=== PATIENT | male | born 1945 | race Caucasian/White ===

== ENCOUNTER 2019-10-06 11:25 | Emergency (ER) | payer BC, MEDICARE ==
[2019-10-06] MEDS ORDERED: Furosemide 20 MG/2 ML VIAL IVPUSH STA (13:09)
[2019-10-06] MEDS ORDERED: Metolazone 5 MG Tab PO ONE (13:09)
--- NOTE | 2019-10-06 13:11 | EDM.PDOC ---
ED HPI GENERAL MEDICAL PROBLEM - General Chief Complaint: Respiratory Problem Stated Complaint: CHEST PAIN Time Seen by Provider: 10/06/19 11:30 Source of Information: Reports: Patient History Limitations: Reports: No Limitations - History of Present Illness INITIAL COMMENTS - FREE TEXT/NARRATIVE: Patient presented to the ED because of dyspnea for 2 months which is getting worse. Normally he can walk 2 blocks without being short of breath but for the past week it's getting worse. He denies having any chest pain, N/V, diaphoresis. He also mentioned that he gained 25 lbs during the last 2 months and most are in his abdomen. R shoulder Pain Score (Numeric/FACES): 6 - Related Data Allergies Allergy/AdvReac Type Severity Reaction Status Date / Time hydromorphone HCl Allergy Cannot Verified 10/06/19 11:44 [From Dilaudid] Remember Penicillins Allergy Hives Verified 10/06/19 11:44 Home Meds: Home Meds Albuterol [Ventolin HFA] 2 puff INH Q4H PRN 06/06/14 [History] Losartan [Cozaar] 25 mg PO BEDTIME 06/06/14 [History] Metoprolol Succinate [Toprol XL] 50 mg PO BEDTIME 06/06/14 [History] Multivitamin [My Favorite Multiple] 30 ml PO BEDTIME 06/06/14 [History] Ware-3 Fatty Acids [Ware-3] 2 cap PO BEDTIME 06/06/14 [History] Ubiquinol 200 mg PO BEDTIME 06/06/14 [History] atorvaSTATin [Lipitor] 20 mg PO BEDTIME 06/06/14 [History] Apixaban [Eliquis] 5 mg PO BID 10/06/19 [History] Ascorbate Calcium [Vitamin C] 500 mg PO BEDTIME 10/06/19 [History] Aspirin [Adult Low Dose Aspirin EC] 81 mg PO BEDTIME 10/06/19 [History] Budesonide [Pulmicort] 0.5 mg IH BID 10/06/19 [History] Formoterol [Perforomist] 20 mcg INH BID 10/06/19 [History] Furosemide [Lasix] 40 mg PO DAILY #30 tab 10/06/19 [Rx] Magnesium 250 mg PO BEDTIME 10/06/19 [History] Nitroglycerin [Nitrostat] 0.4 mg SL ASDIRECTED PRN 10/06/19 [History] Past Medical History Cardiovascular History: Reports: Afib, SOB on Exertion, Stents Other Cardiovascular History: cardioversion 10/04/19 Respiratory History: Reports: COPD, Sleep Apnea, SOB Genitourinary History: Reports: Renal Calculus, Other (See Below) Musculoskeletal History: Reports: Arthritis Other Musculoskeletal History: R shoulder arthritis Endocrine/Metabolic History: Reports: Obesity/BMI 30+ Hematologic History: Reports: Anticoagulation Therapy - Infectious Disease History Infectious Disease History: Reports: Chicken Pox, Measles - Past Surgical History HEENT Surgical History: Reports: Eye Surgery Other HEENT Surgeries/Procedures: L tear duct surgery Cardiovascular Surgical History: Reports: Carotid Endarterectomy, Coronary Artery Stent Other Cardiovascular Surgeries/Procedures: stents x 2, R carotid endarterectomy Respiratory Surgical History: Reports: Thoracentesis GI Surgical History: Reports: Colonoscopy Male Surgical History: Reports: Lithotripsy (ES[facility]) Musculoskeletal Surgical History: Reports: None Social & Family History - Family History Family Medical History: Noncontributory - Tobacco Use Smoking Status *Q: Former Smoker Years of Tobacco use: 20 Used Tobacco, but Quit: Yes Month/Year Tobacco Last Used: 1984 - Caffeine Use Caffeine Use: Reports: Coffee - Recreational Drug Use Recreational Drug Use: No ED ROS GENERAL - Review of Systems Review Of Systems: See Below Constitutional: Reports: No Symptoms HEENT: Reports: No Symptoms Respiratory: Reports: Shortness of Breath. Denies: Cough Cardiovascular: Reports: No Symptoms Endocrine: Reports: No Symptoms GI/Abdominal: Reports: No Symptoms : Reports: No Symptoms Musculoskeletal: Reports: No Symptoms Skin: Reports: No Symptoms Neurological: Reports: No Symptoms Psychiatric: Reports: No Symptoms Hematologic/Lymphatic: Reports: No Symptoms ED EXAM, GENERAL - Physical Exam Exam: See Below Exam Limited By: No Limitations General Appearance: Alert, No Apparent Distress Eye Exam: Bilateral Eye: PERRL Ears: Normal External Exam, Normal Canal Nose: Normal Inspection, Normal Mucosa Throat/Mouth: Normal Inspection, Normal Lips, Normal Teeth Head: Atraumatic, Normocephalic Neck: Normal Inspection, Supple, Non-Tender, Full Range of Motion Respiratory/Chest: No Respiratory Distress, Chest Non-Tender, Rales Cardiovascular: Normal Peripheral Pulses, Regular Rate, Rhythm, No Edema, No Gallop Extremities: Normal Inspection, Normal Range of Motion Neurological: Alert, Oriented, CN II-XII Intact Psychiatric: Normal Affect Skin Exam: Warm Course - Vital Signs Text/Narrative:: Labs,CXR, WKG was discussed with patient and verbalized full understanding Trop neg Pro BNO-elevated lasix 40 mg IV x1 zaroxolyn 5 mg po x1 Last Recorded V/S: Last Vital Signs Temp 36.6 C 10/06/19 11:25 Pulse 81 10/06/19 14:00 Resp 20 10/06/19 14:00 BP 158/87 H 10/06/19 14:00 Pulse Ox 95 10/06/19 14:00 - Orders/Labs/Meds Orders: Active Orders 24 hr Category Date Time Status EKG Documentation Completion [RC] ASDIRECTED Care 10/06/19 11:46 Active Peripheral IV Insertion Adult [OM.PC] Routine Oth 10/06/19 13:42 Ordered EKG 12 Lead [EK] Routine Ther 10/06/19 11:46 Ordered Labs: Laboratory Tests 10/06/19 10/06/19 10/06/19 Range/Units 11:35 11:35 11:35 WBC 9.8 (4.5-12.0) X10-3/uL RBC 4.73 (4.30-5.75) x10(6)uL Hgb 13.6 (13.5-17.8) g/dL Hct 42.2 (30.0-51.3) % MCV 89.2 (80-96) fL MCH 28.7 (27.7-33.6) pg MCHC 32.2 (32.2-35.4) g/dL RDW 14.8 (11.5-15.5) % Plt Count 254 (125-369) X10(3)uL MPV 7.8 (7.4-10.4) fL Add Manual Diff Yes Neutrophils % (Manual) 83 H (46-82) % Lymphocytes % (Manual) 13 (13-37) % Monocytes % (Manual) 4 (4-12) % D-Dimer, Quantitative (0.0-0.59) mg/LFEU Sodium 142 (135-145) mmol/L Potassium 4.8 (3.5-5.3) mmol/L Chloride 106 (100-110) mmol/L Carbon Dioxide 27 (21-32) mmol/L BUN 20 H (7-18) mg/dL Creatinine 1.3 (0.70-1.30) mg/dL Est Cr Clr Drug Dosing 47.32 mL/min Estimated GFR (MDRD) 54 L (>60) BUN/Creatinine Ratio 15.4 (9-20) Glucose 110 (80-116) mg/dL Calcium 9.1 (8.6-10.2) mg/dL Total Bilirubin 1.5 H (0.1-1.3) mg/dL AST 25 (5-25) IU/L ALT 47 H (12-36) U/L Alkaline Phosphatase 70 (56-112) IU/L Troponin I 12.8 (4.0-60.3) pg/mL NT-Pro-B Natriuret Pep 967 H (<=125) pg/mL Total Protein 7.9 (6.0-8.0) g/dL Albumin 3.8 (3.2-4.6) g/dL Globulin 4.1 g/dL Albumin/Globulin Ratio 0.9 04/29/20 Range/Units 11:35 WBC (4.5-12.0) X10-3/uL RBC (4.30-5.75) x10(6)uL Hgb (13.5-17.8) g/dL Hct (30.0-51.3) % MCV (80-96) fL MCH (27.7-33.6) pg MCHC (32.2-35.4) g/dL RDW (11.5-15.5) % Plt Count (125-369) X10(3)uL MPV (7.4-10.4) fL Add Manual Diff Neutrophils % (Manual) (46-82) % Lymphocytes % (Manual) (13-37) % Monocytes % (Manual) (4-12) % D-Dimer, Quantitative 0.53 (0.0-0.59) mg/LFEU Sodium (135-145) mmol/L Potassium (3.5-5.3) mmol/L Chloride (100-110) mmol/L Carbon Dioxide (21-32) mmol/L BUN (7-18) mg/dL Creatinine (0.70-1.30) mg/dL Est Cr Clr Drug Dosing mL/min Estimated GFR (MDRD) (>60) BUN/Creatinine Ratio (9-20) Glucose (80-116) mg/dL Calcium (8.6-10.2) mg/dL Total Bilirubin (0.1-1.3) mg/dL AST (5-25) IU/L ALT (12-36) U/L Alkaline Phosphatase (56-112) IU/L Troponin I (4.0-60.3) pg/mL NT-Pro-B Natriuret Pep (<=125) pg/mL Total Protein (6.0-8.0) g/dL Albumin (3.2-4.6) g/dL Globulin g/dL Albumin/Globulin Ratio Meds: Medications Discontinued Medications Generic Name Dose Route Start Last Admin Trade Name Freq PRN Reason Stop Dose Admin Furosemide 40 mg 10/06/19 13:09 10/06/19 13:41 Lasix IVPUSH 10/06/19 13:10 40 mg NOW STA Administration Metolazone 5 mg 10/06/19 13:09 10/06/19 13:42 Zaroxolyn PO 10/06/19 13:10 5 mg ONETIME ONE Administration Sodium Chloride 10 ml 10/06/19 13:42 10/06/19 11:38 Saline Flush FLUSH 10 ml ASDIRECTED PRN Administration Keep Vein Open Departure - Departure Time of Disposition: 14:00 Disposition: Home, Self-Care 01 Condition: Good Clinical Impression: New onset of congestive heart failure - Discharge Information Prescriptions: Furosemide [Lasix] 40 mg PO DAILY #30 tab Instructions: Furosemide injection, Heart Failure, Metolazone tablets Referrals: Marco Antonio Flores MD [Primary Care Provider] - Forms: ED Department Discharge Additional Instructions: please read discharge instructions on congestive heart failure take lasix/furosemide 40 mg daily until you see Dr. Flores Follow up with Dr. Flores next week at [facility] [place], call for appt. Sepsis Event Note - Evaluation Sepsis Screening Result: No Definite Risk - Focused Exam Vital Signs: Vital Signs Temp Pulse Resp BP Pulse Ox 10/06/19 14:00 81 20 158/87 H 95 10/06/19 13:30 143 H 23 H 143/80 H 94 L 10/06/19 13:00 77 26 H 138/62 94 L 10/06/19 12:30 80 24 H 137/78 94 L 10/06/19 12:15 78 19 138/83 93 L 10/06/19 12:00 78 23 H 141/87 H 92 L 10/06/19 11:45 78 25 H 143/76 H 93 L 10/06/19 11:25 36.6 C 80 24 H 128/58 L 93 L Date Exam was Performed: 10/06/19 Time Exam was Performed: 18:52 - My Orders Last 24 Hours: My Active Orders 10/06/19 11:46 EKG Documentation Completion [RC] ASDIRECTED EKG 12 Lead [EK] Routine 10/06/19 13:42 Peripheral IV Insertion Adult [OM.PC] Routine - Assessment/Plan Last 24 Hours: My Active Orders 10/06/19 11:46 EKG Documentation Completion [RC] ASDIRECTED EKG 12 Lead [EK] Routine 10/06/19 13:42 Peripheral IV Insertion Adult [OM.PC] Routine
[2019-10-06] MEDS ORDERED: Sodium Chloride 0.9% 10 ML Syringe FLUSH PRN (13:42)
[2019-10-06 14:54] VITALS: BP 158/87; PULSE 81
--- NOTE | 2019-10-06 17:00 | CR ---
INDICATION: Chest pain. CHEST, ONE VIEW: AP upright portable view of the chest 10/06/19 was compared with 04/02/10. The heart appears difficult to evaluate size-hanson but it may be slightly enlarged. Infiltration is centrally present and extending into the lung bases with pleural effusion on the right. Findings may be on the basis of a process such as aspiration pneumonia or pleuritis would also be considerations. CHF is felt to be less likely with lung edema but cannot be entirely excluded. The aorta is tortuous with calcification in the arch. Overlying EKG leads are noted. When clinically possible, full inspiration PA and lateral views of the chest may be helpful for further evaluation. The previous examination was PA and lateral obtained on 04/02/10. IMPRESSION: There appears to be infiltration centrally and extending into the lung bases with pleural effusion on the right. Findings could be on the basis of CHF and lung edema but should be correlated clinically as pneumonia and pleuritis would also be a strong consideration with this appearance. Consolidation appears to be most prominent at the lung bases. MTDD
== END 2019-10-06 14:17 | disposition home or self-care (01) ==
LOC: FB.ED 11:25
DX: I50.9 Heart failure, unspecified (principal); I48.91 Unspecified atrial fibrillation; J44.9 Chronic obstructive pulmonary disease, unspecified; M19.90 Unspecified osteoarthritis, unspecified site; E66.9 Obesity, unspecified; Z79.01 Long term (current) use of anticoagulants; Z79.82 Long term (current) use of aspirin; Z79.899 Other long term (current) drug therapy; Z68.34 Body mass index [BMI] 34.0-34.9, adult; Z87.891 Personal history of nicotine dependence
CPT/HCPCS: 36415; 71045; 80053; 83880; 84484; 85025; 85379; 93005; 96374; 99285-25; A9270-GY; J1940

== ENCOUNTER 2020-07-15 01:23 | Emergency (ER) | payer BC, MEDICARE ==
--- NOTE | 2020-07-15 01:38 | EDM.PDOC ---
ED HPI GENERAL MEDICAL PROBLEM - General Stated Complaint: back pain Time Seen by Provider: 07/15/20 01:30 Source of Information: Reports: Patient History Limitations: Reports: No Limitations - History of Present Illness INITIAL COMMENTS - FREE TEXT/NARRATIVE: 75-year-old male who reports that for the past 2-3 days he has noticed an increase in his cough with decreased production of sputum and when he does it is thick and salazar colored. He feels like there is glue in his lungs. Tonight at approximately 10 to 11 PM he developed a sharp pain all across his entire chest that also had a pressure type component associated with it and it radiated into his upper/mid back. It did seem to be worse with the cough. He did not really feel more short of breath than normal but the did note that his O2 saturations were in the mid 80s on 3 L/m via nasal cannula. He has been on oxygen 30/12 since April when he had COVID 19. He reports that the pain came on when he was sitting in his recliner at rest. He had not had any of this pain before. There was no nausea or vomiting associated with it. He has been eating and drinking normally. He does reports the pain as an 8/10. No weakness or dizziness. No fevers or chills. Upon arrival here in the emergency department, his O2 saturations were 88 to 89% on 3 L/m via nasal cannula and they are up to 94% on 5 L/m via nasal cannula. There are no other associated signs or symptoms. There are no other modifying factors. Onset: Other (2-3 days for the increase in cough and phlegm. 10 to 11 PM for the chest pain and back pain.) Duration: Constant Location: Reports: Chest, Back Quality: Reports: Pressure, Sharp, Stabbing Severity: Moderate (to veer.) Improves with: Reports: Rest Worsens with: Reports: Other (Cough) Context: Reports: Other (As above.) Associated Symptoms: Reports: Chest Pain, Cough Treatments COMMISSIONING AGENT: Reports: Other (see below) (Nothing.) Chest Pain Score (Numeric/FACES): 8 - Related Data Allergies Allergy/AdvReac Type Severity Reaction Status Date / Time Penicillins Allergy Hives Verified 10/06/19 11:44 hydromorphone HCl AdvReac Change Verified 07/15/20 02:41 [From Dilaudid] Mental Status Home Meds: Home Meds Albuterol [Ventolin HFA] 2 puff INH Q4H PRN 06/06/14 [History] Losartan [Cozaar] 25 mg PO BEDTIME 06/06/14 [History] Metoprolol Succinate [Toprol XL] 200 mg PO BEDTIME 06/06/14 [History] Multivitamin [My Favorite Multiple] 30 ml PO BEDTIME 06/06/14 [History] [place]-3 Fatty Acids [[place]-3] 2 cap PO BEDTIME 06/06/14 [History] Ubiquinol 200 mg PO BEDTIME 06/06/14 [History] atorvaSTATin [Lipitor] 20 mg PO BEDTIME 06/06/14 [History] Apixaban [Eliquis] 5 mg PO BID 10/06/19 [History] Ascorbate Calcium [Vitamin C] 500 mg PO BEDTIME 10/06/19 [History] Aspirin [Adult Low Dose Aspirin EC] 81 mg PO BEDTIME 10/06/19 [History] Budesonide [Pulmicort] 0.5 mg IH BID 10/06/19 [History] Formoterol [Perforomist] 20 mcg INH BID 10/06/19 [History] Magnesium 250 mg PO BEDTIME 10/06/19 [History] Nitroglycerin [Nitrostat] 0.4 mg SL ASDIRECTED PRN 10/06/19 [History] Albuterol/Ipratropium [DuoNeb 3.0-0.5 MG/3 ML] 1 dose INH QID 07/15/20 [History] Bumetanide [Bumex] 3 mg PO BID 07/15/20 [History] Digoxin 125 mcg PO DAILY 07/15/20 [History] Esomeprazole [NexIUM] 20 mg PO DAILY 07/15/20 [History] metOLazone [Metolazone] 2.5 mg PO DAILY PRN 07/15/20 [History] Past Medical History Cardiovascular History: Reports: Afib, CAD, Heart Failure, High Cholesterol, Hypertension, PTCA, Stents Respiratory History: Reports: COPD, Sleep Apnea, SOB Genitourinary History: Reports: Renal Calculus Musculoskeletal History: Reports: Arthritis Other Musculoskeletal History: R shoulder arthritis Endocrine/Metabolic History: Reports: Obesity/BMI 30+ Hematologic History: Reports: Anticoagulation Therapy (Chronically anticoagulated on Eliquis.) - Infectious Disease History Infectious Disease History: Reports: Chicken Pox, Measles - Past Surgical History HEENT Surgical History: Reports: Eye Surgery Other HEENT Surgeries/Procedures: L tear duct surgery Cardiovascular Surgical History: Reports: Carotid Endarterectomy, Coronary Artery Stent Other Cardiovascular Surgeries/Procedures: stents x 2, R carotid endarterectomy Respiratory Surgical History: Reports: Thoracentesis, Other (See Below) (Bronchoscopy) GI Surgical History: Reports: Colonoscopy Male Surgical History: Reports: Lithotripsy ([facility]) Social & Family History - Tobacco Use Tobacco Use Status *Q: Former Tobacco User (Quit in 1984.) - Caffeine Use Caffeine Use: Reports: Coffee - Alcohol Use Alcohol Use History: Yes Alcohol Use Frequency: Rarely (Has not really had any alcohol for the past 2 years.) - Living Situation & Occupation Living situation: Reports: Occupation: Retired ED ROS GENERAL - Review of Systems Review Of Systems: See Below Constitutional: Reports: No Symptoms HEENT: Reports: No Symptoms Respiratory: Reports: Cough, Sputum. Denies: Hemoptysis Cardiovascular: Reports: Chest Pain Endocrine: Reports: No Symptoms GI/Abdominal: Reports: No Symptoms : Reports: No Symptoms Musculoskeletal: Reports: Back Pain Skin: Reports: No Symptoms Neurological: Reports: No Symptoms Hematologic/Lymphatic: Reports: Easy Bleeding (Chronically anticoagulated on Eliquis) Immunologic: Reports: No Symptoms ED EXAM, GENERAL - Physical Exam Exam: See Below Exam Limited By: No Limitations General Appearance: Alert, WD/WN, Moderate Distress, Other (He is awake and alert and fluid in his conversation.) Eye Exam: Bilateral Eye: EOMI, Normal Inspection Ears: Normal External Exam, Hearing Grossly Normal Ear Exam: Bilateral Ear: Auricle Normal Nose: Normal Inspection, Normal Mucosa, No Blood Throat/Mouth: Normal Inspection, Normal Oropharynx, Normal Voice, No Airway Compromise Head: Atraumatic, Normocephalic Neck: Normal Inspection, Supple, Non-Tender, Full Range of Motion Respiratory/Chest: No Accessory Muscle Use, Chest Non-Tender, Decreased Breath Sounds (Diffusely.), Crackles (Diffusely, bilaterally), Wheezing (Scattered wheezes.) Cardiovascular: Normal Peripheral Pulses, No Murmur, Irregularly Irregular Peripheral Pulses: 2+: Radial (L), Radial (R), Dorsalis Pedis (L), Dorsalis Pedis (R) GI/Abdominal: Normal Bowel Sounds, Soft, Non-Tender, No Mass Back Exam: Normal Inspection Extremities: Normal Inspection, Normal Range of Motion, Non-Tender, No Pedal Edema, Normal Capillary Refill Neurological: Alert, Oriented, CN II-XII Intact, Normal Cognition, No Motor/Sensory Deficits Psychiatric: Normal Affect Skin Exam: Warm, Dry, Intact, Normal Color, No Rash #1 Interpretation EKG Date: 07/15/20 Time: 01:27 Rhythm: A-Fib Rate (Beats/Min): 90 [place]: Normal P-Wave: Absent QRS: Normal ST-T: Other (Repolarization abnormality) QT: Normal Comparison: No Change (No change from an EKG performed on 06/16/2020.) Course - Vital Signs Last Recorded V/S: Last Vital Signs Temp 36.4 C 07/15/20 01:47 Pulse 57 L 07/15/20 01:47 Resp 24 H 07/15/20 01:47 BP 120/59 L 07/15/20 01:57 Pulse Ox 95 07/15/20 04:42 - Orders/Labs/Meds Orders: Active Orders 24 hr Category Date Time Status Chest 1V Frontal [CR] Stat Exams 07/15/20 01:50 Taken CULTURE BLOOD [BC] Urgent Lab 07/15/20 02:03 Received CULTURE BLOOD [BC] Urgent Lab 07/15/20 02:10 Received Blood Culture x2 Reflex Set [OM.PC] Urgent Oth 07/15/20 01:52 Ordered Peripheral IV Insertion Adult [OM.PC] Routine Oth 07/15/20 01:50 Ordered EKG 12 Lead [EK] Routine Ther 07/15/20 01:50 Ordered Labs: Laboratory Tests 07/15/20 07/15/20 07/15/20 Range/Units 02:03 02:03 02:03 WBC 17.3 H (3.2-10.1) x10-3/uL RBC 4.20 (3.90-5.90) x10(6)uL Hgb 12.6 L (12.9-17.7) g/dL Hct 39.2 (38.3-50.1) % MCV 93.3 (80.8-98.7) fL MCH 30.1 (27.0-33.3) pg MCHC 32.2 (28.7-35.3) g/dL RDW 17.4 H (12.4-15.0) % Plt Count 195 (117-477) x10(3)uL MPV 7.7 (6.7-11.0) fL Add Manual Diff Yes Neutrophils % (Manual) 81 (46-82) % Band Neutrophils % 1 (0-6) % Lymphocytes % (Manual) 10 L (13-37) % Monocytes % (Manual) 8 (4-12) % POC VBG pH (7.32-7.43) pH Units POC VBG pCO2 (41-51) mmHg POC VBG HCO3 (21-29) mmol/L VBG Base Excess (-2-3) mmol/L O2 Delivery Device Sodium 135 (135-145) mmol/L Potassium 2.8 L* D (3.5-5.3) mmol/L Chloride 90 L D (100-110) mmol/L Carbon Dioxide 32 (21-32) mmol/L BUN 73 H D (7-18) mg/dL Creatinine 3.5 H* (0.70-1.30) mg/dL Est Cr Clr Drug Dosing TNP Estimated GFR (MDRD) 17 L (>60) BUN/Creatinine Ratio 20.9 H (9-20) Glucose 147 H (80-116) mg/dL Calcium 9.5 (8.6-10.2) mg/dL Magnesium (1.8-2.5) mg/dL Total Bilirubin 1.1 (0.1-1.3) mg/dL AST 21 D (5-25) IU/L ALT 73 H D (12-36) U/L Alkaline Phosphatase 53 L (56-112) IU/L Troponin I 59.6 (4.0-60.3) pg/mL C-Reactive Protein 0.4 L (0.5-0.9) mg/dL NT-Pro-B Natriuret Pep 1789 H* (<=125) pg/mL Total Protein 7.0 (6.0-8.0) g/dL Albumin 3.7 (3.2-4.6) g/dL Globulin 3.3 g/dL Albumin/Globulin Ratio 1.1 07/15/20 07/15/20 Range/Units 02:03 02:03 WBC (3.2-10.1) x10-3/uL RBC (3.90-5.90) x10(6)uL Hgb (12.9-17.7) g/dL Hct (38.3-50.1) % MCV (80.8-98.7) fL MCH (27.0-33.3) pg MCHC (28.7-35.3) g/dL RDW (12.4-15.0) % Plt Count (117-477) x10(3)uL MPV (6.7-11.0) fL Add Manual Diff Neutrophils % (Manual) (46-82) % Band Neutrophils % (0-6) % Lymphocytes % (Manual) (13-37) % Monocytes % (Manual) (4-12) % POC VBG pH 7.45 H (7.32-7.43) pH Units POC VBG pCO2 40 L (41-51) mmHg POC VBG HCO3 28 (21-29) mmol/L VBG Base Excess 4 H (-2-3) mmol/L O2 Delivery Device Nasal cannula Sodium (135-145) mmol/L Potassium (3.5-5.3) mmol/L Chloride (100-110) mmol/L Carbon Dioxide (21-32) mmol/L BUN (7-18) mg/dL Creatinine (0.70-1.30) mg/dL Est Cr Clr Drug Dosing Estimated GFR (MDRD) (>60) BUN/Creatinine Ratio (9-20) Glucose (80-116) mg/dL Calcium (8.6-10.2) mg/dL Magnesium 2.3 (1.8-2.5) mg/dL Total Bilirubin (0.1-1.3) mg/dL AST (5-25) IU/L ALT (12-36) U/L Alkaline Phosphatase (56-112) IU/L Troponin I (4.0-60.3) pg/mL C-Reactive Protein (0.5-0.9) mg/dL NT-Pro-B Natriuret Pep (<=125) pg/mL Total Protein (6.0-8.0) g/dL Albumin (3.2-4.6) g/dL Globulin g/dL Albumin/Globulin Ratio Meds: Medications Discontinued Medications Generic Name Dose Route Start Last Admin Trade Name Freq PRN Reason Stop Dose Admin Albuterol/Ipratropium 3 ml 07/15/20 01:53 07/15/20 01:57 Duoneb 3.0-0.5 Mg/3 Ml NEB 07/15/20 01:54 3 ml ONETIME ONE Administration Aspirin 324 mg 07/15/20 01:53 07/15/20 01:57 Aspirin PO 07/15/20 01:54 324 mg ONETIME ONE Administration Cefepime HCl 1 gm 07/15/20 03:08 07/15/20 03:47 Maxipime IVPUSH 07/15/20 03:09 1 gm ONETIME ONE Administration Sodium Chloride 1,000 mls @ 100 mls/hr 07/15/20 02:00 07/15/20 01:57 Normal Saline IV 100 mls/hr ASDIRECTED ULICES Administration Sodium Chloride 250 mls @ 999 mls/hr 07/15/20 02:15 07/15/20 02:27 Normal Saline IV 07/15/20 02:30 999 mls/hr .BOLUS ONE Administration Sodium Chloride 250 mls @ 999 mls/hr 07/15/20 02:39 07/15/20 02:48 Normal Saline IV 07/15/20 02:54 999 mls/hr .BOLUS ONE Administration Vancomycin HCl 1 gm/ Sodium 250 mls @ 167 mls/hr 07/15/20 03:08 07/15/20 03:49 Chloride IV 07/15/20 04:37 167 mls/hr ONETIME ONE Administration Methylprednisolone Sodium Succinate 125 mg 07/15/20 03:15 07/15/20 03:41 Solu-Medrol IVPUSH 07/15/20 03:16 125 mg ONETIME ONE Administration Nitroglycerin 0.4 mg 07/15/20 01:53 07/15/20 01:57 Nitrostat SL 0.4 mg Q5M PRN Administration Chest Pain Potassium Chloride 40 meq 07/15/20 02:45 07/15/20 02:45 Klor-Con PO 40 meq ASDIRECTED ULICES Administration Sodium Chloride 10 ml 07/15/20 01:50 07/15/20 02:26 Saline Flush FLUSH 10 ml ASDIRECTED PRN Administration Keep Vein Open - Radiology Interpretation Free Text/Narrative:: Portable chest x-ray shows bilateral infiltrates. - Re-Assessments/Exams Free Text/Narrative Re-Assessment/Exam: 07/15/20 02:10: Patient's blood pressure dipped to the 60-80 systolic range after 1 sublingual nitroglycerin and he felt dizzy. This improved with him lying flat but he will be given normal saline 250 mL IV as bolus. His pain, however, is much improved down to a 2-3/10. 07/15/20 02:45: The patient's blood pressure is improved after 500 mL of normal saline given IV. The blood pressure is 120 systolic. He is chest pain-free at this point. His breathing is much improved with O2 saturations of 98-100% on 3 L/m via nasal cannula at present. His white blood cell count of 17.3. His hemoglobin is normal. His potassium was 2.8. I have given him potassium 40 mEq by mouth. His BUN and creatinine are 73 and 3.5 markedly up from previous of creatinine of 1.54 last week. His initial troponin was normal. His proBNP was slightly up. His chest x-ray shows bilateral pneumonias. The patient does seem to be improved but he still has increased oxygen need evidence of bilateral pneumonias. He also has evidence of acute kidney injury he will need admission with IV fluids and IV antibiotics and serial cardiac enzymes. I have been informed that we do not have the beds/staff to admit the patient to our facility. Therefore I discussed this with the patient and his and they would want me to discuss the patient's case with the doctors at [facility] in [place]. I will order cefepime 1 g IV, vancomycin 1 g IV and Solu-Medrol 125 mg IV. 07/15/20 03:10: Call placed to [facility] and they will have to get the hospitalist and call me back. 07/15/20 03:38: I discussed the patient's case with Dr. Muniz, hospitalist at [facility] in [place], and he has agreed to accept the patient in transfer. The patient will need to be transferred via ALS ambulance for direct admission to [facility] in [place]. We will continue close monitoring of the patient. He remains chest pain-free at this point. His breathing is much improved. He is only getting the medication as ordered above. Departure - Departure Time of Disposition: 04:40 Disposition: DC/Tfer to Acute Hospital 02 Condition: Fair (Guarded.) Clinical Impression: Acute kidney injury Bilateral pneumonia Qualifiers: Pneumonia type: due to unspecified organism Lung location: unspecified part of lung Qualified Code(s): J18.9 - Pneumonia, unspecified organism Chest pain Qualifiers: Chest pain type: unspecified Qualified Code(s): R07.9 - Chest pain, unspecified Acute and chronic respiratory failure Qualifiers: Respiratory failure complication: hypoxia Qualified Code(s): J96.21 - Acute and chronic respiratory failure with hypoxia - Discharge Information Referrals: PCP,None [Primary Care Provider] - Forms: ED Department Discharge Sepsis Event Note (ED) - Focused Exam Vital Signs: Vital Signs Temp Pulse Resp BP BP Pulse Ox Pulse Ox 07/15/20 04:42 95 07/15/20 02:34 94 L 07/15/20 01:57 120/59 L 07/15/20 01:50 96 07/15/20 01:47 36.4 C 57 L 24 H 140/80 94 L - My Orders Last 24 Hours: My Active Orders 07/15/20 01:50 Chest 1V Frontal [CR] Stat Peripheral IV Insertion Adult [OM.PC] Routine EKG 12 Lead [EK] Routine 07/15/20 01:52 Blood Culture x2 Reflex Set [OM.PC] Urgent 07/15/20 02:03 CULTURE BLOOD [BC] Urgent 07/15/20 02:10 CULTURE BLOOD [BC] Urgent - Assessment/Plan Last 24 Hours: My Active Orders 07/15/20 01:50 Chest 1V Frontal [CR] Stat Peripheral IV Insertion Adult [OM.PC] Routine EKG 12 Lead [EK] Routine 07/15/20 01:52 Blood Culture x2 Reflex Set [OM.PC] Urgent 07/15/20 02:03 CULTURE BLOOD [BC] Urgent 07/15/20 02:10 CULTURE BLOOD [BC] Urgent
[2020-07-15 01:48] VITALS: PULSE 57
[2020-07-15] MEDS ORDERED: Sodium Chloride 0.9% 10 ML Syringe FLUSH PRN (01:50)
[2020-07-15] MEDS ORDERED: Albuterol/Ipratropium 3.0-0.5 MG/3 ML Neb Soln NEB ONE (01:53)
[2020-07-15] MEDS ORDERED: Aspirin 81 MG Tab.Chew PO ONE (01:53)
[2020-07-15] MEDS ORDERED: Nitroglycerin 0.4 MG Tab.SL SL PRN (01:53)
[2020-07-15] MEDS ORDERED: Sodium Chloride 0.9% 1,000 ML IV SCH (02:00)
[2020-07-15] MEDS ORDERED: Sodium Chloride 0.9% 250 ML IV ONE ×2 (02:15→02:39)
[2020-07-15 02:25] LABS: BASE EXCESS VENOUS,POC 4 mmol/L (-2-3); PCO2 VENOUS,POC 40 mmHg (41-51); PH VENOUS,POC 7.45 pH Units (7.32-7.43)
[2020-07-15] MEDS ORDERED: Potassium Chloride 20 MEQ Packet PO SCH (02:45)
[2020-07-15] MEDS ORDERED: Cefepime 1 GM Vial IVPUSH ONE (03:08)
[2020-07-15] MEDS ORDERED: methylPREDNISolone Sodium Succinate 125 MG/2 ML SDV IVPUSH ONE (03:15)
[2020-07-15 05:22] VITALS: BP 120/59
--- NOTE | 2020-07-17 12:40 | CR ---
CHEST ONE VIEW INDICATION: Chest pain. Positive Covid-19 test 04/2020. AP portable upright view of the chest 07/15/2020 was compared with 10/06/2019 and 04/02/2010 revealing infiltration in the right mid lung field and left mid to lower lung field and also minimally at the right lower lung field. The appearance could be on the basis of unusual pulmonary edema in a patient with CHF, although pneumonia would also be a consideration. Some of this appearance was present on the previous study of 10/06/2019 raising question of additional fibrosis in some of these areas. Overlying EKG leads are noted. The heart size was not well evaluated due to poor inspiration and portable AP positioning. IMPRESSION: Difficult to exclude CHF with acute pulmonary edema; although, areas of pneumonia may be present. MTDD
--- OUTSIDE RECORDS SUMMARY | 2020-07-21 08:08 | XMSREPORT ---
:1945 Author Organization [facility] s Address [address] [place] [address] [address] [place] [address] Care Team Providers Name Role Phone Ivanna Flores MD Primary Care Provider Ivanna Flores MD Attributed Provider Edinson Green RN Nurse Navigator Reason for Visit Reason Comments Auth/Cert Status Reason Specialty Diagnoses / Procedures Referred By Shantelle bowser Referred To Contact Encounter Details Date Type Department Care Team Description 07/15/2020 - Hospital Encounter [facility] Provider, Gen [facility] Procedure Chest pain 07/19/2020 CENTER 6CD Melinda Mathews MD [address] [place], [place] [id number] Shameka Urias MD [address] [place], [place] [id number] [place] [address] Meryl Hawkins MD [address] [place] [address] [id number] [phone] Allergies Active Allergy Reactions Severity Noted Date Comments Hydromorphone Hcl Dizziness, Unknown/Not Verified High 01/08 Hydromorphone Hcl Other (Specify in Comments) 11/10/19 Penicillin Hives (High) High 01/31/2012 documented as of this encounter (statuses as of 07/19/2020) Medications Medication Sig Dispensed Refills Start Date End Date Status Multiple Take 1 oz by mouth 0 A ctive Vitamins-Minerals 1 time per day. (MULTIVITAMIN & MINERAL) LIQD Magnesium Hydroxide Take 250 mg by 0 Active (MAGNESIA PO) mouth 1 time per day ubiquinone-10 (CO Take 200 mg by 0 Active Q-10) 200 mg capsule mouth 1 time per day. nitroglycerin PLACE 1 TAB UNDER 25 tablet 3 08/20/2018 Active (NITROSTAT) 0.4 mg TONGUE NEEDED sublingual REPEAT IN 5 MIN X 3 tabletIndications: DOSES CALL 911NO Coronary artery RELIEF disease involving [place] coronary artery of [place] heart without angina pectoris formoterol Inhale 1 nebule (20 60 nebule 11 06/28/2019 Active (PERFOROMIST) 20 mcg) by MCG/2ML inhalation nebulization 2 solutionIndications: times a day Reactive airway disease without complication, unspecified asthma severity, unspecified whether persistent apixaban (ELIQUIS) 5 Take 1 tablet (5 60 tablet 11 09/02/2019 Active MG tabletIndications: mg) by mouth 2 Atrial Fibrillation times a day Indications: Atrial Fibrillation acyclovir (ZOVIRAX) 5 APPLY TO AFFECTED 15 g 3 10/22/2019 Active % AREA TOPICALLY ointmentIndications: THREE TIMES DAILY Herpes simplex NEEDED FOR [place] aspirin 81 mg enteric Take 1 tablet (81 30 tablet 0 11/03/2019 Active coated mg) by mouth Every tabletIndications: other day Coronary artery disease involving [place] coronary artery of [place] heart without angina pectoris esomeprazole (NEXIUM) Take 1 capsule by 0 03/29/2020 Active 20 mg capsule mouth 1 time per day glucosamine-chondroit Take 2 capsules by 0 Active in (JOINT FLEX) mouth 1 time per 500-400 mg capsule day vitamin C (ASCORBIC Take 500 mg by 0 Active ACID) 500 mg chewable mouth 1 time per tablet day omega-3 fatty acids Take 2,000 mg by 0 Active (FISH OIL) 1000 mg mouth 1 time per capsule day vitamin D3, Take 1 tablet (25 90 tablet 0 05/09/2020 Active cholecalciferol, 25 mcg) by mouth 1 mcg (1000 unit) time per day tabletIndications: Pneumonia due to COVID-19 virus senna-docusate sodium Take 1 tablet by 60 tablet 0 06/26/2020 Active (SENOKOT-S;PERICOLACE mouth 2 times a day ) 8.6-50 MG tabletIndications: Constipation, unspecified constipation type Additional Information Patient taking differently: 1 tablet Oral One time a day prn, constipation, Informant: Spouse, Reported on 07/15/2020 9:23 AM albuterol-ipratropium Inhale 1 1080 mL 4 06/26/2020 022 Active (DUO-NEB) 2.5-0.5 mg/3 unit-dose (3 mL inhalation mL) by solutionIndications: nebulization 4 Hypoxia times a day and every 4 hours as needed potassium chloride Take 1 tablet 20 tablet 3 06/27/2020 Active (KLOR-CON M20) 20 MEQ by mouth on CR tabletIndications: 06/27 ..Further Acute respiratory workup and failure, unspecified treatment whether with hypoxia or could be done hypercapnia (HCC) if symptoms persist, worsen or new related symptoms occur. The patient will call in that eventuality. Dose from 06/28 based on k level atorvaSTATin (LIPITOR) TAKE 1 TABLET 90 tablet 3 07/03/2020 Active 20 mg BY MOUTH ONCE tabletIndications: DAILY Hypercholesterinemic xanthomatosis, Coronary artery disease involving [place] heart, angina presence unspecified, unspecified vessel or lesion type losartan 50 mg TAKE 06/10 45 tablet 3 07/03/2020 Acti ve tabletIndications: TABLET BY Coronary artery disease MOUTH ONCE involving [place] heart, DAILY angina presence unspecified, unspecified vessel or lesion type budesonide (PULMICORT) Inhale 1 360 mL 4 07/04/20202021 Active 0.5 mg/2 mL inhalation nebule (0.5 solutionIndications: mg) by Reactive airway disease nebulization 2 without complication, times a day unspecified asthma severity, unspecified whether persistent metoprolol succinate Take 1 tablet 30 tablet 3 07/14/2020 03/0 12/2020 Active (TOPROL XL) 200 mg SR (200 mg) by tablet (24 mouth 1 time hr)Indications: Atrial per day fibrillation with rapid ventricular response (HCC) CALCIUM PO Take 1 tablet 0 Activ e by mouth 1 time per day guaiFENesin (MUCINEX) Take 600 mg by 0 Active 600 MG SR (12 hr) mouth 2 times tablet a day as needed for cough polyvinyl 1 drop 1 time 0 Active alcohol-povidone a day as (REFRESH) 1.4-0.6 % needed for dry preservative free eyes ophthalmic solution bumetanide (BUMEX) 1 mg Take 1 tablet 90 tablet 4 07/19/2020 0 07/24/2021 Active tabletIndications: (1 mg) by Acute on chronic mouth 1 time congestive heart per day failure with left ventricular diastolic dysfunction (HCC) predniSONE 10 mg Take 4 tablets 70 tablet 0 07/19/2020 021 Active tabletIndications: (40 mg) by Chronic obstructive mouth 1 time pulmonary disease, per day for 7 unspecified COPD type days, THEN 3 (HCC) tablets (30 mg) 1 time per day for 14 days. predniSONE 10 mg Take 2 tablets 73 tablet 0 08/09/2020 021 Active tabletIndications: (20 mg) by Chronic obstructive mouth 1 time pulmonary disease, per day for 14 unspecified COPD type days, THEN 1.5 (HCC) tablets (15 mg) 1 time per day. 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 nystatin (NILSTAT) Place 5 mL 70 mL 0 07/19/2020 Active 100,000 units/mL oral into mouth 2 suspensionIndications: times a day Chronic obstructive pulmonary disease, unspecified COPD type (HCC), TIERRA (obstructive sleep apnea) Calcium Take 1 tablet 0 03/31/2020 07/15/2020 Disc ontinued Carb-Cholecalciferol by mouth 1 (clerk entry level 600-800 MG-UNIT CHEW time per day error) benzocaine-menthol Place 1 30 1 05/10/2020 07/19/2020 Discontinued (CEPACOL W/ BENZOCAINE) lozenge into lozenge (Stop Taking 6-10 MG mouth Every 4 at Dis charge) LOZGIndications: hours as Aphthous ulcer needed (mouth sores) benzocaine 20 % Place 1 7 g 0 05/10/2020 07/19/2020 Di scontinued gelIndications: Mouth application (Stop Taking sore into mouth 3 at Disc harge) times a day as needed for moderate pain or severe pain arformoterol (BROVANA) Inhale 1 120 mL 11 05/30/20202020 Discontinued 15 MCG/2ML inhalation nebule (15 (Stop Taking solutionIndications: mcg) by at Discharge) Bronchiectasis without nebulization 2 complication (HCC) times a day sulfamethoxazole-trimet Take 1 tablet 30 tablet 0 06/26/2020 0 07/19/2020 Discontinued hoprim (BACTRIM, by mouth 1 (R eorder) SEPTRA) 400-80 mg time per day tabletIndications: custodial (current) use of systemic steroids predniSONE 20 mg Take 40 mg 60 tablet 1 06/26/2020 07/19/2020 Discontinued tabletIndications: daily till (Stop Taking Acute respiratory seen by at Discharge) failure with hypoxia Pulmonary (HCC) --they will taper based on clinical status . bumetanide (BUMEX) 1 mg Take 3 tablets 540 3 07/11/2020 07/19/2020 Discontinued tabletIndications: (3 mg) by tablet ( Stop Taking Acute respiratory mouth two at Discharge) failure with hypoxia times a day (HCC) (in the morning and mid-afternoon) . metOLazone (ZAROXOLYN) Take 1 tablet 30 tablet 1 07/11/2020 Discontinued 2.5 mg (2.5 mg) by (Stop Ta kasia tabletIndications: mouth 1 time a at Discharge) Essential hypertension, day as needed Longstanding persistent for other atrial fibrillation (Specify) (as (HCC), Coronary artery directed by HF disease involving program) [place] coronary artery of [place] heart without angina pectoris, Non-ST elevation [place] (NSTEMI) (HCC) digoxin (LANOXIN) 0.125 Take 1 tablet 90 tablet 3 07/14/2020 0 07/19/2020 Discontinued mg tabletIndications: (0.125 mg) by (Stop Taking Atrial fibrillation mouth 1 time at Discharge) with rapid ventricular per day response (HCC) documented as of this encounter (statuses as of 07/19/2020) Active Problems Problem Noted Date Chest pain 07/15/2020 MARIIA (acute kidney injury) 07/15/2020 Hypoxia 06/19/2020 Congestive heart failure with left ventricular diastol ic dysfunction 11/04/2019 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 Also found to have diffuse 99% stenosis in the 2nd obtuse marginal and 60% stenosis in the ostial right coronary artery. -02/2011 cardiolite revealed reversible i schemia of the mid inferolateral wall and of the proximal inferior, inferolateral hudson and a small portion of the inferoseptal region. -03/06/2011 Cardiac cath for angina revea led a small to medium caliber, nondominant right coronary artery, which was completely occluded. Stent in the circumflex system was patent. LAD showed a mild degr ee of irregularity. LVEF 50% to 55% with some degree of inferior wall hypokinesia. Hyperlipidemia 03/18/2012 Carotid artery stenosis 03/18/2012 Overview: -09/2011 left carotid endarterectomy documented as of this encounter (statuses as of 07/19/2020) Resolved Problems Problem Noted Date Resolved Date Acute respiratory failure 04/26/2020 07/16/2020 Atrial fibrillation with rapid ventricular response 04/26/20 20 07/16/2020 Pneumonia due to COVID-19 virus 04/26/2020 07/16/19 21 On apixaban therapy 09/02/2019 09/02/2019 On apixaban therapy 09/02/2019 09/03/2019 documented as of this encounter (statuses as of 07/19/2020) Immunizations Name Administration Dates Next Due FLU VACCINE HIGH DOSE 65YR+(Fluzone) 03/20/2020, 05/05/2018, 07/01/2017, 03/11/2016, 03/11/2016, 04/10/2015, 04/10/2015, 04/26/2013, 04/26/2013, 03/18/2012, 03/18/2012 Influenza Vaccine,unspecified 03/16/2019 Pneumococcal Conj PCV13 01/21/2018 Pneumococcal Polysaccharide PPSV23 03/20/2020 TDAP 01/21/2018 Zoster Live(Zostavax) 11/07/2014 Zoster Recombinant (Shingrix) 04/03/2020, 12/02/2019 documented as of this encounter Social History Tobacco Use Types Packs/Day Years Used Date Former Smoker Cigarettes 4 15 Quit: 06/09/18 85 Smokeless Tobacco: Former User Chew Q uit: 01/23/1970 Alcohol Use Drinks/Week oz/Week Comments Yes 0.0 rare Alcohol Habits Answer Date Recorded How often do you have a drink containing alcohol? Monthly or less 06/17/2020 How many drinks containing alcohol do you have on a Not aske d typical day when you are drinking? How often do you have six or more drinks on one Not asked occasion? Physical Activity Answer Date Recorded On average, how many days per week do you engage in moderate to 0 days 05/13/2019 strenuous exercise (like walking fast, running, jogging, dancing, swimming, biking, or other activities that cause a light or heavy sweat)? On average, how many minutes do you engage in exercise at th is 0 min 05/13/2019 level? 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 Pulse 130 07/19/2020 9:50 AM SECOND SHIFT SUPERVISOR Temperature 36.4 C (97.6 F) 07/19/2020 8:00 AM SECOND SHIFT SUPERVISOR Respiratory Rate 20 07/19/2020 9:34 AM SECOND SHIFT SUPERVISOR Oxygen Saturation 96% 07/19/2020 9:34 AM SECOND SHIFT SUPERVISOR Inhaled Oxygen Concentration - - Weight 100.4 kg (221 lb 6.4 oz) 07/19/2020 5:00 AM SECOND SHIFT SUPERVISOR Height 170.2 cm (5' 7") 07/15/2020 5:50 AM SECOND SHIFT SUPERVISOR Body Mass Index 34.68 07/15/2020 5:50 AM SECOND SHIFT 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 Is this person blind or does he/she have difficulty No 01/19/2020 seeing even when wearing glasses? Do you have difficulty with walking, balance, climbing Yes 07/11/2020 stairs, or had a fall in the last 3 months? documented as of this encounter Discharge Summaries Not on filedocumented in this encounter Discharge Instructions Pooja Sarah RN - 07/19/2020ischarge on Bumex 1 mg daily - Add 1 mg bumex afternoon if needed, if he gained more than 2 Ib over night or 5 Ib over 1 wk - Follow up with nephrology in 2-4 wks after discharge Heart Failure Discharge Instructions Activity: ? Be as active as possible ? Break down tasks to small activities to avoid becoming overly tired ? Talk to your doctor before lifting more than 10 pounds ? Begin to exercise slowly and increase only as tolerated; refer to your education book ? Balance activity and rest periods Nutrition: ? Follow a low sodium (salt) diet ? Choose no added salt or low sodium foods; choose fresh foods as much as possible ? Avoid adding salt to food when cooking or at the table ? Read the nutrition facts labels and avoid foods with more than 300 mg of sodium per serving Medication: ? Make a list and schedule of the medications you take ? Keep a current list of your medications with you ? Take your medications as prescribed ? Avoid NSAIDs or Non-Steroidal Anti-Inflammatory Drugs (i.e. Advil, Ibuprofen, Motrin, etc.) Self-Care: ? Weigh yourself and write it down first thing in the morning after you empty your bladder and before you eat or drink ? Check for swelling of your feet, ankles, legs, and stomach ? Do your daily exercise ? If you smoke, stop ? Keep all follow-up appointments and bring your medications and weight log with you Review the Living Well with Heart Failure booklet for more information on caring for yourself or your loved one at home. Call Your Doctor or Health Truck Sales Representative If You Have: ? Weight gain of more than 2 pounds overnight or 5 pounds in one week (or whatever weight gain you were told to report by your doctor) ? New or increased swelling of your legs or ankles, swelling or pain in your stomach ? Decrease in amount you urinate ? Increased shortness of breath ? Increased cough with yellow or green sputum (mucus) ? Increased breathing trouble at night (waking up short of breath, needing more pillows to breathe) ? Feeling much more tired than usual ? Racing or pounding heart beat ? Dizziness Go To The Nearest Emergency Room or Call 911 If You Have: ? Shortness of breath so severe that you cannot catch your breath even while resting ? [place], foamy sputum (mucus) ? New problem sleeping; you need to sit straight up to sleep or are not able to sleep due to shortness of breath ? Severe chest pain that does not resolve with rest or Nitroglycerin ? New or increased confusion or cannot think clearly ? A continuous rapid or irregular heart beat ? Fainting or feeling to dizzy to stand up documented in this encounter Medications at Time of Discharge Medication Sig Dispensed Refills Start Date End Date bumetanide (BUMEX) 1 mg Take 1 tablet (1 90 tablet 4 202007/24/2021 tabletIndications: Acute on mg) by mouth 1 time chronic congestive heart per day failure with left ventricular diastolic dysfunction (HCC) sulfamethoxazole-trimethopr Take 1 tablet by 30 tablet 0 08/18/2020 im (BACTRIM, SEPTRA) 400-80 mouth 1 time per mg tabletIndications: Long day term (current) use of systemic steroids CALCIUM PO Take 1 tablet by 0 mouth 1 time per day guaiFENesin (MUCINEX) 600 Take 600 mg by 0 MG SR (12 hr) tablet mouth 2 times a day as needed for cough polyvinyl alcohol-povidone 1 drop 1 time a day 0 (REFRESH) 1.4-0.6 % as needed for dry preservative free eyes ophthalmic solution metoprolol succinate Take 1 tablet (200 30 tablet 3 021 08/13/2020 (TOPROL XL) 200 mg SR mg) by mouth 1 time tablet (24 hr)Indications: per day Atrial fibrillation with rapid ventricular response (HCC) budesonide (PULMICORT) 0.5 Inhale 1 nebule 360 mL 4 06/1007/09/2021 mg/2 mL inhalation (0.5 mg) by solutionIndications: nebulization 2 Reactive airway disease times a day without complication, unspecified asthma severity, unspecified whether persistent atorvaSTATin (LIPITOR) 20 TAKE 1 TABLET BY 90 tablet 3 06/10 mg tabletIndications: MOUTH ONCE DAILY Hypercholesterinemic xanthomatosis, Coronary artery disease involving [place] heart, angina presence unspecified, unspecified vessel or lesion type losartan 50 mg TAKE 1/2 TABLET BY 45 tablet 3 07/03/2020 tabletIndications: Coronary MOUTH ONCE DAILY artery disease involving [place] heart, angina presence unspecified, unspecified vessel or lesion type senna-docusate sodium Take 1 tablet by 60 tablet 0 06/26/19 21 (SENOKOT-S;PERICOLACE) mouth 2 times a day 8.6-50 MG tabletIndications: Constipation, unspecified constipation type albuterol-ipratropium Inhale 1 unit-dose 1080 mL 4 202007/01/2021 (DUO-NEB) 2.5-0.5 mg/3 mL (3 mL) by inhalation nebulization 4 solutionIndications: times a day and Hypoxia every 4 hours as needed vitamin D3, Take 1 tablet (25 90 tablet 0 05/09/2020 cholecalciferol, 25 mcg mcg) by mouth 1 (1000 unit) time per day tabletIndications: Pneumonia due to COVID-19 virus esomeprazole (NEXIUM) 20 mg Take 1 capsule by 0 1 capsule mouth 1 time per day glucosamine-chondroitin Take 2 capsules by 0 (JOINT FLEX) 500-400 mg mouth 1 time per capsule day vitamin C (ASCORBIC ACID) Take 500 mg by 0 500 mg chewable tablet mouth 1 time per day omega-3 fatty acids (FISH Take 2,000 mg by 0 OIL) 1000 mg capsule mouth 1 time per day acyclovir (ZOVIRAX) 5 % APPLY TO AFFECTED 15 g 3 10/21 ointmentIndications: Herpes AREA TOPICALLY simplex THREE TIMES DAILY NEEDED FOR [place] apixaban (ELIQUIS) 5 MG Take 1 tablet (5 60 tablet 11 2019 tabletIndications: Atrial mg) by mouth 2 Fibrillation times a day Indications: Atrial Fibrillation formoterol (PERFOROMIST) 20 Inhale 1 nebule (20 60 nebule 11 06/28/2019 MCG/2ML inhalation mcg) by solutionIndications: nebulization 2 Reactive airway disease times a day without complication, unspecified asthma severity, unspecified whether persistent nitroglycerin (NITROSTAT) PLACE 1 TAB UNDER 25 tablet 3 0.4 mg sublingual TONGUE NEEDED tabletIndications: Coronary REPEAT IN 5 MIN X 3 artery disease involving DOSES CALL 911NO [place] coronary artery of RELIEF [place] heart without angina pectoris Magnesium Hydroxide Take 250 mg by 0 (MAGNESIA PO) mouth 1 time per day ubiquinone-10 (CO Q-10) 200 Take 200 mg by 0 mg capsule mouth 1 time per day. Multiple Vitamins-Minerals Take 1 oz by mouth 0 (MULTIVITAMIN & MINERAL) 1 time per day. LIQD predniSONE 10 mg Take 4 tablets (40 70 tablet 0 07/19/2020 08/09/2020 tabletIndications: Chronic mg) by mouth 1 time obstructive pulmonary per day for 7 days, disease, unspecified COPD THEN 3 tablets (30 type (HCC) mg) 1 time per day for 14 days. predniSONE 10 mg Take 2 tablets (20 73 tablet 0 08/09/2020 09/22/2020 tabletIndications: Chronic mg) by mouth 1 time obstructive pulmonary per day for 14 disease, unspecified COPD days, THEN 1.5 type (HCC) tablets (15 mg) 1 time per day. nystatin (NILSTAT) 100,000 Place 5 mL into 70 mL 0 07/10 units/mL oral mouth 2 times a day suspensionIndications: Chronic obstructive pulmonary disease, unspecified COPD type (HCC), TIERRA (obstructive sleep apnea) potassium chloride Take 1 tablet by 20 tablet 3 06/27/2020 (KLOR-CON M20) 20 MEQ CR mouth on 06/27 tabletIndications: Acute ..Further workup respiratory failure, and treatment could unspecified whether with be done if symptoms hypoxia or hypercapnia persist, worsen or (HCC) new related symptoms occur. The patient will call in that eventuality. Dose from 06/28 based on k level aspirin 81 mg enteric Take 1 tablet (81 30 tablet 0 020 coated tabletIndications: mg) by mouth Every Coronary artery disease other day involving [place] coronary artery of [place] heart without angina pectoris documented as of this encounter Progress Notes Ladi Bledsoe MD - 07/18/2020 2:09 PM [facility] Impression Acute kidney injury nonoliguric Hyperkalemia Hyponatremia Acute on chronic congestive heart failure Fluid overload Chronic A. fib rate controlled History of CAD stent was placed 2010 Plan Acute kidney injury in setting of overdiuresis and contrast exposure. Creatinine improved to his baseline 1.4 mg/dL after holding diuretics and gentle hydration. I agree with discontinuing IV fluid hydration as diuretics regularly. I recommend to discharge on Bumex 1 mg daily , educated the patient to add 1 mg bumex afternoon if needed, if he gained more than 2 Ib over night or 5 Ib over 1 wk. Follow up with nephrology in 2-4 wksafter discharge. Avoid aggressive diuresis. Avoid further IV contrast exposure. Hypokalemia replet. Mauricio Bashir is a 75yr old male admitted on 07/15/2020. Nephrology service will sign off, please call if you have any questions. Thanks for giving us the chance to participate in patient care I spent a total of 30 minutes in this patient's care with more than 50% time spent in discussion andco-ordination of care. Subjective Patient was seen and examined today. Feels much better. Still has shortness of breath. Good urine output. No acute event overnight. Physical Exam General Appearance: well developed, well nourished. No distress. Neck: supple, no significant adenopathy. No JVD. Chest: basal crackles. no wheezes, rales or rhonchi. Heart: S1, S2 present. No murmurs. Abdomen: soft, nontender, nondistended, no masses or organomegaly. Extremities: no peripheral edema. Symmetric pedal pulses. Current Vital Signs Temp: 96.1 F (35.6 C) BP: 120/60 Pulse: 87 O2 Device: NC - no humidity O2 Flow Rate (L/min): 2 l/min Resp: 16 Pain Ratin (out of 10) Weight: 100.3 kg (221 lb 1.6 oz) SpO2: 97 % Intake and Output Intake/Output Summary (Last 24 hours) at 07/17/2020 1350 Last data filed at 07/17/2020 0300 Gross per 24 hour Intake 500 ml Output 1500 ml Net -1000 ml Allergies Allergies have been reviewed. Mauricio is allergic to penicillin; dilaudid [hydromorphone hcl]; and hydromorphone hcl. Recent labs Lab Results Component Value Date WBC 12.5 (H) 07/18/2020 NUCRBC 0 07/18/2020 RBC 3.48 (L) 07/18/2020 HEMOGLOBIN 10.6 (L) 07/18/2020 HEMATOCRIT 32.7 (L) 07/18/2020 MCV 94.0 07/18/2020 MCH 30.5 07/18/2020 MCHC 32.4 07/18/2020 PLTCOUNT 136 (L) 07/18/2020 NEUTROPCT 80.7 07/18/2020 LYMPHSPCT 9.6 07/18/2020 MONOSPCT 7.7 07/18/2020 EOSPCT 0.1 07/18/2020 BASOPHILPCT 0.2 07/18/2020 Lab Results Component Value Date GLUCOSE 118 (H) 07/18/2020 BUN 37 (H) 07/18/2020 CREATSERUM 1.46 (H) 07/18/2020 BCRATIO 25.3 (H) 07/18/2020 NA 140 07/18/2020 POTASSIUM 3.4 (L) 07/18/2020 CL 101 07/18/2020 CO2 29 07/18/2020 CA 8.7 07/18/2020 EGFR 47 (L) 07/18/2020 EGFRAF 57 (L) 07/18/2020 Medications in the hospital: Current Facility-Administered Medications Medication Dose Route Frequency Provider Last Rate Last Admin bumetanide (BUMEX) tablet 1 mg 1 mg Oral Daily Woo Rodriguez MD 1 mg at 07/18/20 0805 sodium chloride 0.9% flush (adult) 10 mL 10 mL IV 2 times a day and prn Melinda Gustafson MD 10 mLat 07/18/20 0910 acetaminophen (TYLENOL) tablet 650 mg 650 mg Oral Every 4 hours prn Melinda Gustafson MD sodium chloride 0.9% flush (adult) 10 mL 10 mL IV 2 times a day and prn Morgan Riacrdo MD 10 mL at 07/18/20 0954 senna-docusate sodium (SENOKOT-S;PERICOLACE) tablet 2 tablet 2 tablet Oral 2 times a day prn Morgan Ricardo MD 2 tablet at 07/18/20 1305 And bisacodyl (DULCOLAX) suppository 10 mg 10 mg Rectal 1 time a day prn Morgan Ricardo MD And docusate sodium (THEREVAC-SB MINI;ENEMEEZ MINI) 283 MG enema 1 enema 1 enema Rectal 1 time a day prn Morgan Ricardo MD melatonin tablet 3 mg 3 mg Oral Bedtime prn Morgan Ricardo MD ondansetron (ZOFRAN ODT) dispersible tablet 4 mg 4 mg Oral 4 times a day prn Morgan Ricardo MD And ondansetron (ZOFRAN) injection solution 4 mg 4 mg IV 4 times a day prn Morgan Ricardo MD albuterol-ipratropium (DUO-NEB) 2.5-0.5 mg/3 mL inhalation solution 3 mL 3 mL Nebulization 4 times a day and every 4 hours prn Morgan Ricardo MD 3 mL at 07/18/20 1233 apixaban (ELIQUIS) tablet 5 mg 5 mg Oral 2 times a day Morgan Ricardo MD 5 mg at 07/18/20 0805 aspirin enteric coated tablet 81 mg 81 mg Oral Every other day Morgan Ricardo MD 81 mg at 07/17/20 1041 atorvaSTATin (LIPITOR) tablet 20 mg 20 mg Oral daily Morgan Ricardo MD 20 mg at 07/18/20 0804 budesonide (PULMICORT) 0.5 mg/2 mL inhalation soln 0.5 mg 0.5 mg Nebulization 2 times a day Morgan Ricardo MD 0.5 mg at 07/18/20 0951 formoterol (PERFOROMIST) 20 MCG/2ML inhalation solution 20 mcg 20 mcg Nebulization 2 times a day Morgan Ricardo MD 20 mcg at 07/18/20 0951 metoprolol succinate (TOPROL XL) SR tablet (24 hr) 200 mg 200 mg Oral daily Morgan Ricardo MD 200 mg at 07/18/20 0805 predniSONE tablet 40 mg 40 mg Oral Daily Morgan Ricardo MD 40 mg at 07/18/20 08 senna-docusate sodium (SENOKOT-S;PERICOLACE) tablet 1 tablet 1 tablet Oral 2 times a day Morgan Ricardo MD 1 tablet at 07/17/20 211 sulfamethoxazole-trimethoprim (BACTRIM, SEPTRA) 400-80 mg tablet 1 tablet 1 tablet Oral daily Morgan Ricardo MD 1 tablet at 07/18/20 08 omeprazole (priLOSEC) capsule 20 mg 20 mg Oral daily Morgan Ricardo MD 20 mg at 07/18/20 0605 aminophylline IV solution 125 mg 125 mg IV PRN per parameter Pete Todd MD Shima Mccartney MD - 07/18/2020 7:05 AM CST DAILY PROGRESS NOTE Mauricio Bashir is a 75yr old male admitted on 07/15/2020 5:39 AM. Impression / Plan #Acute on chronic hypoxic respiratory failure 07/11 below #Acute on chronic HFpEF #Chronic A fib, rate controlled #Hx of CAD with stent in 2009 Echo Jun 2020: EF 60% with Grade II diastolic dys; mildly dilated LA, mild AR, mild MR, PA pressure of 69, mod to severe pulm HTN Troponin: 0.059 -> 0.059 -> 0.058 BNP 151 D dimer negative PET Stress (07/15): Abnormal Rosalinda PET myocardial perfusion images. Moderate area of ischemia in the inferior wall extending both to the inferoseptal and inferolateral region. No significant ischemia inthe anterior wall. Normal left ventricular ejection fraction. Plan: -Cardiology consult; appreciate their rec's. Signed off. -Continue ASA, Eliquis, Lipitor 20, Toprol XL 200mg daily. -Continue Bumex 1mg daily -Discuss Afib medication management with EP at appointment 08/10/2020. -Telemetry #Chronic hypoxia with 2L at home #Intersitital Lung Disease #COPD likely without exacerbation #Recent COVID infection April 2020 #Leukocytosis, improved CT Chest w/o (07/16): Pneumonitis s/p COVID-19, moderate honeycombing WBC 15.9 -> 21.2 -> 13.5 -> 12.5 Plan: -Pulmonology consult: appreciate the reccs. -Plan for medical management of pulmonary HTN -Continue Oxygen supplementation, titrate as tolerated -Bactrim PPx daily -Continue Budesonide, Duo-Neb, Formoterol, Prednisone #MARIIA; baseline around 1.3-1.5; Cr 1.46 Patient does not appear to be fluid overloaded Bilateral Renal Ultrasound (07/15): No evidence of obstruction. Plan: -Nephrology consult; appreciate the reccs #Hypokalemia, 2.9 #Hypophosphatemia 2.2 -Replaced -F/U BMP w Mag at 1800 #Hyponatremia, resolved #Chest Pain, resolved Chronic conditions: HLD - stable Carotid artery stenosis - stable TIERRA - stable Normocytic anemia - stable CODE: FULL Diet: Heart healthy DVT PPx: Therapeutic anticoagulation Interval History Patient did well overnight, no acute events. Patient remains on 2-3L NC with oxygenation in the mid 90's. He denies any chest pain, worsening SOB, dizziness, or light headedness, reports he is still feeling SOB with activity even on the NC. Discussed plan for pulmonary consult, patient amenable. All questions addressed at this time. Background: Was seen in heart failure clinic beginning of month and bumex was increased from 1mg to 6mg and he underwent a CT with contrast, likely causing worsening of his renal function. Nephrology and Cardiology consulted. Patient recovered with holding diuretics and gentle hydration. Patient underwent PET Stress test showing known coronary disease. Was monitored on telemetry. Cardiology recommended follow upoutpatient for medical management of A.Fib and pulmonary HTN as he was not a candidate for cardiac catheterization due to MARIIA. Would like a weight management referral outpatient. Review of Systems Review of Systems Constitutional: Positive for fatigue. Negative for appetite change and fever (improved). Respiratory: Positive for wheezing. Negative for chest tightness and shortness of breath. Cardiovascular: Negative for chest pain, palpitations and leg swelling. Gastrointestinal: Negative for abdominal pain and nausea. Genitourinary: Negative for frequency. Musculoskeletal: Negative for back pain. Neurological: Positive for weakness. Negative for dizziness and light-headedness. Psychiatric/Behavioral: Negative for decreased concentration. The patient is not nervous/anxious. Physical Exam Vital Signs: Temp: 96.6 F (35.9 C) | BP: 135/78 | Pulse: 98 | Resp: 22 | Pain Ratin (out of 10) | Weight: 100.3 kg (221 lb 1.6 oz) | O2 Device: NC - no humidity O2 Flow Rate (L/min): 2 l/min | SpO2: 98 % Maximum Temperatures (last 24 hours) Temperature Maximum Max Temp 97.2 F (36.2 C) Intake and Output: 07/17 0700 - 07/18 0659 In: - Out: 1550 [Urine:1550] Physical Exam Constitutional: Appearance: Normal appearance. HENT: Head: Normocephalic and atraumatic. Nose: Nose normal. Mouth/Throat: Mouth: Mucous membranes are moist. Pharynx: No oropharyngeal exudate. Eyes: Extraocular Movements: Extraocular movements intact. Conjunctiva/sclera: Conjunctivae normal. Cardiovascular: Rate and Rhythm: Normal rate. Rhythm irregularly irregular. Heart sounds: No murmur. Pulmonary: Effort: Pulmonary effort is normal. Breath sounds: Wheezing present. Abdominal: General: Abdomen is flat. Palpations: Abdomen is soft. Musculoskeletal: General: No swelling. Right lower leg: No edema. Left lower leg: No edema. Skin: Capillary Refill: Capillary refill takes less than 2 seconds. Coloration: Skin is not pale. Neurological: General: No focal deficit present. Mental Status: He is alert and oriented to person, place, and time. Psychiatric: Mood and Affect: Mood normal. Labs Labs (Last day) 07/18/20522 - 07/18/20522 CBC 07/18/20522 CBC WBC 4.0-11.0 (K/uL) 12.5 RBC 4.40-5.80 (M/uL) 3.48 Hemoglobin 13.5-17.5 (g/dL) 10.6 Hematocrit 40.0-50.0 (%) 32.7 MCV 80.0-98.0 (fL) 94.0 MCH 25.5-34.0 (pg) 30.5 MCHC 31.5-36.5 (g/dL) 32.4 RDW-CV 11.5-15.5 (%) 15.9 RDW-SD 35.5-50.0 (fl) 54.4 Platelet Count 140-400 (K/uL) 136 MPV 8.5-12.0 (fL) 9.6 07/18/20522 - 07/17/201800 CHEMISTRY 07/18/2052207/18/20 0507/17/20 18007/17/20 180 CHEMISTRY Glucose 70-100 (mg/dL) 118 191 Sodium 135-145 (meq/L) 140 138 Potassium 3.5-5.3 (meq/L) 3.4 4.1 Chloride 99-110 (meq/L) 101 98 CO2 20-29 (meq/L) 29 27 Anion Gap with K 6-20 (meq/L) 13 17 BUN 6-22 (mg/dL) 37 42 Creatinine 0.80-1.30 (mg/dL) 1.46 1.68 BUN/Creatinine Ratio 10.0-25.0 25.3 25.0 Calcium 8.5-10.5 (mg/dL) 8.7 8.9 Corrected Calcium 8.5-10.5 (mg/dL) 9.0 Phosphorus 2.5-4.5 (mg/dL) 2.2 Magnesium 1.8-2.4 (mg/dL) 2.0 2.0 Albumin 3.5-5.0 (g/dL) 3.6 eGFR >=60 (mL/min/1.73m2) 57 49 eGFR Non- >=60 (mL/min/1.73m2) 47 40 07/18/20 0523 - 07/18/20 0523 DIFFERENTIAL 07/18/20 0523 DIFFERENTIAL Seg Neut Absolute 1.8-8.0 (K/uL) 10.1 Lymphocytes Absolute 0.8-4.1 (K/uL) 1.2 Monocytes Absolute 0.0-1.0 (K/uL) 1.0 Eosinophils Absolute 0.0-0.7 (K/uL) 0.0 Basophil Absolute 0.0-0.2 (K/uL) 0.0 Immature Granulocyte Absolute 0.00-0.06 (K/uL) 0.21 Neutrophils Percent (%) 80.7 Neutrophils Abs. (Segs and Bands) (/uL) 10,100 Lymphocytes Percent (%) 9.6 Monocytes Percent (%) 7.7 Immature Granulocyte Percent (%) 1.7 Eosinophils Percent (%) 0.1 Basophil Percent (%) 0.2 Nucleated RBC (/100 WBC's) 0 07/18/20 0523 - 07/17/20 1801 OTHER 07/18/20 0523 07/17/20 1801 OTHER [age]Years) [age] Shima Bolden MD PGY-1 [employer] Shift Lead [place] SHIFT SUPERVISOR Associated attestation - Meryl Hawkins MD - 07/18/2020 11:56 AM SECOND SHIFT SUPERVISOR I discussed the patient with the resident and personally interviewed and examined the patient. I verified in the medical record all resident documentation/findings, including history, physical exam, and medical decision making, and I agree with the resident's documentation. Note the following additions/corrections: continues to have BORJA. Unclear of baseline. Continue to diurese with bumex. Await pulm recommendations Ladi Bledsoe MD - 07/17/2020 1:50 PM CST NEPHROLOGY HOSPITAL FOLLOW UP Impression Acute kidney injury nonoliguric Hyperkalemia Hyponatremia Acute on chronic congestive heart failure Fluid overload Chronic A. fib rate controlled History of CAD stent was placed 2010 Plan Acute kidney injury in setting of overdiuresis and contrast exposure. Creatinine improved to his baseline 1.5 mg/dL after holding diuretics and gentle hydration. I agree with discontinuing IV fluid hydration as diuretics regularly. Bumex 1 mg daily and assess urine output response. Avoid aggressive diuresis. Avoid further IV contrast exposure. Hypokalemia replet. Mauricio Bashir is a 75yr old male admitted on 07/15/2020. I spent a total of 30 minutes in this patient's care with more than 50% time spent in discussion andco-ordination of care. Subjective Patient was seen and examined today. Feels much better. Still has shortness of breath. Good urine output. No acute event overnight. Physical Exam General Appearance: well developed, well nourished. No distress. Neck: supple, no significant adenopathy. No JVD. Chest: basal crackles. no wheezes, rales or rhonchi. Heart: S1, S2 present. No murmurs. Abdomen: soft, nontender, nondistended, no masses or organomegaly. Extremities: no peripheral edema. Symmetric pedal pulses. Current Vital Signs Temp: 98.2 F (36.8 C) BP: 116/60 Pulse: 90 O2 Device: NC - no humidity O2 Flow Rate (L/min): 3 l/min Resp: 18 Pain Ratin (out of 10) Weight: 100.1 kg (220 lb 11.2 oz) SpO2: 93 % Intake and Output Intake/Output Summary (Last 24 hours) at 07/17/2020 1350 Last data filed at 07/17/2020 0300 Gross per 24 hour Intake 500 ml Output 1500 ml Net -1000 ml Allergies Allergies have been reviewed. Mauricio is allergic to penicillin; dilaudid [hydromorphone hcl]; and hydromorphone hcl. Recent labs Lab Results Component Value Date WBC 13.5 (H) 07/17/2020 NUCRBC 0 07/17/2020 RBC 3.52 (L) 07/17/2020 HEMOGLOBIN 10.9 (L) 07/17/2020 HEMATOCRIT 33.1 (L) 07/17/2020 MCV 94.0 07/17/2020 MCH 31.0 07/17/2020 MCHC 32.9 07/17/2020 PLTCOUNT 151 07/17/2020 NEUTROPCT 84.6 07/17/2020 LYMPHSPCT 5.6 07/17/2020 MONOSPCT 8.1 07/17/2020 EOSPCT 0.0 07/17/2020 BASOPHILPCT 0.1 07/17/2020 Lab Results Component Value Date GLUCOSE 113 (H) 07/17/2020 BUN 39 (H) 07/17/2020 CREATSERUM 1.53 (H) 07/17/2020 BCRATIO 25.5 (H) 07/17/2020 NA 139 07/17/2020 POTASSIUM 2.9 (L) 07/17/2020 CL 100 07/17/2020 CO2 28 07/17/2020 CA 8.8 07/17/2020 EGFR 45 (L) 07/17/2020 EGFRAF 54 (L) 07/17/2020 Medications in the hospital: Current Facility-Administered Medications Medication Dose Route Frequency Provider Last Rate Last Admin potassium chloride (KLOR-CON M20) CR tablet 40 mEq 40 mEq Oral Every 4 hours Shima Bolden MD Stopped at 07/17/20 1048 bumetanide (BUMEX) tablet 1 mg 1 mg Oral Daily Woo Rodriguez MD 1 mg at 07/17/20 1051 sodium chloride 0.9% flush (adult) 10 mL 10 mL IV 2 times a day and prn Melinda Gustafson MD 10 mLat 07/17/20 1046 acetaminophen (TYLENOL) tablet 650 mg 650 mg Oral Every 4 hours prn Melinda Gustafson MD sodium chloride 0.9% flush (adult) 10 mL 10 mL IV 2 times a day and prn Morgan Ricardo MD 10 mL at 07/17/20 1046 senna-docusate sodium (SENOKOT-S;PERICOLACE) tablet 2 tablet 2 tablet Oral 2 times a day prn Morgan Ricardo MD And bisacodyl (DULCOLAX) suppository 10 mg 10 mg Rectal 1 time a day prn Morgan Ricardo MD And docusate sodium (THEREVAC-SB MINI;ENEMEEZ MINI) 283 MG enema 1 enema 1 enema Rectal 1 time a day prn Morgan Ricardo MD melatonin tablet 3 mg 3 mg Oral Bedtime prn Morgan Ricardo MD ondansetron (ZOFRAN ODT) dispersible tablet 4 mg 4 mg Oral 4 times a day prn Morgan Ricardo MD And ondansetron (ZOFRAN) injection solution 4 mg 4 mg IV 4 times a day prn Morgan Ricardo MD albuterol-ipratropium (DUO-NEB) 2.5-0.5 mg/3 mL inhalation solution 3 mL 3 mL Nebulization 4 times a day and every 4 hours prn Morgan Ricardo MD 3 mL at 07/17/20 1251 apixaban (ELIQUIS) tablet 5 mg 5 mg Oral 2 times a day Morgan Ricardo MD 5 mg at 07/17/20 1040 aspirin enteric coated tablet 81 mg 81 mg Oral Every other day Morgan Ricarod MD 81 mg at 07/17/20 1041 atorvaSTATin (LIPITOR) tablet 20 mg 20 mg Oral daily Morgan Ricardo MD 20 mg at 07/17/20 1040 budesonide (PULMICORT) 0.5 mg/2 mL inhalation soln 0.5 mg 0.5 mg Nebulization 2 times a day Morgan Ricardo MD 0.5 mg at 07/17/20 0835 formoterol (PERFOROMIST) 20 MCG/2ML inhalation solution 20 mcg 20 mcg Nebulization 2 times a day Morgan Ricardo MD 20 mcg at 07/17/20 0835 metoprolol succinate (TOPROL XL) SR tablet (24 hr) 200 mg 200 mg Oral daily Morgan Ricardo MD 200 mg at 07/17/20 1040 predniSONE tablet 40 mg 40 mg Oral Daily Morgan Ricardo MD 40 mg at 07/17/20 1041 senna-docusate sodium (SENOKOT-S;PERICOLACE) tablet 1 tablet 1 tablet Oral 2 times a day Morgan Ricardo MD 1 tablet at 07/17/20 1041 sulfamethoxazole-trimethoprim (BACTRIM, SEPTRA) 400-80 mg tablet 1 tablet 1 tablet Oral daily Morgan Ricardo MD 1 tablet at 07/17/20 1040 omeprazole (priLOSEC) capsule 20 mg 20 mg Oral daily Morgan Ricardo MD 20 mg at 07/17/20 0623 aminophylline IV solution 125 mg 125 mg IV PRN per parameter Pete Todd MD need, Carola Huang MD - 07/17/2020 10:09 AM CST Cardiology Progress Note Mauricio Bashir is a 75yr old male admitted on 07/15/2020. Assessment / Plan 1. Chest pain 2. Hx CAD s/p PCI 2011 3. MARIIA, likely contrast induced 4. Hypokalemia, improved 5. Acute on chronic diastolic heart failure, clinically improved 6. Chronic atrial fibrillation on anticoagulation 75 year old male with known combined heart failure, pulm HTN and atrial fibrillation. Creatinine hasimproved again, however patient reports ongoing dyspnea. Crackles on pulmonary exam. No LE swelling.PET stress is consistent with known chronic occlusion. - Continue ASA, Eliquis,Lipitor 20, Toprol XL 200mg daily - given crackles bilateral bases and ongoing shortness of breath with improvement in renal function,would recommend primary team to resume diuretics. - In the outpatient setting can consider additional medical management of atrial fibrillation. No further workup needed inpatient at this time. - Continuous telemetry, rate 80-90s atrial fib. Consider amiodarone if in need of rate control. Patient has appointment with EP outpatient 08/10/20 which he should keep. Patient was seen and discussed with Dr. Grove. Please place cardiology follow- up on discharge for 2 weeks. Cardiology will sign off at this time. HPI / History / ROS HPI No acute events overnight. Patient reports he continues to be short of breath. Has not been able to ambulate much. Dry cough persists, this has been ongoing for years. No LE swelling. No chest pain or palpitations. Review of Systems Constitutional: Positive for fatigue. Negative for chills, diaphoresis and fever. HENT: Negative for trouble swallowing. Respiratory: Positive for cough and shortness of breath. Cardiovascular: Positive for leg swelling. Negative for chest pain and palpitations. Significantly improved since admission Gastrointestinal: Negative for abdominal pain. Genitourinary: Negative for difficulty urinating. Musculoskeletal: Negative for back pain. Skin: Negative for rash. Neurological: Negative for headaches. Psychiatric/Behavioral: Negative for confusion. Physical / Results Current Vital Signs Temp: 97.3 F (36.3 C) BP: 129/77 Weight: 100.1 kg (220 lb 11.2 oz) SpO2: 96 % Resp: 20 Pulse: 95 Current BMI (>50 = increased risk): (!) 34.45 O2 Device: NC - no humidity O2 Flow Rate (L/min): 3 l/min Pain Ratin Physical Exam Constitutional: Appearance: Normal appearance. He is obese. He is not ill-appearing or toxic-appearing. HENT: Head: Normocephalic and atraumatic. Eyes: Extraocular Movements: Extraocular movements intact. Pupils: Pupils are equal, round, and reactive to light. Cardiovascular: Pulses: Normal pulses. Heart sounds: Normal heart sounds. No murmur. Comments: Irregularly irregular Pulmonary: Effort: Pulmonary effort is normal. Breath sounds: Rales present. Comments: Significant crackles bases bilaterally Abdominal: General: Abdomen is flat. Bowel sounds are normal. There is no distension. Palpations: Abdomen is soft. Musculoskeletal: Normal range of motion. General: No swelling. Right lower leg: No edema. Left lower leg: No edema. Skin: General: Skin is warm and dry. Capillary Refill: Capillary refill takes less than 2 seconds. Coloration: Skin is pale. Neurological: Mental Status: He is alert and oriented to person, place, and time. Psychiatric: Mood and Affect: Mood normal. Nupur Betancourt MD PGY-3 Internal Medicine [facility] [employer] Pager: [phone] [place] SHIFT SUPERVISOR Associated attestation - Tricia Grove MD - 07/17/2020 12:11 PM SECOND SHIFT SUPERVISOR I discussed the patient with the resident and personally interviewed and examined the patient. I verified in the medical record all resident documentation/findings, including history, physical exam, and medical decision making, and I agree with the resident's documentation.Shima Bolden MD - 07/17/2020 6:41 AM CST DAILY PROGRESS NOTE Mauricio Bashir is a 75yr old male admitted on 07/15/2020 5:39 AM. Impression / Plan #Acute on chronic hypoxic respiratory failure 07/11 below #Acute on chronic HFpEF #Chronic A fib, rate controlled #Hx of CAD with stent in 2009 Echo Jun 2020: EF 60% with Grade II diastolic dys; mildly dilated LA, mild AR, mild MR, PA pressure of 69, mod to severe pulm HTN Troponin: 0.059 -> 0.059 -> 0.058 BNP 151 D dimer negative PET Stress (07/15): Abnormal Rosalinda PET myocardial perfusion images. Moderate area of ischemia in the inferior wall extending both to the inferoseptal and inferolateral region. No significant ischemia inthe anterior wall. Normal left ventricular ejection fraction. Plan: -Cardiology consult; appreciate their rec's. Signed off. -Continue ASA, Eliquis, Lipitor 20, Toprol XL 200mg daily. -Resume Bumex 1mg daily and recheck electrolytes -Discuss Afib medication management with EP at appointment 08/10/2020. -Telemetry #Chronic hypoxia with 2L at home #Intersitital Lung Disease #COPD likely without exacerbation #Recent COVID infection April 2020 #Leukocytosis, improved CT Chest w/o (07/16): Pneumonitis s/p COVID-19, moderate honeycombing WBC 15.9 -> 21.2 -> 13.5 Plan: -Pulmonology consult: appreciate the reccs. -Plan for medical management of pulmonary HTN -Continue Oxygen supplementation -Bactrim PPx daily -Continue Budesonide, Duo-Neb, Formoterol, Prednisone #MARIIA; baseline around 1.3-1.5; Cr 1.53 Patient does not appear to be fluid overloaded Bilateral Renal Ultrasound (07/15): No evidence of obstruction. Plan: -Nephrology consult; appreciate the [facility] -Discontinue NS at 60mL/hr -Follow-up renal panel #Hypokalemia, 2.9 -Replaced -F/U BMP w Mag at 1800 #Hyponatremia, resolved #Chest Pain, resolved Chronic conditions: HLD - stable Carotid artery stenosis - stable TIERRA - stable Normocytic anemia - stable CODE: FULL Diet: Heart healthy DVT PPx: Therapeutic anticoagulation Interval History Patient did well overnight, no acute events. Patient currently on 3L NC with oxygenation in the mid 90's. He denies any chest pain, worsening SOB, dizziness, or light headedness, reports he is still feeling SOB with activity even on the NC. He does note worsening SOB with activity however, reports feeling well overall. Discussed current medical status and plan for today with patient and at bedside. Patient amenable. All questions addressed at this time. Background: Was seen in heart failure clinic beginning of month and bumex was increased from 1mg to 6mg and he underwent a CT with contrast, likely causing worsening of his renal function. Nephrology and Cardiology consulted. Patient recovered with holding diuretics and gentle hydration. Patient underwent PET Stress test showing known coronary disease. Was monitored on telemetry. Cardiology recommended follow upoutpatient for medical management of A.Fib and pulmonary HTN as he was not a candidate for cardiac catheterization due to AMRIIA. Review of Systems Review of Systems Constitutional: Positive for fatigue. Negative for appetite change and fever (improved). Respiratory: Positive for wheezing. Negative for chest tightness and shortness of breath. Cardiovascular: Negative for chest pain, palpitations and leg swelling. Gastrointestinal: Negative for abdominal pain and nausea. Genitourinary: Negative for frequency. Musculoskeletal: Negative for back pain. Neurological: Positive for weakness. Negative for dizziness and light-headedness. Psychiatric/Behavioral: Negative for decreased concentration. The patient is not nervous/anxious. Physical Exam Vital Signs: Temp: 97.3 F (36.3 C) | BP: 129/77 | Pulse: 88 | Resp: 20 | Pain Ratin (out of 10) | Weight: 100.1 kg (220 lb 11.2 oz) | O2 Device: NC - no humidity O2 Flow Rate (L/min): 3 l/min | SpO2: 96 % Maximum Temperatures (last 24 hours) Temperature Maximum Max Temp 98.2 F (36.8 C) Intake and Output: 07/16 0700 - 07/17 0659 In: 500 [Oral:500] Out: 1500 [Urine:1500] Physical Exam Constitutional: Appearance: Normal appearance. HENT: Head: Normocephalic and atraumatic. Nose: Nose normal. Mouth/Throat: Mouth: Mucous membranes are moist. Pharynx: No oropharyngeal exudate. Eyes: Extraocular Movements: Extraocular movements intact. Conjunctiva/sclera: Conjunctivae normal. Cardiovascular: Rate and Rhythm: Normal rate. Rhythm irregularly irregular. Heart sounds: No murmur. Pulmonary: Effort: Pulmonary effort is normal. Breath sounds: Wheezing present. Abdominal: General: Abdomen is flat. Palpations: Abdomen is soft. Musculoskeletal: General: No swelling. Right lower leg: No edema. Left lower leg: No edema. Skin: Capillary Refill: Capillary refill takes less than 2 seconds. Coloration: Skin is not pale. Neurological: General: No focal deficit present. Mental Status: He is alert and oriented to person, place, and time. Psychiatric: Mood and Affect: Mood normal. Labs Labs (Last day) 07/16/20 0842 - 07/16/20 0842 CBC 07/16/20 0842 CBC WBC 4.0-11.0 (K/uL) 21.1 RBC 4.40-5.80 (M/uL) 4.01 Hemoglobin 13.5-17.5 (g/dL) 12.4 Hematocrit 40.0-50.0 (%) 37.3 MCV 80.0-98.0 (fL) 93.0 MCH 25.5-34.0 (pg) 30.9 MCHC 31.5-36.5 (g/dL) 33.2 RDW-CV 11.5-15.5 (%) 15.8 RDW-SD 35.5-50.0 (fl) 54.3 Platelet Count 140-400 (K/uL) 186 MPV 8.5-12.0 (fL) 9.8 07/16/20 0842 - 07/16/20 0842 CHEMISTRY 07/16/20 0842 07/16/20 0842 CHEMISTRY Glucose 70-100 (mg/dL) 174 Sodium 135-145 (meq/L) 137 Potassium 3.5-5.3 (meq/L) 3.5 Chloride 99-110 (meq/L) 97 CO2 20-29 (meq/L) 26 Anion Gap with K 6-20 (meq/L) 18 BUN 6-22 (mg/dL) 57 Creatinine 0.80-1.30 (mg/dL) 2.10 BUN/Creatinine Ratio 10.0-25.0 27.1 Calcium 8.5-10.5 (mg/dL) 9.4 Phosphorus 2.5-4.5 (mg/dL) 3.7 Magnesium 1.8-2.4 (mg/dL) 2.5 Albumin 3.5-5.0 (g/dL) 4.2 eGFR >=60 (mL/min/1.73m2) 38 eGFR Non- >=60 (mL/min/1.73m2) 31 07/16/20 0842 - 07/16/20 0842 DIFFERENTIAL 07/16/20 08 DIFFERENTIAL Seg Neut Absolute 1.8-8.0 (K/uL) 18.9 Lymphocytes Absolute 0.8-4.1 (K/uL) 0.9 Monocytes Absolute 0.0-1.0 (K/uL) 1.1 Eosinophils Absolute 0.0-0.7 (K/uL) 0.0 Basophil Absolute 0.0-0.2 (K/uL) 0.0 Immature Granulocyte Absolute 0.00-0.06 (K/uL) 0.25 Neutrophils Percent (%) 89.2 Neutrophils Abs. (Segs and Bands) (/uL) 18,900 Lymphocytes Percent (%) 4.1 Monocytes Percent (%) 5.3 Immature Granulocyte Percent (%) 1.2 Eosinophils Percent (%) 0.0 Basophil Percent (%) 0.2 Nucleated RBC (/100 WBC's) 0 07/16/20 0842 - 07/16/20 08 OTHER 07/16/20 08 OTHER Age (Years) 75 Shima Bolden MD PGY-1 [employer] Shift Lead ND SHIFT SUPERVISOR Associated attestation - Meryl Hawkins MD - 07/17/2020 2:11 PM SECOND SHIFT SUPERVISOR I discussed the patient with the resident and personally interviewed and examined the patient. I verified in the medical record all resident documentation/findings, including history, physical exam, and medical decision making, and I agree with the resident's documentation. Carola Betancourt MD - 07/16/2020 8:47 AM CST Cardiology Progress Note Mauricio Bashir is a 75yr old male admitted on 07/15/2020. Assessment / Plan 1. Chest pain 2. Hx CAD s/p PCI 2011 3. MARIIA, likely contrast induced 4. Hypokalemia, improved 5. Acute on chronic diastolic heart failure, clinically improved 6. Chronic atrial fibrillation on anticoagulation - Continue ASA, Eliquis,Lipitor 20, Toprol XL 200mg daily - Discontinued digoxin in setting of renal disease. Recommend amiodarone if in need of rate control - After discussion with patient today will plan to manage pulmonary hypertension medically and not proceed with RHC at this time. He is clinically feeling much improved. - Will plan to discus Afib medication management with EP 07/17 as previously planned - Continuous telemetry Patient was seen and discussed with Dr. Todd. Cardiology will continue to follow. HPI / History / ROS HPI No acute events overnight. Patient reports overall he feels well. Denies recurrence of chest pain. No shortness of breath or palpitations. Discussed plans above including additional testing that could be done, patient wishes to manage medically at this point. Review of Systems Constitutional: Negative for chills, diaphoresis and fever. HENT: Negative for trouble swallowing. Respiratory: Negative for shortness of breath. Cardiovascular: Negative for chest pain, palpitations and leg swelling. Gastrointestinal: Negative for abdominal pain. Genitourinary: Negative for difficulty urinating. Musculoskeletal: Negative for back pain. Skin: Negative for rash. Neurological: Negative for headaches. Psychiatric/Behavioral: Negative for confusion. Physical / Results Current Vital Signs Temp: 97.4 F (36.3 C) BP: 127/50 Weight: 100.2 kg (220 lb 12.8 oz) SpO2: 93 % Resp: 20 Pulse: 88 Current BMI (>50 = increased risk): (!) 34.45 O2 Device: NC - no humidity O2 Flow Rate (L/min): 3 l/min Pain Ratin Physical Exam Constitutional: General: He is not in acute distress. Appearance: Normal appearance. He is obese. He is not ill-appearing or diaphoretic. HENT: Head: Normocephalic and atraumatic. Eyes: Extraocular Movements: Extraocular movements intact. Pupils: Pupils are equal, round, and reactive to light. Cardiovascular: Rate and Rhythm: Rhythm irregular. Pulses: Normal pulses. Heart sounds: Normal heart sounds. No murmur. Comments: Irregularly irregular Pulmonary: Effort: Pulmonary effort is normal. No respiratory distress. Breath sounds: Normal breath sounds. No wheezing. Abdominal: General: Abdomen is flat. Palpations: Abdomen is soft. Musculoskeletal: Normal range of motion. General: No swelling. Skin: General: Skin is warm and dry. Coloration: Skin is not jaundiced. Neurological: General: No focal deficit present. Mental Status: He is alert and oriented to person, place, and time. Nupur Betancourt MD PGY-3 Internal Medicine [facility] [employer] Pager: [phone] ND SHIFT SUPERVISOR Associated attestation - Pete Todd MD - 07/16/2020 12:28 PM SECOND SHIFT SUPERVISOR I discussed the patient with the resident and personally interviewed and examined the patient. I verified in the medical record all resident documentation/findings, including history, physical exam, and medical decision making, and I agree with the resident's documentation. Shima Bolden MD - 07/16/2020 6:51 AM CST DAILY PROGRESS NOTE Mauricio Bashir is a 75yr old male admitted on 07/15/2020 5:39 AM. Impression / Plan #Acute on chronic hypoxic respiratory failure 2/2 below #Acute on chronic HFpEF #Chronic A fib, rate controlled #Hx of CAD with stent in 2009 Echo Jun 2020: EF 60% with Grade II diastolic dys; mildly dilated LA, mild AR, mild MR, PA pressure of 69, mod to severe pulm HTN Troponin: 0.059 -> 0.059 -> 0.058 BNP 151 D dimer negative PET Stress (07/15): Abnormal Rosalinda PET myocardial perfusion images. Moderate area of ischemia in the inferior wall extending both to the inferoseptal and inferolateral region. No significant ischemia inthe anterior wall. Normal left ventricular ejection fraction. Plan: -Cardiology consult; appreciate their rec's. -Continue ASA, Eliquis, Lipitor 20, Toprol XL 200mg daily. -Discontinue digoxin, recommend amiodarone if in need of rate control. -Plan for medical management of pulmonary HTN, will not proceed with RHC. -Plan to discus Afib medication management with EP 07/17 -Hold diuretics -Telemetry #Leukocytosis WBC 15.9 -> 21.2 Plan: -CT Chest without contrast #Chronic hypoxia with 2L at home #ILD #COPD likely without exacerbation #Recent COVID infection April 2020 #Leukocytosis CXR shows bilateral infiltrates however not acute; either fibrosis or atelectasis Plan: -Continue Oxygen supplementation -Bactrim PPx daily -Continue Budesonide, Duo-Neb, Formoterol, Prednisone #MARIIA; baseline around 1.3-1.5; Cr 2.10 Patient does not appear to be fluid overloaded Bilateral Renal Ultrasound (07/15): Small simple cyst anterior mid right kidney benign finding. No evidence of renal collecting system obstruction. Plan: -Nephrology consult; appreciate the reccs -Continue NS at 60mL/hr -Follow-up renal panel #Hypokalemia, resolved #Hyponatremia, resolved #Chest Pain, resolved Chronic conditions: #HLD - stable #Carotid artery stenosis - stable #TIERRA - stabel #Normocytic anemia - stable CODE: FULL Diet: Heart healthy DVT PPx: Therapeutic anticoagulation Interval History Patient did well overnight, no acute events. Patient currently on 3L NC with oxygenation in the mid 90's. He denies any chest pain, worsening SOB, dizziness, or light headedness. He does note worseningSOB with activity however, reports feeling well overall. Discussed current medical status and plan for today. Patient amenable. All questions addressed at this time. Background: Was seen in heart failure clinic beginning of month and were planning on PET stress test. Review of Systems Review of Systems Constitutional: Positive for fatigue. Negative for appetite change and fever (improved). Respiratory: Positive for wheezing. Negative for chest tightness and shortness of breath. Cardiovascular: Negative for chest pain, palpitations and leg swelling. Gastrointestinal: Negative for abdominal pain and nausea. Genitourinary: Negative for frequency. Musculoskeletal: Negative for back pain. Neurological: Positive for weakness. Negative for dizziness and light-headedness. Psychiatric/Behavioral: Negative for decreased concentration. The patient is not nervous/anxious. Physical Exam Vital Signs: Temp: 97.4 F (36.3 C) | BP: 127/50 | Pulse: 88 | Resp: 20 | Pain Ratin (out of 10) | Weight: 100.2 kg (220 lb 12.8 oz) | O2 Device: NC - no humidity O2 Flow Rate (L/min): 3 l/min | SpO2: 93 % Maximum Temperatures (last 24 hours) Temperature Maximum Max Temp 97.8 F (36.6 C) Intake and Output: 07/15 0700 - 07/16 0659 In: 950 [Oral:950] Out: 1750 [Urine:1750] Physical Exam Constitutional: Appearance: Normal appearance. HENT: Head: Normocephalic and atraumatic. Nose: Nose normal. Mouth/Throat: Mouth: Mucous membranes are moist. Pharynx: No oropharyngeal exudate. Eyes: Extraocular Movements: Extraocular movements intact. Conjunctiva/sclera: Conjunctivae normal. Cardiovascular: Rate and Rhythm: Normal rate. Rhythm irregularly irregular. Heart sounds: No murmur. Pulmonary: Effort: Pulmonary effort is normal. Breath sounds: Wheezing present. Abdominal: General: Abdomen is flat. Palpations: Abdomen is soft. Musculoskeletal: General: No swelling. Right lower leg: No edema. Left lower leg: No edema. Skin: Capillary Refill: Capillary refill takes less than 2 seconds. Coloration: Skin is not pale. Neurological: General: No focal deficit present. Mental Status: He is alert and oriented to person, place, and time. Psychiatric: Mood and Affect: Mood normal. Labs Labs (Last day) 07/15/20 1413 - 07/15/20 0926 CARDIAC MARKERS 07/15/20 1413 07/15/20 0926 CARDIAC MARKERS Troponin I 0.000-0.028 (ng/mL) 0.058 0.059 07/15/20 1413 - 07/15/20 1413 CHEMISTRY 07/15/20 1413 CHEMISTRY Potassium 3.5-5.3 (meq/L) 3.9 07/15/20 0832 - 07/15/20 0832 ECG/EKG 07/15/20 0832 ECG/EKG EKG WAVEFORM Atrial fibrillation Posterior infarct (cited on or before 28-JUN-2020) ST & T wave abnormality, consider lateral ischemia Abnormal ECG When compared with ECG of 11-JUL-2020 14:59, T wave inversion less evident in Lateral leads Ventricular Rate: 95 BPM Atrial Rate: 122 BPM QRS Duration: 100 ms Q-T Interval: 374 ms QTc Calculation(Bazett): 469 ms Calculated R Mouthcard: 14 degrees Calculated T Mouthcard: 169 degrees 07/15/20 1632 - 07/15/20 1632 URINALYSIS 07/15/20 1632 URINALYSIS Color Urine Kely, Dark Yellow, Straw, Yellow, Colorless Straw Clarity Urine Clear Clear Specific [place] 1.002-1.030 1.014 Glucose Urine Negative Negative Bilirubin Urine Negative Negative Ketones Urine Negative, 5 mg/dL, 10 mg/dL Negative Blood Urine Negative Negative PH Urine 5.0, 5.5, 6.0, 6.5, 7.0, 7.5, 8.0 5.5 Protein Urine Negative Negative Nitrite Negative Negative Leukocyte Esterase Urine Negative Negative Urobilinogen < 2 mg/dL < 2 mg/dL Shima Bolden MD PGY-1 [employer] Shift Lead ND SHIFT SUPERVISOR Associated attestation - Shameka Goins MD - 07/16/2020 1:58 PM SECOND SHIFT SUPERVISOR I discussed the patient with the resident and personally interviewed and examined the patient. I verified in the medical record all resident documentation/findings, including history, physical exam, and medical decision making, and I agree with the resident's documentation. Note the following additions/corrections: Patient continues to have productive cough with very tenacious mucus which he notes has been presentfor almost a year. CT chest without contrast done for leukocytosis and persistent hypoxia shows improvement from prior CT in June to my reading. Official reading is pending. Patient reports some type of previous study done at [facility] with a "scope down the throat" that showed was occasionally having acid reflux aspiration. Would have a low threshold to start antibiotic therapy for aspiration pneumonia. Shameka Goins MD [facility], PHARM SENIOR OCCUPATIONAL THERAPIST - 07/15/2020 9:23 AM CST 07/15/2020 9:24 AM SECOND SHIFT SUPERVISOR - Patient was seen by pharmacy. HOME MEDICATIONS have been reconciled and updated to match the patient's home usage. Spouse says that patient still has some perforomist left so is using that until that runs out and then switching to the new script of arformoterol. Spouse says patient was at [facility] ED this morning. Says he took the albuterol-ipratropium inhalation solution there at about 0430. Says he also took 4 of the aspirin 81 mg chew tablets there at about 0300. Spouse says he took a tablet of nitroglycerin there which resulted in a "very low blood pressure". Medications added: Calcium tablets -Taking once tablet once daily. Mucinex 600 mg tablets 12 hour -Taking one tablet twice daily as needed for chronic cough. -Started yesterday had a morning and evening dose. Refresh eye drops -one drop in both eyes once daily as needed for dry eyes. Medications removed: Calcium carbonate-cholecalciferol Medications changed: Magnesium hydroxide -Added strength of medication which they say is 250 mg tablets. Senna-docusate -Spouse says they take 1 tablet once daily as needed for constipation and not 1 tablet twice daily. Prior to Admission Medications Prescriptions Last Dose Informant Patient Reported? Taking? CALCIUM PO 07/14/2020 at 1900 Spouse Yes Yes Sig: Take 1 tablet by mouth 1 time per day Magnesium Hydroxide (MAGNESIA PO) 07/14/2020 at 1900 Spouse Yes Yes Sig: Take 250 mg by mouth 1 time per day Multiple Vitamins-Minerals (MULTIVITAMIN & MINERAL) LIQD 07/14/2020 at 1900 Spouse Yes Yes Sig: Take 1 oz by mouth 1 time per day. acyclovir (ZOVIRAX) 5 % ointment Past Month at Unknown time Spouse No Yes Sig: APPLY TO AFFECTED AREA TOPICALLY THREE TIMES DAILY NEEDED FOR [place] albuterol-ipratropium (DUO-NEB) 2.5-0.5 mg/3 mL inhalation solution 07/14/2020 at 1900 Spouse No Yes Sig: Inhale 1 unit-dose (3 mL) by nebulization 4 times a day and every 4 hours as needed apixaban (ELIQUIS) 5 MG tablet 07/14/2020 at 1900 Spouse No Yes Sig: Take 1 tablet (5 mg) by mouth 2 times a day Indications: Atrial Fibrillation arformoterol (BROVANA) 15 MCG/2ML inhalation solution Not Taking at Unknown time Spouse No No Sig: Inhale 1 nebule (15 mcg) by nebulization 2 times a day Patient not taking: Reported on 07/15/2020 aspirin 81 mg enteric coated tablet 07/13/2020 at 0700 Spouse No No Sig: Take 1 tablet (81 mg) by mouth Every other day atorvaSTATin (LIPITOR) 20 mg tablet 07/14/2020 at 0700 Spouse No Yes Sig: TAKE 1 TABLET BY MOUTH ONCE DAILY benzocaine 20 % gel Not Taking at Unknown time Spouse No No Sig: Place 1 application into mouth 3 times a day as needed for moderate pain or severe pain Patient not taking: Reported on 07/15/2020 benzocaine-menthol (CEPACOL W/ BENZOCAINE) 6-10 MG LOZG Not Taking at Unknown time Spouse No No Sig: Place 1 lozenge into mouth Every 4 hours as needed (mouth sores) Patient not taking: Reported on 07/15/2020 budesonide (PULMICORT) 0.5 mg/2 mL inhalation solution 07/14/2020 at 1900 Spouse No Yes Sig: Inhale 1 nebule (0.5 mg) by nebulization 2 times a day bumetanide (BUMEX) 1 mg tablet 07/14/2020 at 1300 Spouse No Yes Sig: Take 3 tablets (3 mg) by mouth two times a day (in the morning and mid-afternoon). digoxin (LANOXIN) 0.125 mg tablet 07/14/2020 at 0700 Spouse No Yes Sig: Take 1 tablet (0.125 mg) by mouth 1 time per day esomeprazole (NEXIUM) 20 mg capsule 07/14/2020 at 0600 Spouse Yes Yes Sig: Take 1 capsule by mouth 1 time per day formoterol (PERFOROMIST) 20 MCG/2ML inhalation solution 07/14/2020 at 1830 Spouse No Yes Sig: Inhale 1 nebule (20 mcg) by nebulization 2 times a day glucosamine-chondroitin (JOINT FLEX) 500-400 mg capsule 07/14/2020 at 0700 Spouse Yes Yes Sig: Take 2 capsules by mouth 1 time per day guaiFENesin (MUCINEX) 600 MG SR (12 hr) tablet 07/14/2020 at 1830 Spouse Yes Yes Sig: Take 600 mg by mouth 2 times a day as needed for cough losartan 50 mg tablet 07/14/2020 at 0700 Spouse No Yes Sig: TAKE 1/2 TABLET BY MOUTH ONCE DAILY metOLazone (ZAROXOLYN) 2.5 mg tablet 07/12/2020 at 0600 Spouse No No Sig: Take 1 tablet (2.5 mg) by mouth 1 time a day as needed for other (Specify) (as directed by HF program) metoprolol succinate (TOPROL XL) 200 mg SR tablet (24 hr) 07/14/2020 at 0700 Spouse No Yes Sig: Take 1 tablet (200 mg) by mouth 1 time per day nitroglycerin (NITROSTAT) 0.4 mg sublingual tablet Greater than 1 Month at Unknown time Spouse No Yes Sig: PLACE 1 TAB UNDER TONGUE NEEDED REPEAT IN 5 MIN X 3 DOSES CALL 911NO RELIEF omega-3 fatty acids (FISH OIL) 1000 mg capsule 07/14/2020 at 1900 Spouse Yes Yes Sig: Take 2,000 mg by mouth 1 time per day polyvinyl alcohol-povidone (REFRESH) 1.4-0.6 % preservative free ophthalmic solution Greater than 1 Month at Unknown time Spouse Yes Yes Si drop 1 time a day as needed for dry eyes potassium chloride (KLOR-CON M20) 20 MEQ CR tablet 06/27/2020 at AM Spouse No No Sig: Take 1 tablet by mouth on 06/27 ..Further workup and treatment could be done if symptoms persist, worsen or new related symptoms occur. The patient will call in that eventuality. Dose from 06/28 based on k level predniSONE 20 mg tablet 07/14/2020 at 0700 Spouse No Yes Sig: Take 40 mg daily till seen by Pulmonary --they will taper based on clinical status . senna-docusate sodium (SENOKOT-S;PERICOLACE) 8.6-50 MG tablet 07/14/2020 at 1900 Spouse No Yes Sig: Take 1 tablet by mouth 2 times a day Patient taking differently: Take 1 tablet by mouth 1 time a day as needed for constipation sulfamethoxazole-trimethoprim (BACTRIM, SEPTRA) 400-80 mg tablet 07/14/2020 at 0700 Spouse No Yes Sig: Take 1 tablet by mouth 1 time per day ubiquinone-10 (CO Q-10) 200 mg capsule 07/14/2020 at 1900 Spouse Yes Yes Sig: Take 200 mg by mouth 1 time per day. vitamin C (ASCORBIC ACID) 500 mg chewable tablet 07/14/2020 at 1900 Spouse Yes Yes Sig: Take 500 mg by mouth 1 time per day vitamin D3, cholecalciferol, 25 mcg (1000 unit) tablet 07/14/2020 at 0700 Spouse No Yes Sig: Take 1 tablet (25 mcg) by mouth 1 time per day Facility-Administered Medications: None Jesse Boudreaux, PHARM SENIOR OCCUPATIONAL THERAPIST ND SHIFT SUPERVISOR Woo Rodriguez MD - 07/15/2020 8:04 AM CST DAILY PROGRESS NOTE Mauricio Bashir is a 75yr old male admitted on 07/15/2020 5:39 AM. Impression / Plan Active Problems: Chest pain MARIIA (acute kidney injury) (HCC) Resolved Problems: * No resolved hospital problems. * #Acute on chronic hypoxic respiratory failure 2/2 below #Acute on chronic HFpEF #Chest pain r/o #Hypokalemia #Chronic A fib #Hx of CAD with stent in 2009 Echo Jun 2020: EF 60% with Grade II diastolic dys; mildly dilated LA, mild AR, mild MR, PA pressure of 69, mod to severe pulm HTN Troponin trended up D dimer negative Was seen in heart failure clinic beginning of month and were planning on PET stress test Plan -Cardiology consult; appreciate their rec's; planning on PET stress -Trend trops -Tele -Follow-up potassium level -Cont Digoxin, Eliquis, and ASA #Chronic hypoxia with 2L at home #ILD #COPD likely without exacerbation #Recent COVID infection April 2020 #Leukocytosis CXR shows bilateral infiltrates however not acute; either fibrosis or atelectasis Plan: -Continue Oxygen supplementation -Bactrim PPx daily -Continue Budesonide, Duo-Neb, Formoterol, Prednisone #MARIIA; baseline around 1.3-1.5; Cr 2.95 #Hyponatremia; Na of 133 Patient does not appear to be fluid overloaded Plan: -Nephrology consult; appreciate their rec's; U/S renal bilateral -Will continue NS at 60mL/hr -Follow-up renal panel Chronic conditions: #HLD - stable #Carotid artery stenosis - stable #TIERRA - stabel #Normocytic anemia - stable CODE: FULL Diet: Heart healthy DVT PPx: Therapeutic anticoagulation Interval History Since admission, patient continues to be on 4L/NC with oxygenation in the mid 90's. He denies any chest pain, worsening SOB, dizziness, light headedness, or weakness with sitting. However, with minimaleffort, he does not worsening SOB, dizziness, and LH. Review of Systems Review of Systems Constitutional: Positive for fatigue. Negative for appetite change and fever. Respiratory: Positive for shortness of breath and wheezing. Negative for chest tightness. Cardiovascular: Negative for chest pain, palpitations and leg swelling. Gastrointestinal: Negative for abdominal pain and nausea. Genitourinary: Negative for frequency. Musculoskeletal: Negative for back pain. Neurological: Positive for dizziness, weakness and light-headedness. Psychiatric/Behavioral: Negative for decreased concentration. The patient is not nervous/anxious. Physical Exam Vital Signs: Temp: 97.2 F (36.2 C) | BP: 120/59 | Pulse: 73 | Resp: 18 | Pain Ratin (out of 10) | Weight: 99.8 kg (220 lb) | O2 Device: NC - no humidity O2 Flow Rate (L/min): 3 l/min | SpO2: 92 % Maximum Temperatures (last 24 hours) Temperature Maximum Max Temp 97.2 F (36.2 C) Intake and Output: No intake/output data recorded. Physical Exam Constitutional: Appearance: Normal appearance. HENT: Head: Normocephalic and atraumatic. Nose: Nose normal. Mouth/Throat: Mouth: Mucous membranes are moist. Pharynx: No oropharyngeal exudate. Eyes: Extraocular Movements: Extraocular movements intact. Conjunctiva/sclera: Conjunctivae normal. Cardiovascular: Rate and Rhythm: Normal rate. Rhythm irregular. Heart sounds: No murmur. Pulmonary: Effort: Pulmonary effort is normal. Breath sounds: Wheezing present. Abdominal: General: Abdomen is flat. Palpations: Abdomen is soft. Musculoskeletal: General: No swelling. Right lower leg: No edema. Left lower leg: No edema. Skin: Capillary Refill: Capillary refill takes less than 2 seconds. Coloration: Skin is not pale. Neurological: General: No focal deficit present. Mental Status: He is alert and oriented to person, place, and time. Psychiatric: Mood and Affect: Mood normal. Labs Labs (Last day) 07/15/20636 - 07/15/20636 CARDIAC MARKERS 07/15/2063607/15/20636 CARDIAC MARKERS Troponin I 0.000-0.028 (ng/mL) 0.059 BNP 0-100 (pg/mL) 151 07/15/20636 - 07/15/20636 CBC 07/15/20636 CBC WBC 4.0-11.0 (K/uL) 15.9 RBC 4.40-5.80 (M/uL) 4.00 Hemoglobin 13.5-17.5 (g/dL) 12.3 Hematocrit 40.0-50.0 (%) 36.7 MCV 80.0-98.0 (fL) 91.8 MCH 25.5-34.0 (pg) 30.8 MCHC 31.5-36.5 (g/dL) 33.5 RDW-CV 11.5-15.5 (%) 15.9 RDW-SD 35.5-50.0 (fl) 53.2 Platelet Count 140-400 (K/uL) 157 MPV 8.5-12.0 (fL) 9.3 07/15/20636 - 07/15/20636 CHEMISTRY 07/15/2063607/15/2063607/15/2037 07/15/2063607/15/20636 CHEMISTRY Glucose 70-100 (mg/dL) 156 Sodium 135-145 (meq/L) 133 Potassium 3.5-5.3 (meq/L) 3.1 Chloride 99-110 (meq/L) 91 CO2 20-29 (meq/L) 26 Anion Gap with K 6-20 (meq/L) 19 BUN 6-22 (mg/dL) 69 Creatinine 0.80-1.30 (mg/dL) 2.95 BUN/Creatinine Ratio 10.0-25.0 23.4 Calcium 8.5-10.5 (mg/dL) 8.9 Corrected Calcium 8.5-10.5 (mg/dL) 9.1 Phosphorus 2.5-4.5 (mg/dL) 4.3 Magnesium 1.8-2.4 (mg/dL) 2.2 Bilirubin Total 0.2-1.2 (mg/dL) 1.0 Alkaline Phosphatase 30-150 (U/L) 45 ALT - SGPT 0-55 (U/L) 56 AST - SGOT 0-35 (U/L) 23 Protein Total 6.0-8.2 (g/dL) 6.2 Albumin 3.5-5.0 (g/dL) 3.8 CRP 0.0-8.0 (mg/L) 3.4 Lactic Acid 0.5-2.2 (mmol/L) 1.9 eGFR >=60 (mL/min/1.73m2) 25 eGFR Non- >=60 (mL/min/1.73m2) 21 07/15/20 0637 - 07/15/20 0637 CHEMISTRY 07/15/20 06 CHEMISTRY Procalcitonin <0.07 (ng/mL) 0.08 07/15/20 0637 - 07/15/20 0637 DIFFERENTIAL 07/15/20 0637 DIFFERENTIAL Seg Neut Absolute 1.8-8.0 (K/uL) 14.2 Lymphocytes Absolute 0.8-4.1 (K/uL) 0.8 Monocytes Absolute 0.0-1.0 (K/uL) 0.7 Eosinophils Absolute 0.0-0.7 (K/uL) 0.0 Basophil Absolute 0.0-0.2 (K/uL) 0.0 Immature Granulocyte Absolute 0.00-0.06 (K/uL) 0.21 Neutrophils Percent (%) 89.6 Neutrophils Abs. (Segs and Bands) (/uL) 14,200 Lymphocytes Percent (%) 4.7 Monocytes Percent (%) 4.2 Immature Granulocyte Percent (%) 1.3 Eosinophils Percent (%) 0.0 Basophil Percent (%) 0.2 Nucleated RBC (/100 WBC's) 0 07/15/2037 - 07/15/20636 GENERAL COAGULATION 07/15/20636 GENERAL COAGULATION D-Dimer <=0.49 (ug/mL FEU) <=0.27 07/15/20 0637 - 07/15/20 0637 OTHER 07/15/20636 OTHER Age (Years) 75 Medical Decision making Medical Decision Making ND SHIFT SUPERVISOR Associated attestation - Shameka Goins MD - 07/15/2020 1:54 PM SECOND SHIFT SUPERVISOR I discussed the patient with the resident and personally interviewed and examined the patient. I verified in the medical record all resident documentation/findings, including history, physical exam, and medical decision making, and I agree with the resident's documentation. Note the following additions/corrections: Spoke with patient's daughter Roslyn at length re: dx and plan of care. She has two concerns: - patient has been doing poorly with reduced function at home since April and wondering if he would benefit from SNF/Rehab. Made PT/OT referral and will see if patient qualifies; if not he would mulu good candidate for home health to do further management/teaching for underlying lung disease, CHF management. Will assess closer to discharge once we have a better idea of plan. - patient would benefit from education re: home oxygen use and how his lung disease affects his oxygen level. Will ask RT to do this teaching prior to discharge. Shameka Goins MD documented in this encounter H&P Notes Morgan Ricardo MD - 07/15/2020 5:55 AM CST Internal Medicine Admission History and Physical Name: Mauricio Bashir ROOM/BED: [facility] PCP: Marco Antonio Flroes MD Admission date: 07/15/2020 LOS: 0 Impression / Plan #Chest Pain #Hx of CAD with stenting in 2011 #MARIIA #Hypokalemia- 2.8 at outside facility- received 40 meq at OSH #Chronic Diastolic Heart Failure #Chronic Atrial Fibrillation Assessment: 75-year-old male medical history of chronic diastolic heart failure, chronic atrial fibrillation, interstitial lung disease, COPD teen infection, hypoxic respiratory failure who presented with chest pain. Patient had acute onset chest pain that he described as severe that radiated to his back. Patient's initial troponin was negative at outside ER. He did have improvement in his chest pain after nitroglycerin. Troponins will also be trended to evaluate for BRITTANY. Aortic dissection is also on the differential but is less likely based on other components of patient's presentation. Work-up at outside ER was also significant for an MARIIA. Patient recently was started on 3 mg twice a day of Bumex and has been having significant diuresis. I suspect that the patient's MARIIA is likely from overdiuresis.Will monitor renal function and will be cautious with fluid replacement due to patient's diastolic heart failure. Plan: - Cardiology Consulted. Appreciate Recommendations. 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 No fever. He does have a leukocytosis that is chronic. I do not think that he has a pneumonia at this time. - Procalcitonin - CRP - Lactic Acid - Restart home budesonide - Restart home Duo-Neb - Restart home formoterol - Restart home Prednisone - Patient will need to continue to follow up with outpatient Pulmonology Chronic Medical Conditions: - TIERRA - Carotid Artery Stenosis s/p Right endarterectomy - Essential HTN- Hold losartan - Normocytic Anemia DVT Prophylaxis:Therapeutically Anticoagulated and SCD's Diet: NPO Disposition: Admit to Hospital Code Status:Full Code Morgan Ricardo MD Transitional Year Resident-PGY1 Pager Number: [phone] 07/15/2020 History Chief Complaint/Presenting Problem: Chest Pain History of Present Illness: Mauricio Gomez is a 75-year-old male with past medical history of chronic diastolic heart failure, chronic atrial fibrillation, interstitial lung disease secondary to hypersensitivity pneumonitis tinnitus, COPD, recent COVID-19 infection leading to chronic hypoxic respiratory failure who presents as a tr ansfer from an outside ER for chest pain. At 9 PM on 07/14 patient began having chest pain while sitting in his chair at home. Chest pain came on relatively suddenly and radiated to his back. Patient described the feeling as being stabbed in the back. It was sharp and he rated it as a 7 out of 10. Patient chest pain was also associated with chest pressure across his chest. He denied diaphoresis but did endorse having nausea. He also endorsed having some shortness of breath. Of note patient was recently admitted from 06/19-06/26 with acute on chronic hypoxic respiratory failure acute on chronic heart failure exacerbation. Patient followed up with cardiology outpatient on 07/11 and had Bumex increased to 3 mg twice daily and as needed metolazone. Cardiology was planning on co mpleting an outpatient PET stress test. Work-up at the outside ER was significant for a potassium of 2.8. Creatinine was elevated to 3.5 with BUN of 73. WBC was 17.3 and hemoglobin 12.6. Pro BNP was 1789. Troponin was within normal limits. CRP was normal. Chest x-ray at outside facility did show bilateral infiltrates that appear stable or improved compared to previous chest x-ray. While in ER patient did receive sublingual nitroglycerin and then became hypotensive with systolic pressures in the 60s to 80s. Patient received 500 mL fluid bolus and had improvement in his pressures. Patient received 40 mEq of potassium, 125 mg Solu-Medrol, 1 g vancomycin and 1 g cefepime. Patient transferred to [facility] for further work-up and management. Medical / Surgical Past Medical History: Diagnosis Date MARIIA (acute kidney injury) ([facility]) 07/15/2020 Asthma Carotid artery stenosis 03/18/2012 -09/2011 right carotid endarterectomy CHF (congestive heart failure) ([facility]) COPD (chronic obstructive pulmonary disease) ([facility]) 04/26/2013 Coronary artery disease DDD (degenerative disc disease), lumbar Encounter for long-term (current) use of other medications HTN (hypertension) 10/07/2012 Hyperlipidemia 03/18/2012 custodial (current) use of anticoagulants TIERRA (obstructive sleep apnea) 04/26/2013 Spinal stenosis of lumbar region Unspecified atrial fibrillation (HCC) Past Surgical History: Procedure Laterality Date BRONCHOSCOPY N/A 01/19/2020 Procedure: BRONCHOSCOPY ADULT/ General Anesthesia, no tb precautions;; Surgeon: Carmen Barnhart MD CARDIAC CATHETERIZATION 05/28/2010 Received 2 Xience drug-eluting stents to the mid circumflex and was noted to have a 99% stenosis inthe second abtuse marginal and 60%stenosis i the ostial RCA CARDIAC CATHETERIZATION 02/2011 revealed a small to medium caliber nondominant RCA which was completely occuded. Patent stent to the circumflex with EF of 0-55%. CAROTID ENDARTERECTOMY 09/2011 right COLONOSCOPY Medications Current Facility-Administered Medications Medication sodium chloride 0.9% flush (adult) 10 mL acetaminophen (TYLENOL) tablet 650 mg sodium chloride 0.9% flush (adult) 10 mL senna-docusate sodium (SENOKOT-S;PERICOLACE) tablet 2 tablet And bisacodyl (DULCOLAX) suppository 10 mg And docusate sodium (THEREVAC-SB MINI;ENEMEEZ MINI) 283 MG enema 1 enema melatonin tablet 3 mg ondansetron (ZOFRAN ODT) dispersible tablet 4 mg And ondansetron (ZOFRAN) injection solution 4 mg albuterol-ipratropium (DUO-NEB) 2.5-0.5 mg/3 mL inhalation solution 3 mL apixaban (ELIQUIS) tablet 5 mg aspirin enteric coated tablet 81 mg atorvaSTATin (LIPITOR) tablet 20 mg budesonide (PULMICORT) 0.5 mg/2 mL inhalation soln 0.5 mg digoxin (LANOXIN) tablet 0.125 mg formoterol (PERFOROMIST) 20 MCG/2ML inhalation solution 20 mcg metoprolol succinate (TOPROL XL) SR tablet (24 hr) 200 mg predniSONE tablet 40 mg senna-docusate sodium (SENOKOT-S;PERICOLACE) tablet 1 tablet sulfamethoxazole-trimethoprim (BACTRIM, SEPTRA) 400-80 mg tablet 1 tablet omeprazole (priLOSEC) capsule 20 mg Allergies Allergies Allergen Reactions Penicillin Hives (High) Dilaudid [Hydromorphone Hcl] Dizziness and Unknown/Not Verified Hydromorphone Hcl Other (Specify in Comments) Family History Family History Problem Relation Age of Onset No Known Problems Mother No Known Problems Father Parkinsonism Other Other Other no history of lung disease or rheumatologic disease Chronic Obstructive Pulmonary Disease Daughter breathing problems; unsure what it is exactly Social History Social History Socioeconomic History Marital status: Spouse name: Not on file Number of children: 1 Years of education: Not on file Highest education level: Not on file Occupational History 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 Social Needs Financial resource strain: Not on file Food insecurity Worry: Not on file Inability: Not on file Transportation needs Medical: Not on file Non-medical: Not on file Tobacco Use Smoking status: Former Smoker Packs/day: 4.00 Years: 15.00 Pack years: 60.00 Types: Cigarettes Quit date: 06/09/1984 Years since quittin.1 Smokeless tobacco: Former User Types: Chew Quit date: 01/23/1970 Substance and Sexual Activity Alcohol use: Yes Alcohol/week: 0.0 standard drinks Frequency: Monthly or less Comment: rare Drug use: No Sexual activity: Not on file Lifestyle Physical activity Days per week: 0 days Minutes per session: 0 min Stress: Not on file Relationships Social connections Talks on phone: Not on file Gets together: Not on file Attends anabaptist service: Not on file Active member of club or organization: Not on file Attends meetings of clubs or organizations: Not on file Relationship status: Not on file Intimate partner violence Fear of current or ex partner: Not on file Emotionally abused: Not on file Physically abused: Not on file Forced sexual activity: Not on file Other Topics Concern Transportation Not Asked Stress in your marriage Not Asked Stress with your relationship Not Asked Stress with your family Not Asked Parenting/Being a parent Not Asked Daycare concerns Not Asked Not enough social support Not Asked Housing problems Not Asked Financial stress Not Asked Safety/danger Not Asked Work/job stress Not Asked Legal stress Not Asked Time conflicts (feeling too busy) Not Asked Academic/school stress Not Asked Language difficulties Not Asked Spiritual concerns Not Asked Insurance problems Not Asked The cost of having to take medication Not Asked The costs of buying food/groceries Not Asked Illness of family member/friend/relative Not Asked of a family member/friend/relative Not Asked Violence in your relationship Not Asked Abuse/neglect Not Asked Community stress Not Asked Cultural barriers Not Asked Ability to do self cares Not Asked Social History Narrative ( is Anisa), Worked in [employer] for many years, 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 Lives in [place]. Review of Systems Complete 12 point review of systems performed and negative except as listed in the HPI Physical Exam Vital signs: Blood pressure 120/59, pulse 73, temperature 97.2 F (36.2 C), resp. rate 18, quopkd612.2 cm (67"), weight 99.8 kg (220 lb), SpO2 92 %. Physical Exam Constitutional: He is oriented to person, place, and time. No distress. HENT: Head: Normocephalic and atraumatic. Eyes: Pupils are equal, round, and reactive to light. EOM are normal. Neck: Normal range of motion. No JVD present. Cardiovascular: Normal rate, regular rhythm and normal heart sounds. Pulmonary/Chest: Effort normal. Crackles over lung bases bilaterally. Decreased air movement Abdominal: Soft. He exhibits distension. There is no abdominal tenderness. Musculoskeletal: Normal range of motion. General: No tenderness. Comments: Mild peripheral edema in lower extremities. Neurological: He is alert and oriented to person, place, and time. Peripheral strength and sensation intact in upper and lower extremities bilaterally. Skin: Skin is warm and dry. He is not diaphoretic. No erythema. Patient Lines/Drains/Airways Status Active Lines None Labs/Imaging All labs and imaging were reviewed and pertinent labs are discussed in assessment. ND SHIFT SUPERVISOR Associated attestation - Melinda Gustafson MD - 07/15/2020 8:17 AM CSTI discussed the patient with the resident and personally interviewed and examined the patient. I agree with the patient's diagnosis and management. documented in this encounter Consult Notes Clint Mast MD - 07/18/2020 5:18 PM CSTAssociated Order(s): CONSULT PULMONARY MEDICINE PULMONARY CONSULT Patient name:Mauricio Bashir CSN: [id number] Today's Date:07/18/2020 Time: 5:19 PM SECOND SHIFT SUPERVISOR ASSESSMENT/PLAN: 1. Acute on chronic hypoxic respiratory failure in this patient is likely multifactorial include: Chronic hypersensitivity pneumonitis prior to his COVID-19 infection patient has been diagnosed with chronic hypersensitive pneumonitis was placed on tapering course of steroids and was improving until patient had a Covid infection in April 2020. 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 But fortunately the repeat CT scan that was done on 07/16/2020 during this admission shows significant improvement compared to the previous consolidation infiltrates but the patient still has some reticulation and traction bronchiectasis suggesting possible fibrotic phase of the post COVID-19 pneumonia related inflammation but definitely improved compared tothe last CT scan. He is also developed significant pulmonary arterial hypertension with right ventricular systolic pressure of 69 mmHg with grade 2 diastolic dysfunction and the repeat echo that was done on 06/20/2020. This is new compared to the previous echoes. This is likely due to intense vasoconstriction from the underlying hypoxia interstitial lung disease with a recent new onset grade 2 diastolic dysfunction. 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 But giventhe significantly improved lung parenchymal changes compared to the last CT scan that was done in April 2020 I suspect the heart is playing much bigger role in his ongoing symptoms compared to the underlying lung disease at this point. Looks like patient also has an abnormal cardiac stress test. This may also be playing a role. 2. Moderate to severe pulmonary hypertension on the echocardiogram of the heart is likely secondary to: Group 2 from diastolic heart failure Group 3 from the underlying lung disease As the patient is on chronic anticoagulation unlikely that this is from chronic PE. He also had negative CT angio. 3. Grade 2 diastolic heart failure 4. Chronic hypoxic respiratory failure 5. Chronic prednisone use 6. Need for PJP ppx Diagnostic: 1. No new testing from pulmonary standpoint. 2. I would have him follow-up with pulmonary rehab after discharge. This will tremendously benefit the patient. 3. Should have a follow-up with pulmonary clinic in next 2 to [address] Loredo. 4. Home oxygen evaluation prior to discharge 5. He will need sleep evaluation given the significant pulmonary hypertension to rule out underlyingobstructive sleep apnea. 6. He should have outpatient follow-up with heart failure clinic and also pulmonary hypertension clinic for further evaluation of the pulmonary hypertension. Therapeutic: 1. Given the significantly improved lung parenchymal changes I am okay with continuing the 40 mg of prednisone for next 1 week. This should be followed by 30 mg for 2 weeks followed by 20 mg for 2 weeks followed by 15 mg for 4 weeks. 2. Continue the Bactrim for pneumocystis prophylaxis as long as he is on 15 mg and above. 3. I would also send the patient on oral nystatin 5 mils twice daily as a prophylaxis against thrush. 4. Vitamin D calcium supplements for osteopenia osteoporosis prophylaxis. 5. We may consider outpatient processing for antifibrotic medication OFEV Oldest CT Latest HPI: This is a 75-year-old pleasant male with history of interstitial lung disease due to hypersensitive pneumonitis on tapering dose of steroids, cardiovascular disease, A. fib, congestive heart failure with preserved ejection fraction, peripheral arterial disease, GERD with previous smoking history who is followed by Dr. Loredo in the clinic. He was also seen by [facility] and they also felt that he likely had hypersensitive pneumonitis. Also found to have GERD with esophageal dysmotility this was in March 2020 when he was seen at the [facility]. Unfortunately patient ended up having COVID-19 pneumonia in April 2020. Patient tested positive on 2020 was hospitalized on the has been coughing more than usual he was found to be in A. fib in the ER during her admission. He was also hypoxic. Patient was placed on Cardizem drip he was treated with Decadron remdesivir and convalescent plasma. He was continued on the CPAP. He was placed on prednisone 40 mg daily until he is seen in the clinic. With these measures patient's hemoptysis improved. His oxygen requirements also improved.He was qualified for 3 L on home oxygen evaluation was also discharged on pneumocystis prophylaxis.Unfortunately patient was hospitalized again on 06/19/2020 increasing oxygen requirement and hypoxia. He was discharged on 06/26/2019. He had a CT chest that did not show PE but did show bilateral findings suggestive of ongoing post Covid pneumonia related inflammation and fibrosis. Patient was also found to be in acute on chronic heart failure exacerbation. He was given IV Lasix he was discharged on Bumex. His echo showed grade 2 diastolic dysfunction moderate to severe pulmonary hypertension. Patient was discharged on 40 mg daily with 5 mg taper every 7 days. The patient now is hospitalized again on 07/15/2020 with chest pain. Initial troponins were negative but also had acute kidney injury. Patient was seen by cardiology. He had a cardiac stress test that showed moderate APC area of ischemia in the inferior wall extending to both seen by cardiology. Medically managed. Seen by nephrology for renal failure was thought to be due to aggressive diuresis. Echo still showed moderate to severe pulmonary hypertension. The repeat echo showed pulmonary hypertension was only at 41 mmHg compared to 69 previous echocardiogram. PMHx: Past Medical History: Diagnosis Date MARIIA (acute kidney injury) ([facility]) 07/15/2020 Asthma Carotid artery stenosis 03/18/2012 -09/2011 right carotid endarterectomy CHF (congestive heart failure) ([facility]) COPD (chronic obstructive pulmonary disease) ([facility]) 04/26/2013 Coronary artery disease DDD (degenerative disc disease), lumbar Encounter for long-term (current) use of other medications HTN (hypertension) 10/07/2012 Hyperlipidemia 03/18/2012 custodial (current) use of anticoagulants TIERRA (obstructive sleep apnea) 04/26/2013 Pneumonia due to COVID-19 virus 04/26/2020 Spinal stenosis of lumbar region Unspecified atrial fibrillation ([facility]) PSHx: Past Surgical History: Procedure Laterality Date BRONCHOSCOPY N/A 01/19/2020 Procedure: BRONCHOSCOPY ADULT/ General Anesthesia, no tb precautions;; Surgeon: Carmen Barnhart MD CARDIAC CATHETERIZATION 05/28/2010 Received 2 Xience drug-eluting stents to the mid circumflex and was noted to have a 99% stenosis inthe second abtuse marginal and 60%stenosis i the ostial RCA CARDIAC CATHETERIZATION 02/2011 revealed a small to medium caliber nondominant RCA which was completely occuded. Patent stent to the circumflex with EF of 0-55%. CAROTID ENDARTERECTOMY 09/2011 right COLONOSCOPY ALLERGIES: Allergies Allergen Reactions Penicillin Hives (High) Dilaudid [Hydromorphone Hcl] Dizziness and Unknown/Not Verified Hydromorphone Hcl Other (Specify in Comments) MEDICATIONS: Medications Prior to Admission Medication Sig Dispense Refill Last Dose CALCIUM PO Take 1 tablet by mouth 1 time per day 07/14/2020 at 1900 guaiFENesin (MUCINEX) 600 MG SR (12 hr) tablet Take 600 mg by mouth 2 times a day as needed for cough 07/14/2020 at 1830 polyvinyl alcohol-povidone (REFRESH) 1.4-0.6 % preservative free ophthalmic solution 1 drop 1 time a day as needed for dry eyes Greater than 1 Month at Unknown time digoxin (LANOXIN) 0.125 mg tablet Take 1 tablet (0.125 mg) by mouth 1 time per day 90 tablet 3 07/14/2020 at 0700 metoprolol succinate (TOPROL XL) 200 mg SR tablet (24 hr) Take 1 tablet (200 mg) by mouth 1 timeper day 30 tablet 3 07/14/2020 at 0700 bumetanide (BUMEX) 1 mg tablet Take 3 tablets (3 mg) by mouth two times a day (in the morning and mid-afternoon). 540 tablet 3 07/14/2020 at 1300 budesonide (PULMICORT) 0.5 mg/2 mL inhalation solution Inhale 1 nebule (0.5 mg) by nebulization 2 times a day 360 mL 4 07/14/2020 at 1900 atorvaSTATin (LIPITOR) 20 mg tablet TAKE 1 TABLET BY MOUTH ONCE DAILY 90 tablet 3 07/14/2020 at 0700 losartan 50 mg tablet TAKE 1/2 TABLET BY MOUTH ONCE DAILY 45 tablet 3 07/14/2020 at 0700 senna-docusate sodium (SENOKOT-S;PERICOLACE) 8.6-50 MG tablet Take 1 tablet by mouth 2 times a day (Patient taking differently: Take 1 tablet by mouth 1 time a day as needed for constipation ) 60 tablet 0 07/14/2020 at 1900 albuterol-ipratropium (DUO-NEB) 2.5-0.5 mg/3 mL inhalation solution Inhale 1 unit-dose (3 mL) bynebulization 4 times a day and every 4 hours as needed 1080 mL 4 07/14/2020 at 1900 predniSONE 20 mg tablet Take 40 mg daily till seen by Pulmonary --they will taper based on clinical status . 60 tablet 1 07/14/2020 at 0700 sulfamethoxazole-trimethoprim (BACTRIM, SEPTRA) 400-80 mg tablet Take 1 tablet by mouth 1 time per day 30 tablet 0 07/14/2020 at 0700 vitamin D3, cholecalciferol, 25 mcg (1000 unit) tablet Take 1 tablet (25 mcg) by mouth 1 time per day 90 tablet 0 07/14/2020 at 0700 esomeprazole (NEXIUM) 20 mg capsule Take 1 capsule by mouth 1 time per day 07/14/2020 at 0600 glucosamine-chondroitin (JOINT FLEX) 500-400 mg capsule Take 2 capsules by mouth 1 time per day 07/14/2020 at 0700 vitamin C (ASCORBIC ACID) 500 mg chewable tablet Take 500 mg by mouth 1 time per day 07/14/2020 at 1900 omega-3 fatty acids (FISH OIL) 1000 mg capsule Take 2,000 mg by mouth 1 time per day 07/14/2020 at 1900 acyclovir (ZOVIRAX) 5 % ointment APPLY TO AFFECTED AREA TOPICALLY THREE TIMES DAILY NEEDED FOR [place]DS[place] 15 g 3 Past Month at Unknown time apixaban (ELIQUIS) 5 MG tablet Take 1 tablet (5 mg) by mouth 2 times a day Indications: Atrial Fibrillation 60 tablet 11 07/14/2020 at 1900 formoterol (PERFOROMIST) 20 MCG/2ML inhalation solution Inhale 1 nebule (20 mcg) by nebulization2 times a day 60 nebule 11 07/14/2020 at 1830 nitroglycerin (NITROSTAT) 0.[address] 1 TAB UNDER TONGUE NEEDED REPEAT IN 5 MIN X 3 DOSES CALL 911NO RELIEF 25 tablet 3 Greater than 1 Month at Unknown time Magnesium Hydroxide (MAGNESIA PO) Take 250 mg by mouth 1 time per day 07/14/2020 at 1900 ubiquinone-10 (CO Q-10) 200 mg capsule Take 200 mg by mouth 1 time per day. 07/14/2020 at 1900 Multiple Vitamins-Minerals (MULTIVITAMIN & MINERAL) LIQD Take 1 oz by mouth 1 time per day. 07/14/2020 at 1900 metOLazone (ZAROXOLYN) 2.5 mg tablet Take 1 tablet (2.5 mg) by mouth 1 time a day as needed for other (Specify) (as directed by HF program) 30 tablet 1 07/12/2020 at 0600 potassium chloride (KLOR-CON M20) 20 MEQ CR tablet Take 1 tablet by mouth on 06/27 ..Further workup and treatment could be done if symptoms persist, worsen or new related symptoms occur. The patientwill call in that eventuality. Dose from 06/28 based on k level 20 tablet 3 06/27/2020 at AM arformoterol (BROVANA) 15 MCG/2ML inhalation solution Inhale 1 nebule (15 mcg) by nebulization 2times a day (Patient not taking: Reported on 07/15/2020) 120 mL 11 Not Taking at Unknown time benzocaine-menthol (CEPACOL W/ BENZOCAINE) 6-[address] 1 lozenge into mouth Every 4 hoursas needed (mouth sores) (Patient not taking: Reported on 07/15/2020) 30 lozenge 1 Not Taking at Unknown time benzocaine 20 % gel Place 1 application into mouth 3 times a day as needed for moderate pain or severe pain (Patient not taking: Reported on 07/15/2020) 7 g 0 Not Taking at Unknown time aspirin 81 mg enteric coated tablet Take 1 tablet (81 mg) by mouth Every other day 30 tablet 0 07/13/2020 at 0700 SOCIAL Hx: Social History Socioeconomic History Marital status: Spouse name: Not on file Number of children: 1 Years of education: Not on file Highest education level: Not on file Occupational History 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 Social Needs Financial resource strain: Not on file Food insecurity Worry: Not on file Inability: Not on file Transportation needs Medical: Not on file Non-medical: Not on file Tobacco Use Smoking status: Former Smoker Packs/day: 4.00 Years: 15.00 Pack years: 60.00 Types: Cigarettes Quit date: 06/09/1984 Years since quittin.1 Smokeless tobacco: Former User Types: Chew Quit date: 01/23/1970 Substance and Sexual Activity Alcohol use: Yes Alcohol/week: 0.0 standard drinks Frequency: Monthly or less Comment: rare Drug use: No Sexual activity: Not on file Lifestyle Physical activity Days per week: 0 days Minutes per session: 0 min Stress: Not on file Relationships Social connections Talks on phone: Not on file Gets together: Not on file Attends anabaptist service: Not on file Active member of club or organization: Not on file Attends meetings of clubs or organizations: Not on file Relationship status: Not on file Intimate partner violence Fear of current or ex partner: Not on file Emotionally abused: Not on file Physically abused: Not on file Forced sexual activity: Not on file Other Topics Concern Transportation Not Asked Stress in your marriage Not Asked Stress with your relationship Not Asked Stress with your family Not Asked Parenting/Being a parent Not Asked Daycare concerns Not Asked Not enough social support Not Asked Housing problems Not Asked Financial stress Not Asked Safety/danger Not Asked Work/job stress Not Asked Legal stress Not Asked Time conflicts (feeling too busy) Not Asked Academic/school stress Not Asked Language difficulties Not Asked Spiritual concerns Not Asked Insurance problems Not Asked The cost of having to take medication Not Asked The costs of buying food/groceries Not Asked Illness of family member/friend/relative Not Asked of a family member/friend/relative Not Asked Violence in your relationship Not Asked Abuse/neglect Not Asked Community stress Not Asked Cultural barriers Not Asked Ability to do self cares Not Asked Social History Narrative ( is Anisa), Worked in [employer] for many years, 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 Lives in [place]. FAMILY Hx: Family History Problem Relation Age of Onset No Known Problems Mother No Known Problems Father Parkinsonism Other Other Other no history of lung disease or rheumatologic disease Chronic Obstructive Pulmonary Disease Daughter breathing problems; unsure what it is exactly ROS: Review of Systems: Constitutional: No unexpected change in weight, fatigue, unexplained fevers, sweats or chills. Eye: No recent significant change in vision, eye pain, redness, or discharge Ear: No ear pain, tinnitus, vertigo, or recent change in hearing Mouth/Throat: No sore throat, recent change in voice or hoarseness Neck: No lumps or masses, swollen glands, recent swelling in thyroid area, or significant pain in neck Pulmonary: No chronic cough, sputum, hemoptysis, dyspnea on exertion, wheezing, or shortness of breath Cardiovascular: No exercise intolerance, chest pain, diaphoresis, edema, or palpitations Gastrointestinal: No abdominal pain, change in bowel habits, significant change in appetite, nausea,vomiting, diarrhea, or constipation Musculoskeletal/Extremities: No pain, redness or swelling of the joints Heme/Allergy/Immune: No abnormal bleeding, bruising, or night sweats Skin: No abnormal skin lesions or rash VITALS: Vitals: 07/18/20 1000 07/18/20 1150 07/18/20 1236 07/18/20 1543 BP: 120/60 127/68 Pulse: 98 87 65 Resp: 16 17 Temp: 96.1 F (35.6 C) 97.9 F (36.6 C) SpO2: 94% 97% 97% Weight: Height: Date 07/18/20 0700 - 07/19/20 0659 Shift 3999-1835 8230-7165 0382-2846 24 Hour Total INTAKE Oral 300 300 Shift Total 300 300 OUTPUT Shift Total Weight (kg) 100.3 100.3 100.3 100.3 PHYSICAL EXAM: Physical Examination: GENERAL ASSESSMENT: active, alert, no acute distress, well hydrated, well nourished SKIN: no lesions, jaundice, petechiae, pallor, cyanosis, ecchymosis HEAD: Atraumatic, normocephalic NOSE: nasal mucosa, septum, turbinates normal bilaterally MOUTH: mucous membranes moist and normal tonsils LUNGS: Respiratory effort normal, clear to auscultation, normal breath sounds bilaterally HEART: Regular rate and rhythm, normal S1/S2, no murmurs, normal pulses and capillary refill ABDOMEN: Normal bowel sounds, soft, nondistended, no mass, no organomegaly. NEURO: gross motor exam normal by observation CURRENT INHOSPITAL MEDICATIONS: Current Facility-Administered Medications Medication Dose Route Frequency Provider Last Rate Last Admin bumetanide (BUMEX) tablet 1 mg 1 mg Oral Daily Woo Rodriguez MD 1 mg at 07/18/20 0805 sodium chloride 0.9% flush (adult) 10 mL 10 mL IV 2 times a day and prn Melinda Gustafson MD 10 mLat 07/18/20 0910 acetaminophen (TYLENOL) tablet 650 mg 650 mg Oral Every 4 hours prn Melinda Gustafson MD sodium chloride 0.9% flush (adult) 10 mL 10 mL IV 2 times a day and prn Morgan Ricardo MD 10 mL at 07/18/20 0954 senna-docusate sodium (SENOKOT-S;PERICOLACE) tablet 2 tablet 2 tablet Oral 2 times a day prn Morgan Ricardo MD 2 tablet at 07/18/20 1305 And bisacodyl (DULCOLAX) suppository 10 mg 10 mg Rectal 1 time a day prn Morgan Ricardo MD And docusate sodium (THEREVAC-SB MINI;ENEMEEZ MINI) 283 MG enema 1 enema 1 enema Rectal 1 time a day prn Morgan Ricardo MD melatonin tablet 3 mg 3 mg Oral Bedtime prn Morgan Ricardo MD ondansetron (ZOFRAN ODT) dispersible tablet 4 mg 4 mg Oral 4 times a day prn Morgan Ricardo MD And ondansetron (ZOFRAN) injection solution 4 mg 4 mg IV 4 times a day prn Morgan Ricardo MD albuterol-ipratropium (DUO-NEB) 2.5-0.5 mg/3 mL inhalation solution 3 mL 3 mL Nebulization 4 times a day and every 4 hours prn Morgan Ricardo MD 3 mL at 07/18/20 1233 apixaban (ELIQUIS) tablet 5 mg 5 mg Oral 2 times a day Morgan Ricardo MD 5 mg at 07/18/20 0805 aspirin enteric coated tablet 81 mg 81 mg Oral Every other day Morgan Ricardo MD 81 mg at 07/17/20 1041 atorvaSTATin (LIPITOR) tablet 20 mg 20 mg Oral daily Morgan Ricardo MD 20 mg at 07/18/20 0804 budesonide (PULMICORT) 0.5 mg/2 mL inhalation soln 0.5 mg 0.5 mg Nebulization 2 times a day Morgan Ricardo MD 0.5 mg at 07/18/20 0951 formoterol (PERFOROMIST) 20 MCG/2ML inhalation solution 20 mcg 20 mcg Nebulization 2 times a day Morgan Ricardo MD 20 mcg at 07/18/20 0951 metoprolol succinate (TOPROL XL) SR tablet (24 hr) 200 mg 200 mg Oral daily Morgan Ricardo MD 200 mg at 07/18/20 0805 predniSONE tablet 40 mg 40 mg Oral Daily Morgan Ricardo MD 40 mg at 07/18/20 0805 senna-docusate sodium (SENOKOT-S;PERICOLACE) tablet 1 tablet 1 tablet Oral 2 times a day Morgan Ricardo MD 1 tablet at 07/17/20 2112 sulfamethoxazole-trimethoprim (BACTRIM, SEPTRA) 400-80 mg tablet 1 tablet 1 tablet Oral daily Morgan Ricardo MD 1 tablet at 07/18/20 0805 omeprazole (priLOSEC) capsule 20 mg 20 mg Oral daily Morgan Ricardo MD 20 mg at 07/18/20 0605 aminophylline IV solution 125 mg 125 mg IV PRN per parameter Pete Todd MD LABS: Labs (Last day) 07/18/20 05 - 07/18/20522 CBC 07/18/20522 CBC WBC 4.0-11.0 (K/uL) 12.5 RBC 4.40-5.80 (M/uL) 3.48 Hemoglobin 13.5-17.5 (g/dL) 10.6 Hematocrit 40.0-50.0 (%) 32.7 MCV 80.0-98.0 (fL) 94.0 MCH 25.5-34.0 (pg) 30.5 MCHC 31.5-36.5 (g/dL) 32.4 RDW-CV 11.5-15.5 (%) 15.9 RDW-SD 35.5-50.0 (fl) 54.4 Platelet Count 140-400 (K/uL) 136 MPV 8.5-12.0 (fL) 9.6 07/18/20 05 - 07/17/20 180 CHEMISTRY 07/18/20 0507/18/20 0507/17/20 18007/17/20 180 CHEMISTRY Glucose 70-100 (mg/dL) 118 191 Sodium 135-145 (meq/L) 140 138 Potassium 3.5-5.3 (meq/L) 3.4 4.1 Chloride 99-110 (meq/L) 101 98 CO2 20-29 (meq/L) 29 27 Anion Gap with K 6-20 (meq/L) 13 17 BUN 6-22 (mg/dL) 37 42 Creatinine 0.80-1.30 (mg/dL) 1.46 1.68 BUN/Creatinine Ratio 10.0-25.0 25.3 25.0 Calcium 8.5-10.5 (mg/dL) 8.7 8.9 Corrected Calcium 8.5-10.5 (mg/dL) 9.0 Phosphorus 2.5-4.5 (mg/dL) 2.2 Magnesium 1.8-2.4 (mg/dL) 2.0 2.0 Albumin 3.5-5.0 (g/dL) 3.6 eGFR >=60 (mL/min/1.73m2) 57 49 eGFR Non- >=60 (mL/min/1.73m2) 47 40 07/18/20 0523 - 07/18/20 0523 DIFFERENTIAL 07/18/20 0523 DIFFERENTIAL Seg Neut Absolute 1.8-8.0 (K/uL) 10.1 Lymphocytes Absolute 0.8-4.1 (K/uL) 1.2 Monocytes Absolute 0.0-1.0 (K/uL) 1.0 Eosinophils Absolute 0.0-0.7 (K/uL) 0.0 Basophil Absolute 0.0-0.2 (K/uL) 0.0 Immature Granulocyte Absolute 0.00-0.06 (K/uL) 0.21 Neutrophils Percent (%) 80.7 Neutrophils Abs. (Segs and Bands) (/uL) 10,100 Lymphocytes Percent (%) 9.6 Monocytes Percent (%) 7.7 Immature Granulocyte Percent (%) 1.7 Eosinophils Percent (%) 0.1 Basophil Percent (%) 0.2 Nucleated RBC (/100 WBC's) 0 07/18/20 0523 - 07/17/20 1801 OTHER 07/18/20 0523 07/17/20 1801 OTHER [age]Years) [age] DIAGNOSTIC IMAGING: Reviewed No images are attached to the encounter. Dr.Venkatkiran Kezia MD Pulmonary and Critical Care Medicine [facility] Juan F Lindsay MD - 07/15/2020 12:34 PM CST Nephrology Initial Hospital Consult Reason for Consult: MARIIA, suspicion of CAD, Needs left and right heart catheterization. Requesting Provider: Dr. Goins Impression Acute kidney injury secondary to IV contrast exposure for CAT scan earlier this week along with increased need for diuretics. Diastolic congestive heart failure acute on chronic. Chronic respiratory issues including interstitial fibrosis with recent worsening secondary to Covid 90 infection. Fluid overload secondary to above, improved with 7 pound weight loss over 2 days. Hypokalemia, replaced. Hyponatremia, volume status currently euvolemic. Suspicion of coronary artery disease, need for left heart and right heart catheterization. Plan I will decrease his IV fluids to 60 cc/h. This is to decrease the chance of involvement of fluid overload considering his respiratory issues and the recent need for diuretics. Continue to hold diuretics for few more days. From a renal standpoint, the patient is not ready to have further contrast exposure such as for cardiac aspiration. I see a plan for stress testing. I would recommend postponing cardiac catheterization for at least a few days, preferably doing that as an outpatient. I will obtain urinalysis and renal ultrasound. He has some symptoms of urinary hesitancy. We will need to rule out raquel obstruction. Mauricio Bashir is a 75yr old male admitted on 07/15/2020. PCP: Marco Antonio Flores MD Admission Problem List Active Problems: Chest pain MARIIA (acute kidney injury) (HCC) HPI / Chief Complaint Mauricio is being in consultation. He is a patient who is admitted after being noticed to have worsening renal function. He has a history of interstitial fibrosis and lung issues. He had Covid infection in April afterwhich his respiratory issues reportedly worsen. He is now on oxygen. He has a history of diastolic congestive heart failure. He was recently seen in the congestive heart failure clinic. He and his report that his diuretics were increased from around 1 mg of Bumexonce a day to about 3 mg twice a day. He was also given 1 dose of metolazone. This was done just afew days ago. He diuresed about 7 pounds since then. He also had a CT scan of the neck with and without contrast for a fatty tumor in [facility] on Friday of this week. He went to the hospital in [place] because of chest pain. At the time of the presentation, he was noted to have a serum creatinine of more than 3. Because of concern for acute kidney injury, he has been transferred here. Since his transfer here, he has been getting IV hydration. He is currently on normal saline at 100 cc/h. His urine output was about 700 yesterday. He denies any recent antibiotics. Denies any decreased appetite. He denies any frothing of the urine urination or any hematuria but does report slow urinary stream. He has been seen by cardiology here. There is a need to do left heart and right heart catheterization. Renal consultation has also been asked to facilitate this. 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 He also has no past medical history of Clotting disorder ([facility]), Heart murmur, Myocardial infarction ([facility]), Seizures ([facility]), orStroke ([facility]). Past Surgical History Mauricio has a past surgical history that includes carotid endarterectomy (09/2011); cardiac catheterization (05/28/2010); cardiac catheterization (02/2011); colonoscopy; and bronchoscopy (N/A, 01/19/2020). Prior to Admission Medications Medications Prior to Admission Medication Sig Dispense Refill Last Dose CALCIUM PO Take 1 tablet by mouth 1 time per day 07/14/2020 at 1900 guaiFENesin (MUCINEX) 600 MG SR (12 hr) tablet Take 600 mg by mouth 2 times a day as needed for cough 07/14/2020 at 1830 polyvinyl alcohol-povidone (REFRESH) 1.4-0.6 % preservative free ophthalmic solution 1 drop 1 time a day as needed for dry eyes Greater than 1 Month at Unknown time digoxin (LANOXIN) 0.125 mg tablet Take 1 tablet (0.125 mg) by mouth 1 time per day 90 tablet 3 07/14/2020 at 0700 metoprolol succinate (TOPROL XL) 200 mg SR tablet (24 hr) Take 1 tablet (200 mg) by mouth 1 timeper day 30 tablet 3 07/14/2020 at 0700 bumetanide (BUMEX) 1 mg tablet Take 3 tablets (3 mg) by mouth two times a day (in the morning and mid-afternoon). 540 tablet 3 07/14/2020 at 1300 budesonide (PULMICORT) 0.5 mg/2 mL inhalation solution Inhale 1 nebule (0.5 mg) by nebulization 2 times a day 360 mL 4 07/14/2020 at 1900 atorvaSTATin (LIPITOR) 20 mg tablet TAKE 1 TABLET BY MOUTH ONCE DAILY 90 tablet 3 07/14/2020 at 0700 losartan 50 mg tablet TAKE 1/2 TABLET BY MOUTH ONCE DAILY 45 tablet 3 07/14/2020 at 0700 senna-docusate sodium (SENOKOT-S;PERICOLACE) 8.6-50 MG tablet Take 1 tablet by mouth 2 times a day (Patient taking differently: Take 1 tablet by mouth 1 time a day as needed for constipation ) 60 tablet 0 07/14/2020 at 1900 albuterol-ipratropium (DUO-NEB) 2.5-0.5 mg/3 mL inhalation solution Inhale 1 unit-dose (3 mL) bynebulization 4 times a day and every 4 hours as needed 1080 mL 4 07/14/2020 at 1900 predniSONE 20 mg tablet Take 40 mg daily till seen by Pulmonary --they will taper based on clinical status . 60 tablet 1 07/14/2020 at 0700 sulfamethoxazole-trimethoprim (BACTRIM, SEPTRA) 400-80 mg tablet Take 1 tablet by mouth 1 time per day 30 tablet 0 07/14/2020 at 0700 vitamin D3, cholecalciferol, 25 mcg (1000 unit) tablet Take 1 tablet (25 mcg) by mouth 1 time per day 90 tablet 0 07/14/2020 at 0700 esomeprazole (NEXIUM) 20 mg capsule Take 1 capsule by mouth 1 time per day 07/14/2020 at 0600 glucosamine-chondroitin (JOINT FLEX) 500-400 mg capsule Take 2 capsules by mouth 1 time per day 07/14/2020 at 0700 vitamin C (ASCORBIC ACID) 500 mg chewable tablet Take 500 mg by mouth 1 time per day 07/14/2020 at 1900 omega-3 fatty acids (FISH OIL) 1000 mg capsule Take 2,000 mg by mouth 1 time per day 07/14/2020 at 1900 acyclovir (ZOVIRAX) 5 % ointment APPLY TO AFFECTED AREA TOPICALLY THREE TIMES DAILY NEEDED FOR [place] 15 g 3 Past Month at Unknown time apixaban (ELIQUIS) 5 MG tablet Take 1 tablet (5 mg) by mouth 2 times a day Indications: Atrial Fibrillation 60 tablet 11 07/14/2020 at 1900 formoterol (PERFOROMIST) 20 MCG/2ML inhalation solution Inhale 1 nebule (20 mcg) by nebulization2 times a day 60 nebule 11 07/14/2020 at 1830 nitroglycerin (NITROSTAT) 0.[address] 1 TAB UNDER TONGUE NEEDED REPEAT IN 5 MIN X 3 DOSES CALL 911NO RELIEF 25 tablet 3 Greater than 1 Month at Unknown time Magnesium Hydroxide (MAGNESIA PO) Take 250 mg by mouth 1 time per day 07/14/2020 at 1900 ubiquinone-10 (CO Q-10) 200 mg capsule Take 200 mg by mouth 1 time per day. 07/14/2020 at 1900 Multiple Vitamins-Minerals (MULTIVITAMIN & MINERAL) LIQD Take 1 oz by mouth 1 time per day. 07/14/2020 at 1900 metOLazone (ZAROXOLYN) 2.5 mg tablet Take 1 tablet (2.5 mg) by mouth 1 time a day as needed for other (Specify) (as directed by HF program) 30 tablet 1 07/12/2020 at 0600 potassium chloride (KLOR-CON M20) 20 MEQ CR tablet Take 1 tablet by mouth on 06/27 ..Further workup and treatment could be done if symptoms persist, worsen or new related symptoms occur. The teresawivinod call in that eventuality. Dose from 06/28 based on k level 20 tablet 3 06/27/2020 at AM arformoterol (BROVANA) 15 MCG/2ML inhalation solution Inhale 1 nebule (15 mcg) by nebulization 2times a day (Patient not taking: Reported on 07/15/2020) 120 mL 11 Not Taking at Unknown time benzocaine-menthol (CEPACOL W/ BENZOCAINE) 6-[address] 1 lozenge into mouth Every 4 hoursas needed (mouth sores) (Patient not taking: Reported on 07/15/2020) 30 lozenge 1 Not Taking at Unknown time benzocaine 20 % gel Place 1 application into mouth 3 times a day as needed for moderate pain or severe pain (Patient not taking: Reported on 07/15/2020) 7 g 0 Not Taking at Unknown time aspirin 81 mg enteric coated tablet Take 1 tablet (81 mg) by mouth Every other day 30 tablet 0 07/13/2020 at 0700 Medications in the hospital: Current Facility-Administered Medications Medication Dose Route Frequency Provider Last Rate Last Admin sodium chloride 0.9% flush (adult) 10 mL 10 mL IV 2 times a day and prn Melinda Gustafson MD 10 mLat 07/15/20 1013 acetaminophen (TYLENOL) tablet 650 mg 650 mg Oral Every 4 hours prn Melinda Gustafson MD sodium chloride 0.9% flush (adult) 10 mL 10 mL IV 2 times a day and prn Morgan Ricardo MD 10 mL at 07/15/20 1003 senna-docusate sodium (SENOKOT-S;PERICOLACE) tablet 2 tablet 2 tablet Oral 2 times a day prn Morgan Ricardo MD And bisacodyl (DULCOLAX) suppository 10 mg 10 mg Rectal 1 time a day prn Morgan Ricardo MD And docusate sodium (THEREVAC-SB MINI;ENEMEEZ MINI) 283 MG enema 1 enema 1 enema Rectal 1 time a day prn Morgan Ricardo MD melatonin tablet 3 mg 3 mg Oral Bedtime prn Morgan Ricardo MD ondansetron (ZOFRAN ODT) dispersible tablet 4 mg 4 mg Oral 4 times a day prn Morgan Ricardo MD And ondansetron (ZOFRAN) injection solution 4 mg 4 mg IV 4 times a day prn Morgan Ricardo MD albuterol-ipratropium (DUO-NEB) 2.5-0.5 mg/3 mL inhalation solution 3 mL 3 mL Nebulization 4 times a day and every 4 hours prn Morgan Ricardo MD 3 mL at 07/15/20 0924 apixaban (ELIQUIS) tablet 5 mg 5 mg Oral 2 times a day Morgan Ricardo MD 5 mg at 07/15/20 1000 aspirin enteric coated tablet 81 mg 81 mg Oral Every other day Morgan Ricardo MD 81 mg at 07/15/20 1011 atorvaSTATin (LIPITOR) tablet 20 mg 20 mg Oral daily Morgan Ricardo MD 20 mg at 07/15/20 1000 budesonide (PULMICORT) 0.5 mg/2 mL inhalation soln 0.5 mg 0.5 mg Nebulization 2 times a day Morgan Ricardo MD 0.5 mg at 07/15/20 0924 formoterol (PERFOROMIST) 20 MCG/2ML inhalation solution 20 mcg 20 mcg Nebulization 2 times a day Morgan Ricardo MD 20 mcg at 07/15/20 0924 metoprolol succinate (TOPROL XL) SR tablet (24 hr) 200 mg 200 mg Oral daily Morgan Ricardo MD 200 mg at 07/15/20 1001 predniSONE tablet 40 mg 40 mg Oral Daily Morgan Ricardo MD 40 mg at 07/15/20 1000 senna-docusate sodium (SENOKOT-S;PERICOLACE) tablet 1 tablet 1 tablet Oral 2 times a day Morgan Ricardo MD 1 tablet at 07/15/20 1001 sulfamethoxazole-trimethoprim (BACTRIM, SEPTRA) 400-80 mg tablet 1 tablet 1 tablet Oral daily Morgan Ricardo MD 1 tablet at 07/15/20 1000 omeprazole (priLOSEC) capsule 20 mg 20 mg Oral daily Morgan Ricardo MD 20 mg at 07/15/20 0700 sodium chloride 0.9% IV solution IV Continuous Regulagadda VJuan F MD 100 mL/hr at 942 New Bag at 07/15/20 0942 digoxin (LANOXIN) tablet 0.0625 mg 0.0625 mg Oral daily Morgan Ricardo MD 0.0625 mg at 07/15/20 1002 regadenoson (LEXISCAN) syringe 0.4 mg 0.4 mg IV 1 time Pete Todd MD aminophylline IV solution 125 mg 125 mg IV PRN per parameter Pete Todd MD Allergies Allergies have been reviewed. Mauricio is allergic to penicillin; dilaudid [hydromorphone hcl]; and hydromorphone hcl. Social History Mauricio reports that he quit smoking about 36 years ago. His smoking use included cigarettes. He hasa 60.00 pack-year smoking history. He quit smokeless tobacco use about 50 years ago. His smokeless tobacco use included chew. He reports current alcohol use. He reports that he does not use drugs. Family History Mauricio's family history includes Chronic Obstructive Pulmonary Disease in his daughter; No Known Problems in his father and mother; Other in an other family member; Parkinsonism in an other family member. Review of Systems History obtained from the patient. General ROS: negative Constitutional ROS: 7 lbs weight loss. Psychological ROS: negative. Ophthalmic ROS: negative. ENT ROS: negative. Allergy and Immunology ROS: negative. Hematological and Lymphatic ROS: negative. Endocrine ROS: negative. Respiratory ROS: chronic cough, shortness of breath. Cardiovascular ROS: no chest pain or palpitations. Gastrointestinal ROS: abdominal distension. Genito-Urinary ROS: slow urinary stream. Musculoskeletal ROS: negative. Neurological ROS: negative. Dermatological ROS: negative. Admission Vital Signs Temp: 97.2 F (36.2 C) BP: 120/59 Pulse: 73 Resp: 18 Pain Ratin (out of 10) Weight: 99.8 kg (220 lb) O2 Device: NC - no humidity O2 Flow Rate (L/min): 3 l/min SpO2: 92 % Height: 170.2 cm (5' 7") Date 07/15/20 07 - 07/16/20 0659 Shift 5090-3229 5388-3912 4026-5338 24 Hour Total INTAKE Shift Total OUTPUT Urine 700 700 Shift Total 700 700 Weight (kg) 99.8 99.8 99.8 99.8 Physical Exam General Appearance: well developed, moderately obese man. No distress. Head: Atrumatic. Normocephalic. Eyes: pupils equal and reactive, no pallor of conjunctiva. ENT: mucous membranes moist, nose and external ears grossly normal. Neck: supple, no significant adenopathy. No JVD. Lymphatics: no lymphadenopathy. Chest: slight bilateral crackles. Heart: S1, S2 present. No murmurs. Abdomen: soft, nontender, obesity, distended, no masses or organomegaly. Neurological: alert, oriented, grossly intact. Extremities: no peripheral edema. Skin: normal coloration and turgor, no rashes, no suspicious skin lesions noted Diagnostics and Labs Relevant diagnostic, laboratory and radiological studies have been reviewed in the Electronic Medical Record. Labs (Last day) 07/15/20925 - 07/15/20636 CARDIAC MARKERS 07/15/2092507/15/2063607/15/20636 CARDIAC MARKERS Troponin I 0.000-0.028 (ng/mL) 0.059 0.059 BNP 0-100 (pg/mL) 151 07/15/2037 - 07/15/20636 CBC 07/15/20636 CBC WBC 4.0-11.0 (K/uL) 15.9 RBC 4.40-5.80 (M/uL) 4.00 Hemoglobin 13.5-17.5 (g/dL) 12.3 Hematocrit 40.0-50.0 (%) 36.7 MCV 80.0-98.0 (fL) 91.8 MCH 25.5-34.0 (pg) 30.8 MCHC 31.5-36.5 (g/dL) 33.5 RDW-CV 11.5-15.5 (%) 15.9 RDW-SD 35.5-50.0 (fl) 53.2 Platelet Count 140-400 (K/uL) 157 MPV 8.5-12.0 (fL) 9.3 07/15/20636 - 07/15/20636 CHEMISTRY 07/15/2063607/15/2063607/15/2037 07/15/2063607/15/20636 CHEMISTRY Glucose 70-100 (mg/dL) 156 Sodium 135-145 (meq/L) 133 Potassium 3.5-5.3 (meq/L) 3.1 Chloride 99-110 (meq/L) 91 CO2 20-29 (meq/L) 26 Anion Gap with K 6-20 (meq/L) 19 BUN 6-22 (mg/dL) 69 Creatinine 0.80-1.30 (mg/dL) 2.95 BUN/Creatinine Ratio 10.0-25.0 23.4 Calcium 8.5-10.5 (mg/dL) 8.9 Corrected Calcium 8.5-10.5 (mg/dL) 9.1 Phosphorus 2.5-4.5 (mg/dL) 4.3 Magnesium 1.8-2.4 (mg/dL) 2.2 Bilirubin Total 0.2-1.2 (mg/dL) 1.0 Alkaline Phosphatase 30-150 (U/L) 45 ALT - SGPT 0-55 (U/L) 56 AST - SGOT 0-35 (U/L) 23 Protein Total 6.0-8.2 (g/dL) 6.2 Albumin 3.5-5.0 (g/dL) 3.8 CRP 0.0-8.0 (mg/L) 3.4 Lactic Acid 0.5-2.2 (mmol/L) 1.9 eGFR >=60 (mL/min/1.73m2) 25 eGFR Non- >=60 (mL/min/1.73m2) 21 07/15/20636 - 07/15/20636 CHEMISTRY 07/15/20636 CHEMISTRY Procalcitonin <0.07 (ng/mL) 0.08 07/15/20636 - 07/15/20636 DIFFERENTIAL 07/15/20636 DIFFERENTIAL Seg Neut Absolute 1.8-8.0 (K/uL) 14.2 Lymphocytes Absolute 0.8-4.1 (K/uL) 0.8 Monocytes Absolute 0.0-1.0 (K/uL) 0.7 Eosinophils Absolute 0.0-0.7 (K/uL) 0.0 Basophil Absolute 0.0-0.2 (K/uL) 0.0 Immature Granulocyte Absolute 0.00-0.06 (K/uL) 0.21 Neutrophils Percent (%) 89.6 Neutrophils Abs. (Segs and Bands) (/uL) 14,200 Lymphocytes Percent (%) 4.7 Monocytes Percent (%) 4.2 Immature Granulocyte Percent (%) 1.3 Eosinophils Percent (%) 0.0 Basophil Percent (%) 0.2 Nucleated RBC (/100 WBC's) 0 07/15/2032 - 07/15/20 0832 ECG/EKG 07/15/20831 ECG/EKG EKG WAVEFORM Atrial fibrillation Posterior infarct (cited on or before 28-JUN-2020) ST & T wave abnormality, consider lateral ischemia Abnormal ECG When compared with ECG of 11-JUL-2020 14:59, T wave inversion less evident in Lateral leads Ventricular Rate: 95 BPM Atrial Rate: 122 BPM QRS Duration: 100 ms Q-T Interval: 374 ms QTc Calculation(Bazett): 469 ms Calculated R Mouthcard: 14 degrees Calculated T Mouthcard: 169 degrees 07/15/20636 - 07/15/20636 GENERAL COAGULATION 07/15/20636 GENERAL COAGULATION D-Dimer <=0.49 (ug/mL FEU) <=0.27 07/15/20636 - 07/15/20636 OTHER 07/15/20636 OTHER 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 Charts reviewed. I have discussed with family medicine team. I have reviewed the recent input of the heart failure team. No presenting with chest pain, heart failure symptomatology and acute renal failure.Recent echo shows significant pulmonary hypertension. Ideally would I would like to proceed with a right and left heart catheterization. However has acute on chronic renal failure. I discussed with patient and family present. The thought processes may be L get the PET stress scan done today. Evaluate for any significant ischemia. If no significant ischemia then will proceed with right heart catheterization. If significant ischemia then will review the timing of both right and left heart catheterization. I have asked the primary team to get a nephrology consultation. Details to follow. 1400 hrs-The patient is seen and examined, charts reviewed. Reviewed all the previous cardiac history in detail. Discussed with the family medicine team. Reviewed licensing specialist, Dr. De La Rosa's notes. Summarizing, Mr. Bashir is a 75-year-old gentleman. He has known coronary artery disease. He has hadprevious angiograms done. On the system, the last time he has had an angiogram was in 2010. He hada small to medium caliber, nondominant right coronary system, which was completely occluded. He also had stent placement in the circumflex system, which is patent. Left anterior descending artery hadshown at that time mild irregularities. His last echocardiogram on our system was on 06/20/2020. At that time, his left ventricular ejectionfraction was normal at 60%, suggestion of increased filling pressure although the left atrium was only mildly dilated. Mild aortic insufficiency. Right ventricular function could truly not be assessed, although the PA systolic pressure of 70 mmHg indicated severe pulmonary hypertension. No significant pericardial effusion. The patient was in the process of further evaluation for his heart failure status. He last saw Angeli Jefferson, MEG, heart failure NENO and coordinator, just a few days back. In her assessment, there was worsening atrial fibrillation, rapid ventricular rate, and exacerbation of diastolic heart failure. A PET stress test was ordered. Patient was admitted earlier today via direct admission. I reviewed the workup of family practice team. The history obtained is well reflected in the family practice transitional year resident's noteand I have pasted it below for convenience. He had acute onset of chest pain this morning. At the time when I saw him, he was chest pain free. He admits of increasing shortness of breath, but deniedany PND or orthopnea. No major dizziness, lightheadedness or syncope. Clinically, at the time when I saw him, he was quite comfortable with no cardiorespiratory distress. Chronic atrial fibrillation, heart rate in 70s and this morning too and blood pressure was good. No florid heart failure signs. Reviewing the laboratory tests done today, troponin was mildly elevated at 0.059 but appears to be aflat trend. BNP was also mildly elevated at 151. White cell count was elevated at 15.9 and hemoglobin was 12.3. Chemistry showed a sodium of 133, potassium of 3.1, BUN was 69, creatinine was 2.95, abig jump from 1.54 done on 07/07/2020 with an EGFR of only 21. Liver function test revealed an ALT of 56, AST of 23, total protein of 6.2 and albumin of 3.8. He did have a CTA chest on 06/19/2020 with dye, and that was for increasing shortness of breath. It was noted there was no CT evidence of pulmonary thromboembolic disease. No right heart strain. Small bilateral effusion. Coronary artery calcification was noted. Reviewing Dr. De La Rosa's notes, he attributes the acute worsening of kidney function secondary tothe IV contrast exposure for the CT scan, which was done earlier this week. He also notes all the electrolyte abnormalities and has started the process of replacing. Gentle IV hydration recommended. A Rosalinda PET myocardial perfusion imaging study was performed and I reviewed the images immediately. Patient had a moderate area of inferior, inferolateral ischemia. No anterior ischemia. No anterolateral ischemia. No anteroseptal ischemia. Normal left ventricular ejection fraction. In my opinion in view of Acute renal failure I will hold off on any cardiac catheterization for time being, especially him being so sensitive to dye. We will manage symptomatically his heart failure status. Possibly at some point during the current admission could obtain a right heart catheterization to get a true idea of his pulmonary hypertension status and left-sided filling pressure. This will help us in management strategy. However, he does need aggressive coronary artery disease risk factor management. He has atrial fibrillation with periodic rapid ventricular rate. For now, we will adopt rate control measures, but I feel it will be worthwhile getting an electrophysiology assessment to review the atrial fibrillation syndrome in full details. In case they recommend FIDE cardioversion, we could proceed with that. In case they recommend continuation of rate control option, that could be followed. In case they suggest any ablative procedure, they will review with the patient. Electrophysiology consultation can be obtained on Friday. I will place it. However, in view of the renal dysfunction, I will go ahead and stop the digoxin, he will be prone for digoxin toxicity, especially with low potassi um and significant renal dysfunction. We will review the management strategy including possibility of adding amiodarone. Receipt: [id number] Trans ID: [id number] SECOND SHIFT SUPERVISOR SECOND SHIFT SUPERVISOR Reason for Consult CHF HPI / History / ROS HPI CARDIAC HISTORY Longstanding persistent atrial fibrillation (HCC) on AC rate control measures. 06/20/20-ECHO- EF 60%, grade II diastolic dysfunction, mildly dilated LA, mild AR, mild MR, PA systolic pressure was 69mmHg, moderate to severe pulmonary HTN, LV SAMANTHA 47mm. 03/06/11-[facility]- He had a small to medium caliber, nondominant right coronary artery, which was completely occluded. His previously placed stent in the circumflex system was patent. Left anterior descending artery showed a mild degree of irregularity. Left ventricular ejection fraction was normal, around 5 0% to 55% with some degree of inferior wall hypokinesia. His left ventricular end-diastolic pressurewas mildly elevated at 20 to 25 mmHg. 05/25/10-[facility]-left main and left anterior descending artery had minor luminal irregularities. Proximal circumflex showed minor luminal irregularity. The mid circumflex showed 95% lesion at the origin ofan obtuse marginal branch 2. The obtuse marginal branch 2 was diffusely diseased throughout the course with the maximum of 99% obstructive lesion. There was a 60% ostial right coronary artery lesion, which is nondominant. Left ventricular ejection fraction was 50%. There was hypokinesia of the mid inferior wall. Based on the review of the angiogram as well as the stress test, it was felt that the stenting procedure of the 95% mid circumflex lesion would be appropriate. stenting procedure of the 95% mid circumflex lesion would be appropriate. This was carried out with a Xience 2.5 mm x 18 mm drug-eluting stent. 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 At 9PM on 07/14 patient began having chest pain while sitting in his chair at home. Chest pain came on relatively suddenly and radiated to his back. Patient described the feeling as being stabbed in the selena k. It was sharp and he rated it as a 7 out of 10. Patient chest pain was also associated with chest pressure across his chest. He denied diaphoresis but did endorse having nausea. He also endorsed having some shortness of breath. Patient Active Problem List Diagnosis Encounter for long-term (current) use of other medications CAD (coronary artery disease) Hyperlipidemia Carotid artery stenosis HTN (hypertension) COPD (chronic obstructive pulmonary disease) (HCC) TIERRA (obstructive sleep apnea) Spinal stenosis of lumbar region DDD (degenerative disc disease), lumbar custodial current use of anticoagulant Unspecified atrial fibrillation (HCC) Congestive heart failure with left ventricular diastolic dysfunction (HCC) Acute respiratory failure (HCC) Atrial fibrillation with rapid ventricular response (HCC) Pneumonia due to COVID-19 virus Hypoxia Chest pain MARIIA (acute kidney injury) ([facility]) Current Facility-Administered Medications Medication Dose Route Frequency sodium chloride 0.9% flush (adult) 10 mL 10 mL IV 2 times a day and prn acetaminophen (TYLENOL) tablet 650 mg 650 mg Oral Every 4 hours prn sodium chloride 0.9% flush (adult) 10 mL 10 mL IV 2 times a day and prn senna-docusate sodium (SENOKOT-S;PERICOLACE) tablet 2 tablet 2 tablet Oral 2 times a day prn And bisacodyl (DULCOLAX) suppository 10 mg 10 mg Rectal 1 time a day prn And docusate sodium (THEREVAC-SB MINI;ENEMEEZ MINI) 283 MG enema 1 enema 1 enema Rectal 1 time a day prn melatonin tablet 3 mg 3 mg Oral Bedtime prn ondansetron (ZOFRAN ODT) dispersible tablet 4 mg 4 mg Oral 4 times a day prn And ondansetron (ZOFRAN) injection solution 4 mg 4 mg IV 4 times a day prn albuterol-ipratropium (DUO-NEB) 2.5-0.5 mg/3 mL inhalation solution 3 mL 3 mL Nebulization 4 times a day and every 4 hours prn apixaban (ELIQUIS) tablet 5 mg 5 mg Oral 2 times a day aspirin enteric coated tablet 81 mg 81 mg Oral Every other day atorvaSTATin (LIPITOR) tablet 20 mg 20 mg Oral daily budesonide (PULMICORT) 0.5 mg/2 mL inhalation soln 0.5 mg 0.5 mg Nebulization 2 times a day formoterol (PERFOROMIST) 20 MCG/2ML inhalation solution 20 mcg 20 mcg Nebulization 2 times a day metoprolol succinate (TOPROL XL) SR tablet (24 hr) 200 mg 200 mg Oral daily predniSONE tablet 40 mg 40 mg Oral Daily senna-docusate sodium (SENOKOT-S;PERICOLACE) tablet 1 tablet 1 tablet Oral 2 times a day sulfamethoxazole-trimethoprim (BACTRIM, SEPTRA) 400-80 mg tablet 1 tablet 1 tablet Oral daily omeprazole (priLOSEC) capsule 20 mg 20 mg Oral daily potassium chloride (KLOR-CON M10) TBCR 40 mEq 40 mEq Oral 1 time Allergies Allergen Reactions Penicillin Hives (High) Dilaudid [Hydromorphone Hcl] Dizziness and Unknown/Not Verified Hydromorphone Hcl Other (Specify in Comments) Past Medical History: Diagnosis Date MARIIA (acute kidney injury) ([facility]) 07/15/2020 Asthma Carotid artery stenosis 03/18/2012 -09/2011 right carotid endarterectomy CHF (congestive heart failure) ([facility]) COPD (chronic obstructive pulmonary disease) ([facility]) 04/26/2013 Coronary artery disease DDD (degenerative disc disease), lumbar Encounter for long-term (current) use of other medications HTN (hypertension) 10/07/2012 Hyperlipidemia 03/18/2012 custodial (current) use of anticoagulants TIERRA (obstructive sleep apnea) 04/26/2013 Spinal stenosis of lumbar region Unspecified atrial fibrillation ([facility]) Past Surgical History: Procedure Laterality Date BRONCHOSCOPY N/A 01/19/2020 Procedure: BRONCHOSCOPY ADULT/ General Anesthesia, no tb precautions;; Surgeon: Carmen Barnhart MD CARDIAC CATHETERIZATION 05/28/2010 Received 2 Xience drug-eluting stents to the mid circumflex and was noted to have a 99% stenosis inthe second abtuse marginal and 60%stenosis i the ostial RCA CARDIAC CATHETERIZATION 02/2011 revealed a small to medium caliber nondominant RCA which was completely occuded. Patent stent to the circumflex with EF of 0-55%. 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 Lives in [place]. Review of Systems Review of Systems Constitutional: Positive for fatigue. Negative for fever and unexpected weight change. HENT: Negative for congestion. Eyes: Negative for visual disturbance. Respiratory: Positive for shortness of breath. Cardiovascular: Positive for chest pain and leg swelling. Negative for palpitations. Gastrointestinal: Positive for abdominal distention. Negative for abdominal pain. Endocrine: Negative for polyuria. Genitourinary: Negative for difficulty urinating. Musculoskeletal: Positive for arthralgias. Skin: Negative for color change. Allergic/Immunologic: Positive for immunocompromised state. Neurological: Negative for dizziness, syncope and light-headedness. Hematological: Does not bruise/bleed easily. Psychiatric/Behavioral: Negative for agitation. Physical / Results Current Vital Signs Temp: 97.2 F (36.2 C) BP: 120/59 Weight: 99.8 kg (220 lb) SpO2: 92 % Resp: 18 Pulse: 73 Current BMI (>50 = increased risk): (!) 34.45 O2 Device: NC - no humidity O2 Flow Rate (L/min): 3 l/min Pain Ratin Physical Exam Constitutional: He appears chronically ill. HENT: Nose: Nose normal. Eyes: Conjunctivae are normal. Neck: No JVD present. No neck adenopathy. No thyromegaly present. Cardiovascular: Normal rate, regular rhythm, S1 normal and S2 normal. Exam reveals distant heart sounds. Pulmonary/Chest: Effort normal. He has scattered wheezes. Abdominal: He exhibits distension. Musculoskeletal: General: Edema present. Neurological: He is alert and oriented to person, place, and time. Skin: Skin is warm and dry. No pallor. Lab Results Component Value Date GLUCOSE 156 (H) 07/15/2020 BUN 69 (H) 07/15/2020 CREATSERUM 2.95 (H) 07/15/2020 BCRATIO 23.4 07/15/2020 NA 133 (L) 07/15/2020 POTASSIUM 3.1 (L) 07/15/2020 CL 91 (L) 07/15/2020 CO2 26 07/15/2020 CA 8.9 07/15/2020 PROTEINTOTAL 6.2 07/15/2020 ALBUMIN 3.8 07/15/2020 ALKPHOS 45 07/15/2020 AST 23 07/15/2020 ALT 56 (H) 07/15/2020 BILITOTAL 1.0 07/15/2020 EGFR 21 (L) 07/15/2020 Lab Results Component Value Date WBC 15.9 (H) 07/15/2020 NUCRBC 0 07/15/2020 RBC 4.00 (L) 07/15/2020 HEMOGLOBIN 12.3 (L) 07/15/2020 HEMATOCRIT 36.7 (L) 07/15/2020 MCV 91.8 07/15/2020 MCH 30.8 07/15/2020 MCHC 33.5 07/15/2020 PLTCOUNT 157 07/15/2020 NEUTROPCT 89.6 07/15/2020 LYMPHSPCT 4.7 07/15/2020 MONOSPCT 4.2 07/15/2020 EOSPCT 0.0 07/15/2020 BASOPHILPCT 0.2 07/15/2020 Lab Results Component Value Date TROPONINI 0.059 (H) 07/15/2020 Lab Results Component Value Date TSH 1.54 06/28/2020 Medical Decision Making I have: Ordered laboratory, radiology or other diagnostic tests. Independently visualized and interpreted an image, tracing or specimen previously or subsequently interpreted by another provider. Discussed results of laboratory, radiology or other diagnostic tests with the physician who performed or interpreted the study. Obtained/reviewed old records from [facility] or elsewhere (details outlined elsewhere in note). Obtained history from a person other than the patient (details outlined elsewhere in note). Discussed case with another provider (details outlined elsewhere in note). documented in this encounter Miscellaneous Notes Clinical Team - Sadie Corley RN - 07/19/2020 12:35 PM CSTAnswered patient's call light and wanted clarification on home digoxin dose and if patient is actually supposed to stop taking this medication as it printed out on the d/c AVS. states "I've talked to some doctor a couple times yesterday and I was told he was going to stay on the digoxin and now I am told today he is supposed to stop it". Message sent to Dr. Rodriguez to clarify and confirm; d igoxin is to be stopped per cardiology. Updated patient's and they both have verbal understanding. linical Team - Lisa Worley RN - 07/19/2020 11:40 AM CSTA&Ox4, patient voiced some complaints of SOB w/ exertion, especially to restroom, SpO2>90% throughout day. VS are WNL, except noted tachycardic w/ exertion 110-150's, provider made aware, BP remains stable, patient states he does not feel the palpitations when HR is elevated, just SOB. No overt distress noted at rest, resp are easy and regular at rest on 2-3L NC. Steady gait, UpALib in room/SBA in halls. Afib per tele 90's at rest. Discharge today to home via private car, will be wheelchair to d/c doors. Discharge instructions/packet provided to patient/spouse. Question and concerns answered, provider made aware of medication concerns spouse had, adjustments made IV cath and tele box removed. [facility] - Jinny Mclaughlin EP - 07/19/2020 10:10 AM CSTCardiac Rehab Phase 1 Inpatient Note: Diagnosis: CHF Patient seen sitting up in the chair with family in room. Declines activity with cardiac rehab this date due to preparing for discharge. Has been ambulating with cardiac rehab throughout his stay and has tolerated fairly well. Referred to outpatient cardiac rehab program in [place]. Assessment/Plan: Tolerates activity well. Encouraged patient to ambulate in hallway 3-4 times daily as tolerated with gradual progression. -Progress as tolerated -Patient referred to outpatient Cardiac Rehab program -Continue to follow until until Discharge -Home activity and exercise teaching completed Recommendation: "Outpatient Cardiac Rehab Continue Inpatient Cardiac Rehab Plan of Care daily until discharge. Cardiac Rehab Alpha Pager: [phone] ase Mgmt - Mary Marie RN - 07/19/2020 9:47 AM CSTCASE MANAGEMENT / SOCIAL SERVICE FINAL TRANSITION PLAN TRANSITION DATE: 07/19 TRANSITION TIME: PER FLOOR INTENDED PAYER SOURCE FOR AGENCY: Private Insurance TRANSITION DESTINATION: Home Bedside nurse to complete routine discharge along with discharge paperwork and education. Family to provide transport to home. DOES ACCEPTING FACILITY REQUIRE COVID TESTING BEFORE DISCHARGE: N/A TRANSITION TRANSPORTATION: Family Car TRANSPORTATION PAYMENT: Not applicable TRANSITION CHOICES OFFERED: Home: Family/Friend Support DOES THE PATIENT HAVE A PRIMARY CARE PHYSICIAN? Yes Marco Antonio Flores MD PATIENT / SUBSTITUTE DECISION MAKER GOAL UPON TRANSITION: First Choice: Home: Family/Friend Support PATIENT CHOICE EDUCATION: Not applicable MEDICARE 3 IP MIDNIGHT CRITERIA MET: N/A RESOURCE(S) PROVIDED: nothing needed at this time DOES PATIENT HAVE CLOTHING TO WEAR AT DISCHARGE? Yes ANTICIPATED MODE OF TRANSPORT TO AND FROM FOLLOW UP APPOINTMENTS: Drive self Family Car VERIFIED CORRECT PHARMACY IS ENTERED FOR DISCHARGE: Yes - Pharmacy: . [facility] [place] [address] [facility] [id number] [place] [address] [facility] METHOD OF PRESCRIBING MEDICATIONS: Medications to be E-prescribed to above pharmacy TRANSITION ROUNDING COMPLETED WITH THE FOLLOWING: Patient / family Consumer Credit Counselor COMMENTS / PATIENT AND FAMILY RESPONSE TO PLAN: Chart reviewed. Pt stable for d/c today. Family present at bedside. No CM needs identified. Cardiac referral placed. CURRENT READMISSION RISK SCORE / HANDOFF: Predictive Risk Score Risk of Unplanned Readmission: 33.4 Handoff given: N/A SIGNED: Mary Marie RN BSN Case Management - 6CD Rt: [id number] are Planning - Lisa Worley RN - 07/19/2020 9:13 AM SECOND SHIFT SUPERVISOR Problem: RISK FOR DECREASED CARDIAC TISSUE PERFUSION Goal: ACTIVITY TOLERANCE Description: DESCRIPTION: Physiologic response to energy-consuming movements with daily activities. 1=Severly compromised, 2=Substantially compromised, 3=Moderately compromised, 4=Mildly compromised, 5=Not compromised. Outcome: NOC Rating 5 Flowsheets (Taken 07/19/2020 0911) Initial Score: 4 Target Score: 5 Plan of care reviewed with: Patient Patient specific goal for the day: Perform ADLs free of SOB during exertion Patient specific goal for the stay: Return to baseline Achieve goal for stay: By discharge Patient Progress: Minimal SOB w/ exertion. VS are WNL on 2L NC. SBA/independent in room, Steady gait. Call light within reach Note: No overt distress noted upon exiting room are Planning - Lisbet Soto RN - 07/19/2020 5:55 AM SECOND SHIFT SUPERVISOR Problem: RISK FOR DECREASED CARDIAC TISSUE PERFUSION Goal: ACTIVITY TOLERANCE Description: DESCRIPTION: Physiologic response to energy-consuming movements with daily activities. 1=Severly compromised, 2=Substantially compromised, 3=Moderately compromised, 4=Mildly compromised, 5=Not compromised. Outcome: NOC Rating 4 Flowsheets (Taken 07/19/2020 0554) Plan of care reviewed with: Patient Patient specific goal for the day: Perform ADLs free of SOB during exertion Patient specific goal for the stay: Return to baseline Achieve goal for stay: By discharge Patient Progress: Pt states continued SOB with exertion. VSS on 2L NC, A/O x4 ambulating with minimal assistance. ND SHIFT SUPERVISOR Clinical Team - Ninfa Duncan RN - 07/18/2020 10:24 PM CSTVSS, afebrile, denies pain. Pleasant with cares, ambulated with FWW, SBA around 6C. Tolerated well. ND SHIFT SUPERVISOR Physical Therapy - Morgan Sanabria PT - 07/18/2020 3:23 PM CSTPhysical Therapy Acute Inpatient Treatment Note Assessment/Recommendation: Patient is generally deconditioned and can only tolerate ~ 130 feet of ambulation before needing a rest break. Mauricio would benefit from a four-wheeled walker and outpatient cardiac rehab when medically stable. Will continue to follow. Patient is progressing towards goals. Daily activity recommendations: ambulate 3x/day in morales (CGA and four-wheeled walker) Subjective: No complaints of pain. Agreeable to PT. Objective: Bed Mobility: Not assessed. Transfers: Sit to/from stand without assistance. Gait: Ambulates ~ 130 feet x 2 with four-wheeled walker. Fairly steady but is limited by SOB. No dizziness or LOB. Moderate SOB on 3 liters (O2 saturation is 96 and HR is 110). Stairs: Not assessed. Balance Training: Good sitting balance. Good ambulation balance with four- wheeled walker. Other: In restroom upon conclusion of PT. Call button within reach. Education: Discussed the importance of continued ambulation during acute stay. Plan: Continue plan of care. Today's Treatment: Gait Trainin minutes Therapeutic Exercise: 0 minutes Therapeutic Activity: 12 minutes TOTAL TIMED CODES: 12 minutes TREATMENT TOTAL TIME: 12 minutes Morgan Sanabria PT, DPT Board-Certified Clinical Specialist in Geriatric Physical Therapy Certified Exercise Expert for Aging Adults Pager: [phone] ND SHIFT SUPERVISOR Occupational Therapy - Mary Luo Estes, OTR/L - 07/18/2020 1:13 PM CST Occupational Therapy Acute Care Progress Note Impression/Recommendations Recommend return home with spouse's support upon medical stability and may benefit from OP Cardiac Rehab. Pt presents with general weakness and decreased activity tolerance. Pt fatigues easily. Pt on2L O2 and he reports he has needed supplemental O2 since having COVID-27 April 2020. Education completed on recommended AE/DME, Ue HEP, and energy conservation techniques with handouts provided. Pt declined further activity with OT as he was toileting upon OT arrival to his room and desired to assist him off toilet as pt was wanting to sit for increased amount of time to attempt to void (RNwas aware). Pt currently functioning below baseline. OT will continue to follow acutely. Objective Cognition: A&Ox4 U/E: Issued Ue HEP and verbally reviewed, declined to complete at this time. Oxygen Level: Rest >90% Activity >90% on 2L O2 while in restroom ADLs: Toileting: Pt had just ambulated into bathroom with 's assistance and was sitting on toilet upon OT arrival (RN was aware as RN was exiting room upon OT arrival). Pt desires to attempt to void for increased amount of time and desires assists him. Transfers: Toilet: reports pt has difficulty with toilet transfer at home stating they have lower toiletwith vanity R. Education on styles of toilet risers along with toilet safety frame. indicatesunderstanding and plans to obtain items independently. Pain: No reports of pain while OT present Transfer belt and nonslip footwear on with all out of bed activities. Pt sitting safely and comfortably in chair with call light and all needed items within reach. Educated on safety and use of call light, waiting for assistance, and not attempting self transfers/standing. Pt indicates understanding. Education Education/Training provided: Role of OT, plan of care, energy conservation techniques, ADLs, transfers, safety, recommendations, AE/DME Learners: Patient and Readiness: Acceptance Method of Training: Verbal education, demonstration Response: Verbalized/demonstrated understanding, will benefit from continued reinfocement Adaptive Equipment Recommendations Adaptive Equipment Recommended: tub GB, shower chair, long-handled shoehorn, sock aid, toilet riser, toilet safety frame Adaptive Equipment Available: hand held shower, pillbox, and long-handled sponge; received postdoctoral scholar through [facility] on 07/17/2020 Plan to obtain adaptive equipment: Plan to obtain independently; handouts provided/reviewed. Stated equipment recommended to pt. Pt chose to obtain postdoctoral scholar from [facility]. Explained to pt equipment may not be covered by insurance and if not covered, they would be billed for that equipment. Pt acknowledged and signed [facility] sheet Goals Patient/Family Stated Goal for Session: wants to remain on toilet; agreeable to OT Goals by Discharge: -Patient will be able to complete grooming tasks with modified independence while standing at sink with AE prn. -Patient will be able to complete LE dressing with modified independence and AE prn. -Patient will be able to complete chair, toilet, and bed transfers with modified independence and AEprn. -Patient will be able to complete tub shower transfer with SBA and AE prn. -Patient will be able to tolerate UE strengthening for 15-30 minutes to improve strength and performance in ADL/IADLs. -Patient will be alert, oriented and demonstrate appropriate safety awareness for safe discharge home. (ongoing) -Patient will have all necessary adaptive equipment in place for safe discharge home.(ongoing) -Patient will independently incorporate energy conservation techniques to maintain O2 >/=90% during ADLs. Patient continues to progress towards goals. Charges Treatment/Minutes: Today's Evaluation/Treatment Self care/home management: 13 minutes Total Treatment Time: 13 minutes Treatment Session 07/14 Weekly Assessment/Plan (Day ): Cont OT per POC Therapist Alpha Pager Number [phone] ase Mgmt - Mary Marie RN - 07/18/2020 11:10 AM CSTCASE MANAGEMENT / SOCIAL SERVICE TRANSITION PLAN - PROGRESS NOTE PLAN: Awaiting Medical Doctor Recommendations for Transition Will Continue to Follow for Support and Progression Towards Final Transition Plan BARRIERS TO TRANSITION: Medical barriers:. Cont. Tele Monitor labs - replace electrolytes as needed Med adjustments - monitor DOES ACCEPTING FACILITY REQUIRE COVID TESTING BEFORE DISCHARGE: N/A COMMENTS / PATIENT AND FAMILY RESPONSE TO PLAN: Chart reviewed. No acute CM needs identified. Cont. Tele. Monitor labs. Med adjustments - monitoring. Cardiology signed off. Patient is from home with . Goal is to return home pending medical stability. We discussed HH but he does not feel that he is home bound. CM will reassess. CM to follow. IS PATIENT'S ADMISSION ASSOCIATED WITH TIA, ISCHEMIC, OR HEMORRHAGIC STROKE?: No PATIENT / SUBSTITUTE DECISION MAKER GOAL UPON TRANSITION: First Choice: Home: Family/Friend Support ANTICIPATED NEEDS UPON TRANSITION: Home: Family/Friend Support RESOURCE(S) PROVIDED: nothing needed at this time ANTICIPATED MODE OF TRANSPORT UPON TRANSITION: Family Car ANTICIPATED MODE OF TRANSPORT TO AND FROM FOLLOW UP APPOINTMENTS: Drive self Family Car VERIFIED CORRECT PHARMACY IS ENTERED FOR DISCHARGE: Yes - Pharmacy: . [facility] [place] [address] [facility] [address] [place] [id number] [place], [place] [id number] [facility] TRANSITION ROUNDING COMPLETED WITH THE FOLLOWING: Patient / family Consumer Credit Counselor SIGNED: Mary Marie RN BSN Case Management - 6CD Rt: [phone] [place] SHIFT SUPERVISOR Respiratory Therapy - Tona Swartz RRT - 07/18/2020 9:55 AM CSTPt seen for scheduled DuoNeb QID, Perforomist BID and Pulmicort BID per home routine. Pt was seen on3L NC, SpO2 98%, RR 22, BS coarse crackles. RT to follow. ardiac Rehab - Meryl Thomson EP - 07/18/2020 9:55 AM CSTCardiac Rehab Phase 1 Inpatient Note: Diagnosis: CHF Physical Activity Completed: Ambulate in morales Distance Ambulated: 180 feet Ambulation Assistance: Contact guard assist Patient response to Exercise: fair due to SOB Exercise Comments: Steady gait with using hand rails as needed. Pt did stop and rest x2 due to SOB, 02 levels within range. He noted burning sensation in his neck 01/16, feels like acid reflex. Gaitbelt used with activity Vitals Resting Heart Rate - 100 bpm Exercise Heart Rate - 116 bpm O2 Device - NC O2 Flow Rate - 3L Resting SpO2 - 93% Exercise SpO2 - 90% Assessment/Plan: Tolerates activity well. Encouraged patient to ambulate in hallway 3-4 times daily as tolerated with gradual progression. -Progress as tolerated -Continue to follow until until Discharge Recommendation: "Outpatient Cardiac Rehab- [place]vert Continue Inpatient Cardiac Rehab Plan of Care daily until discharge. Cardiac Rehab Alpha Pager: [phone] linical Team - Damián Aragon RN - 07/18/2020 3:55 AM CSTPatient A&Ox4 with no c/o pain. VSS. Continues c/o SOB with exertion. Patient on 3L oxygen via nasal canula. On telemetry; irregular HR. Ambulates well with SBA, but does not always utilize call light. Education given regarding need to call for assistance and risk of falling. Patient able to make needs known and call light within reach. Will continue to monitor. are Planning - Damián Aragon RN - 07/18/2020 1:11 AM SECOND SHIFT SUPERVISOR Problem: RISK FOR DECREASED CARDIAC TISSUE PERFUSION Goal: ACTIVITY TOLERANCE Description: DESCRIPTION: Physiologic response to energy-consuming movements with daily activities. 1=Severly compromised, 2=Substantially compromised, 3=Moderately compromised, 4=Mildly compromised, 5=Not compromised. Outcome: NOC Rating 3 Flowsheets (Taken 07/18/2020 0105) Plan of care reviewed with: Patient Patient specific goal for the day: Maintain ability to tolerate excertion with ADLs without SOB Patient specific goal for the stay: Return to baseline Achieve goal for stay: By discharge Patient Progress: Patient complains of continued SOB with exertion, but oxygen saturation remains stable on 3L. Alert and oriented x4. No c/o pain. [place] SHIFT SUPERVISOR Clinical Team - Lisbet Saeed RN - 07/17/2020 6:00 PM CSTVSS, see graphics. C/o of sob with exertion, unchanged from earlier today. Continues on 3L oxygen.Good diuresis with addition of po bumex, see I/O. Offers no other complaints. Will monitor. linical Team - Yunier Crum RN - 07/17/2020 4:17 PM CSTVSS on 3L NC, A/O x4. Denies pain, nausea, dizziness. SOB w/ activity. Tele showing Afib in 90s. are Planning - Yunier Crum RN - 07/17/2020 4:17 PM SECOND SHIFT SUPERVISOR Problem: RISK FOR DECREASED CARDIAC TISSUE PERFUSION Goal: ACTIVITY TOLERANCE Description: DESCRIPTION: Physiologic response to energy-consuming movements with daily activities. 1=Severly compromised, 2=Substantially compromised, 3=Moderately compromised, 4=Mildly compromised, 5=Not compromised. Outcome: NOC Rating 4 Flowsheets (Taken 07/17/2020 1616) Plan of care reviewed with: Patient Patient specific goal for the day: Remain hemodynamically stable while performing ADLs Patient specific goal for the stay: Sustain adequate cardic perfusion Achieve goal for stay: By discharge Patient Progress: VSS with 3L of oxygen, SOB with exertion, denies pain hysical Therapy - Anna Marie Castañeda PT - 07/17/2020 4:01 PM CSTPhysical Therapy Acute Inpatient Treatment Note Assessment/Recommendation: Mauricio is ambulating ~ 180' With a seated rest half way this afternoon,on 3 liters. He plans home with when medically ready. PT will follow 3x/wk. Patient is progressing towards goals. Daily activity recommendations: up with Contact guard assist Subjective: present and encouraged him to walk. He had been "too tired" on previous attempt today. Objective: On 3 liters oxygen, his baseline. Bed Mobility: Not obwerved Transfers: Sit to/from stand with no assist Gait: Ambulated ~ 180' with standby supervision, seated rest half way. No LOB, but fatigued after that distance. Stairs: Pt declined to try stairs. Has 2-3 at home entry. Plan: Continue plan of care. Today's Treatment: Gait Trainin minutes Therapeutic Exercise: 0 minutes Therapeutic Activity: 0 minutes TOTAL TIMED CODES: 10 minutes TREATMENT TOTAL TIME: 10 minutes Cristela Castañeda PT Alpha pager [phone] [place] SHIFT SUPERVISOR Respiratory Therapy - Guillermo Amin RRT - 07/17/2020 11:26 AM CSTPt seen for scheduled performist BID, pulmicort BID, and duoneb QID per home routine. Took treatments well. Breath sounds clear diminished, SpO2 94% while on 3 L NC. No cough was noted while in the room. RT to follow. ase Mgmt - Mary Marie RN - 07/17/2020 10:54 AM CSTCASE MANAGEMENT / SOCIAL SERVICE TRANSITION PLAN - INITIAL ASSESSMENT TRANSITION PLAN: Awaiting Medical Doctor Recommendations for Transition Will Continue to Follow for Support and Progression Towards Final Transition Plan BARRIERS TO TRANSITION: Medical barriers:. Cont. Tele Cardiology following IVF: NS at 60mL/hr PT/OT following COMMENTS / PATIENT AND FAMILY RESPONSE TO PLAN: Chart reviewed. Met with patient and at bedside. CM role explained and discharge planning discussed. Pt lives at home with his spouse. Pt is independent with ADLs. Denies any use of services/assistance or DME. Pt drives, has a PCP, and manages own medications/finances. No discharge needs identified at this time. CM will continue to follow for transition planning. ADMISSION DX: MARIIA; Pneumonia PATIENT STATUS: Inpatient RELEASE OF INFORMATION: Yes -- verbal for: / discharge planning SOURCES OF INFORMATION (See demographics for contact information): Medical Doctor Medical Record Patient CURRENT LIVING SITUATION / LEVEL OF ASSISTANCE: Lives with spouse Independent COMMUNITY SERVICES: None HEALTHCARE DIRECTIVE: Declined No POWER OF BUSINESS SUPPORT ASSISTANT: None FINANCIAL CONCERNS: No Concerns PRIMARY CARE PHYSICIAN: Yes Marco Antonio Flores MD : No IS PATIENT'S ADMISSION ASSOCIATED WITH TIA, ISCHEMIC, OR HEMORRHAGIC STROKE?: No LANGUAGE / COMMUNICATION BARRIERS: No PATIENT / SUBSTITUTE DECISION MAKER GOAL UPON TRANSITION: First Choice: Home: Family/Friend Support ANTICIPATED NEEDS, TRANSITION CHOICES OFFERED: Home: Family/Friend Support RESOURCE(S) PROVIDED: nothing needed at this time DOES PATIENT HAVE CLOTHING TO WEAR AT DISCHARGE? Yes ANTICIPATED MODE OF TRANSPORT UPON DISCHARGE: Family Car VERIFIED CORRECT PHARMACY IS ENTERED FOR DISCHARGE: Yes - Pharmacy: . [facility] [place] [address]- [address] [place] [address] [facility] CURRENT READMISSION RISK SCORE Predictive Risk Score Risk of Unplanned Readmission: 32.3 Please refer to readmission risk assessment flowsheet for further details. SIGNED: Mary Marie RN BSN Case Management - 6CD Rt: [phone] [place] SHIFT SUPERVISOR Occupational Therapy - Mary Lou Estes OTR/[place] - 07/17/2020 10:27 AM CST Occupational Therapy Acute Care Evaluation Impression/Recommendations Recommend return home with spouse's support upon medical stability and may benefit from OP Cardiac Rehab. Pt presents with SOB and decreased activity tolerance. Pt fatigues easily. Pt on 3L O2 and hereports he has needed since having COVID-27 April 2020. Pt completes observed transfers/mobilitySBA without AD. Pt reports assisted with LB dressing and bathing prior (but was completely independent prior to April 2020). Education completed on recommended AE/DME and energy conservation techniques with handout provided. Currently, pt desires to obtain postdoctoral scholar through [facility] which will be provided and he reports may obtain other equipment independently. Pt currently functioning below baseline. OT will continue to follow acutely. Admitting Diagnosis: No diagnosis found. 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 anticoagulants TIERRA (obstructive sleep apnea) 04/26/2013 Pneumonia due to COVID-19 virus 04/26/2020 Spinal stenosis of lumbar region Unspecified atrial fibrillation ([facility]) Activity Level: Progressive mobility bundle Precautions: O2, 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 Pt and spouse share yardwork responsibility. Comments: Pt had COVID-19 back in April 2020 and has since been needing increased assist from along with needing supplemental O2. Pt has been sleeping in a recliner. 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 Adaptive Equipment Available: hand held shower, pillbox, and long-handled sponge Present for Eval: Pt Objective Activities of Daily Living: Feeding: Independent Grooming: Declined, reports increased SOB this morning when standing at sink for oral cares Upper Extremity Dressing: Ue WFL which endorses independence, reports no concerns, declines to demo Lower Extremity Dressing: Reports has been needing assist from spouse to derek/doff items over feet otherwise independent clothing management. Education on AE for LB dressing with pt verbalizing understanding but declines formal trial. Declines to [facility] clothing management and reports no concerns. Bathing: Recommended completing showering tasks in sitting and use of shower chair, grab bar, longhandled sponge, hand held shower head, and have assistance/supervision with initial showering tasks and shower transfers to ensure safety and maximize independence. Pt verbalized understanding however reports he continues to desire to complete tub bath. present and reports she has been considering getting a shower chair. Toileting: Declines to [facility], reports no concerns and states he has been completing on his own. Homemaking: NA - does Comments: Education on energy conservation techniques and AE/DME recommendations with handouts provided. Transfers: Bed: Declines - states he has been sleeping in recliner since having COVID-19 Chair: SBA Toilet: Declines to [facility], reports no concerns Tub/Shower: Education on technique for tub transfer and recommend shower chair and GB. Pt reportsunderstanding but declines to trial. reports has been considering getting a shower chair. Pt reports desire to continue with tub bath and assist from spouse though has been educated on benefits of seated bathing. Car: Education on technique for car transfer. Pt indicates understanding and reports no concerns,declines to trial. Comments: SBA ambulate<->bathroom without AD. Pain: Pain at rest: 0/10 Pain during activity: 0/10 Aaron pain at this time though acknowledges having chest pain this morning with standing at sink during oral cares. States nursing was aware. Upper Extremity Function: Range of Motion: Right:within functional limits Left: within functional limits Strength: Right: within functional limits Left: within functional limits Endurance: limited Oxygen Level: Rest >90% Activity 80%'s on 3L O2 - education on energy conservation techniques, O2 increased to >90% with seated rest/PLB after approximately 2 minutes. Pt fatigues very easily (O2 dropped after standing approximately 1 minute) Coordination: intact Sensation: impaired in fingers Edema: no Dominant Hand: right Orientation: Cognition: A&O to self, , place, month, year Attention: intact Following Directions: intact Safety Awareness: intact Visual/Perception: WFL Pt refused transfer belt despite education on benefits of use and risks of not using. Nonslip footwear on with all out of bed activities. Pt sitting safely and comfortably reclined in chair with calllight and all needed items within reach. Educated on safety and use of call light, waiting for assistance, and not attempting self transfers/standing. Pt indicates understanding. and RN in room when OT left. Education Education/Training provided: Role of OT, plan of care, AE/DME, ADLs, transfers, recommendations, energy conservation techniques Learners: Patient and Readiness: Acceptance Method of Training: Verbal education, demonstration Response: Verbalized/demonstrated understanding, will benefit from continued reinforcement Adaptive Equipment Recommendations Adaptive Equipment Recommended: postdoctoral scholar, tub GB, shower chair, long-handled shoehorn, sock aid Plan to obtain adaptive equipment: Patient and/or family elected to use [facility] Accessories and the following equipment was provided: postdoctoral scholar. Aware of how to obtain other equipment as he desires. Stated equipment recommended to pt. Pt chose to obtain said equipment from [facility]. Explained to pt equipment may not be covered by insurance and if not covered, they would be billed for that equipment. Pt acknowledged and signed [facility] sheet Assessment/Plan Assessment: Patient demonstrates decreased physical conditioning, decreased independence with ADL/IADL tasks and decreased independence with functional mobility Patient showing a decrease in ADL/transfer performance and will benefit from continued OT. Plan: Patient to be seen 3-5 times a week to work toward above goals Treatment plan will consist of Friday thru Friday sessions Goals Patient/Family Stated Goal for Session: none stated; agreeable to OT Goals by Discharge: -Patient will be able to complete grooming tasks with modified independence while standing at sink with AE prn. -Patient will be able to complete LE dressing with modified independence and AE prn. -Patient will be able to complete chair, toilet, and bed transfers with modified independence and AEprn. -Patient will be able to complete tub shower transfer with SBA and AE prn. -Patient will be able to tolerate UE strengthening for 15-30 minutes to improve strength and performance in ADL/IADLs. -Patient will be alert, oriented and demonstrate appropriate safety awareness for safe discharge home. -Patient will have all necessary adaptive equipment in place for safe discharge home. -Patient will independently incorporate energy conservation techniques to maintain O2 >/=90% during ADLs. Treatment Provided See above note Charges Treatment/Minutes: Today's Evaluation/Treatment Evaluation Self care/home management: 14 minutes Total for time-based codes: 14 minutes Total treatment time: 24 minutes Evaluation Complexity PMH/Comorbidities that affect Occupational Performance: See PMH Occupational Profile/Medical and Therapy History: LOW - Brief history relating to presenting problem Patient Assessment: LOW - 1-3 performance deficits relating to physical, cognitive, psychosocial limitations/restrictions Clinical Decision Making: LOW - Low complexity, limited amount of treatment options, no assessment modification, no comorbidities Evaluation Complexity: Low Therapist Alpha Pager Number: [phone] ardiac Rehab - Jinny Mclaughlin EP - 07/17/2020 9:30 AM CSTCardiac Rehab Phase 1 Inpatient Note: Diagnosis: CHF EF 60% Physical Activity Completed: Ambulate in morales Distance Ambulated: 125 feet Ambulation Assistance: Contact guard assist Patient response to Exercise: good Exercise Comments: O2 dropped with activity, slightly SOB. Did stop to sit and rest x1. Gaitbelt used with activity. Up to chair afterwards. Vitals O2 Device - NC O2 Flow Rate - 3-4L Resting SpO2 - 95% Exercise SpO2 - 85% Assessment/Plan: Tolerates activity well. Encouraged patient to ambulate in hallway 3-4 times daily as tolerated with gradual progression. -Progress as tolerated -Patient referred to outpatient Cardiac Rehab program -Continue to follow until until Discharge -Home activity and exercise teaching completed Recommendation: "Outpatient Cardiac Rehab Continue Inpatient Cardiac Rehab Plan of Care daily until discharge. Cardiac Rehab Alpha Pager: [phone] linical Team - Dequan Huang RN - 07/17/2020 4:05 AM CSTVSS on oxygen 3L/NC A/Ox4, calm and cooperative. Observed to have exertional dyspnea Denies any chest pain/diziness/nausea Voiding , no BM over the shift. are Planning - Dequan Huang RN - 07/17/2020 2:22 AM SECOND SHIFT SUPERVISOR Problem: RISK FOR DECREASED CARDIAC TISSUE PERFUSION Goal: ACTIVITY TOLERANCE Description: DESCRIPTION: Physiologic response to energy-consuming movements with daily activities. 1=Severly compromised, 2=Substantially compromised, 3=Moderately compromised, 4=Mildly compromised, 5=Not compromised. Flowsheets (Taken 07/17/2020 0222) Initial Score: 3 Target Score: 5 Plan of care reviewed with: Patient Patient specific goal for the day: Remain hemodynamically stable Patient specific goal for the stay: Sustain adequate cardic perfusion Achieve goal for stay: By discharge Patient Progress: VSS with 3L of oxygen, SOB with exertion, denies pain. Will continue to monitor linical Team - Meg Donato RN - 07/16/2020 6:18 PM CSTVSS on 3L NC, A&0 X4. Pt denies pain , SOB exertion. Tele running a-fib in the 90s Pt been resting for most of this shift. No acute events this shift . ccupational Therapy - Abigail English OTR/L - 07/16/2020 3:34 PM CSTOT orders received and acknowledged. Attempted to see pt this date, pt however refuses and requests OT return following day. OT will follow-up on 07/17 as able/appropriate. Abigail English OTR/L Pager: [phone] are Planning - Meg Donato RN - 07/16/2020 1:35 PM SECOND SHIFT SUPERVISOR Problem: RISK FOR DECREASED CARDIAC TISSUE PERFUSION Goal: ACTIVITY TOLERANCE Description: DESCRIPTION: Physiologic response to energy-consuming movements with daily activities. 1=Severly compromised, 2=Substantially compromised, 3=Moderately compromised, 4=Mildly compromised, 5=Not compromised. Outcome: NOC Rating 4 Flowsheets (Taken 07/16/2020 3703) Plan of care reviewed with: Patient Patient specific goal for the day: Remain hemodynamically stable Patient specific goal for the stay: Sustain adequate cardic perfusion Achieve goal for stay: By discharge Patient Progress: VSS with 3L of oxygen, SOB with exertion, denies pain. Will continue to monitor [place] SHIFT SUPERVISOR Physical Therapy - Morgan Sanabria PT - 07/16/2020 9:01 AM CSTPhysical Therapy Acute Inpatient Initial Evaluation Assessment/Recommendations: Patient is generally deconditioned but mobilizing fairly well. May benefit from outpatient cardiac rehab when medically stable. Will continue to follow during acute stay. Daily activity prescription: Ambulate 3x/day with gradual progression (CGA). Diagnosis: No diagnosis found. Prescription: Eval and Treat Admit Date: 07/15/2020 Pertinent Medical / Surgical History: Patient has a past medical history of MARIIA (acute kidney injury) ([facility]) (07/15/2020), Asthma, Carotid artery stenosis (03/18/2012), CHF (congestive heart failure) ([facility]), COPD (chronic obstructive pulmonary disease) ([facility]) (04/26/2013), Coronary artery disease, DDD (degenerative disc disease), lumbar, Encounter for long-term (current) use of other medications, HTN (hypertension) (10/07/2012), Hyperlipidemia(03/18/2012), custodial (current) use of anticoagulants, TIERRA (obstructive sleep apnea) (04/26/2013),Spinal stenosis of lumbar region, and Unspecified atrial fibrillation ([facility]). He also has no past medical history of Clotting disorder ([facility]), Heart murmur, Myocardial infarction ([facility]), Seizures ([facility]), or Stroke ([facility]). Patient has a past surgical history that includes carotid endarterectomy (09/2011); cardiac catheterization (05/28/2010); cardiac catheterization (02/2011); colonoscopy; and bronchoscopy (N/A, 01/19/2020). Current medical status: Per chart, patient present due to SOB and chest pain. Precautions: Activity as tolerated. Subjective: Social History: Patient lives: With . Home environment: House. Steps: None. Prior Level of Function: Activities of Daily Living: assists with dressing and bathing. Mobility: Ambulation without AD. History of falls: No Home O2: 3 liters at all times. Adaptive equipment available: None. Patient Concerns: None. Patient/Family Goals: Return home. Objective: Patient seen at bedside. Patient presents with IV and telemetry. Cognition: Alert and oriented x 4. Pain: None. Posture: Unremarkable. Observation: Resting in bed upon PT arrival, no acute distress. Agreeable to PT. Range of Motion: Bilateral lower extremities WFL. Refer to Occupational Therapy report for upper extremity range of motion. Strength: Bilateral lower extremities WFL. Refer to Occupational Therapy report for upper extremity strength testing. Sensation: Grossly intact bilaterally. Tone: Normal. Coordination: WNL bilaterally. Bed Mobility: Supine to Sit: Independent. Sit to Supine: Not assessed. Transfers: Sit to/from Stand: Independent. Balance: Static Sitting Balance: Good. Dynamic Sitting Balance: Good. Gait: Ambulates ~ 120 feet without AD. Needs 2 standing rest breaks due to SOB. O2 saturation is 93% on 3 liters and HR is in the 80s. No dizziness or LOB. Stairs: Not assessed. Education: Patient was educated on physical therapy role, plan of care and goals today through explanation. They accepted teaching and verbalized understanding. Today's Treatment Evaluation: Completed Gait trainin minutes Therapeutic exercise: 0 minutes Therapeutic activity: 0 minutes TOTAL TIME-CODED MINUTES: 0 minutes TOTAL TREATMENT TIME: 25 minutes Treatment provided: Physical therapy evaluation. Goals to be achieved by discharge. Patient will be aware of equipment recommendations as indicated in note to allow for safe mobility. Patient will be able to ambulate 200 feet using four-wheeled walker with stand- by assistance to progress to safe functional mobility in the home. Patient will demonstrate adequate awareness of fall prevention tactics to reduce risk of falling. Plan: Will continue 3 times per week. Physical Therapy Services: balance training education equipment gait training therapeutic activity therapeutic exercise Morgan Sanabria, PT, DPT Board-Certified Clinical Specialist in Geriatric Physical Therapy Certified Exercise Expert for Aging Adults Pager: [phone] are Planning - Dequan Huang RN - 07/16/2020 5:37 AM SECOND SHIFT SUPERVISOR Problem: RISK FOR DECREASED CARDIAC TISSUE PERFUSION Goal: ACTIVITY TOLERANCE Description: DESCRIPTION: Physiologic response to energy-consuming movements with daily activities. 1=Severly compromised, 2=Substantially compromised, 3=Moderately compromised, 4=Mildly compromised, 5=Not compromised. Flowsheets (Taken 07/16/2020 5553) Initial Score: 3 Target Score: 5 Plan of care reviewed with: Patient Patient specific goal for the day: Remain hemodynamically stable Patient specific goal for the stay: Sustain adequate cardic perfusion Achieve goal for stay: By discharge Patient Progress: VSS with 3L of oxygen, denies diziness/light headedness, chest pain. Will continueto monitor linical Team - Dequan Huang RN - 07/16/2020 5:08 AM CSTVSS on oxygen 3L/NC A/Ox4, calm and cooperative. Reported some upper right back pain, denied pain medication. Denies any chest pain/diziness/worsening SOB Voiding , no BM over the shift. linical Team - Meg Donato RN - 07/15/2020 6:33 PM CSTVSS on 3L NC,A&0 X4. Pt denies pain , SOB exertion. Pet stress test done. Call light within reach . [place] SHIFT SUPERVISOR Care Planning - Meg Donato RN - 07/15/2020 3:57 PM SECOND SHIFT SUPERVISOR Problem: RISK FOR DECREASED CARDIAC TISSUE PERFUSION Goal: ACTIVITY TOLERANCE Description: DESCRIPTION: Physiologic response to energy-consuming movements with daily activities. 1=Severly compromised, 2=Substantially compromised, 3=Moderately compromised, 4=Mildly compromised, 5=Not compromised. Outcome: NOC Rating 4 Flowsheets (Taken 07/15/2020 2390) Plan of care reviewed with: Patient Patient specific goal for the day: get stress test done Patient specific goal for the stay: return to baseline Achieve goal for stay: By discharge Patient Progress: VSS on 3L of o2 NC.Pet stress test done today. SOB with exertion. denies pain. Will continue to montior. [place] SHIFT SUPERVISOR Respiratory Therapy - Guillermo Amin RRT - 07/15/2020 11:39 AM CSTPt seen for scheduled Pulmicort BID, Performist BID and DuoNeb QID. Took treatments well. Breath sounds diminished. RR 18, SpO2 95% while on3 L via NC. Dry cough was noted. RT to follow. are Planning - Rohit Browne, RN - 07/15/2020 6:37 AM SECOND SHIFT SUPERVISOR Problem: RISK FOR DECREASED CARDIAC TISSUE PERFUSION Goal: ACTIVITY TOLERANCE Description: DESCRIPTION: Physiologic response to energy-consuming movements with daily activities. 1=Severly compromised, 2=Substantially compromised, 3=Moderately compromised, 4=Mildly compromised, 5=Not compromised. Outcome: NOC Rating 3 Flowsheets (Taken 07/15/2020 0637) Plan of care reviewed with: Patient linical Team - Rohit Browne, RN - 07/15/2020 6:00 AM CSTPt direct admit to 658. Oriented to room. AOx4 S VSS on 3L NC. Denies pain. SOB on exertion. Four eyes on skin complete w/ Snehal A. RN. Call light within reach. documented in this encounter Plan of Treatment Date Type Specialty Care Team Description 07/26/2020 Office Visit Family Practice Marco Antonio Flores MD [address] [place], [place] [address] [phone] 08/10/2020 [facility] Cardiovascular Services Encounter 08/10/2020 Office Visit CARDIOLOGY Gabe Lopez MD [address] [place] [address] [phone] 08/23/2020 Office Visit Nephrology Ladi Bledsoe MD [address] [place] [address] [phone] 11/16/2020 Office Visit Neurology Kely Díaz MD [address] [place] [address] [phone] Name Type Priority Associated Diagnoses Order S chedule COMPLETE BLOOD COUNT WITH Lab Routine Ea rly AM draw for labs DIFFERENTIAL until discontin ued starting 2020, 4 completed RENAL FUNCTION PANEL Lab Routine Early A M draw for labs until discontin ued starting 2020, 4 completed documented as of this encounter Procedures Procedure Name Priority Date/Time Associated Comments Diagnosis LAB ONLY-COMPLETE Routine 07/19/2020 5:52 Result s for this BLOOD COUNT WITH AM SECOND SHIFT SUPERVISOR procedure a re in DIFFERENTIAL the results section. MAGNESIUM Routine 07/19/2020 5:52 Results for this AM SECOND SHIFT SUPERVISOR procedure are i n the results section. RENAL FUNCTION PANEL Routine 07/19/2020 5:52 Res ults for this AM SECOND SHIFT SUPERVISOR procedure are i n the results section. LAB ONLY-COMPLETE Routine 07/19/2020 5:52 Result s for this BLOOD COUNT WITH AM SECOND SHIFT SUPERVISOR procedure a re in DIFFERENTIAL the results section. LAB ONLY-COMPLETE Routine 07/18/2020 5:23 Result s for this BLOOD COUNT WITH AM SECOND SHIFT SUPERVISOR procedure a re in DIFFERENTIAL the results section. MAGNESIUM Routine 07/18/2020 5:23 Results for this AM SECOND SHIFT SUPERVISOR procedure are i n the results section. RENAL FUNCTION PANEL Routine 07/18/2020 5:23 Res ults for this AM SECOND SHIFT SUPERVISOR procedure are i n the results section. LAB ONLY-COMPLETE Routine 07/18/2020 5:23 Result s for this BLOOD COUNT WITH AM SECOND SHIFT SUPERVISOR procedure a re in DIFFERENTIAL the results section. MAGNESIUM Routine 07/17/2020 6:01 Results for this PM SECOND SHIFT SUPERVISOR procedure are i n the results section. BASIC METABOLIC PANEL Routine 07/17/2020 6:01 Re sults for this PM SECOND SHIFT SUPERVISOR procedure are i n the results section. LAB ONLY-COMPLETE Routine 07/17/2020 6:08 Result s for this BLOOD COUNT WITH AM SECOND SHIFT SUPERVISOR procedure a re in DIFFERENTIAL the results section. RENAL FUNCTION PANEL Routine 07/17/2020 6:08 Res ults for this AM SECOND SHIFT SUPERVISOR procedure are i n the results section. LAB ONLY-COMPLETE Routine 07/17/2020 6:08 Result s for this BLOOD COUNT WITH AM SECOND SHIFT SUPERVISOR procedure a re in DIFFERENTIAL the results section. CT CHEST WITHOUT Routine 07/16/2020 11:50 Results for this CONTRAST AM SECOND SHIFT SUPERVISOR procedure are i n the results section. LAB ONLY-COMPLETE Routine 07/16/2020 8:42 Result s for this BLOOD COUNT WITH AM SECOND SHIFT SUPERVISOR procedure a re in DIFFERENTIAL the results section. MAGNESIUM Routine 07/16/2020 8:42 Results for this AM SECOND SHIFT SUPERVISOR procedure are i n the results section. RENAL FUNCTION PANEL Routine 07/16/2020 8:42 Res ults for this AM SECOND SHIFT SUPERVISOR procedure are i n the results section. LAB ONLY-COMPLETE Routine 07/16/2020 8:42 Result s for this BLOOD COUNT WITH AM SECOND SHIFT SUPERVISOR procedure a re in DIFFERENTIAL the results section. URINE DIP, REFLEX TO Routine 07/15/2020 4:32 Res ults for this MICROSCOPIC, REFLEX PM SECOND SHIFT SUPERVISOR procedur e are in TO CULTURE the results section. US RENAL LISA Routine 07/15/2020 4:22 Results for this PM SECOND SHIFT SUPERVISOR procedure are i n the results section. ECHO ADULT LIMITED Routine 07/15/2020 2:42 Resul ts for this PM SECOND SHIFT SUPERVISOR procedure are i n the results section. TROPONIN I Timed Routine 07/15/2020 2:13 Results fo r this PM SECOND SHIFT SUPERVISOR procedure are i n the results section. POTASSIUM Routine 07/15/2020 2:13 Results for this PM SECOND SHIFT SUPERVISOR procedure are i n the results section. PETCT NUCLEAR STRESS Routine 07/15/2020 1:07 Res ults for this TEST RB-82 PM SECOND SHIFT SUPERVISOR procedure are i n the results section. PERSANTINE/LEXISCAN Routine 07/15/2020 12:20 Resu lts for this PET STRESS PM SECOND SHIFT SUPERVISOR procedure are i n the results section. TROPONIN I Timed Routine 07/15/2020 9:26 Results fo r this AM SECOND SHIFT SUPERVISOR procedure are i n the results section. EKG Routine 07/15/2020 8:32 Results for this AM SECOND SHIFT SUPERVISOR procedure are i n the results section. LACTIC ACID REFLEX TO Routine 07/15/2020 6:37 Re sults for this REPEAT AM SECOND SHIFT SUPERVISOR procedure are i n the results section. LAB ONLY-COMPLETE Routine 07/15/2020 6:37 Result s for this BLOOD COUNT WITH AM SECOND SHIFT SUPERVISOR procedure a re in DIFFERENTIAL the results section. PROCALCITONIN ANAYELI 07/15/2020 6:37 Results fo r this AM SECOND SHIFT SUPERVISOR procedure are i n the results section. D-DIMER QUANTITATIVE ANAYELI 07/15/2020 6:37 Res ults for this AM SECOND SHIFT SUPERVISOR procedure are i n the results section. C-REACTIVE PROTEIN Routine 07/15/2020 6:37 Resul ts for this (INFLAMMATION) AM SECOND SHIFT SUPERVISOR procedure are in the results section. TROPONIN I Timed Routine 07/15/2020 6:37 Results fo r this AM SECOND SHIFT SUPERVISOR procedure are i n the results section. PHOSPHORUS Routine 07/15/2020 6:37 Results for this AM SECOND SHIFT SUPERVISOR procedure are i n the results section. MAGNESIUM Routine 07/15/2020 6:37 Results for this AM SECOND SHIFT SUPERVISOR procedure are i n the results section. COMPREHENSIVE ANAYELI 07/15/2020 6:37 Results fo r this METABOLIC PANEL AM SECOND SHIFT SUPERVISOR procedure ar e in the results section. LAB ONLY-COMPLETE Routine 07/15/2020 6:37 Result s for this BLOOD COUNT WITH AM SECOND SHIFT SUPERVISOR procedure a re in DIFFERENTIAL the results section. BRAIN NATRIURETIC Routine 07/15/2020 6:37 Result s for this PEPTIDE AM SECOND SHIFT SUPERVISOR procedure are i n the results section. documented in this encounter Results MAGNESIUM (07/19/2020 5:52 AM SECOND SHIFT SUPERVISOR) Pathologist [facility] Magnesium 2.0 1.8 - 2.4 mg/dL [address] Specimen Blood - Blood specimen (specimen) Performing Organization Address City/State/Zipcode Phone Number [address] [place] [address] LAB ONLY-COMPLETE BLOOD COUNT WITH DIFFERENTIAL (07/19/2020 5:52 AM SECOND SHIFT SUPERVISOR) Pathologist [facility] WBC 12.9 (H) 4.0 - 11.0 K/uL [address] RBC 3.62 (L) 4.40 - 5.[address] M/uL Hemoglobin 11.1 (L) 13.5 - 17.[address] g/dL Hematocrit 34.8 (L) 40.0 - 50.0 % [address] MCV 96.1 80.0 - 98.[address] MCH 30.7 25.5 - 34.[address] MCHC 31.9 31.5 - 36.[address] g/dL RDW-CV 15.8 (H) 11.5 - 15.5 % [address] RDW-SD 55.6 (H) 35.5 - 50.[address] Platelet Count 149 140 - 400 K/uL [address] MPV 9.7 8.5 - 12.[address] Seg Neut Absolute 10.1 (H) 1.8 - 8.0 K/uL [address] Lymphocytes Absolute 1.5 0.8 - 4.1 K/uL [facility] [place] [id number] [facility] Monocytes Absolute 1.0 0.0 - 1.0 K/uL [place] [address] [facility] Eosinophils Absolute 0.0 0.0 - 0.7 K/uL [place] [address] [facility] Basophil Absolute 0.0 0.0 - 0.2 K/uL [address] Immature Granulocyte 0.26 (H) 0.00 - 0.06 [place] [address] [facility] Absolute K/uL Neutrophils Abs. 10,100 /uL [address] (Segs and Bands) Neutrophils Percent 78.2 % [address] Lymphocytes Percent 11.6 % [address] Monocytes Percent 7.8 % [address] Immature Granulocyte 2.0 % [address] Percent Eosinophils Percent 0.2 % [address] Basophil Percent 0.2 % [address] Nucleated RBC 0 /[address] Specimen Blood - Blood specimen (specimen) Performing Organization Address City/State/Zipcode Phone Number [address] [place] [address] RENAL FUNCTION PANEL (07/19/2020 5:52 AM SECOND SHIFT SUPERVISOR) Pathologist [facility] Glucose 118 (H) 70 - 100 mg/dL [address] BUN 39 (H) 6 - 22 mg/dL [address] Creatinine 1.43 (H) 0.80 - 1.[address] mg/dL BUN/Creatinine Ratio 27.3 (H) 10.0 - 25.[address] Sodium 142 135 - 145 meq/L [address] Potassium 3.3 (L) 3.5 - 5.3 meq/L [address] Chloride 102 99 - 110 meq/L [address] CO2 28 20 - 29 meq/L [address] Anion Gap with K 15 6 - 20 meq/L [address] Calcium 9.1 8.5 - 10.[address] mg/dL Phosphorus 2.7 2.5 - 4.5 mg/dL [address] Albumin 3.9 3.5 - 5.0 g/dL [address] Corrected Calcium 9.2 8.5 - 10.[address] mg/dL Age [address] eGFR Non- 48 (L) >=[address] [place] mL/min/1.73m2 eGFR 59 (L) >=[address] mL/min/1.73m2 Specimen Blood - Blood specimen (specimen) Performing Organization Address [facility] Phone Number [address] [place] [address], [place] [address] MAGNESIUM (07/18/2020 5:23 AM SECOND SHIFT SUPERVISOR) Pathologist [facility] Magnesium 2.0 1.8 - 2.4 mg/dL [address] Specimen Blood - Blood specimen (specimen) Performing Organization Address [facility] Phone Number [address] [place] [address], [place] [address] LAB ONLY-COMPLETE BLOOD COUNT WITH DIFFERENTIAL (07/18/2020 5:23 AM SECOND SHIFT SUPERVISOR) Pathologist [facility] WBC 12.5 (H) 4.0 - 11.0 K/uL [address] RBC 3.48 (L) 4.40 - 5.[address] M/uL Hemoglobin 10.6 (L) 13.5 - 17.[address] g/dL Hematocrit 32.7 (L) 40.0 - 50.0 % [address] MCV 94.0 80.0 - 98.[address] MCH 30.5 25.5 - 34.[address] MCHC 32.4 31.5 - 36.[address] g/dL RDW-CV 15.9 (H) 11.5 - 15.5 % [address] RDW-SD 54.4 (H) 35.5 - 50.[address] Platelet Count 136 (L) 140 - 400 K/uL [address] MPV 9.6 8.5 - 12.[address] Seg Neut Absolute 10.1 (H) 1.8 - 8.0 K/uL [address] Lymphocytes Absolute 1.2 0.8 - 4.1 K/uL [place] [address] [facility] Monocytes Absolute 1.0 0.0 - 1.0 K/uL [address] Eosinophils Absolute 0.0 0.0 - 0.7 K/uL [place] [address] [facility] Basophil Absolute 0.0 0.0 - 0.2 K/uL [address] Immature Granulocyte 0.21 (H) 0.00 - 0.06 [facility] [address] [facility] Absolute K/uL Neutrophils Abs. 10,100 /uL [address] (Segs and Bands) Neutrophils Percent 80.7 % [address] Lymphocytes Percent 9.6 % [address] Monocytes Percent 7.7 % [address] Immature Granulocyte 1.7 % [address] Percent Eosinophils Percent 0.1 % [address] Basophil Percent 0.2 % [address] Nucleated RBC 0 /[address] Specimen Blood - Blood specimen (specimen) Performing Organization Address City/State/Zipcode Phone Number [address], [place] [address] RENAL FUNCTION PANEL (07/18/2020 5:23 AM SECOND SHIFT SUPERVISOR) Pathologist [facility] Glucose 118 (H) 70 - 100 mg/dL [address] BUN 37 (H) 6 - 22 mg/dL [address] Creatinine 1.46 (H) 0.80 - 1.[address] mg/dL BUN/Creatinine Ratio 25.3 (H) 10.0 - 25.[address] Sodium 140 135 - 145 meq/L [address] Potassium 3.4 (L) 3.5 - 5.3 meq/L [address] Chloride 101 99 - 110 meq/L [facility] [address] [facility] CO2 29 20 - 29 meq/L [address] Anion Gap with K 13 6 - 20 meq/L [address] Calcium 8.7 8.5 - 10.[address] mg/dL Phosphorus 2.2 (L) 2.5 - 4.5 mg/dL [address] Albumin 3.6 3.5 - 5.0 g/dL [address] Corrected Calcium 9.0 8.5 - 10.[address] mg/dL Age [address] eGFR Non- 47 (L) >=[address] [place] mL/min/1.73m2 eGFR 57 (L) >=[address] mL/min/1.73m2 Specimen Blood - Blood specimen (specimen) Performing Organization Address [facility] Phone Number [address] [place] [address], [place] [address] MAGNESIUM (07/17/2020 6:01 PM SECOND SHIFT SUPERVISOR) Pathologist Sig [facility] Magnesium 2.0 1.8 - 2.4 mg/dL [address] Specimen Blood - Blood specimen (specimen) Performing Organization Address [facility] Phone Number [address] [place] [address] BASIC METABOLIC PANEL (07/17/2020 6:01 PM SECOND SHIFT SUPERVISOR) Pathologist Sig [facility] Glucose 191 (H) 70 - 100 mg/dL [address] BUN 42 (H) 6 - 22 mg/dL [address] Creatinine 1.68 (H) 0.80 - 1.[address] mg/dL BUN/Creatinine Ratio 25.0 10.0 - 25.[address] Sodium 138 135 - 145 meq/L [address] Potassium 4.1 3.5 - 5.3 meq/L [address] Chloride 98 (L) 99 - 110 meq/L [address] CO2 27 20 - 29 meq/L [address] Anion Gap with K 17 6 - 20 meq/L [address] Calcium 8.9 8.5 - 10.[address] mg/dL Age [address] eGFR Non- 40 (L) >=[address] [place] mL/min/1.73m2 eGFR 49 (L) >=[address] mL/min/1.73m2 Specimen Blood - Blood specimen (specimen) Performing Organization Address [facility] Phone Number [address] [place] [address] LAB ONLY-COMPLETE BLOOD COUNT WITH DIFFERENTIAL (07/17/2020 6:08 AM SECOND SHIFT SUPERVISOR) [facility] WBC 13.5 (H) 4.0 - 11.0 K/uL [address] RBC 3.52 (L) 4.40 - 5.[address] M/uL Hemoglobin 10.9 (L) 13.5 - 17.[address] g/dL Hematocrit 33.1 (L) 40.0 - 50.0 % [address] MCV 94.0 80.0 - 98.[address] MCH 31.0 25.5 - 34.[address] MCHC 32.9 31.5 - 36.[address] g/dL RDW-CV 15.8 (H) 11.5 - 15.5 % [address] RDW-SD 54.4 (H) 35.5 - 50.[address] Platelet Count 151 140 - 400 K/uL [address] MPV 9.6 8.5 - 12.[address] Seg Neut Absolute 11.4 (H) 1.8 - 8.0 K/uL [address] Lymphocytes Absolute 0.8 0.8 - 4.1 K/uL [place] [address] [facility] Monocytes Absolute 1.1 (H) 0.0 - 1.0 K/uL [address] Eosinophils Absolute 0.0 0.0 - 0.7 K/uL [place] [address] [facility] Basophil Absolute 0.0 0.0 - 0.2 K/uL [address] Immature Granulocyte 0.21 (H) 0.00 - 0.06 [facility] [address] [facility] Absolute K/uL Neutrophils Abs. 11,400 /uL [address] (Segs and Bands) Neutrophils Percent 84.6 % [address] Lymphocytes Percent 5.6 % [address] Monocytes Percent 8.1 % [address] Immature Granulocyte 1.6 % [address] Percent Eosinophils Percent 0.0 % [address] Basophil Percent 0.1 % [address] Nucleated RBC 0 /[address] Specimen Blood - Blood specimen (specimen) Performing Organization Address [facility] Phone Number [address] [place] [address] RENAL FUNCTION PANEL (07/17/2020 6:08 AM SECOND SHIFT SUPERVISOR) Pathologist [facility] Glucose 113 (H) 70 - 100 mg/dL [address] BUN 39 (H) 6 - 22 mg/dL [address] Creatinine 1.53 (H) 0.80 - 1.[address] mg/dL BUN/Creatinine Ratio 25.5 (H) 10.0 - 25.[address] Sodium 139 135 - 145 meq/L [address] Potassium 2.9 (L) 3.5 - 5.3 meq/L [address] Chloride 100 99 - 110 meq/L [address] CO2 28 20 - 29 meq/L [address] Anion Gap with K 14 6 - 20 meq/L [address] Calcium 8.8 8.5 - 10.[address] mg/dL Phosphorus 2.8 2.5 - 4.5 mg/dL [address] Albumin 3.7 3.5 - 5.0 g/dL [address] Corrected Calcium 9.0 8.5 - 10.[address] mg/dL Age [address] eGFR Non- 45 (L) >=[address] [place] mL/min/1.73m2 eGFR 54 (L) >=[address] mL/min/1.73m2 Specimen Blood - Blood specimen (specimen) Performing Organization Address [facility] Phone Number [address] [place] [address], [place] [address] CT CHEST WITHOUT CONTRAST (07/16/2020 11:50 AM SECOND SHIFT SUPERVISOR) Specimen Narrative Performed At [facility] Patient Name: MAURICIO BASHIR Date of : 1945 Procedure: CT CHEST WITHOUT CONTRAST Date of Service: 07/16/2020 EXAM: CT CHEST WITHOUT CONTRAST INDICATION:Cough, persistent, Dyspnea, chronic, unclea r etiology, COPD exacerbation COMPARISON(S): 06/19/2020, 01/15/2013 TECHNIQUE: Axial imaging was performed through the kindra st following no IV contrast. Sagittal and coronal refo rmats were performed. FINDINGS: No lymphadenopathy, pleural effusion, pl eural mass. No aneurysmal dilatation great vessels, mediastinal hematoma. Marked left main, marked LAD, marked left circumflex, moderate right coronary artery ASVD change associated with increased risk for acute coronary syndrome no significant interva l change. No tracheobronchial airway mass or mass effect. Modera te bilateral upper lobe, mild right middle lobe, moderate lingula, and pr edominantly marked bilateral lower lobe patchy round glass opacities, thi ckening of interlobular septa with multifocal distribution bilate rally and also at peripheral regions. Also superimposed moderate honeycombing fibrosis, trac tion bronchiectasis change in this location stable. Finding s in general moderate decrease especially ground glas s airspace components. No other noncalcified pulmonary nodules, pulmonic mass. No acute fracture, destructive change. IMPRESSION: Moderate to marked bilateral pulmonic predominantly lo wer lobe interstitial, airspace consolidation more consistent w ith pneumonitis change such as viral infection (Covid 19 infection) or other viral infection versus atypical bacterial infectious process and if patient is immunocompromised other fungal infectious etiologies s uch as aspergillus infection versus atypical MAC mycobacterial infectious , more acute process still possible versus aspiration pneumonitis. While other etiologies such as acute component of usual interstiti al pneumonitis (Martha-Rich syndrome) can account for findings this w ould be much less likely though, mildly decrease in genera l. At least moderate honeycombing fibrosis, chronic inter stitial pneumonitis bilaterally more likely representing idiop athic pulmonary fibrosis secondary to usual interstitial pneumonitis a nd other collagen vascular disease etiologies such as scleroderma or pne umoconiosis less likely stable. Finalized by: Rafael Spencer MD on 07/16 3:18 PM SECOND SHIFT SUPERVISOR Patient/Procedure Information: [facility] MRN/DESI: [id number] Order Number: [id number] Accession Number: [id number] Ordering Provider: WOO RODRIGUEZ Authorizing Provider: SHAMEKA GOINS Procedure Note Interface, Radiantres - 07/16/2020 3:20 PM SECOND SHIFT SUPERVISOR Patient Name: MAURICIO BASHIR Date of : 1945 Procedure: CT CHEST WITHOUT CONTRAST Date of Service: 07/16/2020 EXAM: CT CHEST WITHOUT CONTRAST INDICATION:Cough, persistent, Dyspnea, c hronic, unclear etiology, COPD exacerbation COMPARISON(S): 06/19/2020, 01/15/2013 TECHNIQUE: Axial imaging was performed t hrough the chest following no IV contrast. Sagittal and coronal reformats were performed. FINDINGS: No lymphadenopathy, pleural effusion, pl eural mass. No aneurysmal dilatation great vessels, mediastinal hematoma. Marked left main, marked LAD, marked lef t circumflex, moderate right coronary artery ASVD change associated with increased risk for acute coronary syndrome no significant interval change. No tracheobronchial airway mass or mass effect. Moderate bilateral upper lobe, mild right middle lobe, moderate lingula, and predominantly marked bilateral lower lobe patchy round glass opacities, thickening of interlobular septa with multifocal distr ibution bilaterally and also at peripheral regions. Also superimposed moderate honeycombing fibrosis, traction bronchiectasis change in this location stable. Findings in general moderate decrease especially ground glass airspace components. No other noncalcified pulmonary nodules, pulmonic mass. No acute fracture, destructive change. IMPRESSION: Moderate to marked bilateral pulmonic pr edominantly lower lobe interstitial, airspace consolidation more consistent with pneumonitis change such as viral infection (Covid 19 infection) or other viral infection versus atypical bacterial infe ctious process and if patient is immunocompromised other fungal infectious etiologies such as aspergillus infection versus atypical MAC mycobacterial infectious , more acute process still possible versus aspiration pneumonitis. While other etiologies such as acute component of usual interstitial pneumonitis (Martha-Rich syndrome) can account for findings this would be much less likely though, mildly decrease in general. At least moderate honeycombing fibrosis, chronic interstitial pneumonitis bilaterally more likely representing idiopathic pulmonary fibrosis secondary to usual interstitial pneumonitis and other collagen vascular disease etiologies such as scleroderma o r pneumoconiosis less likely stable. Finalized by: Rafael Spencer MD on 07/16 3:18 PM SECOND SHIFT SUPERVISOR Patient/Procedure Information: [facility] MRN/DESI: [id number] Order Number: [id number] Accession Number: [id number] Ordering Provider: WOO RODRIGUEZ Authorizing Provider: SHAMEKA QURESHI Performing Organization Address City/State/Zipcode Phone Number [id number] LAB ONLY-COMPLETE BLOOD COUNT WITH DIFFERENTIAL (07/16/2020 8:42 AM SECOND SHIFT SUPERVISOR) [facility] nature WBC 21.1 (H) 4.0 - 11.0 K/uL [address] RBC 4.01 (L) 4.40 - 5.80 [place] [address] [facility] M/uL Hemoglobin 12.4 (L) 13.5 - 17.[address] g/dL Hematocrit 37.3 (L) 40.0 - 50.0 % [address] MCV 93.0 80.0 - 98.[address] MCH 30.9 25.5 - 34.[address] MCHC 33.2 31.5 - 36.[address] g/dL RDW-CV 15.8 (H) 11.5 - 15.5 % [address] RDW-SD 54.3 (H) 35.5 - 50.[address] Platelet Count 186 140 - 400 K/uL [address] MPV 9.8 8.5 - 12.[address] Seg Neut Absolute 18.9 (H) 1.8 - 8.0 K/uL [address] Lymphocytes Absolute 0.9 0.8 - 4.1 K/uL [place] [address] [facility] C Monocytes Absolute 1.1 (H) 0.0 - 1.0 K/uL [place] [address] [facility] Eosinophils Absolute 0.0 0.0 - 0.7 K/uL [place] [address] [facility] Basophil Absolute 0.0 0.0 - 0.2 K/uL [address] Immature Granulocyte 0.25 (H) 0.00 - 0.06 [place] [address] [facility] Absolute K/uL Neutrophils Abs. 18,900 /uL [address] (Segs and Bands) Neutrophils Percent 89.2 % [address] Lymphocytes Percent 4.1 % [address] Monocytes Percent 5.3 % [address] Immature Granulocyte 1.2 % [facility] Percent Eosinophils Percent 0.0 % [place] [address] [facility] Basophil Percent 0.2 % [place] [address] [facility] Nucleated RBC 0 /[address] Specimen Blood - Blood specimen (specimen) Performing Organization Address [facility] Phone Number [place] [address] [facility] [address] [place] [address] RENAL FUNCTION PANEL (07/16/2020 8:42 AM SECOND SHIFT SUPERVISOR) Pathologist Sig nature Glucose 174 (H) 70 - 100 mg/dL [place] [address] [facility] BUN 57 (H) 6 - 22 mg/dL [address] Creatinine 2.10 (H) 0.80 - 1.[address] mg/dL BUN/Creatinine Ratio 27.1 (H) 10.0 - 25.[address] Sodium 137 135 - 145 meq/L [address] Potassium 3.5 3.5 - 5.3 meq/L [address] Chloride 97 (L) 99 - 110 meq/L [address] CO2 26 20 - 29 meq/L [address] Anion Gap with K 18 6 - 20 meq/L [address] Calcium 9.4 8.5 - 10.[address] mg/dL Phosphorus 3.7 2.5 - 4.5 mg/dL [address] Albumin 4.2 3.5 - 5.0 g/dL [address] Age [address] eGFR Non- 31 (L) >=[address] [place] mL/min/1.73m2 eGFR 38 (L) >=[address] mL/min/1.73m2 Specimen Blood - Blood specimen (specimen) Performing Organization Address [facility] Phone Number [place] [address] [facility] [address] [place] [address] MAGNESIUM (07/16/2020 8:42 AM SECOND SHIFT SUPERVISOR) Pathologist Sig nature Magnesium 2.5 (H) 1.8 - 2.4 mg/dL [address] Specimen Blood - Blood specimen (specimen) Performing Organization Address [facility] Phone Number [place] [address] [facility] [address] [place] [address] URINE DIP, REFLEX TO MICROSCOPIC, REFLEX TO CULTURE (07/15/2020 4:32 PM SECOND SHIFT SUPERVISOR) Color Urine Straw [place], Dark [place] [address] Yellow, Straw, CLINIC Yellow, Colorless Clarity Urine Clear Clear [address] Glucose Urine Negative Negative [address] Bilirubin Urine Negative Negative [address] Ketones Urine Negative Negative, 5 mg/dL, [place] [address] 10 mg/dL [facility] Specific [place] 1.014 1.002 - 1.[address] Blood Urine Negative Negative [address] PH Urine 5.5 5.0, 5.5, 6.0, [place] [address] 6.5, 7.0, 7.5, 8.0 [facility] Protein Urine Negative Negative [address] Urobilinogen < 2 mg/dL < 2 mg/dL [address] Nitrite Negative Negative [address] Leukocyte Esterase Negative Negative [place] [address] Urine CLINIC Specimen Urine - Urine specimen obtained by clean catch procedure (specimen) Narrative Performed At Microscopic exam not indicated [address] Culture not performed - reflex criteria not met. Culture is only performed when the urine macroscopic c olor is reported as Bright [place], or whentwoor more of th e following criteria are met: Positive Nitrite, Positive Leukocyte Esterase, WBC's > 5 cells/hpf. Performing Organization Address City/State/Zipcode Phone Number [address] [place] [address] US RENAL LISA (07/15/2020 4:22 PM SECOND SHIFT SUPERVISOR) Specimen Narrative Performed At [facility] Patient Name: MAURICIO BASHIR Date of : 1945 Procedure: US RENAL LISA Date of Service: 07/15/2020 EXAM: US RENAL LISA INDICATION:MARIIA, slow urinary stream COMPARISON(S): None Available FINDINGS: Right kidney 9.6 x 4.6 x 5.7 cm, left ki dney 10.7 x 4.8 x 6 cm. Normal cortical medullary differentiation bilaterally. Mild suboptimal visualization of the kidneys bilaterally due to patien t body habitus, bowel gas artifact attenuation artifact mildly preclud e optimal evaluation. Cortical thickness anterior lower pole right, 7 mm, an d anterior lower pole left 8 mm. No solid mass, hydronephrosis, nephrolit hiasis. Markedly hypoechoic cyst with thin peripheral wall mil d increased posterior through transmission anterior mid right, 1.4 x 2.2 x 1.4 cm. No color Doppler flow. Bladder unremarkable. IMPRESSION: Small simple cyst anterior mid right kid jose benign finding. No evidence of renal collecting system o bstruction. Mild cortical atrophy bilaterally, more likely represe nting nonspecific medical renal disease etiologies. Other renal vascular ischemic etiology such as renal artery stenosis can accoun t for etiology, less likely. Finalized by: Rafael Spencer MD on 07/15 5:10 PM SECOND SHIFT SUPERVISOR Patient/Procedure Information: [facility] MRN/DESI: [id number] Order Number: [id number] Accession Number: [id number] Ordering Provider: JUAN F DE LA ROSA Authorizing Provider: JUAN F DE LA ROSA Procedure Note Interface, Radiantres - 07/15/2020 5:12 PM SECOND SHIFT SUPERVISOR Patient Name: MAURICIO BASHIR Date of : 1945 Procedure: US RENAL LISA Date of Service: 07/15/2020 EXAM: US RENAL LISA INDICATION:MARIIA, slow urinary stream COMPARISON(S): None Available FINDINGS: Right kidney 9.6 x 4.6 x 5.7 cm, left ki dney 10.7 x 4.8 x 6 cm. Normal cortical medullary differentiatio n bilaterally. Mild suboptimal visualization of the kidneys bilaterally due to patient body habitus, bowel gas artifact attenuation artifact mildly preclude optimal evaluation. Cortical thickness anterior lower pole r ight, 7 mm, and anterior lower pole left 8 mm. No solid mass, hydronephrosis, nephrolit hiasis. Markedly hypoechoic cyst with thin perip heral wall mild increased posterior through transmission anterior mid right, 1.4 x 2.2 x 1.4 cm. No color Doppler flow. Bladder unremarkable. IMPRESSION: Small simple cyst anterior mid right kid jose benign finding. No evidence of renal collecting system o bstruction. Mild cortical atrophy bilaterally, more likely representing nonspecific medical renal disease etiologies. Other renal vascular ischemic etiology such as renal artery stenosis can account for etiology, less likely. Finalized by: Rafael Spencer MD on 07/15 5:10 PM SECOND SHIFT SUPERVISOR Patient/Procedure Information: [facility] MRN/DESI: [id number] Order Number: [id number] Accession Number: [id number] Ordering Provider: JUAN F DE LA ROSA Authorizing Provider: JUAN F Reis Performing Organization Address City/State/Zipcode Phone Number [id number] ECHO ADULT LIMITED (07/15/2020 2:42 PM SECOND SHIFT SUPERVISOR) Specimen Narrative Performed At This result has an attachment that is no t available. [facility] Patient: MAURICIO BASHIR MR#: [id number] Exam Date: 07/15/2020 Transthoracic Echocardiogram [facility] [address] [place] [address] BP: HR: : 1945 Exam Location: Height: 67.00 "(170.2 cm) Age: 75 year(s) Patient Room: [facility] Weight: 220 lbs.(99.79 kg) Gender: Male Patient Status: Inpatient BSA: 2.11 m2 Vacuum Extractor Operator: THELMA BALDWIN RDCS Reading Physician: PETE TODD MD Ordering Physician: PETE JEREZ MD Procedure Indication(s): Look for brennan wall motion abnormalities and PA systolic Pressure.Acute chest pain Examination: TTE Limited 2D, Limited Spectral Doppler, Color Doppler, with Contrast,Definity Conclusions Left Ventricle: Normal left ventricular systolic functio n. The ejection fraction is visually estimated to be 60 %. There are no left ventricular regional wall motion abnormalities. Aortic Valve: Mild aortic regurgitation. Right Ventricle: Reduced right ventricular systolic funct ion. Pulmonary artery systolic pressure is measured at 41 mmHg. Pulmonary Artery: Degree of pulmonary hypertension likely underestimated due to reduced right ventricular function. Tricuspid Valve: Mild tricuspid regurgitation. Pericardium: No significant pericardial effusion. Comparison Study Comparison Date: 06/20/2020 Comparison Study: Transthoracic Echocardiogram Pulmonary artery pressure has decreased Findings Left Ventricle: Normal left ventricular size. Upper norm al left ventricular wall thickness. Normal left ventricular systolic function. The ejection fraction is visually estimated to be 60 %. There are no left ventricular regional wall motion abnormalities. Aortic Valve: The aortic valve is probably tricuspid. Mild aortic re gurgitation. Mitral Valve: Normal mitral valve structure. Trivial mitral regurgit ation. Right Ventricle: Dilated right ventricle. Reduced right v entricular systolic function. Pulmonary artery systolic pressure is measured at 41 mmHg. Pulmonary Artery: Degree of pulmonary hypertension likely underestimated due to reduced right ventricular function. Tricuspid Valve: Normal tricuspid valve structure. Mild tricuspid regur gitation. Pulmonic Valve: No significant pulmonary regurgitation. Pericardium: No significant pericardial effusion. Measurements Left Ventricle Tricuspid Valve Label Value Normal Value Label Value Normal Value LVDd, 2D 52.5 mm TR Vmax 291 cm/s LVDs, 2D 37.4 mm TR Pmax 34 mmHg IVSd, 2D 11.4 mm RA Pressure 7 mmHg LVPWd, 2D 9.4 mm RVSP 41 mmHg FS, 2D 28.76 % LVEF, 2D 55 % LVEDV, 2D 132 ml LVESV, 2D 60 ml Contrast Details Contrast: 2.0 ml Definity is requested. The patient denies contraindications and gives verbal consent. Definity contrast (1.3 ml of activated D efinity diluted with 8.7 ml of saline) was used to evaluate left ventricular function to enhance endocard ial border delineation Lot #: [id number] Procedure Note Interface, Inc Results No Pull Forward - 07/15/2020 3:56 PM SECOND SHIFT SUPERVISOR Patient: MAURICIO BASHIR MR#: [id number] Exam Date: 07/15/2020 Transthoracic Echocardiogram [facility] [address] [place] [address] BP: HR: : 1945 Exa m Location: Height: 67.00 "(170.2 cm) Age: 75 year(s) Pat ient Room: [facility] Weight: 220 lbs.(99.79 kg) Gender: Male Pat ient Status: Inpatient BSA: 2.11 m2 Vacuum Extractor Operator: THELMA BALDWIN RDCS Reading Physician: DANIEL TODD MD Ordering Physician: DANIEL TODD MD Procedure Indication(s): Look f or brennan wall motion abnormalities and PA systolic Pressure.Acute chest pain Examination: [facility], Limited Spectral Doppler, Color Doppler, with Contrast,Definity Conclusions Left Ventricle: Normal left ventricular systolic functio n. The ejection fraction is visually estimated to be 60 %. There are no left ventricular regional wall motion abnormalities. Aortic Valve: Mild aortic regurgitation. Right Ventricle: Reduced right ventricular systolic funct ion. Pulmonary artery systolic pressure is measured at 41 mmHg. Pulmonary Artery: Degree of pulmonary hypertension likely underestimated due to reduced right ventricular function. Tricuspid Valve: Mild tricuspid regurgitation. Pericardium: No significant pericardial effusion. Comparison Study Comparison Date: 06/20/2020 Comparison Study: Transthoracic Echocard iogram Pulmonary artery pressure has decreased Findings Left Ventricle: Normal left ventricular size. Upper norm al left ventricular wall thickness. Normal left ventricular systolic function. The ejection fraction is visually estimated to be 60 %. There are no left ventricular regional wall motion abnormalities. Aortic Valve: The aortic valve is probably tricuspid. Mild aortic regurgitation. Mitral Valve: Normal mitral valve structure. Trivial m itral regurgitation. Right Ventricle: Dilated right ventricle. Reduced right v entricular systolic function. Pulmonary artery systolic pressure is measured at 41 mmHg. Pulmonary Artery: Degree of pulmonary hypertension likely underestimated due to reduced right ventricular function. Tricuspid Valve: Normal tricuspid valve structure. Mild t ricuspid regurgitation. Pulmonic Valve: No significant pulmonary regurgitation. Pericardium: No significant pericardial effusion. Measurements Left Ventricle Tricuspid Valve Label Value Nor mal Value Label Value Normal Value LVDd, 2D 52.5 mm TR Vmax 291 cm/s LVDs, 2D 37.4 mm TR Pmax 34 mmHg IVSd, 2D 11.4 mm RA Pressure 7 mmHg LVPWd, 2D 9.4 mm RVSP 41 mmHg FS, 2D 28.76 % LVEF, 2D 55 % LVEDV, 2D 132 ml LVESV, 2D 60 ml Contrast Details Contrast: 2.0 ml D efinity is requested. The patient denies contraindications and gives verbal consent. Definity contrast (1.3 ml of activated D efinity diluted with 8.7 ml of saline) was used to evaluate left ventricular function to en cain endocardial border delineation Lot #: [id number] Performing Organization Address City/State/[facility] Phone Number [facility] [place] POTASSIUM (07/15/2020 2:13 PM SECOND SHIFT SUPERVISOR) [facility] Potassium 3.9 3.5 - 5.3 meq/L [address] Specimen Blood - Blood specimen (specimen) Performing Organization Address City/State/[facility] Phone Number [place] [facility] [address] [facility] [place] [address] TROPONIN I (07/15/2020 2:13 PM SECOND SHIFT SUPERVISOR) Pathologist Sig nature Troponin I 0.058 (H) 0.000 - 0.028 ng/mL [facility] Specimen Blood - Blood specimen (specimen) Performing Organization Address [facility] Phone Number [facility] [address] [facility] [place] [address] PETCT NUCLEAR STRESS TEST RB-[id number] (07/15/2020 1:07 PM SECOND SHIFT SUPERVISOR) Specimen Narrative Performed At This result has an attachment that is no t available. Name: MAURICIO BASHIRLarissa LAB : 1945 RADIOLOGY EXAM DATE AND TIME OF SERVICE: 07/15/2020 00:00:00 INDICATION: Heart failure, known or suspected, initial workup EXAM: PETCT NUCLEAR STRESS TEST RB-82 REASON FOR THE TEST: Heart failure. Resting portion performed with 59.75 mCi of rubidium-8 2, stress with 59.87 mCi of rubidium-82. EKG portion of the stress test was reviewed. The pat ient in atrial fibrillation. Diffuse ST-T changes suggestive of isc hemia. Resting blood pressure was 125/42. Resting heart rate [address] attenuation images reveal coronary artery calcifica tion. FINDINGS: There is a moderate size, severe intensity , predominantly reversible, inferior/inferolateral defect consistent w ith presence of ischemia in this region. There is some extension to the inferoseptal region too. No major reversible defect noted in the anterior wall or in the anterolateral, anteroseptal region. Functional g ated scan reveals a resting left ventricular ejection fraction 75%, end-di astolic volume 70 mL, end-systolic volume 17 mL, no wall motion abnormal ities. Rosalinda stress left ventricular ejection fraction 78%, end-diastolic volume 67 mL, end-systolic volume 15 mL, no wall motion abnormalitie s. TID index ratio is normal at 1.06. Coronary flow reserve studies were reviewed. Top nor mal resting flow. Blunted stress augmentation. Global reserve is decre ased at 1.23 and decreased in all major vascular territory consistent w ith coronary artery disease, major vascular obstruction as well as small v essel disease. IMPRESSION: Abnormal Rosalinda PET myocardial perfusion i mages. Moderate area of ischemia in the inferior wall extending both to the inferoseptal and inferolateral region. No significant ischemia in the anterior wall. Normal left ventricular ejection fraction. Pete Todd MD Receipt: [id number] Trans ID: [id number] SECOND SHIFT SUPERVISOR SECOND SHIFT SUPERVISOR CSN: [id number] Order Phys: PETE TODD MR#/DESI#: [id number] Admit Date: 07/15/2020 [facility] RADIOLOGY REPORT [facility] Performing Organization Address [facility] Phone Number LAB PERSANTINE/LEXISCAN PET STRESS (07/15/2020 12:20 PM SECOND SHIFT SUPERVISOR) PERSANTINE PET HOSP STRESS TEST Protocol Name: Rosalinda PET Time In Exercise Phase: 00:01:00 Max. Systolic BP: 125 mmHg Max Diastolic BP: 42 mmHg Max Heart Rate: 123 BPM Max Predicted Heart Rate: 146 BPM Target HR Formula: (220 - Age)*100% Reason for Test: heart failure Arrhythmias: no abnormalities Resting ECG: atrial fibrillation ST Changes: Recovery ECG Response (OLD): Overall Impression: Chest Pain: No chest pain during stress HR Response To Exercise: Could not adequately assess H R due to pharmacolog BP Response To Exercise: normal resting BP - hypotensi ve response to stres Reason For Termination: Protocol Complete Functional Capacity: Could not adequately assess funct ional capacity Specimen Narrative Performed At This result has an attachment that is no t available. Performing Organization Address [facility] Phone Number [facility], [place] TROPONIN I (07/15/2020 9:26 AM SECOND SHIFT SUPERVISOR) Pathologist Sig nature Troponin I 0.059 (H) 0.000 - 0.028 ng/mL [place] [address] [facility] Specimen Blood - Blood specimen (specimen) Performing Organization Address [facility] Phone Number [place] [address] [facility] [address] [place] [address] EKG (07/15/2020 8:32 AM SECOND SHIFT SUPERVISOR) Pathologist Sig nature EKG [employer] Atrial fibrillation Posterior infarct (cited on or before 28-JUN-2020) ST & T wave abnormality, consider lateral ischemia Abnormal ECG When compared with ECG of 11-JUL-2020 14:59, T wave inversion less evident in Lateral leads Ventricular Rate: 95 BPM Atrial Rate: 122 BPM QRS Duration: 100 ms Q-T Interval: 374 ms QTc Calculation(Bazett): 469 ms Calculated R Mouthcard: 14 degrees Calculated T Mouthcard: 169 degrees Specimen Narrative Performed At This result has an attachment that is no t available. Performing Organization Address City/State/Zipcode Phone Number [facility] ONLY-COMPLETE BLOOD COUNT WITH DIFFERENTIAL (07/15/2020 6:37 AM SECOND SHIFT SUPERVISOR) Pathologist Sig sissy WBC 15.9 (H) 4.0 - 11.0 K/uL [address] RBC 4.00 (L) 4.40 - 5.[address] M/uL Hemoglobin 12.3 (L) 13.5 - 17.[address] g/dL Hematocrit 36.7 (L) 40.0 - 50.0 % [address] MCV 91.8 80.0 - 98.[address] MCH 30.8 25.5 - 34.[address] MCHC 33.5 31.5 - 36.[address] g/dL RDW-CV 15.9 (H) 11.5 - 15.5 % [address] RDW-SD 53.2 (H) 35.5 - 50.[address] Platelet Count 157 140 - 400 K/uL [address] MPV 9.3 8.5 - 12.[address] Seg Neut Absolute 14.2 (H) 1.8 - 8.0 K/uL [address] Lymphocytes Absolute 0.8 0.8 - 4.1 K/uL [place] [id number] [facility] Monocytes Absolute 0.7 0.0 - 1.0 K/uL [place] [address] [facility] Eosinophils Absolute 0.0 0.0 - 0.7 K/uL [place] [address] [facility] Basophil Absolute 0.0 0.0 - 0.2 K/uL [address] Immature Granulocyte 0.21 (H) 0.00 - 0.[address] Absolute K/uL Neutrophils Abs. 14,200 /uL [address] (Segs and Bands) Neutrophils Percent 89.6 % [address] Lymphocytes Percent 4.7 % [address] Monocytes Percent 4.2 % [address] Immature Granulocyte 1.3 % [address] Percent Eosinophils Percent 0.0 % [address] Basophil Percent 0.2 % [address] Nucleated RBC 0 /[address] Specimen Blood - Blood specimen (specimen) Performing Organization Address [facility] Phone Number [address] [place] [address] D-DIMER QUANTITATIVE (07/15/2020 6:37 AM SECOND SHIFT SUPERVISOR) Pathologist Sig nature D-Dimer <=0.27 <=0.49 ug/mL FEU [address] Specimen Blood - Blood specimen (specimen) Narrative Performed At [address] If D-Dimer is less than 0.50 ug/mL FEU, PE or DVT is not likely. Increases in D-Dimer concentration observed with throm boembolic events can be variable due to localization, size, and age of the thrombus. Therefore, a thromboembolic event cannot be diagnosed with certainty on the basis of the reference range, and thrombosis and/o r embolism is not completely excluded by a normal value. D-Dimer may also be elevated for a variety of disorders including: Advance d age, , coronary disease, cancer, liver disease, infection, in flammation, hematoma, DIC, trauma, post-surgery, diabetes, thrombo lytic therapy, stress, and generalized hospitalization. D-Dimer levels may be decreased in patients on anticoagulant t herapy. Performing Organization Address [facility] Phone Number [address] [place] [address] PROCALCITONIN (07/15/2020 6:37 AM SECOND SHIFT SUPERVISOR) Pathologist [facility] Procalcitonin 0.08 (H) <0.07 ng/mL [address] Specimen Blood - Blood specimen (specimen) Narrative Performed At Suspected Lower Respiratory Tract Infect ion: [address] 0.1-0.25: Low risk for bacterial infection; Antibiotic s discouraged. > 0.25: Increased likelihood for bacterial infection; Antibiotics encouraged. Suspected Sepsis: 0.1-0.5: Low likelihood for sepsis; Anti biotics discouraged. > 0.5: Increased Likelihood for sepsis; Antibiotics encouraged. > 2.0: High risk of sepsis/septic shock; Antibiotics s trongly encouraged. Decisions on antibiotic use should not be based solely on procalcitonin levels. If antibiotics are administered, repeat procalcitonin testing should be performed every 2-3 da ys to consider early antibiotic cessation. PCT is a dynamic biomarker and most useful when trends are analyzed over time in accompaniment with other clinical data. Performing [facility] Address [facility] Phone Number [address] [address] C-REACTIVE PROTEIN (INFLAMMATION) (07/15/2020 6:37 AM SECOND SHIFT SUPERVISOR) Pathologist Sig nature CRP 3.4 0.0 - 8.0 mg/L [address] Specimen Blood - Blood specimen (specimen) Performing [facility] Phone Number [address] [address] BRAIN NATRIURETIC PEPTIDE (07/15/2020 6:37 AM SECOND SHIFT SUPERVISOR) Pathologist Sig nature BNP 151 (H) 0 - 100 pg/mL [address] Specimen Blood - Blood specimen (specimen) Performing [facility] Number [address] [address] TROPONIN I (07/15/2020 6:37 AM SECOND SHIFT SUPERVISOR) Pathologist Sig nature Troponin I 0.059 (H) 0.000 - 0.028 ng/mL [address] Specimen Blood - Blood specimen (specimen) Performing [facility] Phone Number [address] [address] MAGNESIUM (07/15/2020 6:37 AM SECOND SHIFT SUPERVISOR) Pathologist Sig nature Magnesium 2.2 1.8 - 2.4 mg/dL [address] Specimen Blood - Blood specimen (specimen) Performing Organization Address [facility] Phone Number [place] [address] [facility] [address] [place] [address] PHOSPHORUS (07/15/2020 6:37 AM SECOND SHIFT SUPERVISOR) Pathologist Sig formerly [facility] Phosphorus 4.3 2.5 - 4.5 mg/dL [address] Specimen Blood - Blood specimen (specimen) Performing Organization Address [facility] Phone Number [address] [place] [address] COMPREHENSIVE METABOLIC PANEL (07/15/2020 6:37 AM SECOND SHIFT SUPERVISOR) Pathologist Sig formerly [facility] Glucose 156 (H) 70 - 100 mg/dL [address] BUN 69 (H) 6 - 22 mg/dL [address] Creatinine 2.95 (H) 0.80 - 1.[address] mg/dL BUN/Creatinine Ratio 23.4 10.0 - 25.[address] Sodium 133 (L) 135 - 145 meq/L [address] Potassium 3.1 (L) 3.5 - 5.3 meq/L [address] Chloride 91 (L) 99 - 110 meq/L [address] CO2 26 20 - 29 meq/L [address] Anion Gap with K 19 6 - 20 meq/L [address] Calcium 8.9 8.5 - 10.[address] mg/dL Protein Total 6.2 6.0 - 8.2 g/dL [address] Albumin 3.8 3.5 - 5.0 g/dL [address] Alkaline Phosphatase 45 30 - 150 U/L [address] AST - SGOT 23 0 - 35 U/L [address] ALT - SGPT 56 (H) 0 - 55 U/L [address] Bilirubin Total 1.0 0.2 - 1.2 mg/dL [address] Corrected Calcium 9.1 8.5 - 10.[address] mg/dL Age [address] eGFR Non- 21 (L) >=60 [place] [address] [facility] [place] mL/min/1.73m2 eGFR 25 (L) >=[address] mL/min/1.73m2 Specimen Blood - Blood specimen (specimen) Performing Organization Address [facility] Phone Number [address] [place] [address], [place] [address] LACTIC ACID REFLEX TO REPEAT (07/15/2020 6:37 AM SECOND SHIFT SUPERVISOR) Pathologist Sig nature Lactic Acid 1.9 0.5 - 2.2 mmol/L [address] Specimen Blood - Blood specimen (specimen) Performing Organization Address [facility] Phone Number [address] [place] [address], [place] [address] documented in this encounter Visit Diagnoses Diagnosis Chest pain - Primary Chest pain, unspecified Chronic obstructive pulmonary disease, u nspecified COPD type (HCC) 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) custodial (current) use of systemic ster oids TIERRA (obstructive sleep apnea) Obstructive sleep apnea (adult) (pediatr ic) MARIIA (acute kidney injury) (HCC) Acute kidney failure, unspecified HTN (hypertension) Unspecified essential hypertension Hypoxia Hypoxemia documented in this encounter Discharge Diagnoses Not on filedocumented in this encounter Administered Medications Medication Order MAR Action Action Date Dose Rate Site acetaminophen (TYLENOL) tablet 650 mg 650 mg, Oral, Every four hours prn, Starting Sat 1 at 0546, Until Discontinued, mild pain, fever, pain scale 3 or less, Pain stratification is defined as follows for either analog sca le (0-10) or critical care pain observation tool (CPOT, 0-8). a. No pain (0) b. Mil d pain level (1-3) c. Moderate pain level (4-6) d. Severe pain level (greater than or equal to 7) Adult patients: Total dose of acetaminophen from all acetaminophen containing pro ducts should not exceed 4 grams (4,000 mg) per day. Pediatric Anne ents 0 - 3 months: Maximum of 60 mg/kg/24 hours of acetaminophen. Pediatric Patients older than 3 months: Maximum of 75 mg/kg/24 hours of acetaminophen (Never exceeding 4 gra ms/day)., albuterol-ipratropium (DUO-NEB) 2.5-0.5 mg/3 Given 9:31 AM SECOND SHIFT SUPERVISOR 3 mL mL inhalation solution 3 mL 3 mL, Nebulization, Four times a day and every 4 hours prn, First dose on 07/15/20 at 0800, Until Discontinued, 3 mL Given 07/18/2020 6:25 PM SECOND SHIFT SUPERVISOR 3 mL Given 07/18/2020 12:33 PM SECOND SHIFT SUPERVISOR 3 mL aminophylline IV solution 125 mg 125 mg, IV, PRN per parameter, Starting 07/15/20 at 1145, Until Discontinued, other (Specify), bronchospasm/respiratory distress/GI upset/headache, 5 mL, Administer over 5 minutes For administration in CV d iagnostics, apixaban (ELIQUIS) tablet 5 mg Given 07/19/2020 8:13 AM SECOND SHIFT SUPERVISOR 5 mg 5 mg, Oral, Two times a day, First dose on 07/15/20 at 0900, Until Discontinued Given 07/18/2020 7:57 PM SECOND SHIFT SUPERVISOR 5 mg Given 07/18/2020 8:05 AM SECOND SHIFT SUPERVISOR 5 mg aspirin enteric coated tablet 81 mg Given 07/19/2020 8:21 AM SECOND SHIFT SUPERVISOR 81 mg 81 mg, Oral, Every other day, First dose on 07/15/20 at 0900, Until Discontinued, Tablet should be swallowed whole and not be divided, crushed or chewed., Given 07/17/2020 10:41 AM SECOND SHIFT SUPERVISOR 81 mg Given 07/15/2020 10:11 AM SECOND SHIFT SUPERVISOR 81 mg atorvaSTATin (LIPITOR) tablet 20 mg Given 07/19/2020 8:13 AM SECOND SHIFT SUPERVISOR 20 mg 20 mg, Oral, DAILY, First dose on 07/15/20 at 0900, Until Discontinued Given 07/18/2020 8:04 AM SECOND SHIFT SUPERVISOR 20 mg Given 07/17/2020 10:40 AM SECOND SHIFT SUPERVISOR 20 mg bisacodyl (DULCOLAX) suppository 10 mg 10 mg, Rectal, One time a day prn, Start ing 07/15/20 at 0640, Until Discontinued, constipation, Use SECOND for constipatio n. If patient cannot take oral medications, use first for constipation., budesonide (PULMICORT) 0.5 mg/2 mL Given 07/19/2020 9:31 AM SECOND SHIFT SUPERVISOR 0.5 mg inhalation soln 0.5 mg 0.5 mg, Nebulization, Two times a day, First dose on 07/15/20 at 0900, Until Discontinued, 2 mL, Protect from light. Do not mix in the same nebulizer as BECCA., Given 07/18/2020 6:25 PM SECOND SHIFT SUPERVISOR 0.5 mg Given 07/18/2020 9:51 AM SECOND SHIFT SUPERVISOR 0.5 mg bumetanide (BUMEX) tablet 1 mg Given 07/19/2020 8:13 AM SECOND SHIFT SUPERVISOR 1 mg 1 mg, Oral, Daily, First dose on 07/17/20 at 1035, Until Discontinued Given 07/18/2020 8:05 AM SECOND SHIFT SUPERVISOR 1 mg Given 07/17/2020 10:51 AM SECOND SHIFT SUPERVISOR 1 mg docusate sodium (THEREVAC-SB MINI;ENEMEE Z MINI) 283 MG enema 1 enema 1 enema, Rectal, One time a day prn, Starting Sat at 0640, Until Discontinued, constipation, Use THIRD for constipation - if no BM 8 hours after dulcolax suppository. If patient cannot take oral medi cations, use second for constipation., formoterol (PERFOROMIST) 20 MCG/2ML Given 07/19/2020 9:31 AM CS T 20 mcg inhalation solution 20 mcg 20 mcg, Nebulization, Two times a day, First dose on 07/15/20 at 0900, Until Discontinued, 2 mL Given 07/18/2020 6:25 PM SECOND SHIFT SUPERVISOR 20 mcg Given 07/18/2020 9:51 AM SECOND SHIFT SUPERVISOR 20 mcg melatonin tablet 3 mg Given 07/18/2020 7:57 PM SECOND SHIFT SUPERVISOR 3 mg 3 mg, Oral, Bedtime prn, Starting 07/15/20 at 0640, Until Discontinued, other (Specify), insomnia, Use FIRST for insomnia. If inadequate response in 60 minutes, may proceed to next choice option or, if no other options, contact provider., metoprolol succinate (TOPROL XL) SR tablet Given 07/19/2020 8:13 AM SECOND SHIFT SUPERVISOR 200 mg (24 hr) 200 mg 200 mg, Oral, DAILY, First dose on 07/15/20 at 0900, Until Discontinued, Tablet may be broken in half, but should not be crushed or chewed., Given 07/18/2020 8:05 AM SECOND SHIFT SUPERVISOR 200 mg Given 07/17/2020 10:40 AM SECOND SHIFT SUPERVISOR 200 mg omeprazole (priLOSEC) capsule 20 mg Given 07/19/2020 6:24 AM SECOND SHIFT SUPERVISOR 20 mg 20 mg, Oral, DAILY, First dose on Fri07/15/20 at 0700, Until Discontinued, Swallow cap whole. Do not crush, chew or open., Given 07/18/2020 6:05 AM SECOND SHIFT SUPERVISOR 20 mg Given 07/17/2020 6:23 AM SECOND SHIFT SUPERVISOR 20 mg ondansetron (ZOFRAN ODT) dispersible tab let 4 mg 4 mg, Oral, Four times a day prn, Starti ng Fri07/15/20 at 0640, Until Discontinued, nausea, vomiting, Use FIRST for nausea / vomiting. If ineffective after 30 minutes use ondansetron IV, ondansetron (ZOFRAN) injection solution 4 mg 4 mg, IV, Four times a day prn, Starting 07/15/20 at 0640, Until Discontinued, nausea, vomiting, 2 mL, Use SECOND for n ausea / vomiting. If ineffective after 30 minutes and ondansetron ODT used, call ivanna yeh for alternative. If preference is to further dilute for IV administration: First draw up patient-specific dose, then dilute to 10 mL with 0.9% sodium chloride., potassium chloride (KLOR-CON M20) CR tablet Given 07/10 8:13 AM SECOND SHIFT SUPERVISOR 40 mEq 40 mEq 40 mEq, Oral, Two times a day, First dose (after last reorder) on 07/19/20 at 0900, Until Discontinued, Tablet may be broken in half, but should not be crushed or chewed. Tablet may be dissolved in 4 oz of water. DO NOT give via feeding tube route as this can clog the tube., predniSONE tablet 40 mg Given 07/19/2020 8:13 AM SECOND SHIFT SUPERVISOR 40 mg 40 mg, Oral, Daily, First dose on Fri07/15/20 at 0900, Until Discontinued Given 07/18/2020 8:05 AM SECOND SHIFT SUPERVISOR 40 mg Given 07/17/2020 10:41 AM SECOND SHIFT SUPERVISOR 40 mg senna-docusate sodium Given 07/19/2020 8:13 AM SECOND SHIFT SUPERVISOR 1 tablet (SENOKOT-S;PERICOLACE) tablet 1 tablet 1 tablet, Oral, Two times a day, First dose on Fri07/15/20 at 0900, Until Discontinued Given 07/18/2020 7:57 PM SECOND SHIFT SUPERVISOR 1 tablet Given 07/17/2020 9:12 PM SECOND SHIFT SUPERVISOR 1 tablet senna-docusate sodium Given 07/18/2020 1:05 PM SECOND SHIFT SUPERVISOR 2 tablets (SENOKOT-S;PERICOLACE) tablet 2 tablet 2 tablet, Oral, Two times a day prn, Starting 07/15/20 at 0640, Until Discontinued, constipation, Use FIRST for constipation unless patient cannot take oral medications., Given 07/18/2020 8:05 AM SECOND SHIFT SUPERVISOR 2 tablets sodium chloride 0.9% flush (adult) 10 mL Given 07/19/2020 8:14 AM SECOND SHIFT SUPERVISOR 10 mL 10 mL, IV, Two times a day and prn, First dose on 07/15/20 at 0900, Until Discontinued, 10 mL, Flush IV line as scheduled and as often as necessary before and after meds., Given 07/18/2020 7:58 PM SECOND SHIFT SUPERVISOR 10 mL Given 07/18/2020 9:10 AM SECOND SHIFT SUPERVISOR 10 mL sodium chloride 0.9% flush (adult) 10 mL Given 07/19/2020 8:13 AM SECOND SHIFT SUPERVISOR 10 mL 10 mL, IV, Two times a day and prn, First dose on 07/15/20 at 0900, Until Discontinued, 10 mL, Flush IV line as scheduled and as often as necessary before and after meds., Given 07/18/2020 7:57 PM SECOND SHIFT SUPERVISOR 10 mL Given 07/18/2020 9:54 AM SECOND SHIFT SUPERVISOR 10 mL sulfamethoxazole-trimethoprim (BACTRIM, Given 07/19/2020 8:13 A M SECOND SHIFT SUPERVISOR 1 tablet SEPTRA) 400-80 mg tablet 1 tablet 1 tablet, Oral, DAILY, First dose on 07/15/20 at 0900, Until Discontinued Given 07/18/2020 8:05 AM SECOND SHIFT SUPERVISOR 1 tablet Given 07/17/2020 10:40 AM SECOND SHIFT SUPERVISOR 1 tablet Medication Order MAR Action Action Date Dose Rate Site 82Rb-rubidium 60 Given 07/15/2020 12:40 PM 59.87 millicuries millicurie SECOND SHIFT SUPERVISOR 60 millicurie, IV, Now imaging, 2 doses, Starting 07/15/20 at 1235, Until 07/15/20 at 1240 Given 07/15/2020 12:28 PM SECOND SHIFT SUPERVISOR 59.75 millicuries Left Hand Top IV digoxin (LANOXIN) tablet 0.0625 mg Given 07/15/2020 10:02 AM SECOND SHIFT SUPERVISOR 0.0625 mg 0.0625 mg, Oral, DAILY, First dose on 07/15/20 at 0900, Until Discontinued potassium & sodium phosphates (PHOS-NaK) Given 021 10:18 AM SECOND SHIFT SUPERVISOR 2 packets 280-160-250 MG packet 2 packet 2 packet, Oral, Now, 1 dose, 07/18/20 at 1015, Contents of packet should be dissolved in 75 ml water. Stir well and take promptly., potassium chloride (KLOR-CON M10) TBCR 40 Given 07/15/2020 10:00 AM SECOND SHIFT SUPERVISOR 40 mEq mEq 40 mEq, Oral, One time, 1 dose, 07/15/20 at 0840, Tablet may be broken in half, but should not be crushed or chewed. Tablet may be dissolved in 4 oz of water. DO NOT give via feeding tube as this can clog the tube., potassium chloride (KLOR-CON M20) CR tablet Given 01/2021 3:23 PM SECOND SHIFT SUPERVISOR 40 mEq 40 mEq 40 mEq, Oral, Every four hours, 2 doses, First dose on 07/17/20 at 0740, Last dose on 07/17/20 at 1140, Tablet may be broken in half, but should not be crushed or chewed. Tablet may be dissolved in 4 oz of water. DO NOT give via feeding tube route as this can clog the tube., Given 07/17/2020 10:41 AM SECOND SHIFT SUPERVISOR 40 mEq potassium chloride (KLOR-CON M20) CR tablet Given 02/2021 8:05 AM SECOND SHIFT SUPERVISOR 40 mEq 40 mEq 40 mEq, Oral, One time, 1 dose, 07/18/20 at 0820, Tablet may be broken in half, but should not be crushed or chewed. Tablet may be dissolved in 4 oz of water. DO NOT give via feeding tube route as this can clog the tube., regadenoson (LEXISCAN) syringe 0.4 mg Given 07/15/2020 12:38 PM SECOND SHIFT SUPERVISOR 0.4 mg 0.4 mg, IV, One time, 1 dose, 07/15/20 at 1145, 5 mL, Administer over 10-20 seconds For administration in CV diagnostics, sodium chloride 0.9% IV solution Rate Change 07/15/2020 1:20 PM SECOND SHIFT SUPERVISOR 60 mL/hr IV, at 60 mL/hr, Continuous, Starting 07/15/20 at 0850, Until 07/15/20 at 1849, 1,000 mL New Bag 07/15/2020 9:42 AM SECOND SHIFT SUPERVISOR 100 mL/hr documented in this encounter
== END 2020-07-15 04:40 ==
LOC: FB.ED 01:23
DX: J96.21 Acute and chronic respiratory failure with hypoxia (principal); N17.9 Acute kidney failure, unspecified; J18.9 Pneumonia, unspecified organism; I48.91 Unspecified atrial fibrillation; I25.10 Atherosclerotic heart disease of native coronary artery without angina pectoris; I11.0 Hypertensive heart disease with heart failure; I50.9 Heart failure, unspecified; J44.9 Chronic obstructive pulmonary disease, unspecified; M19.90 Unspecified osteoarthritis, unspecified site; E66.9 Obesity, unspecified; Z87.891 Personal history of nicotine dependence; Z79.01 Long term (current) use of anticoagulants; Z79.899 Other long term (current) drug therapy; Z79.82 Long term (current) use of aspirin; Z95.5 Presence of coronary angioplasty implant and graft
CPT/HCPCS: 36415; 71045; 80053; 83735; 83880; 84484; 85025; 86140; 87040; 93005; 93010; 96365; 96375; 99285; A9270; J0692; J2930; J3370; J7030; J7040; J7050; J7620-GY

== ENCOUNTER 2020-08-22 09:21 | Inpatient (IN) | payer BC, MEDICARE ==
[2020-08-22] MEDS ORDERED: Nitroglycerin 0.4 MG Tab.SL SL PRN (13:44)
[2020-08-22] MEDS ORDERED: Albuterol/Ipratropium 3.0-0.5 MG/3 ML Neb Soln NEB PRN (13:48)
[2020-08-22] MEDS ORDERED: Carboxymethylcellulose Sodium 0.5% Ophth Soln 15 ML Bottle EYEBOTH PRN (14:18)
[2020-08-22] MEDS: Albuterol/Ipratropium 3.0-0.5 MG/3 ML Neb Soln INH SCH ×2 (16:19→20:31)
[2020-08-22] MEDS: Digoxin 250 MCG Tab PO SCH (16:21)
[2020-08-22] MEDS: LIDOCAINE 1.5% TOP SCH ×2 (18:00→20:34)
[2020-08-22] MEDS: NIFEDIPINE TOP SCH ×2 (18:00→20:34)
--- NOTE | 2020-08-22 18:36 | PCM.HP.2 ---
H&P History of Present Illness - General Date of Service: 08/22/20 Admit Problem/Dx: Admission Diagnosis/Problem Admission Diagnosis/Problem Rehabilitation therapy Source of Information: Patient, Family, Provider - History of Present Illness Initial Comments - Free Text/Narative: Mauricio admitted for rehab services after sustaining NSTEMI on 08/17, had heart cath done, previous stents were not blocked so no NEW stents were placed. He also was in atrial fibrillation with rapid ventricular rate, has had 6 failed ablations, due to get pacemaker with Dr Lopez in 2-3 weeks in [place]. He had his Digoxin changed to 125 mcg every other day and 250 mcg every other day. He had acute kidney injury, baseline 1.2-1.3, that improved at discharge. He had urinary retention requiring mcnulty placement, advised removal in 1 week, doing a post void residual per nephrology recommendations. He is on 1800 ml fluid restriction, No Added salt diet. He had Covid in Apr 2020, he was not in isolation in [place], no new symptoms, they did not feel he was infectious. Per their protocol they were not going to retest but was told it was required for swingbed admission, came back positive which was to be expected. He reports that he has metallic taste in his mouth every since he came down with Covid in April. - Related Data Allergies/Adverse Reactions: Allergies Allergy/AdvReac Type Severity Reaction Status Date / Time Penicillins Allergy Hives Verified 10/06/19 11:44 hydromorphone HCl AdvReac Change Verified 07/15/20 02:41 [From Dilaudid] Mental Status Home Medications: Home Meds Metoprolol Succinate [Toprol XL] 200 mg PO DAILY 06/06/14 [History] Multivitamin [My Favorite Multiple] 30 ml PO DAILY 06/06/14 [History] [place]-3 Fatty Acids [[place]-3] 2 cap PO DAILY 06/06/14 [History] atorvaSTATin [Lipitor] 20 mg PO DAILY 06/06/14 [History] Apixaban [Eliquis] 5 mg PO BID 10/06/19 [History] Ascorbate Calcium [Vitamin C] 500 mg PO DAILY 10/06/19 [History] Aspirin [Adult Low Dose Aspirin EC] 81 mg PO Q48H 10/06/19 [History] Budesonide [Pulmicort] 0.5 mg IH BID 10/06/19 [History] Nitroglycerin [Nitrostat] 0.4 mg SL Q5M PRN 10/06/19 [History] Albuterol/Ipratropium [DuoNeb 3.0-0.5 MG/3 ML] 3 ml INH QID 07/15/20 [History] Bumetanide [Bumex] 1 mg PO DAILY 07/15/20 [History] Digoxin 125 mcg PO Q48H 07/15/20 [History] Esomeprazole [NexIUM] 20 mg PO DAILY 07/15/20 [History] Acyclovir [Zovirax 5% Oint] 1 applic TOP TID PRN 08/22/20 [History] Albuterol/Ipratropium [DuoNeb 3.0-0.5 MG/3 ML] 3 ml IH Q4H PRN 08/22/20 [His tory] Arformoterol [Brovana] 15 mcg IH BID 08/22/20 [History] Calcium Carbonate/Vitamin D3 [Calcium 500-Vit D3 200 Tablet] 1 tab PO DAILY 08/22/20 [History] Cholecalciferol (Vitamin D3) [Vitamin D3] 25 mcg PO DAILY 08/22/20 [History] Digoxin 250 mcg PO Q48H 08/22/20 [History] Docusate Sodium/Sennosides [Senna Plus] 1 tab PO BID 08/22/20 [History] Glucosam/Chond/Collagen/Hyalur [Glucosamine Chondroitin] 2 cap PO DAILY 08/22/20 [History] Magnesium 250 mg PO DAILY 08/22/20 [History] Nifedipine 0.3%/Lidocaine 1.5% 1 applic TOP QID 08/22/20 [History] Nystatin 5 ml PO BID 08/22/20 [History] Polyvinyl Alcohol/Povidone [Refresh] 1 drop EYEBOTH DAILY PRN 08/22/20 [History] Potassium Chloride 20 meq PO DAILY 08/22/20 [History] Sulfamethoxazole/Trimethoprim [Bactrim Ds Tablet] 1 tab PO MOWEFR 08/22/20 [History] Ubidecarenone [Coenzyme Q-10] 200 mg PO DAILY 08/22/20 [History] predniSONE [Prednisone] 15 mg PO DAILY 08/22/20 [History] Past Medical History Cardiovascular History: Reports: Afib, CAD, Heart Failure, High Cholesterol, Hypertension, PTCA, Stents Other Cardiovascular History: cardioversion 10/04/19, cardiac ablation x 6 Respiratory History: Reports: COPD, Pneumonia, Recurrent, Sleep Apnea, SOB Other Respiratory History: On O2 @ 3L/NC Gastrointestinal History: Reports: Chronic Constipation, Other (See Below) Other Gastrointestinal History: rectal tear Genitourinary History: Reports: Renal Calculus Musculoskeletal History: Reports: Arthritis, Back Pain, Chronic, Fracture Other Musculoskeletal History: R shoulder arthritis, hx fx chin Endocrine/Metabolic History: Reports: Obesity/BMI 30+ Hematologic History: Reports: Anticoagulation Therapy, Iron Deficiency - Infectious Disease History Infectious Disease History: Reports: Chicken Pox, Measles, Novel Coronavirus - Past Surgical History HEENT Surgical History: Reports: Eye Surgery Other HEENT Surgeries/Procedures: L tear duct surgery Cardiovascular Surgical History: Reports: Cardiac Ablation, Carotid Enda rterectomy, Coronary Artery Stent Other Cardiovascular Surgeries/Procedures: stents x 2, R carotid endarterectomy, cardiac ablation x 6 Respiratory Surgical History: Reports: Thoracentesis, Other (See Below) Other Respiratory Surgeries/Procedures: bronchoscopy GI Surgical History: Reports: Colonoscopy Male Surgical History: Reports: Lithotripsy (ESWL) Musculoskeletal Surgical History: Reports: None Social & Family History - Family History Family Medical History: No Pertinent Family History - Tobacco Use Tobacco Use Status *Q: Former Tobacco User Years of Tobacco use: 20 Used Tobacco, but Quit: Yes Month/Year Tobacco Last Used: 1984 - Caffeine Use Caffeine Use: Reports: None - Recreational Drug Use Recreational Drug Use: No - Living Situation & Occupation Living situation: Reports: Occupation: Retired H&P Review of Systems - Review of Systems: Review Of Systems: See Below General: Reports: No Symptoms HEENT: Reports: No Symptoms Pulmonary: Reports: No Symptoms Cardiovascular: Reports: Dyspnea on Exertion, Edema. Denies: Chest Pain, Palpitations Gastrointestinal: Reports: No Symptoms Genitourinary: Reports: No Symptoms Musculoskeletal: Reports: Back Pain (chronic) Skin: Reports: No Symptoms Psychiatric: Reports: No Symptoms Neurological: Reports: No Symptoms Exam - Exam Exam: See Below - Vital Signs Vital Signs: Last Vital Signs Temp 98.0 F 08/22/20 13:12 Pulse 102 H 08/22/20 16:21 Resp 20 08/22/20 13:12 BP 118/66 08/22/20 13:12 Pulse Ox 97 08/22/20 16:35 Weight: 219 lb 3.2 oz - Exam Quality Assessment: Supplemental Oxygen, Urinary Catheter General: Alert, Oriented, Cooperative. No: Mild Distress HEENT: PERRLA, Conjunctiva Clear, EOMI, Hearing Intact, Mucosa Moist & [place], Nares Patent Neck: Supple, Trachea Midline, Lymphadenopathy Lungs: Clear to Auscultation, Normal Respiratory Effort, Decreased Breath Sounds (Bibasilar). No: Crackles, Wheezing Cardiovascular: Regular Rate, Regular Rhythm GI/Abdominal Exam: Normal Bowel Sounds, Soft, Non-Tender, No Distention (Male) Exam: Deferred Rectal (Males) Exam: Deferred Extremities: Pedal Edema (1+ BLE) Peripheral Pulses: 2+: Radial (L), Radial (R) Sepsis Event Note - Evaluation Sepsis Screening Result: No Definite Risk - Focused Exam Vital Signs: Vital Signs Temp Pulse Pulse Resp BP Pulse Ox Pulse Ox 08/22/20 16:35 97 08/22/20 16:21 102 H 08/22/20 13:12 98.0 F 102 H 20 118/66 97 08/22/20 12:57 97 - Problem List (1) Status post non-ST elevation myocardial infarction (NSTEMI) SNOMED Code(s): 973618159 ICD Code: I25.2 - OLD MYOCARDIAL INFARCTION Status: Acute Current Visit: Yes (2) Physical deconditioning SNOMED Code(s): 58835153217555 ICD Code: R53.81 - OTHER MALAISE Status: Acute Current Visit: Yes (3) Weakness SNOMED Code(s): 05577047 ICD Code: R53.1 - WEAKNESS Status: Acute Current Visit: Yes (4) New onset of congestive heart failure SNOMED Code(s): 18453484 ICD Code: I50.9 - HEART FAILURE, UNSPECIFIED Status: Acute Current Visit: No (5) History of COVID-19 SNOMED Code(s): 663995813855653070, 372772711111587457 ICD Code: Z86.16 - PERSONAL HISTORY OF COVID-19 Status: Acute Current Visit: Yes Onset Date: ~04/2020 Problem List Initiated/Reviewed/Updated: Yes Orders Last 24hrs: Active Orders 24 hr Category Date Time Status Patient Status [ADT] Routine ADT 08/22/20 13:43 Active Ambulate [RC] ASDIRECTED Care 08/22/20 13:43 Active Height and Weight [RC] WEEKLY Care 08/22/20 13:43 Active Oxygen Therapy [RC] PRN Care 08/22/20 13:43 Active RT Aerosol Therapy [RC] ASDIRECTED Care 08/22/20 13:51 Active Up With Assistance [RC] ASDIRECTED Care 08/22/20 13:43 Active Up ad Mattie [RC] ASDIRECTED Care 08/22/20 13:43 Active Vital Signs [RC] DAILY Care 08/22/20 13:43 Active 2 Gram Sodium Diet [DIET] Diet 08/22/20 Dinner Active Fluid Restriction [DIET] Diet 08/22/20 Dinner Active Albuterol/Ipratropium [DuoNeb 3.0-0.5 MG/3 ML] Med 08/22/20 16:00 Active 3 ml INH QIDRT Albuterol/Ipratropium [DuoNeb 3.0-0.5 MG/3 ML] Med 08/22/20 13:48 Active 3 ml NEB Q4H PRN Apixaban [Eliquis] Med 08/22/20 21:00 Active 5 mg PO BID Arformoterol [Brovana] Med 08/22/20 21:00 Active 15 mcg NEB BIDRT Ascorbic Acid [Vitamin C] Med 08/22/20 21:00 Active 500 mg PO BEDTIME Aspirin [Halfprin] Med 08/23/20 09:00 Active 81 mg PO Q48H Budesonide [Pulmicort] Med 08/22/20 21:00 Active 0.5 mg NEB BIDRT Bumetanide [Bumex] Med 08/23/20 09:00 Active 1 mg PO DAILY Calcium Carbonate [Oyster Shell Calcium] Med 08/22/20 21:00 Active 500 mg PO BEDTIME Carboxymethylcellulose Sodium [Refresh Tears 0.5%] Med 08/22/20 14:18 Active 0 ml EYEBOTH DAILY PRN Cholecalciferol (Vitamin D3) [Vitamin D3] Med 08/22/20 21:00 Active 25 mcg PO BEDTIME Chondroitin/Glucosamine [Glucosamine-Chondroitin 500- Med 08/22/20 21:00 Active 400 Capsule] 2 cap PO BEDTIME Digoxin [Lanoxin] Med 08/23/20 16:00 Active 125 mcg PO Q48H Digoxin [Lanoxin] Med 08/22/20 16:00 Active 250 mcg PO Q48H Docusate Sodium/Sennosides [Senna Plus] Med 08/22/20 21:00 Active 1 tab PO BID Fish Oil/[place]-3 Fatty Acids [Fish Oil] Med 08/22/20 21:00 Active 2 gm PO BEDTIME Magnesium Oxide Med 08/22/20 21:00 Active 200 mg PO BEDTIME Metoprolol Succinate [Toprol XL] Med 08/23/20 09:00 Active 200 mg PO DAILY Multivitamins [Tab-A-Katie] Med 08/22/20 21:00 Active 1 tab PO BEDTIME Nifedipine 0.3%/Lidocaine 1.5% Med 08/22/20 17:00 Active 1 applic TOP QID Nitroglycerin [Nitrostat] Med 08/22/20 13:44 Active 0.4 mg SL Q5M PRN Nystatin [Mycostatin] Med 08/22/20 21:00 Active 5 ml PO BID Pantoprazole [ProTONIX] Med 08/23/20 06:00 Active 40 mg PO DAILY@0600 Potassium Chloride [Klor-Con M20] Med 08/23/20 09:00 Active 20 meq PO DAILY Sulfamethoxazole/Trimethoprim [Septra DS] Med 08/23/20 09:00 Active 1 tab PO MOWEFR Ubidecarenone [Coenzyme Q10] Med 08/22/20 21:00 Active 200 mg PO BEDTIME atorvaSTATin [Lipitor] Med 08/23/20 09:00 Active 20 mg PO DAILY predniSONE Med 08/23/20 09:00 Active 15 mg PO DAILY Resuscitation Status Routine Resus Stat 08/22/20 13:43 Ordered Medication Orders Albuterol/Ipratropium (Albuterol/Ipratropium 3.0-0.5 Mg/3 Ml Neb Soln) 3 ml INH QIDRT ULICES Last Admin: 08/22/20 16:19 Dose: 3 ml Documented by: MARY Albuterol/Ipratropium (Albuterol/Ipratropium 3.0-0.5 Mg/3 Ml Neb Soln) 3 ml NEB Q4H PRN PRN Reason: Shortness of Breath Apixaban (Apixaban 5 Mg Tab) 5 mg PO BID [facility] Arformoterol Tartrate (Arformoterol 15 Mcg/2 Ml Neb Soln) 15 mcg NEB BIDRT [facility] Artificial Tears (Carboxymethylcellulose Sodium 0.5% Ophth Soln 15 Ml Bottle) 0 ml EYEBOTH DAILY PRN PRN Reason: Dry Eyes Ascorbic Acid (Ascorbic Acid 500 Mg Tab) 500 mg PO BEDTIME [facility] Aspirin (Aspirin 81 Mg Tab.Ec) 81 mg PO Q48H [facility] Atorvastatin Calcium (Atorvastatin 20 Mg Tab) 20 mg PO DAILY [facility] Budesonide (Budesonide 0.5 Mg/2 Ml Neb Susp) 0.5 mg NEB BIDRT [facility] Bumetanide (Bumetanide 1 Mg Tab) 1 mg PO DAILY [facility] Calcium Carbonate/Glycine (Calcium Carbonate 500 Mg Tablet) 500 mg PO BEDTIME [facility] Cholecalciferol (Cholecalciferol (Vitamin D3) 25 Mcg Tab) 25 mcg PO BEDTIME [facility] Coenzyme Q10 (Ubidecarenone 100 Mg Cap) 200 mg PO BEDTIME [facility] Digoxin (Digoxin 125 Mcg Tab) 125 mcg PO Q48H [facility] Digoxin (Digoxin 250 Mcg Tab) 250 mcg PO Q48H [facility] Last Admin: 08/22/20 16:21 Dose: 250 mcg Documented by: MARY Fish Oil (Fish Oil/[place]-3 Fatty Acids 1 Gm Cap) 2 gm PO BEDTIME [facility] Glucosamine/Chondroitin (Chondroitin/Glucosamine Cap) 2 cap PO BEDTIME [facility] Magnesium Oxide (Magnesium Oxide 400 Mg Tab) 200 mg PO BEDTIME [facility] Metoprolol Succinate (Metoprolol Succinate 100 Mg Tab.Er) 200 mg PO DAILY [facility] Multivitamins/Minerals/Vitamin C (Multivitamin Tab) 1 tab PO BEDTIME [facility] Nitroglycerin (Nitroglycerin 0.4 Mg Tab.Sl) 0.4 mg SL Q5M PRN PRN Reason: Chest Pain (Nifedipine 0.3%/Lidocaine 1.5% Ointment) 1 applic TOP QID [facility] Last Admin: 08/22/20 18:00 Dose: 1 applic Documented by: MARY Nystatin (Nystatin Susp 100,000 Unit/Ml 5 Ml Ud Cup) 5 ml PO BID [facility] Pantoprazole Sodium (Pantoprazole 40 Mg Tab.Cr) 40 mg PO DAILY@0600 [facility] Potassium Chloride (Potassium Chloride 20 Meq Tab.Er) 20 meq PO DAILY [facility] Prednisone (Prednisone 5 Mg Tab) 15 mg PO DAILY [facility] Senna/Docusate Sodium (Docusate Sodium/Sennosides 50-8.6 Mg Tab) 1 tab PO BID [facility] Trimethoprim/Sulfamethoxazole (Sulfamethoxazole/Trimethoprim 800-160 Mg Tab) 1 tab PO MOWEFR [facility] Assessment/Plan Comment:: 1. Admit to swing bed for rehab services s/p NSTEMI. 2. Weakness/deconditioning: PT/OT evaluate & treatment. 3. Diet: 1800 ml fluid restriction, SHERIE. 4. CHF: Digoxin 125 mcg every other day, 250 mcg every other day. oxygen therapy by or. 5. Urinary retention: remove mcnulty in 1 week, post void residual. 6. Afib: follow up with cardiology in 2-3 weeks, all appointments in chart. 7. Discharge plan: to home with services. 8. CODE STATUS: FULL. - Mortality Measure Prognosis:: Good
[2020-08-22] MEDS: Arformoterol 15 MCG/2 ML Neb Soln NEB SCH (20:30)
[2020-08-22] MEDS: Fish Oil/Omega-3 Fatty Acids 1 Gm Cap PO SCH (20:32)
[2020-08-22] MEDS: Apixaban 5 MG Tab PO SCH (20:32)
[2020-08-22] MEDS: Chondroitin/Glucosamine Cap PO SCH (20:32)
[2020-08-22] MEDS: Magnesium Oxide 400 MG Tab PO SCH (20:33)
[2020-08-22] MEDS: Nystatin Susp 100,000 Unit/ML 5 ML UD Cup PO SCH (20:34)
[2020-08-22] MEDS: Multivitamin Tab PO SCH (20:34)
[2020-08-22] MEDS: Calcium Carbonate 500 MG Tablet PO SCH (20:35)
[2020-08-22] MEDS: Budesonide 0.5 MG/2 ML Neb Susp NEB SCH (20:37)
[2020-08-22] MEDS: Ascorbic Acid 500 MG Tab PO SCH (20:38)
[2020-08-22] MEDS: Cholecalciferol (Vitamin D3) 25 MCG Tab PO SCH (20:40)
[2020-08-23] MEDS: Pantoprazole 40 MG Tab.CR PO SCH (06:14)
[2020-08-23] MEDS: Albuterol/Ipratropium 3.0-0.5 MG/3 ML Neb Soln INH SCH ×4 (06:18→20:36)
[2020-08-23] MEDS: Budesonide 0.5 MG/2 ML Neb Susp NEB SCH ×2 (06:29→20:55)
[2020-08-23] MEDS: Arformoterol 15 MCG/2 ML Neb Soln NEB SCH ×2 (06:49→20:20)
[2020-08-23] MEDS: Nystatin Susp 100,000 Unit/ML 5 ML UD Cup PO SCH ×2 (08:43→20:24)
[2020-08-23] MEDS: Sulfamethoxazole/Trimethoprim 800-160 MG Tab PO SCH (08:44)
[2020-08-23] MEDS: Metoprolol Succinate 100 MG Tab.ER PO SCH (08:44)
[2020-08-23] MEDS: Aspirin 81 MG Tab.EC PO SCH (08:44)
[2020-08-23] MEDS: Bumetanide 1 MG Tab PO SCH (08:44)
[2020-08-23] MEDS: predniSONE 5 MG Tab PO SCH (08:44)
[2020-08-23] MEDS: Potassium Chloride 20 MEQ Tab.ER PO SCH (08:44)
[2020-08-23] MEDS: LIDOCAINE 1.5% TOP SCH ×4 (08:45→20:25)
[2020-08-23] MEDS: Apixaban 5 MG Tab PO SCH ×2 (08:45→20:22)
[2020-08-23] MEDS: NIFEDIPINE TOP SCH ×4 (08:45→20:25)
[2020-08-23] MEDS: atorvaSTATin 20 MG Tab PO SCH (08:45)
[2020-08-23] MEDS: Acetaminophen 500 MG Tab PO SCH ×2 (15:05→20:27)
--- NOTE | 2020-08-23 15:19 | PCM.PN ---
- General Info Date of Service: 08/23/20 Subjective Update: Mauricio asked me to look at his left arm today, site where he received his Venofer injection yesterday is hurting, red streak going up his arm, feels stiff. He states he takes aspirin every other day as he has been getting bloody noses in the last few months and on Eliquis for atrial fibrillation. No fevers or chills. - Patient Data Vitals - Most Recent: Last Vital Signs Temp 98.7 F 08/23/20 08:00 Pulse 90 08/23/20 08:44 Resp 18 08/23/20 08:00 BP 108/56 L 08/23/20 08:44 Pulse Ox 98 08/23/20 08:00 Weight - Most Recent: 219 lb 3.2 oz I&O - Last 24 Hours: Intake & Output 08/23/20 08/23/20 08/23/20 06:59 14:59 22:59 Intake Total 100 Output Total 275 800 Balance -175 -800 Med Orders - Current: Current Medications Acetaminophen (Acetaminophen 500 Mg Tab) 500 mg PO TID [facility] Last Admin: 08/23/20 15:05 Dose: 500 mg Documented by: Albuterol/Ipratropium (Albuterol/Ipratropium 3.0-0.5 Mg/3 Ml Neb Soln) 3 ml INH QIDRT [facility] Last Admin: 08/23/20 11:14 Dose: 3 ml Documented by: Albuterol/Ipratropium (Albuterol/Ipratropium 3.0-0.5 Mg/3 Ml Neb Soln) 3 ml NEB Q4H PRN PRN Reason: Shortness of Breath Apixaban (Apixaban 5 Mg Tab) 5 mg PO BID [facility] Last Admin: 08/23/20 08:45 Dose: 5 mg Documented by: Arformoterol Tartrate (Arformoterol 15 Mcg/2 Ml Neb Soln) 15 mcg NEB BIDRT [facility] Last Admin: 08/23/20 06:49 Dose: 15 mcg Documented by: Artificial Tears (Carboxymethylcellulose Sodium 0.5% Ophth Soln 15 Ml Bottle) 0 ml EYEBOTH DAILY PRN PRN Reason: Dry Eyes Ascorbic Acid (Ascorbic Acid 500 Mg Tab) 500 mg PO BEDTIME [facility] Last Admin: 08/22/20 20:38 Dose: 500 mg Documented by: Aspirin (Aspirin 81 Mg Tab.Ec) 81 mg PO Q48H [facility] Last Admin: 08/23/20 08:44 Dose: 81 mg Documented by: Atorvastatin Calcium (Atorvastatin 20 Mg Tab) 20 mg PO DAILY [facility] Last Admin: 08/23/20 08:45 Dose: 20 mg Documented by: Budesonide (Budesonide 0.5 Mg/2 Ml Neb Susp) 0.5 mg NEB BIDRT [facility] Last Admin: 08/23/20 06:29 Dose: 0.5 mg Documented by: Bumetanide (Bumetanide 1 Mg Tab) 1 mg PO DAILY [facility] Last Admin: 08/23/20 08:44 Dose: 1 mg Documented by: Calcium Carbonate/Glycine (Calcium Carbonate 500 Mg Tablet) 500 mg PO BEDTIME [facility] Last Admin: 08/22/20 20:35 Dose: 500 mg Documented by: Cholecalciferol (Cholecalciferol (Vitamin D3) 25 Mcg Tab) 25 mcg PO BEDTIME [facility] Last Admin: 08/22/20 20:40 Dose: 25 mcg Documented by: Coenzyme Q10 (Ubidecarenone 100 Mg Cap) 200 mg PO BEDTIME [facility] Last Admin: 08/22/20 20:31 Dose: 200 mg Documented by: Digoxin (Digoxin 125 Mcg Tab) 125 mcg PO Q48H [facility] Digoxin (Digoxin 250 Mcg Tab) 250 mcg PO Q48H [facility] Last Admin: 08/22/20 16:21 Dose: 250 mcg Documented by: Fish Oil (Fish Oil/[place]-3 Fatty Acids 1 Gm Cap) 2 gm PO BEDTIME [facility] Last Admin: 08/22/20 20:32 Dose: 2 gm Documented by: Glucosamine/Chondroitin (Chondroitin/Glucosamine Cap) 2 cap PO BEDTIME [facility] Last Admin: 08/22/20 20:32 Dose: 2 cap Documented by: Magnesium Oxide (Magnesium Oxide 400 Mg Tab) 200 mg PO BEDTIME [facility] Last Admin: 08/22/20 20:33 Dose: 200 mg Documented by: Metoprolol Succinate (Metoprolol Succinate 100 Mg Tab.Er) 200 mg PO DAILY [facility] Last Admin: 08/23/20 08:44 Dose: 200 mg Documented by: Multivitamins/Minerals/Vitamin C (Multivitamin Tab) 1 tab PO BEDTIME [facility] Last Admin: 08/22/20 20:34 Dose: 1 tab Documented by: Nitroglycerin (Nitroglycerin 0.4 Mg Tab.Sl) 0.4 mg SL Q5M PRN PRN Reason: Chest Pain (Nifedipine 0.3%/Lidocaine 1.5% Ointment) 1 applic TOP QID [facility] Last Admin: 08/23/20 13:30 Dose: 1 applic Documented by: Nystatin (Nystatin Susp 100,000 Unit/Ml 5 Ml Ud Cup) 5 ml PO BID [facility] Last Admin: 08/23/20 08:43 Dose: 5 ml Documented by: Pantoprazole Sodium (Pantoprazole 40 Mg Tab.Cr) 40 mg PO DAILY@0600 [facility] Last Admin: 08/23/20 06:14 Dose: 40 mg Documented by: Potassium Chloride (Potassium Chloride 20 Meq Tab.Er) 20 meq PO DAILY [facility] Last Admin: 08/23/20 08:44 Dose: 20 meq Documented by: Prednisone (Prednisone 5 Mg Tab) 15 mg PO DAILY [facility] Last Admin: 08/23/20 08:44 Dose: 15 mg Documented by: Senna/Docusate Sodium (Docusate Sodium/Sennosides 50-8.6 Mg Tab) 1 tab PO BID [facility] Last Admin: 08/23/20 08:44 Dose: 1 tab Documented by: Trimethoprim/Sulfamethoxazole (Sulfamethoxazole/Trimethoprim 800-160 Mg Tab) 1 tab PO MOWEFR [facility] Last Admin: 08/23/20 08:44 Dose: 1 tab Documented by: - Exam Extremities: Redness (palpable tender cord in left distal upper arm along antecubital vein, 4 cm in length) Sepsis Event Note - Evaluation Sepsis Screening Result: No Definite Risk - Focused Exam Vital Signs: Vital Signs Temp Pulse Pulse Resp BP BP Pulse Ox 08/23/20 08:44 90 108/56 L 08/23/20 08:00 98.7 F 90 18 108/56 L 98 08/23/20 06:49 08/23/20 06:37 08/23/20 06:35 97.8 F 78 18 97 Pulse Ox 08/23/20 08:44 08/23/20 08:00 08/23/20 06:49 97 08/23/20 06:37 97 08/23/20 06:35 - Problem List & Annotations (1) Status post non-ST elevation myocardial infarction (NSTEMI) SNOMED Code(s): 129872576 Code(s): I25.2 - OLD MYOCARDIAL INFARCTION Status: Acute Current Visit: Yes (2) Physical deconditioning SNOMED Code(s): 31983056940966 Code(s): R53.81 - OTHER MALAISE Status: Acute Current Visit: Yes (3) Weakness SNOMED Code(s): 67795801 Code(s): R53.1 - WEAKNESS Status: Acute Current Visit: Yes (4) New onset of congestive heart failure SNOMED Code(s): 71190002 Code(s): I50.9 - HEART FAILURE, UNSPECIFIED Status: Acute Current Visit: No (5) History of COVID-19 SNOMED Code(s): 719860679639233116, 402240883503924520 Code(s): Z86.16 - PERSONAL HISTORY OF COVID-19 Status: Acute Current Visit: Yes Onset Date: ~04/2020 (6) Thrombophlebitis arm SNOMED Code(s): 83899671 Code(s): I80.8 - PHLEBITIS AND THROMBOPHLEBITIS OF OTHER SITES Status: Acute Current Visit: Yes - Problem List Review Problem List Initiated/Reviewed/Updated: Yes - My Orders Last 24 Hours: My Active Orders 08/22/20 14:18 Carboxymethylcellulose Sodium [Refresh Tears 0.5%] 0 ml EYEBOTH DAILY PRN 08/22/20 16:00 Albuterol/Ipratropium [DuoNeb 3.0-0.5 MG/3 ML] 3 ml INH QIDRT Digoxin [Lanoxin] 250 mcg PO Q48H 08/22/20 Dinner 2 Gram Sodium Diet [DIET] Fluid Restriction [DIET] 08/22/20 17:00 Nifedipine 0.3%/Lidocaine 1.5% 1 applic TOP QID 08/22/20 21:00 Apixaban [Eliquis] 5 mg PO BID Arformoterol [Brovana] 15 mcg NEB BIDRT Ascorbic Acid [Vitamin C] 500 mg PO BEDTIME Budesonide [Pulmicort] 0.5 mg NEB BIDRT Calcium Carbonate [Oyster Shell Calcium] 500 mg PO BEDTIME Cholecalciferol (Vitamin D3) [Vitamin D3] 25 mcg PO BEDTIME Chondroitin/Glucosamine [Glucosamine-Chondroitin 500-400 Capsule] 2 cap PO BEDTIME Docusate Sodium/Sennosides [Senna Plus] 1 tab PO BID Fish Oil/[place]-3 Fatty Acids [Fish Oil] 2 gm PO BEDTIME Magnesium Oxide 200 mg PO BEDTIME Multivitamins [Tab-A-Katie] 1 tab PO BEDTIME Nystatin [Mycostatin] 5 ml PO BID Ubidecarenone [Coenzyme Q10] 200 mg PO BEDTIME 08/23/20 06:00 Pantoprazole [ProTONIX] 40 mg PO DAILY@0600 08/23/20 07:25 OT Evaluation and Treatment [CONS] Routine PT Evaluation and Treatment [CONS] Routine 08/23/20 09:00 Aspirin [Halfprin] 81 mg PO Q48H Bumetanide [Bumex] 1 mg PO DAILY Metoprolol Succinate [Toprol XL] 200 mg PO DAILY Potassium Chloride [Klor-Con M20] 20 meq PO DAILY Sulfamethoxazole/Trimethoprim [Septra DS] 1 tab PO MOWEFR atorvaSTATin [Lipitor] 20 mg PO DAILY predniSONE 15 mg PO DAILY 08/23/20 14:15 Acetaminophen [Tylenol Extra Strength] 500 mg PO TID 08/23/20 14:16 Cooling Warming Measures [RC] ASDIRECTED Ice Bag [Ice Therapy] [OM.PC] Routine 08/23/20 16:00 Digoxin [Lanoxin] 125 mcg PO Q48H - Plan Plan:: Thrombophlebitis: Tylenol 500 mg po tid with ice packs to left arm qid. He is already on Aspirin 81 mg q48h and Eliquis bid. Given his recurrent nose bleeds reluctant to do Ibuprofen that normally is indicated for phlebitis. Will adjust treatments as needed.
[2020-08-23] MEDS: Digoxin 125 MCG Tab PO SCH (16:44)
[2020-08-23] MEDS: Fish Oil/Omega-3 Fatty Acids 1 Gm Cap PO SCH (20:22)
[2020-08-23] MEDS: Chondroitin/Glucosamine Cap PO SCH (20:23)
[2020-08-23] MEDS: Magnesium Oxide 400 MG Tab PO SCH (20:24)
[2020-08-23] MEDS: Calcium Carbonate 500 MG Tablet PO SCH (20:26)
[2020-08-23] MEDS: Multivitamin Tab PO SCH (20:27)
[2020-08-23] MEDS: Ascorbic Acid 500 MG Tab PO SCH (20:28)
[2020-08-23] MEDS: Cholecalciferol (Vitamin D3) 25 MCG Tab PO SCH (20:29)
[2020-08-24] MEDS: Pantoprazole 40 MG Tab.CR PO SCH (06:45)
[2020-08-24] MEDS: Arformoterol 15 MCG/2 ML Neb Soln NEB SCH ×2 (06:46→20:45)
[2020-08-24] MEDS: Albuterol/Ipratropium 3.0-0.5 MG/3 ML Neb Soln INH SCH ×4 (06:55→20:50)
[2020-08-24] MEDS: Budesonide 0.5 MG/2 ML Neb Susp NEB SCH ×2 (07:16→20:50)
[2020-08-24] MEDS: Metoprolol Succinate 100 MG Tab.ER PO SCH (08:25)
[2020-08-24] MEDS: Potassium Chloride 20 MEQ Tab.ER PO SCH (08:26)
[2020-08-24] MEDS: predniSONE 5 MG Tab PO SCH (08:27)
[2020-08-24] MEDS: Bumetanide 1 MG Tab PO SCH (08:27)
[2020-08-24] MEDS: Apixaban 5 MG Tab PO SCH ×2 (08:27→20:49)
[2020-08-24] MEDS: Nystatin Susp 100,000 Unit/ML 5 ML UD Cup PO SCH ×2 (08:28→20:50)
[2020-08-24] MEDS: NIFEDIPINE TOP SCH ×4 (08:28→20:54)
[2020-08-24] MEDS: Acetaminophen 500 MG Tab PO SCH ×3 (08:28→20:49)
[2020-08-24] MEDS: LIDOCAINE 1.5% TOP SCH ×4 (08:28→20:54)
[2020-08-24] MEDS: atorvaSTATin 20 MG Tab PO SCH (08:28)
[2020-08-24] MEDS: Digoxin 250 MCG Tab PO SCH (16:31)
[2020-08-24] MEDS: Multivitamin Tab PO SCH (20:49)
[2020-08-24] MEDS: Ascorbic Acid 500 MG Tab PO SCH (20:49)
[2020-08-24] MEDS: Chondroitin/Glucosamine Cap PO SCH (20:49)
[2020-08-24] MEDS: Calcium Carbonate 500 MG Tablet PO SCH (20:49)
[2020-08-24] MEDS: Fish Oil/Omega-3 Fatty Acids 1 Gm Cap PO SCH (20:49)
[2020-08-24] MEDS: Cholecalciferol (Vitamin D3) 25 MCG Tab PO SCH (20:56)
[2020-08-24] MEDS: Magnesium Oxide 400 MG Tab PO SCH (20:56)
[2020-08-25] MEDS: Pantoprazole 40 MG Tab.CR PO SCH (06:06)
[2020-08-25] MEDS: Arformoterol 15 MCG/2 ML Neb Soln NEB SCH ×2 (06:07→21:10)
[2020-08-25] MEDS: Albuterol/Ipratropium 3.0-0.5 MG/3 ML Neb Soln INH SCH ×4 (06:19→21:06)
[2020-08-25] MEDS: Budesonide 0.5 MG/2 ML Neb Susp NEB SCH ×2 (06:29→21:10)
[2020-08-25] MEDS: Potassium Chloride 20 MEQ Tab.ER PO SCH (08:52)
[2020-08-25] MEDS: Apixaban 5 MG Tab PO SCH ×2 (08:52→21:09)
[2020-08-25] MEDS: Bumetanide 1 MG Tab PO SCH (08:52)
[2020-08-25] MEDS: NIFEDIPINE TOP SCH ×4 (08:53→21:11)
[2020-08-25] MEDS: LIDOCAINE 1.5% TOP SCH ×4 (08:53→21:11)
[2020-08-25] MEDS: atorvaSTATin 20 MG Tab PO SCH (08:53)
[2020-08-25] MEDS: Nystatin Susp 100,000 Unit/ML 5 ML UD Cup PO SCH ×2 (08:53→21:10)
[2020-08-25] MEDS: predniSONE 5 MG Tab PO SCH (08:54)
[2020-08-25] MEDS: Acetaminophen 500 MG Tab PO SCH ×3 (08:54→21:10)
[2020-08-25] MEDS: Sulfamethoxazole/Trimethoprim 800-160 MG Tab PO SCH (08:54)
[2020-08-25] MEDS: Aspirin 81 MG Tab.EC PO SCH (10:19)
[2020-08-25] MEDS: Metoprolol Succinate 100 MG Tab.ER PO SCH (10:19)
[2020-08-25] MEDS: Digoxin 125 MCG Tab PO SCH (15:36)
[2020-08-25] MEDS: Ascorbic Acid 500 MG Tab PO SCH (21:09)
[2020-08-25] MEDS: Chondroitin/Glucosamine Cap PO SCH (21:09)
[2020-08-25] MEDS: Fish Oil/Omega-3 Fatty Acids 1 Gm Cap PO SCH (21:09)
[2020-08-25] MEDS: Magnesium Oxide 400 MG Tab PO SCH (21:09)
[2020-08-25] MEDS: Cholecalciferol (Vitamin D3) 25 MCG Tab PO SCH (21:10)
[2020-08-25] MEDS: Calcium Carbonate 500 MG Tablet PO SCH (21:10)
[2020-08-25] MEDS: Multivitamin Tab PO SCH (21:10)
[2020-08-26] MEDS: Budesonide 0.5 MG/2 ML Neb Susp NEB SCH ×2 (06:46→21:01)
[2020-08-26] MEDS: Albuterol/Ipratropium 3.0-0.5 MG/3 ML Neb Soln INH SCH ×4 (06:46→21:01)
[2020-08-26] MEDS: Pantoprazole 40 MG Tab.CR PO SCH (06:46)
[2020-08-26] MEDS: Arformoterol 15 MCG/2 ML Neb Soln NEB SCH ×2 (06:46→21:01)
[2020-08-26] MEDS: Metoprolol Succinate 100 MG Tab.ER PO SCH (08:59)
[2020-08-26] MEDS: Apixaban 5 MG Tab PO SCH ×2 (08:59→21:01)
[2020-08-26] MEDS: Potassium Chloride 20 MEQ Tab.ER PO SCH (08:59)
[2020-08-26] MEDS: atorvaSTATin 20 MG Tab PO SCH (09:00)
[2020-08-26] MEDS: NIFEDIPINE TOP SCH ×4 (09:01→21:04)
[2020-08-26] MEDS: Nystatin Susp 100,000 Unit/ML 5 ML UD Cup PO SCH ×2 (09:01→21:01)
[2020-08-26] MEDS: LIDOCAINE 1.5% TOP SCH ×4 (09:01→21:04)
[2020-08-26] MEDS: predniSONE 5 MG Tab PO SCH (09:01)
[2020-08-26] MEDS: Acetaminophen 500 MG Tab PO SCH ×3 (09:01→21:01)
[2020-08-26] MEDS: Bumetanide 1 MG Tab PO SCH (09:02)
[2020-08-26] MEDS: Digoxin 250 MCG Tab PO SCH (15:16)
[2020-08-26] MEDS: Calcium Carbonate 500 MG Tablet PO SCH (21:01)
[2020-08-26] MEDS: Ascorbic Acid 500 MG Tab PO SCH (21:01)
[2020-08-26] MEDS: Chondroitin/Glucosamine Cap PO SCH (21:02)
[2020-08-26] MEDS: Cholecalciferol (Vitamin D3) 25 MCG Tab PO SCH (21:02)
[2020-08-26] MEDS: Magnesium Oxide 400 MG Tab PO SCH (21:02)
[2020-08-26] MEDS: Fish Oil/Omega-3 Fatty Acids 1 Gm Cap PO SCH (21:02)
[2020-08-26] MEDS: Multivitamin Tab PO SCH (21:03)
[2020-08-27] MEDS: Pantoprazole 40 MG Tab.CR PO SCH (08:25)
[2020-08-27] MEDS: Arformoterol 15 MCG/2 ML Neb Soln NEB SCH ×2 (08:25→21:15)
[2020-08-27] MEDS: Albuterol/Ipratropium 3.0-0.5 MG/3 ML Neb Soln INH SCH ×4 (08:25→21:15)
[2020-08-27] MEDS: Potassium Chloride 20 MEQ Tab.ER PO SCH (08:26)
[2020-08-27] MEDS: Apixaban 5 MG Tab PO SCH ×2 (08:26→21:16)
[2020-08-27] MEDS: Aspirin 81 MG Tab.EC PO SCH (08:26)
[2020-08-27] MEDS: atorvaSTATin 20 MG Tab PO SCH (08:26)
[2020-08-27] MEDS: Bumetanide 1 MG Tab PO SCH (08:26)
[2020-08-27] MEDS: Budesonide 0.5 MG/2 ML Neb Susp NEB SCH ×2 (08:26→21:15)
[2020-08-27] MEDS: Nystatin Susp 100,000 Unit/ML 5 ML UD Cup PO SCH ×2 (08:27→21:15)
[2020-08-27] MEDS: Metoprolol Succinate 100 MG Tab.ER PO SCH (08:27)
[2020-08-27] MEDS: NIFEDIPINE TOP SCH ×4 (08:27→21:18)
[2020-08-27] MEDS: Acetaminophen 500 MG Tab PO SCH ×3 (08:27→21:16)
[2020-08-27] MEDS: LIDOCAINE 1.5% TOP SCH ×4 (08:27→21:18)
[2020-08-27] MEDS: predniSONE 5 MG Tab PO SCH (08:27)
[2020-08-27] MEDS: Digoxin 125 MCG Tab PO SCH (15:12)
[2020-08-27] MEDS: Fish Oil/Omega-3 Fatty Acids 1 Gm Cap PO SCH (21:15)
[2020-08-27] MEDS: Magnesium Oxide 400 MG Tab PO SCH (21:15)
[2020-08-27] MEDS: Ascorbic Acid 500 MG Tab PO SCH (21:16)
[2020-08-27] MEDS: Chondroitin/Glucosamine Cap PO SCH (21:16)
[2020-08-27] MEDS: Multivitamin Tab PO SCH (21:16)
[2020-08-27] MEDS: Calcium Carbonate 500 MG Tablet PO SCH (21:16)
[2020-08-27] MEDS: Cholecalciferol (Vitamin D3) 25 MCG Tab PO SCH (21:16)
[2020-08-28] MEDS: Albuterol/Ipratropium 3.0-0.5 MG/3 ML Neb Soln INH SCH ×2 (07:35→11:05)
[2020-08-28] MEDS: Pantoprazole 40 MG Tab.CR PO SCH (07:35)
[2020-08-28] MEDS: Arformoterol 15 MCG/2 ML Neb Soln NEB SCH (07:35)
[2020-08-28] MEDS: Budesonide 0.5 MG/2 ML Neb Susp NEB SCH (07:36)
[2020-08-28] MEDS: Sulfamethoxazole/Trimethoprim 800-160 MG Tab PO SCH (08:25)
[2020-08-28] MEDS: Acetaminophen 500 MG Tab PO SCH (08:25)
[2020-08-28] MEDS: Bumetanide 1 MG Tab PO SCH (08:25)
[2020-08-28] MEDS: Nystatin Susp 100,000 Unit/ML 5 ML UD Cup PO SCH (08:25)
[2020-08-28] MEDS: LIDOCAINE 1.5% TOP SCH (08:26)
[2020-08-28] MEDS: predniSONE 5 MG Tab PO SCH (08:26)
[2020-08-28] MEDS: Apixaban 5 MG Tab PO SCH (08:26)
[2020-08-28] MEDS: Potassium Chloride 20 MEQ Tab.ER PO SCH (08:26)
[2020-08-28] MEDS: NIFEDIPINE TOP SCH (08:26)
[2020-08-28] MEDS: atorvaSTATin 20 MG Tab PO SCH (08:26)
[2020-08-28] MEDS: Metoprolol Succinate 100 MG Tab.ER PO SCH (08:26)
[2020-08-28 08:28] VITALS: BP 113/58; PULSE 76
[2020-08-28] MEDS ORDERED: hydrOXYzine HCl 10 MG Tab PO PRN (09:54)
--- NOTE | 2020-08-28 17:12 | PCM.DCSUM1 ---
Discharge Summary - Hospital Course HPI Initial Comments: Mauricio admitted for rehab services after sustaining NSTEMI on 08/17, had heart cath done, previous stents were not blocked so no NEW stents were placed. He also was in atrial fibrillation with rapid ventricular rate, has had 6 failed ablations, due to get pacemaker with Dr Lopez in 2-3 weeks in [place]. He had his Digoxin changed to 125 mcg every other day and 250 mcg every other day. He had acute kidney injury, baseline 1.2-1.3, that improved at discharge. He had urinary retention requiring mcnulty placement, advised removal in 1 week, doing a post void residual per nephrology recommendations. He is on 1800 ml fluid restriction, No Added salt diet. He had Covid in Apr 2020, he was not in isolation in [place], no new symptoms, they did not feel he was infectious. Per their protocol they were not going to retest but was told it was required for swingbed admission, came back positive which was to be expected. He reports that he has metallic taste in his mouth every since he came down with Covid in April. Diagnosis: Stroke: No - Discharge Data Discharge Date: 08/28/20 Discharge Disposition: Home, Self-Care 01 Condition: Stable - Referral to Home Health Primary Care Physician: Marco Antonio Flores MD - Discharge Diagnosis/Problem(s) (1) Status post non-ST elevation myocardial infarction (NSTEMI) SNOMED Code(s): 131621843 ICD Code: I25.2 - OLD MYOCARDIAL INFARCTION Status: Acute Onset Date: ~08/17/20 (2) Physical deconditioning SNOMED Code(s): 56695985790291 ICD Code: R53.81 - OTHER MALAISE Status: Acute (3) Weakness SNOMED Code(s): 96582087 ICD Code: R53.1 - WEAKNESS Status: Acute (4) New onset of congestive heart failure SNOMED Code(s): 93126977 ICD Code: I50.9 - HEART FAILURE, UNSPECIFIED Status: Acute (5) History of COVID-19 SNOMED Code(s): 371872024372831472, 510418777521196148 ICD Code: Z86.16 - PERSONAL HISTORY OF COVID-19 Status: Acute Onset Date: ~04/2020 (6) Thrombophlebitis arm SNOMED Code(s): 05481049 ICD Code: I80.8 - PHLEBITIS AND THROMBOPHLEBITIS OF OTHER SITES Status: Acute Onset Date: ~08/23/20 - Patient Summary/Data Consults: Consultations 08/23/20 07:25 OT Evaluation and Treatment [CONS] Routine Please Evaluate and Treat. OT Reason for Consult: ADL's This query below is only for informational purposes and is not editable. Admission Diagnosis/Problem: Rehabilitation therapy PT Evaluation and Treatment [CONS] Routine Please Evaluate and Treat. PT Reason for Consult: Ambulation This query below is only for informational purposes and is not editable. Admission Diagnosis/Problem: Rehabilitation therapy Hospital Course: Mauricio did well with therapy, met all his goals, will discharge today to home. He and his declined home health services. Noted on 08/23, he had red, tender palpable cord from Venofer injection on 08/22(at [facility]), measures 4 cm in length. He had increased nosebleeds when he was taking Aspirin 81 mg daily with his Eliquis(for atrial fibrillation) so did not start Ibuprofen or any other NSAIDs for thrombophlebitis treatment, He is already on Eliquis. Order Tylenol tid with ice packs to left arm, therapy worked with him on some exercises. Avoided compressive aids to left arm. Pain and redness improved during swing bed course, stated he had better pain relief from ice packs than the Tylenol so Tylenol was discontinued at discharge. Trial of bladder training prior to pulling his Mcnulty catheter, initially clamped every 4 hours, he sporadically had the urge to go prior to removing clamp. Then started clamping and waiting for patient to feel urge, went 8 hours with Mcnulty clamped, still did not have urge to go and only had 450 ml out. He is on 1800 ml fluid restriction. Education on bladder training and clamping given to Mauricio & his , when he is more consistently having urge to urinate, would then go to clinic to have removed. His , Anisa stated they were to have a urology appointment set up from [place] but have not been called with date. May need more urologic testing done if he continues to have no urge to urinate, Mcnulty was placed for marked urinary retention. Also started Hydroxyzine 10 mg q6h as needed for shortness of breath/air hunger. He is follow up with Cardiology in 2 weeks for pacemaker placement. - Patient Instructions Diet: Usual Diet as Tolerated, Low Sodium Fluid Restriction: 1800 ml Activity: As Tolerated Driving: Do Not Drive Showering/Bathing: May Shower Notify Provider of: Fever, Increased Pain, Nausea and/or Vomiting Other/Special Instructions: Follow up with Cardiology as scheduled. Clamp mcnulty every 4-5 hours or when he feels the urge to go whichever is sooner. Max: 8 hours. Once he feels the urge to every time, then can go to clinic and have removed. Follow up with Urology as reccommended by Sam. Continue ice packs to left arm for phlebitis, may use Tylenol as needed for pain. May take 2 more week for symptoms to fully resolve. Follow up with Dr Flores as needed. - Discharge Plan *PRESCRIPTION DRUG MONITORING PROGRAM REVIEWED*: Not Applicable *COPY OF PRESCRIPTION DRUG MONITORING REPORT IN PATIENT DIAZ: Not Applicable Prescriptions/Med Rec: hydrOXYzine HCL [hydrOXYzine] 10 mg PO Q4H PRN 7 Days #42 tablet PRN Reason: Shortness Of Breath Home Medications: Home Meds Metoprolol Succinate [Toprol XL] 200 mg PO DAILY 06/06/14 [History] Multivitamin [My Favorite Multiple] 30 ml PO DAILY 06/06/14 [History] [place]-3 Fatty Acids [[place]-3] 2 cap PO DAILY 06/06/14 [History] atorvaSTATin [Lipitor] 20 mg PO DAILY 06/06/14 [History] Apixaban [Eliquis] 5 mg PO BID 10/06/19 [History] Ascorbate Calcium [Vitamin C] 500 mg PO DAILY 10/06/19 [History] Aspirin [Adult Low Dose Aspirin EC] 81 mg PO Q48H 10/06/19 [History] Budesonide [Pulmicort] 0.5 mg IH BID 10/06/19 [History] Nitroglycerin [Nitrostat] 0.4 mg SL Q5M PRN 10/06/19 [History] Albuterol/Ipratropium [DuoNeb 3.0-0.5 MG/3 ML] 3 ml INH QID 07/15/20 [History] Bumetanide [Bumex] 1 mg PO DAILY 07/15/20 [History] Digoxin 125 mcg PO Q48H 07/15/20 [History] Esomeprazole [NexIUM] 20 mg PO DAILY 07/15/20 [History] Acyclovir [Zovirax 5% Oint] 1 applic TOP TID PRN 08/22/20 [History] Albuterol/Ipratropium [DuoNeb 3.0-0.5 MG/3 ML] 3 ml IH Q4H PRN 08/22/20 [History] Arformoterol [Brovana] 15 mcg IH BID 08/22/20 [History] Calcium Carbonate/Vitamin D3 [Calcium 500-Vit D3 200 Tablet] 1 tab PO DAILY 08/22/20 [History] Cholecalciferol (Vitamin D3) [Vitamin D3] 25 mcg PO DAILY 08/22/20 [History] Digoxin 250 mcg PO Q48H 08/22/20 [History] Docusate Sodium/Sennosides [Senna Plus] 1 tab PO BID 08/22/20 [History] Glucosam/Chond/Collagen/Hyalur [Glucosamine Chondroitin] 2 cap PO DAILY 08/22/20 [History] Magnesium 250 mg PO DAILY 08/22/20 [History] Nifedipine 0.3%/Lidocaine 1.5% 1 applic TOP QID 08/22/20 [History] Nystatin 5 ml PO BID 08/22/20 [History] Polyvinyl Alcohol/Povidone [Refresh] 1 drop EYEBOTH DAILY PRN 08/22/20 [History] Potassium Chloride 20 meq PO DAILY 08/22/20 [History] Sulfamethoxazole/Trimethoprim [Bactrim Ds Tablet] 1 tab PO MOWEFR 08/22/20 [History] Ubidecarenone [Coenzyme Q-10] 200 mg PO DAILY 08/22/20 [History] predniSONE [Prednisone] 15 mg PO DAILY 08/22/20 [History] hydrOXYzine HCL [hydrOXYzine] 10 mg PO Q4H PRN 7 Days #42 tablet 08/28/20 [Rx] Oxygen Therapy Mode: Nasal Cannula Oxygen Flow Rate (L/min): 3 (5 L with activity) Maintain SPO2% less than: 92 Maintain SpO2% greater than: 88 Patient Handouts: Acute Kidney Injury, Adult, Heart Failure, Self Care, [id number], Thrombophlebitis, Fall Prevention in Hospitals, Adult, Venous Thromboembolism Prevention - Discharge Summary/Plan Comment DC Time >30 min.: No - General Info Date of Service: 08/28/20 Subjective Update: Mauricio is feeling good, states the ice pack feels better for phlebitis in left arm, states not as stiff. Breathing is about the same, gets short of air when walking, has to ambulate with 5L, take breaks. No chest pain. He has been doing bladder training over the weekend, clamped for 8 hours and did not have the urge to urinate, had 450 ml out when unclamped. No nausea, vomiting, diarrhea. urine has been clear. Has met his therapy goals. is present. - Patient Data Vitals - Most Recent: Last Vital Signs Temp 97.8 F 08/28/20 08:00 Pulse 76 08/28/20 08:26 Resp 18 08/28/20 08:00 BP 113/58 L 08/28/20 08:26 Pulse Ox 99 08/28/20 11:00 Weight - Most Recent: 219 lb 3.2 oz I&O - Last 24 hours: Intake & Output 08/28/20 08/28/20 08/28/20 06:59 14:59 22:59 Intake Total 200 Output Total 450 350 Balance -250 -350 Med Orders - Current: Current Medications Discontinued Medications Acetaminophen (Acetaminophen 500 Mg Tab) 500 mg PO TID [facility] Last Admin: 08/28/20 08:25 Dose: 500 mg Documented by: Albuterol/Ipratropium (Albuterol/Ipratropium 3.0-0.5 Mg/3 Ml Neb Soln) 3 ml INH QIDRT [facility] Last Admin: 08/28/20 11:05 Dose: 3 ml Documented by: Albuterol/Ipratropium (Albuterol/Ipratropium 3.0-0.5 Mg/3 Ml Neb Soln) 3 ml NEB Q4H PRN PRN Reason: Shortness of Breath Apixaban (Apixaban 5 Mg Tab) 5 mg PO BID [facility] Last Admin: 08/28/20 08:26 Dose: 5 mg Documented by: Arformoterol Tartrate (Arformoterol 15 Mcg/2 Ml Neb Soln) 15 mcg NEB BIDRT [facility] Last Admin: 08/28/20 07:35 Dose: 15 mcg Documented by: Artificial Tears (Carboxymethylcellulose Sodium 0.5% Ophth Soln 15 Ml Bottle) 0 ml EYEBOTH DAILY PRN PRN Reason: Dry Eyes Ascorbic Acid (Ascorbic Acid 500 Mg Tab) 500 mg PO BEDTIME [facility] Last Admin: 08/27/20 21:16 Dose: 500 mg Documented by: Aspirin (Aspirin 81 Mg Tab.Ec) 81 mg PO Q48H [facility] Last Admin: 08/27/20 08:26 Dose: 81 mg Documented by: Atorvastatin Calcium (Atorvastatin 20 Mg Tab) 20 mg PO DAILY [facility] Last Admin: 08/28/20 08:26 Dose: 20 mg Documented by: Budesonide (Budesonide 0.5 Mg/2 Ml Neb Susp) 0.5 mg NEB BIDRT [facility] Last Admin: 08/28/20 07:36 Dose: 0.5 mg Documented by: Bumetanide (Bumetanide 1 Mg Tab) 1 mg PO DAILY [facility] Last Admin: 08/28/20 08:25 Dose: 1 mg Documented by: Calcium Carbonate/Glycine (Calcium Carbonate 500 Mg Tablet) 500 mg PO BEDTIME [facility] Last Admin: 08/27/20 21:16 Dose: 500 mg Documented by: Cholecalciferol (Cholecalciferol (Vitamin D3) 25 Mcg Tab) 25 mcg PO BEDTIME [facility] Last Admin: 08/27/20 21:16 Dose: 25 mcg Documented by: Coenzyme Q10 (Ubidecarenone 100 Mg Cap) 200 mg PO BEDTIME [facility] Last Admin: 08/27/20 21:15 Dose: 200 mg Documented by: Digoxin (Digoxin 125 Mcg Tab) 125 mcg PO Q48H [facility] Last Admin: 08/27/20 15:12 Dose: 125 mcg Documented by: Digoxin (Digoxin 250 Mcg Tab) 250 mcg PO Q48H [facility] Last Admin: 08/26/20 15:16 Dose: 250 mcg Documented by: Fish Oil (Fish Oil/[place]-3 Fatty Acids 1 Gm Cap) 2 gm PO BEDTIME [facility] Last Admin: 08/27/20 21:15 Dose: 2 gm Documented by: Glucosamine/Chondroitin (Chondroitin/Glucosamine Cap) 2 cap PO BEDTIME [facility] Last Admin: 08/27/20 21:16 Dose: 2 cap Documented by: Hydroxyzine HCl (Hydroxyzine Hcl 10 Mg Tab) 10 mg PO Q4H PRN PRN Reason: Shortness of Breath Magnesium Oxide (Magnesium Oxide 400 Mg Tab) 200 mg PO BEDTIME [facility] Last Admin: 08/27/20 21:15 Dose: 200 mg Documented by: Metoprolol Succinate (Metoprolol Succinate 100 Mg Tab.Er) 200 mg PO DAILY [facility] Last Admin: 08/28/20 08:26 Dose: 200 mg Documented by: Multivitamins/Minerals/Vitamin C (Multivitamin Tab) 1 tab PO BEDTIME [facility] Last Admin: 08/27/20 21:16 Dose: 1 tab Documented by: Nitroglycerin (Nitroglycerin 0.4 Mg Tab.Sl) 0.4 mg SL Q5M PRN PRN Reason: Chest Pain (Nifedipine 0.3%/Lidocaine 1.5% Ointment) 1 applic TOP QID [facility] Last Admin: 08/28/20 08:26 Dose: 1 applic Documented by: Nystatin (Nystatin Susp 100,000 Unit/Ml 5 Ml Ud Cup) 5 ml PO BID [facility] Last Admin: 08/28/20 08:25 Dose: 5 ml Documented by: Pantoprazole Sodium (Pantoprazole 40 Mg Tab.Cr) 40 mg PO DAILY@0600 [facility] Last Admin: 08/28/20 07:35 Dose: 40 mg Documented by: Potassium Chloride (Potassium Chloride 20 Meq Tab.Er) 20 meq PO DAILY [facility] Last Admin: 08/28/20 08:26 Dose: 20 meq Documented by: Prednisone (Prednisone 5 Mg Tab) 15 mg PO DAILY [facility] Last Admin: 08/28/20 08:26 Dose: 15 mg Documented by: Senna/Docusate Sodium (Docusate Sodium/Sennosides 50-8.6 Mg Tab) 1 tab PO BID [facility] Last Admin: 08/28/20 08:25 Dose: 1 tab Documented by: Trimethoprim/Sulfamethoxazole (Sulfamethoxazole/Trimethoprim 800-160 Mg Tab) 1 tab PO MOWEFR [facility] Last Admin: 08/28/20 08:25 Dose: 1 tab Documented by: - Exam Quality Assessment: Reports: Supplemental Oxygen General: Reports: Alert, Oriented, Cooperative, No Acute Distress Lungs: Reports: Clear to Auscultation, Normal Respiratory Effort, Decreased Breath Sounds (bibasilar). Denies: Wheezing Cardiovascular: Reports: Regular Rate, Irregular Rhythm GI/Abdominal Exam: Normal Bowel Sounds, Soft, Non-Tender, No Distention Extremities: No Pedal Edema, Arm Pain (phlebitis improved from last exam, NT). No: Increased Warmth, Redness
== END 2020-08-28 11:34 | disposition home or self-care (01) | DRG 861 ==
LOC: FB.MS 12:41
PROVIDERS: ADMIT Family Medicine; ATTEND Family Medicine
DX: R53.81 Other malaise (principal); R53.1 Weakness; I50.9 Heart failure, unspecified; I80.8 Phlebitis and thrombophlebitis of other sites; R33.9 Retention of urine, unspecified; I48.91 Unspecified atrial fibrillation; I25.10 Atherosclerotic heart disease of native coronary artery without angina pectoris; E78.00 Pure hypercholesterolemia, unspecified; G47.30 Sleep apnea, unspecified; J44.9 Chronic obstructive pulmonary disease, unspecified; K59.09 Other constipation; M19.90 Unspecified osteoarthritis, unspecified site; G89.29 Other chronic pain; M54.9 Dorsalgia, unspecified; E66.9 Obesity, unspecified; D50.9 Iron deficiency anemia, unspecified; Z87.891 Personal history of nicotine dependence; Z86.16 Personal history of COVID-19; I25.2 Old myocardial infarction; Z95.5 Presence of coronary angioplasty implant and graft; Z95.0 Presence of cardiac pacemaker; Z79.82 Long term (current) use of aspirin; Z79.01 Long term (current) use of anticoagulants; Z79.899 Other long term (current) drug therapy; Z79.52 Long term (current) use of systemic steroids; Z87.01 Personal history of pneumonia (recurrent); Z87.442 Personal history of urinary calculi; Z88.0 Allergy status to penicillin; Z88.5 Allergy status to narcotic agent; Z68.34 Body mass index [BMI] 34.0-34.9, adult
CPT/HCPCS: 82962; 94640; 94760; 97110-GO; 97161-GP; 97166-GO; 97530-GO; 97530-GP; 97535-GO; A9270-GY; J7512; J7605; J7620-GY

== ENCOUNTER 2020-10-09 16:28 | Emergency (ER) | payer BC, MEDICARE ==
[2020-10-09 17:40] VITALS: BP 115/60; PULSE 87
--- NOTE | 2020-10-09 17:47 | EDM.PDOC ---
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 quit in 1984 he has been O2 dependent since COVID in Apr 2020, usually on 3 l/min at home, inc'd to 4 l/min today NC pt has had both dizzy and sob, has fallen outside 6-8x without injury in past few weeks has had afib, on Eliquis, failed cardioversion x 6, has cardiac stents in past, h/o HF, no h/o IA per pt and , has had cath in past is scheduled for surgery for rectal fissure in 2d in [place], pt and do not think he is able to have it done (no fissure noted on external rectal exam now in ED) has seen anesthesiology for preop, cleared by Dr Jacobsen in cardiology 1w ago, Dr Park pin feather machine operator to do the surgery ([facility] records not immediately available to review) pt has had mcnulty for BPH, urologist began Flomax 11d, however BP 60/40 and it was stopped pt was dizzy when he stood in the ED for me to do a rectal eam mcnulty was pulled 1w ago, mcnulty replaced in 5d dig dec'd to 0.125 mg qod says his wt has inc'd 10 lbs in past wk Rectal Pain Score (Numeric/FACES): 4 - Related Data Allergies Allergy/AdvReac Type Severity Reaction Status Date / Time Penicillins Allergy Hives Verified 10/09/20 17:31 hydromorphone HCl AdvReac Change Verified 10/09/20 17:31 [From Dilaudid] Mental Status Home Meds: Home Meds Metoprolol Succinate [Toprol XL] 200 mg PO DAILY 06/06/14 [History] Multivitamin [My Favorite Multiple] 30 ml PO DAILY 06/06/14 [History] Jackson-3 Fatty Acids [Jackson-3] 2 cap PO DAILY 06/06/14 [History] atorvaSTATin [Lipitor] 20 mg PO DAILY 06/06/14 [History] Apixaban [Eliquis] 5 mg PO BID 10/06/19 [History] Ascorbate Calcium [Vitamin C] 500 mg PO DAILY 10/06/19 [History] Aspirin [Adult Low Dose Aspirin EC] 81 mg PO Q48H 10/06/19 [History] Budesonide [Pulmicort] 0.5 mg IH BID 10/06/19 [History] Nitroglycerin [Nitrostat] 0.4 mg SL Q5M PRN 10/06/19 [History] Albuterol/Ipratropium [DuoNeb 3.0-0.5 MG/3 ML] 3 ml INH QID 07/15/20 [History] Bumetanide [Bumex] 2 mg PO DAILY 07/15/20 [History] Digoxin 125 mcg PO Q48H 07/15/20 [History] Esomeprazole [NexIUM] 20 mg PO DAILY 07/15/20 [History] Acyclovir [Zovirax 5% Oint] 1 applic TOP TID PRN 08/22/20 [History] Albuterol/Ipratropium [DuoNeb 3.0-0.5 MG/3 ML] 3 ml IH Q4H PRN 08/22/20 [History] Arformoterol [Brovana] 15 mcg IH BID 08/22/20 [History] Calcium Carbonate/Vitamin D3 [Calcium 500-Vit D3 200 Tablet] 1 tab PO DAILY 08/22/20 [History] Cholecalciferol (Vitamin D3) [Vitamin D3] 25 mcg PO DAILY 08/22/20 [History] Docusate Sodium/Sennosides [Senna Plus] 1 tab PO BID 08/22/20 [History] Glucosam/Chond/Collagen/Hyalur [Glucosamine Chondroitin] 2 cap PO DAILY 08/22/20 [History] Magnesium 250 mg PO DAILY 08/22/20 [History] Nifedipine 0.3%/Lidocaine 1.5% 1 applic TOP QID 08/22/20 [History] Nystatin 5 ml PO BID 08/22/20 [History] Polyvinyl Alcohol/Povidone [Refresh] 1 drop EYEBOTH DAILY PRN 08/22/20 [History] Potassium Chloride 20 meq PO DAILY 08/22/20 [History] Sulfamethoxazole/Trimethoprim [Bactrim Ds Tablet] 1 tab PO MOWEFR 08/22/20 [History] Ubidecarenone [Coenzyme Q-10] 200 mg PO DAILY 08/22/20 [History] predniSONE [Prednisone] 15 mg PO DAILY 08/22/20 [History] hydrOXYzine HCL [hydrOXYzine] 10 mg PO Q4H PRN 7 Days #42 tablet 08/28/20 [Rx] Ciprofloxacin [Ciprofloxacin HCl] 250 mg PO BID #14 tablet 10/09/20 [Rx] Past Medical History Cardiovascular History: Reports: Afib, CAD, Heart Failure, High Cholesterol, Hypertension, PTCA, Stents Other Cardiovascular History: cardioversion 10/04/19, cardiac ablation x 6 Respiratory History: Reports: COPD, Pneumonia, Recurrent, Sleep Apnea, SOB Other Respiratory History: On O2 @ 3L/NC Gastrointestinal History: Reports: Chronic Constipation, Other (See Below) Other Gastrointestinal History: rectal tear Genitourinary History: Reports: Renal Calculus Musculoskeletal History: Reports: Arthritis, Back Pain, Chronic, Fracture Other Musculoskeletal History: R shoulder arthritis, hx fx chin Endocrine/Metabolic History: Reports: Obesity/BMI 30+ Hematologic History: Reports: Anticoagulation Therapy, Iron Deficiency - Infectious Disease History Infectious Disease History: Reports: Chicken Pox, Measles, Novel Coronavirus - Past Surgical History HEENT Surgical History: Reports: Eye Surgery Other HEENT Surgeries/Procedures: L tear duct surgery Cardiovascular Surgical History: Reports: Cardiac Ablation, Carotid Endarterectomy, Coronary Artery Stent Other Cardiovascular Surgeries/Procedures: stents x 2, R carotid endarterectomy, cardiac ablation x 6 Respiratory Surgical History: Reports: Thoracentesis, Other (See Below) Other Respiratory Surgeries/Procedures: bronchoscopy GI Surgical History: Reports: Colonoscopy Male Surgical History: Reports: Lithotripsy (ESWL) Musculoskeletal Surgical History: Reports: None Social & Family History - Family History Family Medical History: No Pertinent Family History - Caffeine Use Caffeine Use: Reports: None - Living Situation & Occupation Living situation: Reports: Occupation: Retired ED ROS GENERAL - Review of Systems Review Of Systems: See Below Constitutional: Reports: No Symptoms HEENT: Reports: No Symptoms Respiratory: Reports: Shortness of Breath. Denies: Cough Endocrine: Reports: No Symptoms GI/Abdominal: Reports: No Symptoms : Reports: No Symptoms Musculoskeletal: Reports: No Symptoms Skin: Reports: No Symptoms Neurological: Reports: No Symptoms Psychiatric: Reports: No Symptoms Hematologic/Lymphatic: Reports: No Symptoms Immunologic: Reports: No Symptoms ED EXAM, GENERAL - Physical Exam Exam: See Below Exam Limited By: No Limitations General Appearance: Alert, WD/WN, No Apparent Distress Nose: Normal Inspection Throat/Mouth: Normal Inspection, Normal Voice, No Airway Compromise Head: Atraumatic, Normocephalic Neck: Normal Inspection, Supple, Non-Tender. No: Lymphadenopathy (R), Lymphadenopathy (L) Respiratory/Chest: No Respiratory Distress, Other. No: Accessory Muscle Use, Retractions, Splinting (no cough, talks in 10-word sentences yet is slightly dyspnea and draws in quick breaths after talking, rales up 1/3rd b/l, no inc'd exp phase, no wheeze, fair AE) Cardiovascular: Irregularly Irregular, Other (2/6 DEAN at LSB, quiet precordium) GI/Abdominal: Soft, Non-Tender, No Distention Extremities: Other (1+ edema to knees b/l, trace edema of thighs and presacral areas) Neurological: Alert, Oriented, Normal Cognition, No Motor/Sensory Deficits Psychiatric: Normal Affect, Normal Mood Skin Exam: Warm, Dry, Intact, Normal Color, No Rash Lymphatic: No Adenopathy #1 Interpretation EKG Interpretation Comments: afib, rate 89, no ST change c/w 07-15-20, no acute findings Course - Vital Signs Last Recorded V/S: Last Vital Signs Temp 36.2 C 10/09/20 16:30 Pulse 87 10/09/20 16:30 Resp 24 H 10/09/20 16:30 BP 115/60 10/09/20 16:30 Pulse Ox 95 10/09/20 16:30 - Orders/Labs/Meds Orders: Active Orders 24 hr Category Date Time Status EKG Documentation Completion [RC] ASDIRECTED Care 10/09/20 17:25 Active Chest 2V [CR] Stat Exams 10/09/20 17:24 Ordered CULTURE URINE [RM] Stat Lab 10/09/20 18:30 Ordered UA W/MICROSCOPIC [URIN] Stat Lab 10/09/20 18:30 Ordered UA W/O MICROSCOPIC [URIN] Stat Lab 10/09/20 18:30 Ordered EKG 12 Lead [EK] Routine Ther 10/09/20 17:24 Ordered Labs: Laboratory Tests 05/08/2710/09/20 10/09/20 Range/Units 17:40 17:40 17:40 WBC 12.2 H (3.2-10.1) x10-3/uL RBC 2.92 L (3.90-5.90) x10(6)uL Hgb 9.2 L D (12.9-17.7) g/dL Hct 28.7 L D (38.3-50.1) % MCV 98.5 (80.8-98.7) fL MCH 31.6 (27.0-33.3) pg MCHC 32.0 (28.7-35.3) g/dL RDW 16.1 H (12.4-15.0) % Plt Count 237 (117-477) x10(3)uL MPV 7.5 (6.7-11.0) fL Neut % (Auto) 87.1 H (40.3-71.8) % Lymph % (Auto) 5.0 L (15.8-45.3) % [place] % (Auto) 7.1 (5.5-15.2) % Eos % (Auto) 0.1 (0.1-6.8) % Baso % (Auto) 0.7 (0.3-3.8) % Neut # (Auto) 10.7 H (1.7-6.9) x10-3/uL Lymph # (Auto) 0.6 (0.5-4.5) x10-3/uL [place] # (Auto) 0.9 (0.0-1.2) x10-3/uL Eos # (Auto) 0.0 (0.0-0.6) x10-3/uL Baso # (Auto) 0.1 (0.0-0.3) x10-3/uL PT (9.0-11.1) sec INR (1.00-1.24) D-Dimer, Quantitative 0.32 (0.0-0.59) mg/LFEU POC VBG pH (7.32-7.43) pH Units POC VBG pCO2 (41-51) mmHg POC VBG HCO3 (21-29) mmol/L VBG Base Excess (-2-3) mmol/L O2 Delivery Device Sodium (135-145) mmol/L Potassium (3.5-5.3) mmol/L Chloride (100-110) mmol/L Carbon Dioxide (21-32) mmol/L BUN (7-18) mg/dL Creatinine (0.70-1.30) mg/dL Est Cr Clr Drug Dosing mL/min Estimated GFR (MDRD) (>60) BUN/Creatinine Ratio (9-20) Glucose (80-116) mg/dL Calcium (8.6-10.2) mg/dL Magnesium (1.8-2.5) mg/dL Total Bilirubin (0.1-1.3) mg/dL AST (5-25) IU/L ALT (12-36) U/L Alkaline Phosphatase (56-112) IU/L Troponin I 23.2 (4.0-60.3) pg/mL C-Reactive Protein 0.8 (0.5-0.9) mg/dL NT-Pro-B Natriuret Pep 2428 H* (<=125) pg/mL Total Protein (6.0-8.0) g/dL Albumin (3.2-4.6) g/dL Globulin g/dL Albumin/Globulin Ratio Urine Color (YELLOW) Urine Appearance (CLEAR) Urine pH (5.0-6.5) Ur Specific [place] (1.010-1.025) Urine Protein (NEGATIVE) mg/dL Urine Glucose (UA) (NORMAL) mg/dL Urine Ketones (NEGATIVE) mg/dL Urine Occult Blood (NEGATIVE) Urine Nitrite (NEGATIVE) Urine Bilirubin (NEGATIVE) Urine Urobilinogen (NEGATIVE) mg/dL Ur Leukocyte Esterase (NEGATIVE) U Hyaline Cast (Auto) Urine RBC Urine WBC Ur Epithelial Cells Ur Squamous Epith Cells Ur Renal Epithelial Cell Calcium Oxalate Crystal Uric Acid Crystals Triple Phos Crystals Other Crystals Amorphous Sediment Urine Bacteria Fine Granular Casts Coarse Granular Casts Waxy Casts RBC Casts WBC Casts Urine Mucus Urine Trichomonas Urine Yeast Urine Sperm Ur Oval Fat Bodies Urinalysis Comment 10/09/20 10/09/20 10/09/20 Range/Units 17:40 17:40 17:40 WBC (3.2-10.1) x10-3/uL RBC (3.90-5.90) x10(6)uL Hgb (12.9-17.7) g/dL Hct (38.3-50.1) % MCV (80.8-98.7) fL MCH (27.0-33.3) pg MCHC (28.7-35.3) g/dL RDW (12.4-15.0) % Plt Count (117-477) x10(3)uL MPV (6.7-11.0) fL Neut % (Auto) (40.3-71.8) % Lymph % (Auto) (15.8-45.3) % [place] % (Auto) (5.5-15.2) % Eos % (Auto) (0.1-6.8) % Baso % (Auto) (0.3-3.8) % Neut # (Auto) (1.7-6.9) x10-3/uL Lymph # (Auto) (0.5-4.5) x10-3/uL [place] # (Auto) (0.0-1.2) x10-3/uL Eos # (Auto) (0.0-0.6) x10-3/uL Baso # (Auto) (0.0-0.3) x10-3/uL PT 11.6 H (9.0-11.1) sec INR 1.08 (1.00-1.24) D-Dimer, Quantitative (0.0-0.59) mg/LFEU POC VBG pH (7.32-7.43) pH Units POC VBG pCO2 (41-51) mmHg POC VBG HCO3 (21-29) mmol/L VBG Base Excess (-2-3) mmol/L O2 Delivery Device Sodium 140 (135-145) mmol/L Potassium 4.3 D (3.5-5.3) mmol/L Chloride 101 D (100-110) mmol/L Carbon Dioxide 29 (21-32) mmol/L BUN 29 H D (7-18) mg/dL Creatinine 1.8 H (0.70-1.30) mg/dL Est Cr Clr Drug Dosing 33.66 mL/min Estimated GFR (MDRD) 37 L (>60) BUN/Creatinine Ratio 16.1 (9-20) Glucose 234 H D (80-116) mg/dL Calcium 8.1 L (8.6-10.2) mg/dL Magnesium 2.2 (1.8-2.5) mg/dL Total Bilirubin 0.4 (0.1-1.3) mg/dL AST 21 (5-25) IU/L ALT 62 H D (12-36) U/L Alkaline Phosphatase 62 (56-112) IU/L Troponin I (4.0-60.3) pg/mL C-Reactive Protein (0.5-0.9) mg/dL NT-Pro-B Natriuret Pep (<=125) pg/mL Total Protein 6.4 (6.0-8.0) g/dL Albumin 3.3 (3.2-4.6) g/dL Globulin 3.1 g/dL Albumin/Globulin Ratio 1.1 Urine Color (YELLOW) Urine Appearance (CLEAR) Urine pH (5.0-6.5) Ur Specific [place] (1.010-1.025) Urine Protein (NEGATIVE) mg/dL Urine Glucose (UA) (NORMAL) mg/dL Urine Ketones (NEGATIVE) mg/dL Urine Occult Blood (NEGATIVE) Urine Nitrite (NEGATIVE) Urine Bilirubin (NEGATIVE) Urine Urobilinogen (NEGATIVE) mg/dL Ur Leukocyte Esterase (NEGATIVE) U Hyaline Cast (Auto) Urine RBC Urine WBC Ur Epithelial Cells Ur Squamous Epith Cells Ur Renal Epithelial Cell Calcium Oxalate Crystal Uric Acid Crystals Triple Phos Crystals Other Crystals Amorphous Sediment Urine Bacteria Fine Granular Casts Coarse Granular Casts Waxy Casts RBC Casts WBC Casts Urine Mucus Urine Trichomonas Urine Yeast Urine Sperm Ur Oval Fat Bodies Urinalysis Comment 10/09/20 10/09/20 Range/Units 17:40 18:30 WBC (3.2-10.1) x10-3/uL RBC (3.90-5.90) x10(6)uL Hgb (12.9-17.7) g/dL Hct (38.3-50.1) % MCV (80.8-98.7) fL MCH (27.0-33.3) pg MCHC (28.7-35.3) g/dL RDW (12.4-15.0) % Plt Count (117-477) x10(3)uL MPV (6.7-11.0) fL Neut % (Auto) (40.3-71.8) % Lymph % (Auto) (15.8-45.3) % [place] % (Auto) (5.5-15.2) % Eos % (Auto) (0.1-6.8) % Baso % (Auto) (0.3-3.8) % Neut # (Auto) (1.7-6.9) x10-3/uL Lymph # (Auto) (0.5-4.5) x10-3/uL [place] # (Auto) (0.0-1.2) x10-3/uL Eos # (Auto) (0.0-0.6) x10-3/uL Baso # (Auto) (0.0-0.3) x10-3/uL PT (9.0-11.1) sec INR (1.00-1.24) D-Dimer, Quantitative (0.0-0.59) mg/LFEU POC VBG pH 7.57 H (7.32-7.43) pH Units POC VBG pCO2 28 L (41-51) mmHg POC VBG HCO3 26 (21-29) mmol/L VBG Base Excess 4 H (-2-3) mmol/L O2 Delivery Device Nasal cannula Sodium (135-145) mmol/L Potassium (3.5-5.3) mmol/L Chloride (100-110) mmol/L Carbon Dioxide (21-32) mmol/L BUN (7-18) mg/dL Creatinine (0.70-1.30) mg/dL Est Cr Clr Drug Dosing mL/min Estimated GFR (MDRD) (>60) BUN/Creatinine Ratio (9-20) Glucose (80-116) mg/dL Calcium (8.6-10.2) mg/dL Magnesium (1.8-2.5) mg/dL Total Bilirubin (0.1-1.3) mg/dL AST (5-25) IU/L ALT (12-36) U/L Alkaline Phosphatase (56-112) IU/L Troponin I (4.0-60.3) pg/mL C-Reactive Protein (0.5-0.9) mg/dL NT-Pro-B Natriuret Pep (<=125) pg/mL Total Protein (6.0-8.0) g/dL Albumin (3.2-4.6) g/dL Globulin g/dL Albumin/Globulin Ratio Urine Color Yellow (YELLOW) Urine Appearance Cloudy (CLEAR) Urine pH 5.0 (5.0-6.5) Ur Specific [place] 1.025 (1.010-1.025) Urine Protein Negative (NEGATIVE) mg/dL Urine Glucose (UA) Normal (NORMAL) mg/dL Urine Ketones Negative (NEGATIVE) mg/dL Urine Occult Blood Large H (NEGATIVE) Urine Nitrite Positive H (NEGATIVE) Urine Bilirubin Negative (NEGATIVE) Urine Urobilinogen Normal (NEGATIVE) mg/dL Ur Leukocyte Esterase Large H (NEGATIVE) U Hyaline Cast (Auto) Cancelled Urine RBC Cancelled Urine WBC Cancelled Ur Epithelial Cells Cancelled Ur Squamous Epith Cells Cancelled Ur Renal Epithelial Cell Cancelled Calcium Oxalate Crystal Cancelled Uric Acid Crystals Cancelled Triple Phos Crystals Cancelled Other Crystals Cancelled Amorphous Sediment Cancelled Urine Bacteria Cancelled Fine Granular Casts Cancelled Coarse Granular Casts Cancelled Waxy Casts Cancelled RBC Casts Cancelled WBC Casts Cancelled Urine Mucus Cancelled Urine Trichomonas Cancelled Urine Yeast Cancelled Urine Sperm Cancelled Ur Oval Fat Bodies Cancelled Urinalysis Comment Cancelled - Re-Assessments/Exams Free Text/Narrative Re-Assessment/Exam: 10/09/20 19:21 CxR 2v on prelim ED read with inc'd vascular congestion and b/l pl effusions CRP and d-dimer are neg, indicating likely resolution of COVID inflammation does have inc'd wt and inc'd fluid, fortunately is not orthostatic stopping the tamsulosin seems reasonable as it no doubt was contributing to low BP pt with indwelling mcnulty since August 16, urology plans to do surgery at some juncture Departure - Departure Time of Disposition: 19:05 Disposition: Home, Self-Care 01 Condition: Good Clinical Impression: Weakness, Respiratory alkalosis, Heart failure, Steroid dependent, Weight gain, Normochromic normocytic anemia, Urinary tract infection, Indwelling Mcnulty c atheter present Prescriptions: Ciprofloxacin [Ciprofloxacin HCl] 250 mg PO BID #14 tablet Instructions: Urinary Tract Infection, Adult Referrals: Marco Antonio Flores MD [Primary Care Provider] - Additional Instructions: Your urine is quite cloudy. For infection, take ciprofloxacin 250 mg 1 tab 2 carlos enrique es a day for 7 days. Your hemoglobin is 9.2, which means you are anemic and will feel better as your hemoglobin corrects. There is additional fluid in your lungs. Increase your Bumex to 2 tabs in the morning and 1 tab at noon for 5 days, then decrease again to 1 tab 2 times a day. Monitor your weight and blood pressure daily. Check your blood pressure sitting and standing. Postpone your surgery for one week. See Dr Flores in the next several days for further instructions. Sepsis Event Note (ED) - Focused Exam Vital Signs: Vital Signs Temp Pulse Resp BP Pulse Ox 10/09/20 16:30 36.2 C 87 24 H 115/60 95 - My Orders Last 24 Hours: My Active Orders 10/09/20 17:24 Chest 2V [CR] Stat EKG 12 Lead [EK] Routine 10/09/20 17:25 EKG Documentation Completion [RC] ASDIRECTED 10/09/20 18:30 CULTURE URINE [RM] Stat UA W/MICROSCOPIC [URIN] Stat UA W/O MICROSCOPIC [URIN] Stat - Assessment/Plan Last 24 Hours: My Active Orders 10/09/20 17:24 Chest 2V [CR] Stat EKG 12 Lead [EK] Routine 10/09/20 17:25 EKG Documentation Completion [RC] ASDIRECTED 10/09/20 18:30 CULTURE URINE [RM] Stat UA W/MICROSCOPIC [URIN] Stat UA W/O MICROSCOPIC [URIN] Stat
[2020-10-09 18:11] LABS: BASE EXCESS VENOUS,POC 4 mmol/L (-2-3); HCO3 VENOUS,POC 26 mmol/L (21-29); PCO2 VENOUS,POC 28 mmHg (41-51); PH VENOUS,POC 7.57 pH Units (7.32-7.43)
[2020-10-09] MEDS ORDERED: Ciprofloxacin 250 MG Tab PO ONE (19:05)
--- NOTE | 2020-10-10 10:53 | CR ---
INDICATION: Short of breath. CHEST TWO VIEWS: AP upright view of the chest was obtained 10/09/20 and compared with 07/15/20 and 10/06/19. There remains an appearance suggesting pulmonary vascular prominence and possible CHF. There appear to be some interstitial infiltrates, as well as right pleural and possibly left pleural effusions of small size. The possibilities of areas of superimposed pneumonia versus interstitial edema and atelectasis should be considered. The heart size is not well delineated due to the poor inspiration and AP positioning and may be at the upper limits of normal in size or minimally enlarged. Overlying EKG leads are noted. There appears to be slight decrease in infiltration in the right midlung field and left midlung field. This may represent resolution of areas of acute pulmonary edema and/or pneumonia. IMPRESSION: Findings suggest possibility of CHF with lung edema, although superimposed areas of pneumonia cannot be excluded possibly with pleuritis and small pleural effusions are suggested bilaterally. Full inspiration PA and lateral views of the chest may be helpful when clinically possible. MTDD
== END 2020-10-09 19:30 | disposition home or self-care (01) ==
LOC: FB.ED 16:28
DX: N39.0 Urinary tract infection, site not specified (principal); D50.0 Iron deficiency anemia secondary to blood loss (chronic); I11.0 Hypertensive heart disease with heart failure; I50.9 Heart failure, unspecified; E87.3 Alkalosis; I25.10 Atherosclerotic heart disease of native coronary artery without angina pectoris; I48.91 Unspecified atrial fibrillation; E66.9 Obesity, unspecified; J44.9 Chronic obstructive pulmonary disease, unspecified; Z88.0 Allergy status to penicillin; Z88.6 Allergy status to analgesic agent; Z79.82 Long term (current) use of aspirin; Z79.01 Long term (current) use of anticoagulants; Z68.36 Body mass index [BMI] 36.0-36.9, adult
CPT/HCPCS: 36415; 71046; 80053; 81003; 83735; 83880; 84484; 85025; 85379; 85610; 86140; 87086; 87088; 93005; 99285; A9270; 87186; 99284

== ENCOUNTER 2020-10-27 13:33 | Inpatient (IN) | payer BC, MEDICARE ==
[2020-10-27] MEDS ORDERED: LORazepam 0.5 MG Tab PO PRN (16:35)
[2020-10-27] MEDS ORDERED: Albuterol/Ipratropium 3.0-0.5 MG/3 ML Neb Soln NEB PRN (16:35)
[2020-10-27] MEDS ORDERED: Nitroglycerin 0.4 MG Tab.SL SL PRN (16:35)
[2020-10-27] MEDS ORDERED: Benzonatate 100 MG Cap PO PRN (16:35)
[2020-10-27] MEDS ORDERED: hydrOXYzine HCl 10 MG Tab PO PRN (16:35)
[2020-10-27] MEDS ORDERED: ACYCLOVIR 5% TOP PRN (16:35)
[2020-10-27] MEDS ORDERED: Bacitracin/Neomycin/Polymyxin B Oint 15 GM Tube TOP PRN (16:55)
[2020-10-27] MEDS ORDERED: Polyvinyl Alcohol 1.4% Ophth Soln 15 ML Bottle EYEBOTH PRN (16:58)
--- NOTE | 2020-10-27 17:34 | PCM.HP.2 ---
H&P History of Present Illness - General Date of Service: 10/27/20 Admit Problem/Dx: Admission Diagnosis/Problem Admission Diagnosis/Problem Weakness Source of Information: Patient, Old Records History Limitations: Reports: No Limitations - History of Present Illness Initial Comments - Free Text/Narative: Patient was admitted to [facility] on 10/14/2020, discharged on 10/27/2020 and admitted to [place], [place] due to weakness for occupational therapy, physical therapy, rehabilitation. Patient has a history of chronic Delacruz catheterization and was found to have Enterobacter, multidrug- resistant organism/UTI. Patient was admitted to the hospital and started on meropenem. Patient subsequently developed sepsis. Sepsis treatment also resulted in fluid overload/congestive heart failure. The patient has a history of COVID-19 infection in approximately April 2020. Patient has had difficulty with his lungs, heart, kidneys since that infection. Imaging showed groundglass opacities in the bilateral lungs and pulmonology was consulted. Patient was started on oral steroids. This also caused an increase in the patient's blood glucose. Patient was moved to ICU treated with IV steroids and Veletri. He was given IV Lasix. His condition slowly improved. However, the patient is now severely deconditioned. He was discharged on steroid taper. Note that the patient had been on home O2 prior to admission and is secondary to COVID-19 infection. The patient was approved for Tyvanse and will be discharged from swing bed with this medication. Patient was found during his hospital stay to have severe pulmonary hypertension. Patient will follow up with pulmonology 6 weeks after hospital discharge. Note that the patient has also been waiting for treatment of an anal fissure. The anal fissure causes him significant pain and causes him to have significantly reduced p.o. intake. Patient states that he is happy to drink Ensure for supplements. Note that limited echocardiogram performed on 10/20/2020 showed normal left ventricular size and systolic function with ejection fraction estimated at 60%, no regional wall motion abnormalities. Note that the right ventricle is mildly dilated and pulmonary artery systolic pressure is measured at 39 mmHg. Cardiology noted that the RVSP is likely underestimated on this study. Patient was discharged with Bactrim, double strength, Friday, Friday, Friday for UTI prophylaxis secondary to chronic catheter/colonization. Onset of Symptoms: Reports: Gradual - Related Data Allergies/Adverse Reactions: Allergies Allergy/AdvReac Type Severity Reaction Status Date / Time Penicillins Allergy Hives Verified 10/09/20 17:31 hydromorphone HCl AdvReac Change Verified 10/09/20 17:31 [From Dilaudid] Mental Status Home Medications: Home Meds Pavillion-3 Fatty Acids [Pavillion-3] 2 cap PO DAILY 06/06/14 [History] atorvaSTATin [Lipitor] 20 mg PO DAILY 06/06/14 [History] Apixaban [Eliquis] 5 mg PO BID 10/06/19 [History] Ascorbate Calcium [Vitamin C] 500 mg PO DAILY 10/06/19 [History] Aspirin [Adult Low Dose Aspirin EC] 81 mg PO Q48H 10/06/19 [History] Nitroglycerin [Nitrostat] 0.4 mg SL Q5M PRN 10/06/19 [History] Albuterol/Ipratropium [DuoNeb 3.0-0.5 MG/3 ML] 3 ml INH QID 07/15/20 [History] Bumetanide [Bumex] 1 mg PO BID@08,14 07/15/20 [History] Digoxin 125 mcg PO Q48H 07/15/20 [History] Esomeprazole [NexIUM] 20 mg PO DAILY 07/15/20 [History] Acyclovir [Zovirax 5% Oint] 1 applic TOP TID PRN 08/22/20 [History] Albuterol/Ipratropium [DuoNeb 3.0-0.5 MG/3 ML] 3 ml IH Q4H PRN 08/22/20 [History] Calcium Carbonate/Vitamin D3 [Calcium 500-Vit D3 200 Tablet] 1 tab PO DAILY 08/22/20 [History] Cholecalciferol (Vitamin D3) [Vitamin D3] 25 mcg PO DAILY 08/22/20 [History] Docusate Sodium/Sennosides [Senna Plus] 1 tab PO BID 08/22/20 [History] Glucosam/Chond/Collagen/Hyalur [Glucosamine Chondroitin] 1 cap PO DAILY 08/22/20 [History] Nifedipine 0.3%/Lidocaine 1.5% 1 applic TOP QID 08/22/20 [History] Polyvinyl Alcohol/Povidone [Refresh] 1 drop EYEBOTH DAILY PRN 08/22/20 [History] Potassium Chloride 10 meq PO DAILY 08/22/20 [History] Sulfamethoxazole/Trimethoprim [Bactrim Ds Tablet] 1 tab PO MOWEFR 08/22/20 [History] Ubidecarenone [Coenzyme Q-10] 200 mg PO DAILY 08/22/20 [History] Bacitracin/Neomycin/Polymyxin [Neosporin Oint] 1 applic TOP TID PRN 10/27/20 [History] Benzonatate 100 mg PO QID PRN 10/27/20 [History] Formoterol [Perforomist] 20 mcg INH BID 10/27/20 [History] LORazepam [Lorazepam] 0.5 mg PO Q6H PRN 10/27/20 [History] Metoprolol Succinate [Toprol XL] 200 mg PO DAILY 10/27/20 [History] Midodrine 2.5 mg PO TIDAC 10/27/20 [History] Treprostinil [Tyvaso] 3 inh IH QID 10/27/20 [History] hydrOXYzine HCL [hydrOXYzine] 10 mg PO Q6H PRN 10/27/20 [History] predniSONE [Prednisone] 40 mg PO ASDIRECTED 10/27/20 [History] Past Medical History Cardiovascular History: Reports: Afib, CAD, Heart Failure, High Cholesterol, Hypertension, PTCA, Stents Other Cardiovascular History: cardioversion 10/04/19, cardiac ablation x 6 Respiratory History: Reports: COPD, Pneumonia, Recurrent, Sleep Apnea, SOB Other Respiratory History: On O2 @ 3L/NC Gastrointestinal History: Reports: Chronic Constipation, Other (See Below) Other Gastrointestinal History: rectal tear Genitourinary History: Reports: Renal Calculus Musculoskeletal History: Reports: Arthritis, Back Pain, Chronic, Fracture Other Musculoskeletal History: R shoulder arthritis, hx fx chin Endocrine/Metabolic History: Reports: Obesity/BMI 30+ Hematologic History: Reports: Anticoagulation Therapy, Iron Deficiency - Infectious Disease History Infectious Disease History: Reports: Chicken Pox, Measles, Novel Coronavirus - Past Surgical History HEENT Surgical History: Reports: Eye Surgery Other HEENT Surgeries/Procedures: L tear duct surgery Cardiovascular Surgical History: Reports: Cardiac Ablation, Carotid Endarterectomy, Coronary Artery Stent Other Cardiovascular Surgeries/Procedures: stents x 2, R carotid endarterectomy, cardiac ablation x 6 Respiratory Surgical History: Reports: Thoracentesis, Other (See Below) Other Respiratory Surgeries/Procedures: bronchoscopy GI Surgical History: Reports: Colonoscopy Male Surgical History: Reports: Lithotripsy (ESWL) Musculoskeletal Surgical History: Reports: None Social & Family History - Family History Family Medical History: No Pertinent Family History - Caffeine Use Caffeine Use: Reports: None - Living Situation & Occupation Living situation: Reports: Occupation: Retired H&P Review of Systems - Review of Systems: Review Of Systems: See Below General: Reports: Malaise, Weakness, Fatigue, Decreased Appetite HEENT: Reports: No Symptoms Pulmonary: Reports: Shortness of Breath, Cough Cardiovascular: Reports: Chest Pain, Dyspnea on Exertion Gastrointestinal: Reports: No Symptoms Genitourinary: Reports: Other (Chronic indwelling Delacruz catheter) Musculoskeletal: Reports: No Symptoms Skin: Reports: Other (Extremely painful anal fissure) Psychiatric: Reports: Anxiety Neurological: Reports: Weakness Hematologic/Lymphatic: Reports: Anemia Exam - Exam Exam: See Below - Vital Signs Weight: 96.842 kg - Exam Quality Assessment: Supplemental Oxygen, Urinary Catheter, DVT Prophylaxis, Skin Breakdown General: Alert, Oriented, Cooperative HEENT: EOMI Lungs: Decreased Breath Sounds, Crackles Cardiovascular: Irregular Rhythm, Other (Heart sounds are distant and difficult to auscultate) GI/Abdominal Exam: Distended, Tender (Male) Exam: Other (Delacruz catheter) Back Exam: Normal Inspection Extremities: Normal Inspection Peripheral Pulses: 1+: Dorsalis Pedis (L), Dorsalis Pedis (R), 2+: Radial (L), Radial (R) Skin: Warm, Dry Neuro Extensive - Mental Status: Alert, Oriented x3, Normal Mood/Affect Psychiatric: Alert, Anxious Sepsis Event Note - Evaluation Sepsis Screening Result: No Definite Risk - Problem List (1) Chronic kidney disease SNOMED Code(s): 121155296 ICD Code: N18.9 - CHRONIC KIDNEY DISEASE, UNSPECIFIED Status: Chronic Current Visit: Yes (2) Severe pulmonary hypertension SNOMED Code(s): 750885961 ICD Code: I27.20 - PULMONARY HYPERTENSION, UNSPECIFIED Status: Acute Current Visit: Yes (3) Obesity SNOMED Code(s): 400418334, 991886478 ICD Code: E66.9 - OBESITY, UNSPECIFIED Status: Chronic Current Visit: Yes (4) Anxiety SNOMED Code(s): 57631156 ICD Code: F41.9 - ANXIETY DISORDER, UNSPECIFIED Status: Acute Current Visit: Yes (5) Anal fissure SNOMED Code(s): 40366642 ICD Code: K60.2 - ANAL FISSURE, UNSPECIFIED Status: Acute Current Visit: Yes (6) Chronic atrial fibrillation SNOMED Code(s): 125242321 ICD Code: I48.20 - CHRONIC ATRIAL FIBRILLATION, UNSPECIFIED Status: Chronic Current Visit: Yes (7) Hypersensitivity pneumonitis SNOMED Code(s): 28774782 ICD Code: J67.9 - HYPERSENSITIVITY PNEUMONITIS DUE TO UNSPECIFIED ORGANIC DUST Status: Acute Current Visit: Yes (8) Interstitial lung disease SNOMED Code(s): 160883067 ICD Code: J84.9 - INTERSTITIAL PULMONARY DISEASE, UNSPECIFIED Status: Acute Current Visit: Yes (9) Post-COVID syndrome SNOMED Code(s): 8819763423 ICD Code: B94.8 - SEQUELAE OF OTH INFECTIOUS AND PARASITIC DISEASES Status: Acute Current Visit: Yes (10) Palliative care encounter SNOMED Code(s): 766867135, 442812089 ICD Code: Z51.5 - ENCOUNTER FOR PALLIATIVE CARE Status: Acute Current Visit: Yes (11) Blood glucose elevated SNOMED Code(s): 05335988 ICD Code: R73.9 - HYPERGLYCEMIA, UNSPECIFIED Status: Acute Current Visit: Yes (12) History of COVID-19 SNOMED Code(s): 544988377369251524, 967019949676418992 ICD Code: Z86.16 - PERSONAL HISTORY OF COVID-19 Status: Acute Current Visit: No Onset Date: ~04/2020 (13) Indwelling Delacruz catheter present SNOMED Code(s): 608190701 ICD Code: Z97.8 - PRESENCE OF OTHER SPECIFIED DEVICES Status: Chronic Current Visit: No (14) Normochromic normocytic anemia SNOMED Code(s): 76226852 ICD Code: D64.9 - ANEMIA, UNSPECIFIED Status: Acute Current Visit: No (15) Physical deconditioning SNOMED Code(s): 81429099598215 ICD Code: R53.81 - OTHER MALAISE Status: Acute Current Visit: No (16) Weakness SNOMED Code(s): 75379982 ICD Code: R53.1 - WEAKNESS Status: Acute Current Visit: No (17) Dyspnea on exertion SNOMED Code(s): 18967613 ICD Code: R06.00 - DYSPNEA, UNSPECIFIED Status: Acute Current Visit: Yes Problem List Initiated/Reviewed/Updated: Yes Orders Last 24hrs: Active Orders 24 hr Category Date Time Status Patient Status [ADT] Routine ADT 10/27/20 16:45 Active Antiembolic Devices [RC] .Routine Care 10/27/20 16:47 Active Pulse Oximetry [RC] .PRN Care 10/27/20 16:45 Active RT Aerosol Therapy [RC] ASDIRECTED Care 10/27/20 16:42 Active VTE/DVT Education [RC] 08 Care 10/27/20 16:47 Active Vital Signs [RC] DAILY Care 10/27/20 16:48 Active OT Evaluation and Treatment [CONS] Routine Cons 10/27/20 16:49 Active PT Evaluation and Treatment [CONS] Routine Cons 10/27/20 16:48 Active Regular Diet [DIET] Diet 10/27/20 Dinner Active Acyclovir [Zovirax 5% Oint] Med 10/27/20 16:35 Active 0 gm TOP TID PRN Albuterol/Ipratropium [DuoNeb 3.0-0.5 MG/3 ML] Med 10/27/20 17:00 Active 3 ml INH QIDRT Albuterol/Ipratropium [DuoNeb 3.0-0.5 MG/3 ML] Med 10/27/20 16:35 Active 3 ml NEB Q4H PRN Apixaban [Eliquis] Med 10/27/20 21:00 Active 5 mg PO BID Arformoterol [Brovana] Med 10/27/20 21:00 Active 15 mcg INH BIDRT Ascorbic Acid [Vitamin C] Med 10/28/20 09:00 Active 500 mg PO DAILY Aspirin [Halfprin] Med 10/29/20 09:00 Active 81 mg PO Q48H Bacitracin/Neomycin/Polymyxin [Neosporin Oint] Med 10/27/20 16:55 Active 0 gm TOP TID PRN Benzonatate [Tessalon Perles] Med 10/27/20 16:35 Active 100 mg PO QID PRN Bumetanide [Bumex] Med 10/28/20 08:00 Active 1 mg PO BID@08,14 Calcium Carbonate [Oyster Shell Calcium] Med 10/28/20 09:00 Active 500 mg PO DAILY Cholecalciferol (Vitamin D3) [Vitamin D3] Med 10/28/20 09:00 Active 25 mcg PO DAILY Digoxin [Lanoxin] Med 10/29/20 12:00 Active 125 mcg PO Q48H Docusate Sodium/Sennosides [Senna Plus] Med 10/27/20 21:00 Active 1 tab PO BID LORazepam [Ativan] Med 10/27/20 16:35 Active 0.5 mg PO Q6H PRN Metoprolol Succinate [Toprol XL] Med 10/28/20 09:00 Active 200 mg PO DAILY Midodrine Med 10/27/20 17:30 Active 2.5 mg PO TIDAC Nitroglycerin [Nitrostat] Med 10/27/20 16:35 Active 0.4 mg SL Q5M PRN Pantoprazole [ProTONIX] Med 10/28/20 06:00 Active 40 mg PO DAILY@0600 Polyvinyl Alcohol [LiquiTears 1.4% Ophth Soln] Med 10/27/20 16:58 Active 0 ml EYEBOTH DAILY PRN Sulfamethoxazole/Trimethoprim [Septra DS] Med 10/30/20 09:00 Active 1 tab PO MOWEFR atorvaSTATin [Lipitor] Med 10/28/20 09:00 Active 20 mg PO DAILY hydrOXYzine HCL [Atarax] Med 10/27/20 16:35 Active 10 mg PO Q6H PRN predniSONE Med 12/07/20 09:00 Active 15 mg PO DAILY predniSONE Med 11/23/20 09:00 Active 20 mg PO DAILY predniSONE Med 11/09/20 09:00 Active 30 mg PO DAILY predniSONE Med 10/28/20 09:00 Active 40 mg PO DAILY DVT/VTE Prophylaxis Reflex [OM.PC] Per Unit Routine Oth 10/27/20 16:45 Ordered Resuscitation Status Routine Resus Stat 10/27/20 16:45 Ordered Medication Orders Acyclovir (Acyclovir 5% Oint 30 Gm Tube) 0 gm TOP TID PRN PRN Reason: cold sore Albuterol/Ipratropium (Albuterol/Ipratropium 3.0-0.5 Mg/3 Ml Neb Soln) 3 ml NEB Q4H PRN PRN Reason: Shortness of Breath Albuterol/Ipratropium (Albuterol/Ipratropium 3.0-0.5 Mg/3 Ml Neb Soln) 3 ml INH QIDRT [facility] Apixaban (Apixaban 5 Mg Tab) 5 mg PO BID [facility] Arformoterol Tartrate (Arformoterol 15 Mcg/2 Ml Neb Soln) 15 mcg INH BIDRT [facility] Artificial Tears (Polyvinyl Alcohol 1.4% Ophth Soln 15 Ml Bottle) 0 ml EYEBOTH DAILY PRN PRN Reason: Dry Eyes Ascorbic Acid (Ascorbic Acid 500 Mg Tab) 500 mg PO DAILY [facility] Aspirin (Aspirin 81 Mg Tab.Ec) 81 mg PO Q48H [facility] Atorvastatin Calcium (Atorvastatin 20 Mg Tab) 20 mg PO DAILY [facility] Benzonatate (Benzonatate 100 Mg Cap) 100 mg PO QID PRN PRN Reason: Cough Bumetanide (Bumetanide 1 Mg Tab) 1 mg PO BID@08,14 [facility] Calcium Carbonate/Glycine (Calcium Carbonate 500 Mg Tablet) 500 mg PO DAILY [facility] Cholecalciferol (Cholecalciferol (Vitamin D3) 25 Mcg Tab) 25 mcg PO DAILY [facility] Digoxin (Digoxin 125 Mcg Tab) 125 mcg PO Q48H [facility] Hydroxyzine HCl (Hydroxyzine Hcl 10 Mg Tab) 10 mg PO Q6H PRN PRN Reason: Anxiety Lorazepam (Lorazepam 0.5 Mg Tab) 0.5 mg PO Q6H PRN PRN Reason: Anxiety Metoprolol Succinate (Metoprolol Succinate 100 Mg Tab.Er) 200 mg PO DAILY [facility] Midodrine (Midodrine 5 Mg Tab) 2.5 mg PO TIDAC [facility] Neomycin/Polymyxin/Bacitracin (Bacitracin/Neomycin/Polymyxin B Oint 15 Gm Tube) 0 gm TOP TID PRN PRN Reason: FISSURE Nitroglycerin (Nitroglycerin 0.4 Mg Tab.Sl) 0.4 mg SL Q5M PRN PRN Reason: Chest Pain Pantoprazole Sodium (Pantoprazole 40 Mg Tab.Cr) 40 mg PO DAILY@0600 [facility] Prednisone (Prednisone 20 Mg Tab) 40 mg PO DAILY [facility] Stop: 11/08/20 09:01 Prednisone (Prednisone 10 Mg Tab) 30 mg PO DAILY [facility] Stop: 11/22/20 09:01 Prednisone (Prednisone 20 Mg Tab) 20 mg PO DAILY [facility] Stop: 12/06/20 09:01 Prednisone (Prednisone 5 Mg Tab) 15 mg PO DAILY [facility] Senna/Docusate Sodium (Docusate Sodium/Sennosides 50-8.6 Mg Tab) 1 tab PO BID [facility] Trimethoprim/Sulfamethoxazole (Sulfamethoxazole/Trimethoprim 800-160 Mg Tab) 1 tab PO MOWEFR [facility] Assessment/Plan Comment:: 1. Patient admitted to swing bed for physical/Occupational Therapy and rehabilitation. 2. Note that patient was on home oxygen prior to admission to the hospital and sepsis and will continue to require oxygen therapy. He becomes extremely fatigued and short of breath with very little physical exercise and will require time and patience. 3. Patient has elevated glucose likely secondary to steroid use, continue POC glucose checks with sliding scale insulin per protocol 4. Consider contacting surgery to see if the patient's anal fissure can be treated 5. Regular diet with supplemental nutrition. Patient stated that he is willing to take supplemental nutrition but that he has had reduced appetite secondary to fear of eating secondary to fear of bowel movement secondary to fear of pain secondary to anal fissure, as stated above. 6. Continue treatment of chronic conditions as above including lung disease, hypertension. Monitor for signs of fluid overload/congestive heart failure. 7. GI prophylaxis with Protonix 8. DVT prophylaxis with Eliquis
[2020-10-27] MEDS ORDERED: Glucagon,Human Recombinant 1 MG Vial IM PRN (17:45)
[2020-10-27] MEDS ORDERED: 50% Dextrose in Water 50 ML Syringe IVPUSH PRN (17:45)
[2020-10-27] MEDS: Albuterol/Ipratropium 3.0-0.5 MG/3 ML Neb Soln INH SCH ×2 (17:55→20:14)
[2020-10-27] MEDS: Midodrine 5 MG Tab PO SCH (17:55)
[2020-10-27] MEDS ORDERED: Insulin Lispro 100 Unit/ML 3 ML KwikPen SUBCUT ONE (17:59)
[2020-10-27] MEDS: Insulin Lispro 100 Unit/ML 3 ML KwikPen SUBCUT SCH (18:10)
[2020-10-27] MEDS: Arformoterol 15 MCG/2 ML Neb Soln INH SCH (20:13)
[2020-10-27] MEDS: Apixaban 5 MG Tab PO SCH (20:17)
[2020-10-28] MEDS: Arformoterol 15 MCG/2 ML Neb Soln INH SCH ×2 (06:08→20:59)
[2020-10-28] MEDS: Albuterol/Ipratropium 3.0-0.5 MG/3 ML Neb Soln INH SCH ×4 (06:08→20:58)
[2020-10-28] MEDS: Pantoprazole 40 MG Tab.CR PO SCH (06:08)
[2020-10-28] MEDS: Midodrine 5 MG Tab PO SCH ×3 (06:31→16:35)
[2020-10-28] MEDS: Insulin Lispro 100 Unit/ML 3 ML KwikPen SUBCUT SCH ×3 (07:46→17:17)
[2020-10-28] MEDS: Bumetanide 1 MG Tab PO SCH ×2 (08:27→13:54)
[2020-10-28] MEDS: Metoprolol Succinate 100 MG Tab.ER PO SCH (08:28)
[2020-10-28] MEDS: Apixaban 5 MG Tab PO SCH ×2 (08:28→20:59)
[2020-10-28] MEDS: atorvaSTATin 20 MG Tab PO SCH (08:29)
[2020-10-28] MEDS: Calcium Carbonate 500 MG Tablet PO SCH (08:34)
[2020-10-28] MEDS: predniSONE 20 MG Tab PO SCH (08:35)
[2020-10-28] MEDS: Cholecalciferol (Vitamin D3) 25 MCG Tab PO SCH (08:36)
[2020-10-28] MEDS: Ascorbic Acid 500 MG Tab PO SCH (08:37)
[2020-10-29] MEDS: Arformoterol 15 MCG/2 ML Neb Soln INH SCH ×2 (06:27→20:34)
[2020-10-29] MEDS: Pantoprazole 40 MG Tab.CR PO SCH (06:30)
[2020-10-29] MEDS: Midodrine 5 MG Tab PO SCH ×3 (06:30→16:29)
[2020-10-29] MEDS: Albuterol/Ipratropium 3.0-0.5 MG/3 ML Neb Soln INH SCH ×4 (06:40→20:40)
[2020-10-29] MEDS: Bumetanide 1 MG Tab PO SCH ×2 (07:45→13:25)
[2020-10-29] MEDS: Insulin Lispro 100 Unit/ML 3 ML KwikPen SUBCUT SCH ×3 (07:46→17:10)
[2020-10-29] MEDS: Apixaban 5 MG Tab PO SCH ×2 (09:04→20:32)
[2020-10-29] MEDS: Aspirin 81 MG Tab.EC PO SCH (09:04)
[2020-10-29] MEDS: atorvaSTATin 20 MG Tab PO SCH (09:04)
[2020-10-29] MEDS: Calcium Carbonate 500 MG Tablet PO SCH (09:05)
[2020-10-29] MEDS: Cholecalciferol (Vitamin D3) 25 MCG Tab PO SCH (09:06)
[2020-10-29] MEDS: Metoprolol Succinate 100 MG Tab.ER PO SCH (09:07)
[2020-10-29] MEDS: predniSONE 20 MG Tab PO SCH (09:09)
[2020-10-29] MEDS: Ascorbic Acid 500 MG Tab PO SCH (09:10)
[2020-10-29] MEDS: Digoxin 125 MCG Tab PO SCH (11:54)
[2020-10-30] MEDS: Pantoprazole 40 MG Tab.CR PO SCH (06:07)
[2020-10-30] MEDS: Arformoterol 15 MCG/2 ML Neb Soln INH SCH ×2 (06:09→20:25)
[2020-10-30] MEDS: Albuterol/Ipratropium 3.0-0.5 MG/3 ML Neb Soln INH SCH ×4 (06:11→20:25)
[2020-10-30] MEDS: Midodrine 5 MG Tab PO SCH ×3 (06:46→16:35)
[2020-10-30] MEDS: Apixaban 5 MG Tab PO SCH ×2 (08:43→20:25)
[2020-10-30] MEDS: Calcium Carbonate 500 MG Tablet PO SCH (08:43)
[2020-10-30] MEDS: Ascorbic Acid 500 MG Tab PO SCH (08:43)
[2020-10-30] MEDS: Sulfamethoxazole/Trimethoprim 800-160 MG Tab PO SCH (08:43)
[2020-10-30] MEDS: Metoprolol Succinate 100 MG Tab.ER PO SCH (08:43)
[2020-10-30] MEDS: Cholecalciferol (Vitamin D3) 25 MCG Tab PO SCH (08:43)
[2020-10-30] MEDS: predniSONE 20 MG Tab PO SCH (08:44)
[2020-10-30] MEDS: atorvaSTATin 20 MG Tab PO SCH (08:44)
[2020-10-30] MEDS: Bumetanide 1 MG Tab PO SCH ×2 (08:44→14:22)
[2020-10-30] MEDS: Insulin Lispro 100 Unit/ML 3 ML KwikPen SUBCUT SCH ×3 (08:45→17:28)
--- NOTE | 2020-10-30 08:49 | PCM.PN ---
- General Info Date of Service: 10/30/20 Admission Dx/Problem (Free Text): Admission Diagnosis/Problem Admission Diagnosis/Problem Weakness Subjective Update: Patient states that he feels quite well today. He states that he is back to feeling as well as he did just prior to his original admission to the hospital in [facility]. He does think that his urine has been a little malodorous but otherwise he has no new complaints. His only chronic complaint continues to be weakness secondary to shortness of breath which is likely secondary to Covid infection which was April 2020 - Review of Systems General: Reports: Weakness, Fatigue HEENT: Reports: No Symptoms Pulmonary: Reports: No Symptoms Cardiovascular: Reports: No Symptoms Gastrointestinal: Reports: Other (Chronic anal fissure causing significant pain) Genitourinary: Reports: Other (No complaints other than malodorous urine, patient has had indwelling catheter since August 2020) Musculoskeletal: Reports: No Symptoms Skin: Reports: No Symptoms Neurological: Reports: No Symptoms Psychiatric: Reports: No Symptoms - Patient Data Vitals - Most Recent: Last Vital Signs Temp 35.8 C L 10/30/20 07:52 Pulse 99 10/30/20 07:52 Resp 20 10/30/20 07:52 BP 103/65 10/30/20 07:52 Pulse Ox 92 L 10/30/20 07:52 Weight - Most Recent: 94.755 kg I&O - Last 24 Hours: Intake & Output 10/29/20 10/30/20 10/30/20 22:59 06:59 14:59 Intake Total 420 1000 Output Total 495 950 Balance -75 50 Lab Results Last 24 Hours: Laboratory Results - last 24 hr 10/29/20 10/29/20 10/30/20 Range/Units 11:46 17:08 06:41 WBC (3.2-10.1) x10-3/uL Corrected WBC (4.5-12.0) X10(3) RBC (3.90-5.90) x10(6)uL Hgb (12.9-17.7) g/dL Hct (38.3-50.1) % MCV (80.8-98.7) fL MCH (27.0-33.3) pg MCHC (28.7-35.3) g/dL RDW (12.4-15.0) % Plt Count (117-477) x10(3)uL MPV (6.7-11.0) fL Add Manual Diff Neutrophils % (Manual) (46-82) % Band Neutrophils % (0-6) % Lymphocytes % (Manual) (13-37) % Monocytes % (Manual) (4-12) % Hypersegmented Neuts POC Glucose 171 H 287 H D 126 H D (80-116) mg/dL 10/30/20 Range/Units 06:55 WBC 16.8 H (3.2-10.1) x10-3/uL Corrected WBC 16.3 H (4.5-12.0) X10(3) RBC 3.46 L (3.90-5.90) x10(6)uL Hgb 10.5 L (12.9-17.7) g/dL Hct 32.2 L (38.3-50.1) % MCV 93.1 (80.8-98.7) fL MCH 30.4 (27.0-33.3) pg MCHC 32.6 (28.7-35.3) g/dL RDW 16.9 H (12.4-15.0) % Plt Count 328 (117-477) x10(3)uL MPV 7.3 (6.7-11.0) fL Add Manual Diff Yes Neutrophils % (Manual) 91 H (46-82) % Band Neutrophils % 1 (0-6) % Lymphocytes % (Manual) 5 L (13-37) % Monocytes % (Manual) 3 L (4-12) % Hypersegmented Neuts Many POC Glucose (80-116) mg/dL Med Orders - Current: Current Medications Acyclovir (Acyclovir 5% Oint 30 Gm Tube) 0 gm TOP TID PRN PRN Reason: cold sore Albuterol/Ipratropium (Albuterol/Ipratropium 3.0-0.5 Mg/3 Ml Neb Soln) 3 ml NEB Q4H PRN PRN Reason: Shortness of Breath Last Admin: 10/29/20 20:38 Dose: 3 ml Documented by: Albuterol/Ipratropium (Albuterol/Ipratropium 3.0-0.5 Mg/3 Ml Neb Soln) 3 ml INH QIDRT ULICES Last Admin: 10/30/20 06:11 Dose: 3 ml Documented by: Apixaban (Apixaban 5 Mg Tab) 5 mg PO BID [facility] Last Admin: 10/29/20 20:32 Dose: 5 mg Documented by: Arformoterol Tartrate (Arformoterol 15 Mcg/2 Ml Neb Soln) 15 mcg INH BIDRT [facility] Last Admin: 10/30/20 06:09 Dose: 15 mcg Documented by: Artificial Tears (Polyvinyl Alcohol 1.4% Ophth Soln 15 Ml Bottle) 0 ml EYEBOTH DAILY PRN PRN Reason: Dry Eyes Ascorbic Acid (Ascorbic Acid 500 Mg Tab) 500 mg PO DAILY [facility] Last Admin: 10/29/20 09:10 Dose: 500 mg Documented by: Aspirin (Aspirin 81 Mg Tab.Ec) 81 mg PO Q48H [facility] Last Admin: 10/29/20 09:04 Dose: 81 mg Documented by: Atorvastatin Calcium (Atorvastatin 20 Mg Tab) 20 mg PO DAILY [facility] Last Admin: 10/29/20 09:04 Dose: 20 mg Documented by: Benzonatate (Benzonatate 100 Mg Cap) 100 mg PO QID PRN PRN Reason: Cough Bumetanide (Bumetanide 1 Mg Tab) 1 mg PO BID@08,14 [facility] Last Admin: 10/29/20 13:25 Dose: 1 mg Documented by: Calcium Carbonate/Glycine (Calcium Carbonate 500 Mg Tablet) 500 mg PO DAILY [facility] Last Admin: 10/29/20 09:05 Dose: 500 mg Documented by: Cholecalciferol (Cholecalciferol (Vitamin D3) 25 Mcg Tab) 25 mcg PO DAILY [facility] Last Admin: 10/29/20 09:06 Dose: 25 mcg Documented by: Dextrose/Water (50% Dextrose In Water 50 Ml Syringe) 50 ml IVPUSH ASDIRECTED PRN PRN Reason: Hypoglycemia Digoxin (Digoxin 125 Mcg Tab) 125 mcg PO Q48H [facility] Last Admin: 10/29/20 11:54 Dose: 125 mcg Documented by: Glucagon (Glucagon,Human Recombinant 1 Mg Vial) 1 mg IM ASDIRECTED PRN PRN Reason: Hypoglycemia Hydroxyzine HCl (Hydroxyzine Hcl 10 Mg Tab) 10 mg PO Q6H PRN PRN Reason: Anxiety Insulin Human Lispro (Insulin Lispro 100 Unit/Ml 3 Ml Kwikpen) 0 unit SUBCUT TIDMEALS [facility]; Protocol Last Admin: 10/29/20 17:10 Dose: 3 unit Documented by: Lorazepam (Lorazepam 0.5 Mg Tab) 0.5 mg PO Q6H PRN PRN Reason: Anxiety Metoprolol Succinate (Metoprolol Succinate 100 Mg Tab.Er) 200 mg PO DAILY [facility] Last Admin: 10/29/20 09:07 Dose: 200 mg Documented by: Midodrine (Midodrine 5 Mg Tab) 2.5 mg PO TIDAC [facility] Last Admin: 10/30/20 06:46 Dose: 2.5 mg Documented by: Neomycin/Polymyxin/Bacitracin (Bacitracin/Neomycin/Polymyxin B Oint 15 Gm Tube) 0 gm TOP TID PRN PRN Reason: FISSURE Nitroglycerin (Nitroglycerin 0.4 Mg Tab.Sl) 0.4 mg SL Q5M PRN PRN Reason: Chest Pain Pantoprazole Sodium (Pantoprazole 40 Mg Tab.Cr) 40 mg PO DAILY@0600 [facility] Last Admin: 10/30/20 06:07 Dose: 40 mg Documented by: Prednisone (Prednisone 20 Mg Tab) 40 mg PO DAILY [facility] Stop: 11/08/20 09:01 Last Admin: 10/29/20 09:09 Dose: 40 mg Documented by: Prednisone (Prednisone 10 Mg Tab) 30 mg PO DAILY [facility] Stop: 11/22/20 09:01 Prednisone (Prednisone 20 Mg Tab) 20 mg PO DAILY [facility] Stop: 12/06/20 09:01 Prednisone (Prednisone 5 Mg Tab) 15 mg PO DAILY [facility] Senna/Docusate Sodium (Docusate Sodium/Sennosides 50-8.6 Mg Tab) 1 tab PO BID [facility] Last Admin: 10/29/20 20:32 Dose: 1 tab Documented by: Trimethoprim/Sulfamethoxazole (Sulfamethoxazole/Trimethoprim 800-160 Mg Tab) 1 tab PO MOWEFR [facility] Comments:: Patient was sitting up on the side of the bed, awake, alert, interactive, pleasant. Patient was able to stand for examination - Exam Quality Assessment: Supplemental Oxygen, DVT Prophylaxis, Skin Breakdown General: Alert, Oriented, Cooperative, No Acute Distress HEENT: EOMI Lungs: Clear to Auscultation Cardiovascular: Irregular Rhythm, Tachycardia GI/Abdominal Exam: Normal Bowel Sounds, Non-Tender Extremities: Normal Inspection Peripheral Pulses: 2+: Radial (L), Radial (R) Skin: Warm, Dry Neurological: No New Focal Deficit Psy/Mental Status: Alert, Normal Affect, Normal Mood - Patient Data Lab Results Last 24 hrs: Laboratory Results - last 24 hr 10/29/20 10/29/20 10/30/20 Range/Units 11:46 17:08 06:41 WBC (3.2-10.1) x10-3/uL Corrected WBC (4.5-12.0) X10(3) RBC (3.90-5.90) x10(6)uL Hgb (12.9-17.7) g/dL Hct (38.3-50.1) % MCV (80.8-98.7) fL MCH (27.0-33.3) pg MCHC (28.7-35.3) g/dL RDW (12.4-15.0) % Plt Count (117-477) x10(3)uL MPV (6.7-11.0) fL Add Manual Diff Neutrophils % (Manual) (46-82) % Band Neutrophils % (0-6) % Lymphocytes % (Manual) (13-37) % Monocytes % (Manual) (4-12) % Hypersegmented Neuts POC Glucose 171 H 287 H D 126 H D (80-116) mg/dL 10/30/20 Range/Units 06:55 WBC 16.8 H (3.2-10.1) x10-3/uL Corrected WBC 16.3 H (4.5-12.0) X10(3) RBC 3.46 L (3.90-5.90) x10(6)uL Hgb 10.5 L (12.9-17.7) g/dL Hct 32.2 L (38.3-50.1) % MCV 93.1 (80.8-98.7) fL MCH 30.4 (27.0-33.3) pg MCHC 32.6 (28.7-35.3) g/dL RDW 16.9 H (12.4-15.0) % Plt Count 328 (117-477) x10(3)uL MPV 7.3 (6.7-11.0) fL Add Manual Diff Yes Neutrophils % (Manual) 91 H (46-82) % Band Neutrophils % 1 (0-6) % Lymphocytes % (Manual) 5 L (13-37) % Monocytes % (Manual) 3 L (4-12) % Hypersegmented Neuts Many POC Glucose (80-116) mg/dL Result Diagrams: 10/30/20 06:55 10/28/20 06:05 Sepsis Event Note - Evaluation Sepsis Screening Result: No Definite Risk - Focused Exam Vital Signs: Vital Signs Temp Pulse Resp BP Pulse Ox Pulse Ox 10/30/20 07:52 35.8 C L 99 20 103/65 92 L 10/30/20 06:12 96 94 L - Problem List & Annotations (1) Chronic kidney disease SNOMED Code(s): 499952870 Code(s): N18.9 - CHRONIC KIDNEY DISEASE, UNSPECIFIED Status: Chronic Current Visit: Yes (2) Severe pulmonary hypertension SNOMED Code(s): 595658073 Code(s): I27.20 - PULMONARY HYPERTENSION, UNSPECIFIED Status: Acute Current Visit: Yes (3) Obesity SNOMED Code(s): 497865869, 038790676 Code(s): E66.9 - OBESITY, UNSPECIFIED Status: Chronic Current Visit: Yes (4) Anxiety SNOMED Code(s): 20949886 Code(s): F41.9 - ANXIETY DISORDER, UNSPECIFIED Status: Acute Current Visit: Yes (5) Anal fissure SNOMED Code(s): 71199880 Code(s): K60.2 - ANAL FISSURE, UNSPECIFIED Status: Acute Current Visit: Yes (6) Chronic atrial fibrillation SNOMED Code(s): 813784506 Code(s): I48.20 - CHRONIC ATRIAL FIBRILLATION, UNSPECIFIED Status: Chronic Current Visit: Yes (7) Hypersensitivity pneumonitis SNOMED Code(s): 29956858 Code(s): J67.9 - HYPERSENSITIVITY PNEUMONITIS DUE TO UNSPECIFIED ORGANIC DUST Status: Acute Current Visit: Yes (8) Interstitial lung disease SNOMED Code(s): 995130729 Code(s): J84.9 - INTERSTITIAL PULMONARY DISEASE, UNSPECIFIED Status: Acute Current Visit: Yes (9) Post-COVID syndrome SNOMED Code(s): 9851562259 Code(s): B94.8 - SEQUELAE OF OTH INFECTIOUS AND PARASITIC DISEASES Status: Acute Current Visit: Yes (10) Palliative care encounter SNOMED Code(s): 106275782, 207479987 Code(s): Z51.5 - ENCOUNTER FOR PALLIATIVE CARE Status: Acute Current Visit: Yes (11) Blood glucose elevated SNOMED Code(s): 29224433 Code(s): R73.9 - HYPERGLYCEMIA, UNSPECIFIED Status: Acute Current Visit: Yes (12) History of COVID-19 SNOMED Code(s): 202148985657206316, 820383593926562628 Code(s): Z86.16 - PERSONAL HISTORY OF COVID-19 Status: Acute Current Visit: No Onset Date: ~04/2020 (13) Indwelling Delacruz catheter present SNOMED Code(s): 915303099 Code(s): Z97.8 - PRESENCE OF OTHER SPECIFIED DEVICES Status: Chronic Current Visit: No (14) Normochromic normocytic anemia SNOMED Code(s): 95859861 Code(s): D64.9 - ANEMIA, UNSPECIFIED Status: Acute Current Visit: No (15) Physical deconditioning SNOMED Code(s): 26724350937098 Code(s): R53.81 - OTHER MALAISE Status: Acute Current Visit: No (16) Weakness SNOMED Code(s): 49986968 Code(s): R53.1 - WEAKNESS Status: Acute Current Visit: No (17) Dyspnea on exertion SNOMED Code(s): 91210252 Code(s): R06.00 - DYSPNEA, UNSPECIFIED Status: Acute Current Visit: Yes - Problem List Review Problem List Initiated/Reviewed/Updated: Yes - My Orders Last 24 Hours: My Active Orders 10/29/20 09:00 Aspirin [Halfprin] 81 mg PO Q48H 10/29/20 12:00 Digoxin [Lanoxin] 125 mcg PO Q48H 10/30/20 08:36 CULTURE BLOOD [BC] Urgent CULTURE BLOOD [BC] Urgent Blood Culture x2 Reflex Set [OM.PC] Urgent 10/30/20 08:37 CULTURE URINE [RM] Routine 10/30/20 08:38 BASIC METABOLIC PANEL,BMP [CHEM] Routine 10/30/20 09:00 Sulfamethoxazole/Trimethoprim [Septra DS] 1 tab PO MOWEFR 11/09/20 09:00 predniSONE 30 mg PO DAILY 11/23/20 09:00 predniSONE 20 mg PO DAILY 12/07/20 09:00 predniSONE 15 mg PO DAILY - Plan Plan:: Laboratory analysis shows that the patient is having an increasing white blood cell count. However, the patient states that he feels well and actually feels that his function and health has improved significantly. We will culture urine and blood at this time. Continue treatment as before. We will try to contact surgery for evaluation of the patient's anal fissure.
[2020-10-30] MEDS ORDERED: Lidocaine/Prilocaine 2.5-2.5% Crm 5 GM Tube TOP PRN (10:02)
[2020-10-30] MEDS: Hydrocortisone 2.5% Crm 30 GM Tube TOP SCH (21:00)
--- NOTE | 2020-10-30 21:31 | CONS ---
DATE OF CONSULTATION: 10/30/2020 HISTORY OF PRESENT ILLNESS: A 75-year-old male is hospitalized now with sepsis as well as post COVID pulmonary dysfunction. The source of his sepsis is unclear, but suspected to be bladder as he has an indwelling Delacruz catheter because of enlarged prostate. This patient has been dealing with a painful anal fissure for about 4 months. It began during a previous hospitalization with a large constipated stool. He says initially he had a lot of pain and has had significant bleeding from this area. The pain is improved and is much more mild now than it was previously. The patient was using a compounded medication on this and he states that he used this 5 to 6 times, although the fissure did not heal completely. He was also seen by a colorectal surgeon and surgical correction of this anal fissure was planned but had to be postponed because of his other medical issues. Currently, the patient says that he still has some bleeding, but mild pain from this fissure. Discussion was carried out with the patient regarding general principles of care of the anal fissure. He has been dealing with this for several months and has had several doctors discussed this with him, so he has a good understanding of the condition. The compound medication that he was using before is not available to him at this time and is not able to be made here at this facility. Accordingly, I recommended to him and ordered application of 2.5% cortisone cream to be applied to the fissure b.i.d. He is already keeping his stool soft and is advised to continue to do this. Also, the use of sitz baths with cool or comfortable temperature of water is recommended. He says that he has gone into atrial fibrillation in the past at least twice when he has been in too hot a water. A cool or comfortable temperature water was recommended to keep the area clean and also improve pain. Use of the hydrocortisone 2 b.i.d. two weeks at a time is recommended, and the patient will continue to follow up with his colorectal surgeon for definitive treatment of this fissure. /[id number] YUNIOR/MARIELOS
[2020-10-31] MEDS: Pantoprazole 40 MG Tab.CR PO SCH (05:54)
[2020-10-31] MEDS: Midodrine 5 MG Tab PO SCH ×3 (06:39→16:50)
[2020-10-31] MEDS: Arformoterol 15 MCG/2 ML Neb Soln INH SCH ×2 (06:39→21:02)
[2020-10-31] MEDS: Albuterol/Ipratropium 3.0-0.5 MG/3 ML Neb Soln INH SCH ×4 (06:40→21:02)
[2020-10-31] MEDS: Bumetanide 1 MG Tab PO SCH ×2 (07:56→13:28)
[2020-10-31] MEDS: Insulin Lispro 100 Unit/ML 3 ML KwikPen SUBCUT SCH ×3 (07:56→17:18)
[2020-10-31] MEDS: Hydrocortisone 2.5% Crm 30 GM Tube TOP SCH ×3 (08:00→21:00)
[2020-10-31] MEDS: Metoprolol Succinate 100 MG Tab.ER PO SCH (08:03)
[2020-10-31] MEDS: Ascorbic Acid 500 MG Tab PO SCH (08:03)
[2020-10-31] MEDS: Cholecalciferol (Vitamin D3) 25 MCG Tab PO SCH (08:03)
[2020-10-31] MEDS: Aspirin 81 MG Tab.EC PO SCH (08:04)
[2020-10-31] MEDS: predniSONE 20 MG Tab PO SCH (08:04)
[2020-10-31] MEDS: atorvaSTATin 20 MG Tab PO SCH (08:04)
[2020-10-31] MEDS: Apixaban 5 MG Tab PO SCH ×2 (08:04→21:02)
[2020-10-31] MEDS: Calcium Carbonate 500 MG Tablet PO SCH (08:05)
[2020-10-31] MEDS: Digoxin 125 MCG Tab PO SCH (12:53)
[2020-10-31] MEDS ORDERED: Sulfamethoxazole/Trimethoprim 800-160 MG Tab PO SCH (21:30)
[2020-11-01] MEDS: Pantoprazole 40 MG Tab.CR PO SCH (05:41)
[2020-11-01] MEDS: Arformoterol 15 MCG/2 ML Neb Soln INH SCH ×2 (06:05→20:22)
[2020-11-01] MEDS: Albuterol/Ipratropium 3.0-0.5 MG/3 ML Neb Soln INH SCH ×4 (06:06→20:22)
[2020-11-01] MEDS: Midodrine 5 MG Tab PO SCH ×3 (06:31→17:23)
[2020-11-01] MEDS: Bumetanide 1 MG Tab PO SCH ×2 (08:43→13:35)
[2020-11-01] MEDS: Insulin Lispro 100 Unit/ML 3 ML KwikPen SUBCUT SCH ×3 (08:44→17:25)
[2020-11-01] MEDS: Apixaban 5 MG Tab PO SCH ×2 (08:45→20:20)
[2020-11-01] MEDS: Cholecalciferol (Vitamin D3) 25 MCG Tab PO SCH (08:46)
[2020-11-01] MEDS: atorvaSTATin 20 MG Tab PO SCH (08:46)
[2020-11-01] MEDS: Metoprolol Succinate 100 MG Tab.ER PO SCH (08:47)
[2020-11-01] MEDS: Sulfamethoxazole/Trimethoprim 800-160 MG Tab PO SCH (08:47)
[2020-11-01] MEDS: Calcium Carbonate 500 MG Tablet PO SCH (08:47)
[2020-11-01] MEDS: predniSONE 20 MG Tab PO SCH (08:48)
[2020-11-01] MEDS: Hydrocortisone 2.5% Crm 30 GM Tube TOP SCH ×2 (08:48→20:21)
[2020-11-01] MEDS: Ascorbic Acid 500 MG Tab PO SCH (08:56)
--- NOTE | 2020-11-01 15:34 | PCM.SN.2 ---
- Free Text/Narrative Note: The patient's urine was cultured due to decline in functional status which was temporary. Culture resulted with Enterobacter cloacea, greater than 100,000 colony-forming units, resistant to everything tested except for ertapenem and meropenem. Patient is asymptomatic at this time. I consult with infectious disease and they recommended no treatment unless patient is symptomatic. Note that the patient is on Bactrim Friday, Friday, Friday. This is prophylactic treatment for pneumocystis secondary to COVID 19 lung disease and prolonged steroid taper. Infectious disease informed me that there has been reported increased cases of pneumocystis associated with steroid use and COVID lung disease.
[2020-11-02] MEDS: Pantoprazole 40 MG Tab.CR PO SCH (06:05)
[2020-11-02] MEDS: Arformoterol 15 MCG/2 ML Neb Soln INH SCH ×2 (06:06→20:43)
[2020-11-02] MEDS: Albuterol/Ipratropium 3.0-0.5 MG/3 ML Neb Soln INH SCH ×4 (06:06→20:43)
[2020-11-02] MEDS: Midodrine 5 MG Tab PO SCH ×3 (06:32→18:19)
[2020-11-02] MEDS: predniSONE 20 MG Tab PO SCH (09:55)
[2020-11-02] MEDS: Bumetanide 1 MG Tab PO SCH ×2 (10:02→14:06)
[2020-11-02] MEDS: Apixaban 5 MG Tab PO SCH ×2 (10:03→20:43)
[2020-11-02] MEDS: atorvaSTATin 20 MG Tab PO SCH (10:03)
[2020-11-02] MEDS: Aspirin 81 MG Tab.EC PO SCH (10:03)
[2020-11-02] MEDS: Ascorbic Acid 500 MG Tab PO SCH (10:04)
[2020-11-02] MEDS: Cholecalciferol (Vitamin D3) 25 MCG Tab PO SCH (10:04)
[2020-11-02] MEDS: Calcium Carbonate 500 MG Tablet PO SCH (10:04)
[2020-11-02] MEDS: Hydrocortisone 2.5% Crm 30 GM Tube TOP SCH ×2 (10:08→20:46)
[2020-11-02] MEDS: Insulin Lispro 100 Unit/ML 3 ML KwikPen SUBCUT SCH ×3 (10:10→18:21)
[2020-11-02] MEDS: Metoprolol Succinate 100 MG Tab.ER PO SCH (10:15)
[2020-11-02] MEDS: Digoxin 125 MCG Tab PO SCH (12:43)
[2020-11-03] MEDS: Arformoterol 15 MCG/2 ML Neb Soln INH SCH (06:26)
[2020-11-03] MEDS: Pantoprazole 40 MG Tab.CR PO SCH (06:26)
[2020-11-03] MEDS: Albuterol/Ipratropium 3.0-0.5 MG/3 ML Neb Soln INH SCH ×3 (06:26→15:36)
[2020-11-03] MEDS: Midodrine 5 MG Tab PO SCH ×2 (06:35→11:28)
[2020-11-03 07:42] VITALS: BP 119/69
[2020-11-03] MEDS: Insulin Lispro 100 Unit/ML 3 ML KwikPen SUBCUT SCH ×2 (08:04→11:28)
[2020-11-03] MEDS: Hydrocortisone 2.5% Crm 30 GM Tube TOP SCH (08:05)
[2020-11-03] MEDS: Sulfamethoxazole/Trimethoprim 800-160 MG Tab PO SCH (08:07)
[2020-11-03] MEDS: Calcium Carbonate 500 MG Tablet PO SCH (08:07)
[2020-11-03] MEDS: atorvaSTATin 20 MG Tab PO SCH (08:08)
[2020-11-03] MEDS: Bumetanide 1 MG Tab PO SCH ×2 (08:08→14:07)
[2020-11-03] MEDS: predniSONE 20 MG Tab PO SCH (08:08)
[2020-11-03] MEDS: Apixaban 5 MG Tab PO SCH (08:08)
[2020-11-03] MEDS: Metoprolol Succinate 100 MG Tab.ER PO SCH (08:11)
[2020-11-03] MEDS: Ascorbic Acid 500 MG Tab PO SCH (08:11)
[2020-11-03] MEDS: Cholecalciferol (Vitamin D3) 25 MCG Tab PO SCH (08:11)
--- NOTE | 2020-11-03 14:48 | DISCH ---
DISCHARGE DATE: 11/03/2020 REASON FOR ADMISSION: 1. Generalized weakness and debility. 2. Physical deconditioning. 3. History of severe sepsis. SECONDARY DIAGNOSES: 1. Acute kidney injury. 2. Pulmonary hypertension. 3. Atrial fibrillation. 4. Interstitial lung disease exacerbation. 5. Hypersensitive pneumonitis. 6. Congestive heart failure. 7. Anxiety. 8. Class 1 obesity. BRIEF HISTORY AND HOSPITAL COURSE: This is a 75-year-old male who was admitted at [place] from 10/14 for severe sepsis thought to be urinary in origin. He was discharged to [facility] bed for physical therapy and rehab. He has been working with therapy and is ready to go back home today. DISCHARGE MEDICATIONS: Have been reconciled with changes as follows. 1. Prednisone will be tapered as previously directed from [place], to take 40 mg daily for the next 5 days, then go down to 30 mg daily for 14 days, then 20 mg for another 14 days, and then go to 15 mg daily. 2. He will also go on digoxin 125 mcg every other day. 3. He is on Bactrim DS 1 tablet 3 times a week for prophylaxis. 4. He continued Bumex at 1 mg b.i.d. He has not been using any lorazepam or Humalog, and as such, I will discontinue those. PLAN: For him to see Dr. Flores, his PCP on Friday. I spent more than 35 minutes in the discharge of the patient. /[id number] ALEXSANDRA/MARIELOS
[2020-11-03 15:45] VITALS: PULSE 102
[2020-11-09] MEDS ORDERED: predniSONE 10 MG Tab PO SCH (09:00)
[2020-11-23] MEDS ORDERED: predniSONE 20 MG Tab PO SCH (09:00)
[2020-12-07] MEDS ORDERED: predniSONE 5 MG Tab PO SCH (09:00)
== END 2020-11-03 17:35 | disposition home or self-care (01) | DRG 861 ==
LOC: FB.MS 16:07
PROVIDERS: ADMIT Student in an Organized Health Care Education/Training Program; ATTEND Family Medicine
DX: R53.1 Weakness (principal); I13.0 Hypertensive heart and chronic kidney disease with heart failure and stage 1 through stage 4 chronic kidney disease, or unspecified chronic kidney disease; N17.9 Acute kidney failure, unspecified; I27.20 Pulmonary hypertension, unspecified; I50.9 Heart failure, unspecified; F41.9 Anxiety disorder, unspecified; Z51.5 Encounter for palliative care; E66.9 Obesity, unspecified; J84.9 Interstitial pulmonary disease, unspecified; Z96.0 Presence of urogenital implants; I25.10 Atherosclerotic heart disease of native coronary artery without angina pectoris; E78.00 Pure hypercholesterolemia, unspecified; I10 Essential (primary) hypertension; G47.30 Sleep apnea, unspecified; K59.09 Other constipation; M54.9 Dorsalgia, unspecified; G89.29 Other chronic pain; M19.011 Primary osteoarthritis, right shoulder; N18.9 Chronic kidney disease, unspecified; D64.9 Anemia, unspecified; K60.2 Anal fissure, unspecified; I48.20 Chronic atrial fibrillation, unspecified; J67.9 Hypersensitivity pneumonitis due to unspecified organic dust; Z88.0 Allergy status to penicillin; Z88.5 Allergy status to narcotic agent; Z79.01 Long term (current) use of anticoagulants; Z79.82 Long term (current) use of aspirin; Z79.899 Other long term (current) drug therapy; Z79.52 Long term (current) use of systemic steroids; Z95.5 Presence of coronary angioplasty implant and graft; Z87.01 Personal history of pneumonia (recurrent); Z87.442 Personal history of urinary calculi; Z86.16 Personal history of COVID-19; Z98.890 Other specified postprocedural states; B94.8 Sequelae of other specified infectious and parasitic diseases
CPT/HCPCS: 36415; 80048; 82947; 85025; 87086; 87088; 87186; 94640; 97110-GO; 97161-GP; 97165-GO; 97530-GO; 97530-GP; 97542-GO; A9270-GY; J1815; J7512; J7605; J7620-GY

== ENCOUNTER 2021-02-22 12:36 | Inpatient (IN) | payer BC, MEDICARE ==
[2021-02-22] MEDS ORDERED: Albuterol/Ipratropium 3.0-0.5 MG/3 ML Neb Soln NEB STA (12:49)
[2021-02-22] MEDS ORDERED: methylPREDNISolone Sodium Succinate 125 MG/2 ML SDV IVPUSH STA (12:49)
[2021-02-22] MEDS ORDERED: Morphine 4 MG/ML VIAL IVPUSH STA (12:57)
[2021-02-22] MEDS: Sodium Chloride 0.9% 10 ML Syringe FLUSH PRN ×4 (13:14→21:28)
[2021-02-22] MEDS ORDERED: Ondansetron 4 MG/2 ML SDV IVPUSH ONE (13:34)
[2021-02-22 13:45] LABS: BASE EXCESS VENOUS,POC 6 mmol/L (-2 - 3+); PCO2 VENOUS,POC 33 mmHg (41-51); PH VENOUS,POC 7.55 pH Units (7.32-7.43)
[2021-02-22] MEDS ORDERED: Propofol 200 MG/20 ML SDV IV ONE (14:59)
[2021-02-22] MEDS ORDERED: Midazolam 1 MG/ML 2 ML SDV IV ONE (14:59)
[2021-02-22] MEDS ORDERED: Lidocaine 2% 5 ML SDV INJECT ONE (14:59)
--- NOTE | 2021-02-22 15:16 | CR ---
INDICATION: Chest pain, dyspnea. CHEST ONE VIEW 56482: AP portable upright view of the chest 02/22/21 was compared with 10/09/20 and 07/15/20. Infiltration is noted bilaterally in the mid to lower lung cadet and appears more prominent than on the previous examination on the right and similar on the left. These areas of infiltration, although possibly recurrent infiltrate, more likely represent fibrosis or possibly pulmonary edema in a patient with CHF and COPD. The heart did not appear grossly enlarged raising suspicion for fibrosis. Overlying EKG leads are noted. IMPRESSION: 1. Findings again show evidence of bilateral infiltration which may actually represent fibrotic disease or possibly recurrent acute pulmonary edema in a patient with COPD. Recurrent pneumonia is felt to be less likely since the infiltrates appear almost identical to previous examinations, if somewhat more prominent on the right 2. Report was called to Dr. Le, at approximately 1405 hours. [facility]
[2021-02-22] MEDS ORDERED: Furosemide 40 MG/4 ML VIAL IVPUSH SCH (16:00)
[2021-02-22] MEDS ORDERED: Nitroglycerin 0.4 MG Tab.SL SL PRN (16:04)
[2021-02-22] MEDS ORDERED: Albuterol/Ipratropium 3.0-0.5 MG/3 ML Neb Soln NEB PRN (16:04)
[2021-02-22] MEDS ORDERED: Metolazone 2.5 MG Tab PO PRN (16:04)
[2021-02-22] MEDS ORDERED: Carboxymethylcellulose Sodium 0.5% Ophth Soln 15 ML Bottle EYEBOTH PRN (16:13)
[2021-02-22] MEDS ORDERED: Furosemide 20 MG/2 ML VIAL IVPUSH ONE (16:15)
--- NOTE | 2021-02-22 17:27 | PCM.HP.2 ---
H&P History of Present Illness - General Date of Service: 02/22/21 Admit Problem/Dx: Admission Diagnosis/Problem Admission Diagnosis/Problem Severe anemia, Hgb 5.6; CHF, Congestive heart failure Source of Information: Patient, Family History Limitations: Reports: No Limitations - History of Present Illness Initial Comments - Free Text/Narative: Mauricio presented to ER today for worsening shortness of breath for past few days, his oxygen has been 94% at home. He started PT on Friday and staff noted he was very pale. He has been having black stools per his , Anisa for past 4 days. His last colonoscopy was [address] Santacruz. He does not believe he has ever had EGD. He has history of pulmonary hypertension, pulmonary fibrosis, COPD on home O2. Has CPAP, they are to see pulmonology next to get oxygen hooked up to his CPAP as he drops overnight without it. Denies any hemoptysis, hematemesis, bloody stools or hematuria. He has had some nose bleed in his right nose, has nasal saline ordered but doesn't always use it. He has been more fatigued, doesn't leave his house, Anisa does most of her ADLs. No fevers, chills or cough. - Related Data Allergies/Adverse Reactions: Allergies Allergy/AdvReac Type Severity Reaction Status Date / Time Penicillins Allergy Hives Verified 10/09/20 17:31 hydromorphone HCl AdvReac Change Verified 10/09/20 17:31 [From Dilaudid] Mental Status Home Medications: Home Meds atorvaSTATin [Lipitor] 20 mg PO DAILY 06/06/14 [History] Apixaban [Eliquis] 5 mg PO BID 10/06/19 [History] Ascorbate Calcium [Vitamin C] 500 mg PO DAILY 10/06/19 [History] Aspirin [Adult Low Dose Aspirin EC] 81 mg PO Q48H 10/06/19 [History] Nitroglycerin [Nitrostat] 0.4 mg SL Q5M PRN 10/06/19 [History] Albuterol/Ipratropium [DuoNeb 3.0-0.5 MG/3 ML] 3 ml INH QID 07/15/20 [History] Bumetanide [Bumex] 1.5 mg PO BID@,14 07/15/20 [History] Esomeprazole [NexIUM] 20 mg PO DAILY 07/15/20 [History] Acyclovir [Zovirax 5% Oint] 1 applic TOP TID PRN 08/22/20 [History] Albuterol/Ipratropium [DuoNeb 3.0-0.5 MG/3 ML] 3 ml IH Q4H PRN 08/22/20 [History] Calcium Carbonate/Vitamin D3 [Calcium 500-Vit D3 200 Tablet] 1 tab PO DAILY 08/22/20 [History] Cholecalciferol (Vitamin D3) [Vitamin D3] 25 mcg PO DAILY 08/22/20 [History] Docusate Sodium/Sennosides [Senna Plus] 1 tab PO BID 08/22/20 [History] Polyvinyl Alcohol/Povidone [Refresh] 1 drop EYEBOTH DAILY PRN 08/22/20 [History] Benzonatate 100 mg PO QID PRN 10/27/20 [History] Metoprolol Succinate [Toprol XL] 200 mg PO DAILY 10/27/20 [History] Midodrine 2.5 mg PO TIDAC 10/27/20 [History] Treprostinil [Tyvaso] 3 inh IH QID 10/27/20 [History] Digoxin [Digitek] 125 mcg PO DAILY 11/03/20 [History] Bumetanide [Bumex] 1.5 mg PO BID PRN 02/22/21 [History] Carbidopa/Levodopa [Carbidopa-Levodopa 25-100] 1.5 tab PO TID 02/22/21 [History] Citalopram [Citalopram HBr] 10 mg PO DAILY 02/22/21 [History] Potassium Chloride 20 meq PO DAILY 02/22/21 [History] metOLazone [Metolazone] 2.5 mg PO DAILY PRN 02/22/21 [History] ondansetron HCL [Zofran] 4 mg PO Q6H PRN 02/22/21 [History] predniSONE [Prednisone] 10 mg PO DAILY 02/22/21 [History] Past Medical History HEENT History: Reports: Impaired Vision Cardiovascular History: Reports: Afib, CAD, Heart Failure, High Cholesterol, Hypertension, PTCA, Pulmonary Hypertension, Stents Other Cardiovascular History: cardioversion 10/04/19, cardiac ablation x 6 Respiratory History: Reports: COPD, Pneumonia, Recurrent, Sleep Apnea, SOB, Other (See Below) Other Respiratory History: On O2 @ 3L/NC Gastrointestinal History: Reports: Chronic Constipation, Other (See Below) Other Gastrointestinal History: rectal tear Genitourinary History: Reports: Renal Calculus Musculoskeletal History: Reports: Arthritis, Back Pain, Chronic, Fracture Other Musculoskeletal History: R shoulder arthritis, hx fx chin Endocrine/Metabolic History: Reports: Obesity/BMI 30+ Hematologic History: Reports: Anticoagulation Therapy, Iron Deficiency - Infectious Disease History Infectious Disease History: Reports: Chicken Pox, Measles, Novel Coronavirus - Past Surgical History HEENT Surgical History: Reports: Eye Surgery Other HEENT Surgeries/Procedures: L tear duct surgery Cardiovascular Surgical History: Reports: Cardiac Ablation, Carotid Endarterecto my, Coronary Artery Stent Other Cardiovascular Surgeries/Procedures: stents x 2, R carotid endarterectomy, cardiac ablation x 6 Respiratory Surgical History: Reports: Thoracentesis, Other (See Below) Other Respiratory Surgeries/Procedures: bronchoscopy GI Surgical History: Reports: Colonoscopy Male Surgical History: Reports: Lithotripsy (ESWL) Musculoskeletal Surgical History: Reports: None Social & Family History - Family History Family Medical History: No Pertinent Family History - Caffeine Use Caffeine Use: Reports: None - Living Situation & Occupation Living situation: Reports: Occupation: Retired H&P Review of Systems - Review of Systems: Review Of Systems: Comprehensive ROS is negative, except as noted in HPI. Exam - Exam Exam: See Below - Exam Quality Assessment: Supplemental Oxygen, Urinary Catheter (leg bag on) General: Alert, Oriented, Cooperative HEENT: PERRLA, Conjunctiva Clear, EOMI, Posterior Pharynx Clear, Glasses, Other (pale palpebral & buccal mucosa). No: Normal Nasal Septum (dried blood in right nare) Neck: Trachea Midline Lungs: Clear to Auscultation (BUL), Normal Respiratory Effort, Decreased Breath Sounds, Crackles (bibasilar). No: Wheezing Cardiovascular: Regular Rate, Regular Rhythm GI/Abdominal Exam: Normal Bowel Sounds, Soft, Non-Tender, No Distention (Male) Exam: Deferred Rectal (Males) Exam: Deferred Extremities: No Pedal Edema, Normal Capillary Refill, Pallor Peripheral Pulses: 2+: Radial (L), Radial (R), Posterior Tibial (L), Posterior Tibial (R), Dorsalis Pedis (L), Dorsalis Pedis (R) Skin: Warm, Dry, Intact - Patient Data Lab Results Last 24 hrs: Laboratory Results - last 24 hr 02/22/21 02/22/21 02/22/21 Range/Units 13:10 13:10 13:10 WBC 13.6 H (3.2-10.1) x10-3/uL RBC 2.42 L (3.90-5.90) x10(6)uL Hgb 5.6 L* D (12.9-17.7) g/dL Hct 19.3 L* D (38.3-50.1) % MCV 79.5 L (80.8-98.7) fL MCH 23.1 L (27.0-33.3) pg MCHC 29.0 (28.7-35.3) g/dL RDW 21.4 H (12.4-15.0) % Plt Count 375 (117-477) x10(3)uL MPV 7.1 (6.7-11.0) fL Neut % (Auto) 84.8 H (40.3-71.8) % Lymph % (Auto) 5.0 L (15.8-45.3) % Whitley % (Auto) 9.6 (5.5-15.2) % Eos % (Auto) 0.2 (0.1-6.8) % Baso % (Auto) 0.4 (0.3-3.8) % Neut # (Auto) 11.5 H (1.7-6.9) x10-3/uL Lymph # (Auto) 0.7 (0.5-4.5) x10-3/uL Whitley # (Auto) 1.3 H (0.0-1.2) x10-3/uL Eos # (Auto) 0.0 (0.0-0.6) x10-3/uL Baso # (Auto) 0.1 (0.0-0.3) x10-3/uL POC VBG pH (7.32-7.43) pH Units POC VBG pCO2 (41-51) mmHg POC VBG HCO3 (22-29) mmol/L VBG Base Excess (-2 - 3+) mmol/L O2 Delivery Device Oxygen Flow Rate LPM Sodium 143 (135-145) mmol/L Potassium 3.8 (3.5-5.3) mmol/L Chloride 102 (100-110) mmol/L Carbon Dioxide 30 (21-32) mmol/L BUN 40 H (7-18) mg/dL Creatinine 2.0 H* (0.70-1.30) mg/dL Est Cr Clr Drug Dosing TNP Estimated GFR (MDRD) 33 L (>60) BUN/Creatinine Ratio 20.0 (9-20) Glucose 152 H (80-116) mg/dL Lactic Acid (0.4-2.0) mmol/L Calcium 9.2 (8.6-10.2) mg/dL Total Bilirubin 1.3 (0.1-1.3) mg/dL AST 33 H D (5-25) IU/L ALT 14 D (12-36) U/L Alkaline Phosphatase 99 (56-112) IU/L Troponin I 31.1 (4.0-60.3) pg/mL NT-Pro-B Natriuret Pep 3970 H* (<=125) pg/mL Total Protein 6.5 (6.0-8.0) g/dL Albumin 3.3 (3.2-4.6) g/dL Globulin 3.2 g/dL Albumin/Globulin Ratio 1.0 SARS-CoV-2 RNA (BENJI) (NEGATIVE) Blood Type Gel Antibody Screen Crossmatch 02/22/21 02/22/21 02/22/21 Range/Units 13:10 13:42 14:25 WBC (3.2-10.1) x10-3/uL RBC (3.90-5.90) x10(6)uL Hgb (12.9-17.7) g/dL Hct (38.3-50.1) % MCV (80.8-98.7) fL MCH (27.0-33.3) pg MCHC (28.7-35.3) g/dL RDW (12.4-15.0) % Plt Count (117-477) x10(3)uL MPV (6.7-11.0) fL Neut % (Auto) (40.3-71.8) % Lymph % (Auto) (15.8-45.3) % Whitley % (Auto) (5.5-15.2) % Eos % (Auto) (0.1-6.8) % Baso % (Auto) (0.3-3.8) % Neut # (Auto) (1.7-6.9) x10-3/uL Lymph # (Auto) (0.5-4.5) x10-3/uL Whitley # (Auto) (0.0-1.2) x10-3/uL Eos # (Auto) (0.0-0.6) x10-3/uL Baso # (Auto) (0.0-0.3) x10-3/uL POC VBG pH 7.55 H (7.32-7.43) pH Units POC VBG pCO2 33 L (41-51) mmHg POC VBG HCO3 29 (22-29) mmol/L VBG Base Excess 6 H (-2 - 3+) mmol/L O2 Delivery Device Nasal cannula Oxygen Flow Rate 5 LPM Sodium (135-145) mmol/L Potassium (3.5-5.3) mmol/L Chloride (100-110) mmol/L Carbon Dioxide (21-32) mmol/L BUN (7-18) mg/dL Creatinine (0.70-1.30) mg/dL Est Cr Clr Drug Dosing Estimated GFR (MDRD) (>60) BUN/Creatinine Ratio (9-20) Glucose (80-116) mg/dL Lactic Acid 4.3 H* (0.4-2.0) mmol/L Calcium (8.6-10.2) mg/dL Total Bilirubin (0.1-1.3) mg/dL AST (5-25) IU/L ALT (12-36) U/L Alkaline Phosphatase (56-112) IU/L Troponin I (4.0-60.3) pg/mL NT-Pro-B Natriuret Pep (<=125) pg/mL Total Protein (6.0-8.0) g/dL Albumin (3.2-4.6) g/dL Globulin g/dL Albumin/Globulin Ratio SARS-CoV-2 RNA (BENJI) Negative (NEGATIVE) Blood Type Gel Antibody Screen Crossmatch 02/22/21 Range/Units 15:58 WBC (3.2-10.1) x10-3/uL RBC (3.90-5.90) x10(6)uL Hgb (12.9-17.7) g/dL Hct (38.3-50.1) % MCV (80.8-98.7) fL MCH (27.0-33.3) pg MCHC (28.7-35.3) g/dL RDW (12.4-15.0) % Plt Count (117-477) x10(3)uL MPV (6.7-11.0) fL Neut % (Auto) (40.3-71.8) % Lymph % (Auto) (15.8-45.3) % Whitley % (Auto) (5.5-15.2) % Eos % (Auto) (0.1-6.8) % Baso % (Auto) (0.3-3.8) % Neut # (Auto) (1.7-6.9) x10-3/uL Lymph # (Auto) (0.5-4.5) x10-3/uL Whitley # (Auto) (0.0-1.2) x10-3/uL Eos # (Auto) (0.0-0.6) x10-3/uL Baso # (Auto) (0.0-0.3) x10-3/uL POC VBG pH (7.32-7.43) pH Units POC VBG pCO2 (41-51) mmHg POC VBG HCO3 (22-29) mmol/L VBG Base Excess (-2 - 3+) mmol/L O2 Delivery Device Oxygen Flow Rate LPM Sodium (135-145) mmol/L Potassium (3.5-5.3) mmol/L Chloride (100-110) mmol/L Carbon Dioxide (21-32) mmol/L BUN (7-18) mg/dL Creatinine (0.70-1.30) mg/dL Est Cr Clr Drug Dosing Estimated GFR (MDRD) (>60) BUN/Creatinine Ratio (9-20) Glucose (80-116) mg/dL Lactic Acid (0.4-2.0) mmol/L Calcium (8.6-10.2) mg/dL Total Bilirubin (0.1-1.3) mg/dL AST (5-25) IU/L ALT (12-36) U/L Alkaline Phosphatase (56-112) IU/L Troponin I (4.0-60.3) pg/mL NT-Pro-B Natriuret Pep (<=125) pg/mL Total Protein (6.0-8.0) g/dL Albumin (3.2-4.6) g/dL Globulin g/dL Albumin/Globulin Ratio SARS-CoV-2 RNA (BENJI) (NEGATIVE) Blood Type O POSITIVE Gel Antibody Screen Negative Crossmatch See Detail Result Diagrams: 02/22/21 13:10 02/22/21 13:10 *Q Meaningful Use (ADM) - VTE *Q VTE Mechanical Contraindications *Q: At Risk for Falls VTE Pharmacological Contraindications *Q: Patient has Severe Anemia - VTE Risk Assess *Q Each Risk Factor Represents 1 Point: Congestive heart failure (CHF), Serious lung disease including pneumonia, Abnormal Pulmonary Function (COPD) Total Score 1 Point Risk Factors: 3 Each Risk Factor Represents 2 Points: Age 60 - 74 Years Total Score 2 Point Risk Factors: 2 Each Risk Factor Represents 3 Points: None Total Score 3 Point Risk Factors: 0 Each Risk Factor Represents 5 Points: None Total Score 5 Point Risk Factors: 0 Venous Thromboembolism Risk Factor Score *Q: 5 - Problem List (1) Anemia SNOMED Code(s): 933727454 ICD Code: D64.9 - ANEMIA, UNSPECIFIED Status: Acute Current Visit: Yes Qualifiers: Anemia type: unspecified type Qualified Code(s): D64.9 - Anemia, un specified (2) Black tarry stools SNOMED Code(s): 260123326 ICD Code: K92.1 - MELENA Status: Acute Current Visit: Yes (3) Heart failure SNOMED Code(s): 03573411 ICD Code: I50.9 - HEART FAILURE, UNSPECIFIED Status: Acute Current Visit: No (4) Acute and chronic respiratory failure SNOMED Code(s): 96890177 ICD Code: J96.20 - ACUTE AND CHR RESP FAILURE, UNSP W HYPOXIA OR HYPERCAPNIA Status: Chronic Current Visit: No Qualifiers: Respiratory failure complication: hypoxia Qualified Code(s): J96.21 - Acute and chronic respiratory failure with hypoxia (5) Anxiety SNOMED Code(s): 58718143 ICD Code: F41.9 - ANXIETY DISORDER, UNSPECIFIED Status: Chronic Current Visit: No (6) Interstitial lung disease SNOMED Code(s): 061943469 ICD Code: J84.9 - INTERSTITIAL PULMONARY DISEASE, UNSPECIFIED Status: Chronic Current Visit: No (7) Respiratory alkalosis SNOMED Code(s): 293950838 ICD Code: E87.3 - ALKALOSIS Status: Acute Current Visit: No (8) Physical deconditioning SNOMED Code(s): 18239239102697 ICD Code: R53.81 - OTHER MALAISE Status: Chronic Current Visit: No (9) Severe pulmonary hypertension SNOMED Code(s): 654585354 ICD Code: I27.20 - PULMONARY HYPERTENSION, UNSPECIFIED Status: Chronic Current Visit: No (10) Status post non-ST elevation myocardial infarction (NSTEMI) SNOMED Code(s): 514502151 ICD Code: I25.2 - OLD MYOCARDIAL INFARCTION Status: Chronic Current Visit: No Onset Date: ~08/17/20 (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: 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 - OTHER PSYCHOACTIVE SUBSTANCE DEPENDENCE, UNCOMPLICATED Status: Chronic Current Visit: No (12) Weakness SNOMED Code(s): 82943640 ICD Code: R53.1 - WEAKNESS Status: Chronic Current Visit: No (13) Chronic atrial fibrillation SNOMED Code(s): 001477654 ICD Code: I48.20 - CHRONIC ATRIAL FIBRILLATION, UNSPECIFIED Status: Chronic Current Visit: No (14) Chronic kidney disease SNOMED Code(s): 210745479 ICD Code: N18.9 - CHRONIC KIDNEY DISEASE, UNSPECIFIED Status: Chronic Current Visit: No (15) Indwelling Delacruz catheter present SNOMED Code(s): 508489953 ICD Code: Z97.8 - PRESENCE OF OTHER SPECIFIED DEVICES Status: Chronic Current Visit: No (16) Obesity SNOMED Code(s): 292066212, 501305269 ICD Code: E66.9 - OBESITY, UNSPECIFIED Status: Chronic Current Visit: No (17) Palliative care encounter SNOMED Code(s): 991655853, 492402259 ICD Code: Z51.5 - ENCOUNTER FOR PALLIATIVE CARE Status: Chronic Current Visit: No (18) COPD (chronic obstructive pulmonary disease) SNOMED Code(s): 89956229 ICD Code: J44.9 - CHRONIC OBSTRUCTIVE PULMONARY DISEASE, UNSPECIFIED Status: Chronic Current Visit: Yes (19) Sleep apnea with use of continuous positive airway pressure (CPAP) SNOMED Code(s): 02230825, 235746342 ICD Code: G47.30 - SLEEP APNEA, UNSPECIFIED Status: Chronic Current Visit: Yes Problem List Initiated/Reviewed/Updated: Yes Orders Last 24hrs: Active Orders 24 hr Category Date Time Status Patient Status [ADT] Routine ADT 02/22/21 16:01 Active Height and Weight [RC] DAILY Care 02/22/21 16:01 Active Intake and Output [RC] QSHIFT Care 02/22/21 16:02 Active Notify Provider Consults [RC] ASDIRECTED Care 02/22/21 15:57 Active Oxygen Therapy [RC] PRN Care 02/22/21 16:01 Active RT Aerosol Therapy [RC] ASDIRECTED Care 02/22/21 16:06 Active Up With Assistance [RC] ASDIRECTED Care 02/22/21 16:01 Active Up to Chair [RC] ASDIRECTED Care 02/22/21 16:01 Active Urinary Catheter Assessment [RC] QSHIFT Care 02/22/21 16:01 Active VTE/DVT Education [RC] Per Unit Routine Care 02/22/21 16:01 Active Vital Signs [RC] Q4H Care 02/22/21 16:01 Active Consult to Physician [CONS] Routine Cons 02/22/21 15:56 Ordered NPO After Midnight [Nothing per Oral After Midnight Diet 02/23/21 Breakfast Active Diet] [DIET] No Added Salt [DIET] Diet 02/22/21 Dinner Active BASIC METABOLIC PANEL,BMP [CHEM] Routine Lab 02/23/21 06:00 Ordered CBC WITH AUTO DIFF [HEME] Routine Lab 02/23/21 06:00 Ordered PATIENT RETYPE [BBK] Routine Lab 02/22/21 15:58 Results RED BLOOD CELLS LP [BBK] Routine Lab 02/22/21 15:58 Results TYPE AND SCREEN [BBK] Routine Lab 02/22/21 15:58 Results TYPE AND SCREEN [BBK] Routine Lab 02/22/21 15:59 Ordered Albuterol/Ipratropium [DuoNeb 3.0-0.5 MG/3 ML] Med 02/22/21 17:00 Active 3 ml INH QIDRT Albuterol/Ipratropium [DuoNeb 3.0-0.5 MG/3 ML] Med 02/22/21 16:04 Active 3 ml NEB Q4H PRN Carbidopa/Levodopa [Sinemet 25-100 mg] Med 02/22/21 21:00 Active 1.5 tab PO TID Carboxymethylcellulose Sodium [Refresh Tears 0.5%] Med 02/22/21 16:13 Active 0 ml EYEBOTH DAILY PRN Citalopram [Celexa] Med 02/23/21 09:00 Active 10 mg PO DAILY Digoxin [Lanoxin] Med 02/23/21 09:00 Active 125 mcg PO DAILY Docusate Sodium/Sennosides [Senna Plus] Med 02/22/21 21:00 Active 1 tab PO BID Furosemide [Lasix] Med 02/22/21 16:00 Active 40 mg IVPUSH BTNUNITS Metoprolol Succinate [Toprol XL] Med 02/23/21 09:00 Active 200 mg PO DAILY Midodrine Med 02/22/21 17:30 Active 2.5 mg PO TIDAC Nitroglycerin [Nitrostat] Med 02/22/21 16:04 Active 0.4 mg SL Q5M PRN Pantoprazole [ProTONIX] Med 02/23/21 09:00 Active 40 mg PO DAILY@0600 Potassium Chloride [Klor-Con M20] Med 02/23/21 09:00 Active 20 meq PO DAILY Sodium Chloride 0.9% [Normal Saline] 250 ml Med 02/22/21 16:00 Active IV ASDIRECTED Sodium Chloride 0.9% [Saline Flush] Med 02/22/21 12:45 Active 10 ml FLUSH ASDIRECTED PRN atorvaSTATin [Lipitor] Med 02/23/21 09:00 Active 20 mg PO DAILY metOLazone [Zaroxolyn] Med 02/22/21 16:04 Active 2.5 mg PO DAILY PRN predniSONE Med 02/23/21 09:00 Active 10 mg PO DAILY Antiembolic Hose [OM.PC] Per Unit Routine Ot 02/22/21 16:02 Ordered Saline Lock Insert [OM.PC] Routine Oth 02/22/21 12:45 Ordered Transfuse PRBC [Transfuse Red Blood Cells] [COMM] Oth 02/22/21 15:58 Ordered Routine Resuscitation Status Routine Resus Stat 02/22/21 16:01 Ordered EKG 12 Lead [EK] Routine Ther 02/22/21 12:45 Stop Req Medication Orders Albuterol/Ipratropium (Albuterol/Ipratropium 3.0-0.5 Mg/3 Ml Neb Soln) 3 ml NEB Q4H PRN PRN Reason: Shortness of Breath Albuterol/Ipratropium (Albuterol/Ipratropium 3.0-0.5 Mg/3 Ml Neb Soln) 3 ml INH QIDRT ULICES Artificial Tears (Carboxymethylcellulose Sodium 0.5% Ophth Soln 15 Ml Bottle) 0 ml EYEBOTH DAILY PRN PRN Reason: Dry Eyes Atorvastatin Calcium (Atorvastatin 20 Mg Tab) 20 mg PO DAILY [facility] Carbidopa/Levodopa (Carbidopa/Levodopa 25-100 Mg Tab) 1.5 tab PO TID [facility] Citalopram Hydrobromide (Citalopram 10 Mg Tab) 10 mg PO DAILY [facility] Digoxin (Digoxin 125 Mcg Tab) 125 mcg PO DAILY [facility] Furosemide (Furosemide 40 Mg/4 Ml Vial) 40 mg IVPUSH BTNUNITS [facility] Sodium Chloride (Normal Saline) 250 mls @ 100 mls/hr IV ASDIRECTED [facility] Metolazone (Metolazone 2.5 Mg Tab) 2.5 mg PO DAILY PRN PRN Reason: Edema Metoprolol Succinate (Metoprolol Succinate 100 Mg Tab.Er) 200 mg PO DAILY [facility] Midodrine (Midodrine 5 Mg Tab) 2.5 mg PO TIDAC [facility] Nitroglycerin (Nitroglycerin 0.4 Mg Tab.Sl) 0.4 mg SL Q5M PRN PRN Reason: Chest Pain Pantoprazole Sodium (Pantoprazole 40 Mg Tab.Cr) 40 mg PO DAILY@0600 [facility] Potassium Chloride (Potassium Chloride 20 Meq Tab.Er) 20 meq PO DAILY [facility] Prednisone (Prednisone 10 Mg Tab) 10 mg PO DAILY [facility] Senna/Docusate Sodium (Docusate Sodium/Sennosides 50-8.6 Mg Tab) 1 tab PO BID [facility] Sodium Chloride (Sodium Chloride 0.9% 10 Ml Syringe) 10 ml FLUSH ASDIRECTED PRN PRN Reason: Keep Vein Open Last Admin: 02/22/21 13:14 Dose: 10 ml Documented by: WIESCHE Assessment/Plan Comment:: 1. Admit to inpatient for severe anemia, black stools, congestive heart failure. 2. Severe anemia/black stools: Hgb 5.6. Type & Screen 2 units of PRBCs, trans fuse 2 units of PRBCs, Lasix 20 mg IV prior to transfusion of 1st unit since has CHF exacerbation on exam, x-ray and lab. Lasix 40 mg IV between units. Consulted Dr Barragan, will do EGD at 730 am tomorrow. NPO after midnight. 3. CHF: CXR pulmonary edema, chronic fibrosis. BNP 2940. Hold Bumex and give Lasix prior and between units. Reassess in am. Covid negative. 4. COPD/Pulmonary HTN/Pulmonary fibrosis: continue home nebs except Tyvaso as it can affect platelet aggregation. 5. Chronic atrial fibrillation: hold Eliquis at this time. 6. Diet: SHERIE, NPO after midnight. 7. Activity: up to chair and with assistance. 8. DVT prophylaxis: TEDs, hold anticoagulation due to severe anemia. 9. CODE STATUS: DNR/DNI. 10. Discharge planning: anticipate 48-72 hours for further evaluation, transfusion/diuresis as needed. Will adjust treatments as necessary. - Mortality Measure Prognosis:: Poor
[2021-02-22] MEDS: Albuterol/Ipratropium 3.0-0.5 MG/3 ML Neb Soln INH SCH ×2 (17:50→22:43)
[2021-02-22] MEDS: Midodrine 5 MG Tab PO SCH (18:20)
[2021-02-22] MEDS: Sodium Chloride 0.9% 250 ML IV SCH ×2 (18:38→22:00)
--- NOTE | 2021-02-22 20:38 | EDM.PDOC ---
ED HPI GENERAL MEDICAL PROBLEM - General Chief Complaint: Respiratory Problem Time Seen by Provider: 02/22/21 12:40 Source of Information: Reports: Patient, Family History Limitations: Reports: No Limitations - History of Present Illness INITIAL COMMENTS - FREE TEXT/NARRATIVE: Patient presented to the ED because of dyspnea, pleuritic chest pain and weakness. He started to have dyspnea 5 days ago and is getting worse. He is on home oxygen due to his CHF and COPD and his oxygen sat has been 0n the mid 's. There is no fever, chills, N/V/D. Denies having any melanotic stools,hematochezia or hematemesis. Has an EGD in the past and was diagnosed with Gastritis treated with PPI. - Related Data Allergies Allergy/AdvReac Type Severity Reaction Status Date / Time Penicillins Allergy Hives Verified 10/09/20 17:31 hydromorphone HCl AdvReac Change Verified 10/09/20 17:31 [From Dilaudid] Mental Status Home Meds: Home Meds atorvaSTATin [Lipitor] 20 mg PO DAILY 06/06/14 [History] Apixaban [Eliquis] 5 mg PO BID 10/06/19 [History] Ascorbate Calcium [Vitamin C] 500 mg PO DAILY 10/06/19 [History] Aspirin [Adult Low Dose Aspirin EC] 81 mg PO Q48H 10/06/19 [History] Nitroglycerin [Nitrostat] 0.4 mg SL Q5M PRN 10/06/19 [History] Albuterol/Ipratropium [DuoNeb 3.0-0.5 MG/3 ML] 3 ml INH QID 07/15/20 [History] Bumetanide [Bumex] 1.5 mg PO BID@08,14 07/15/20 [History] Esomeprazole [NexIUM] 20 mg PO DAILY 07/15/20 [History] Acyclovir [Zovirax 5% Oint] 1 applic TOP TID PRN 08/22/20 [History] Albuterol/Ipratropium [DuoNeb 3.0-0.5 MG/3 ML] 3 ml IH Q4H PRN 08/22/20 [History] Calcium Carbonate/Vitamin D3 [Calcium 500-Vit D3 200 Tablet] 1 tab PO DAILY 08/22/20 [History] Cholecalciferol (Vitamin D3) [Vitamin D3] 25 mcg PO DAILY 08/22/20 [History] Docusate Sodium/Sennosides [Senna Plus] 1 tab PO BID 08/22/20 [History] Polyvinyl Alcohol/Povidone [Refresh] 1 drop EYEBOTH DAILY PRN 08/22/20 [History] Benzonatate 100 mg PO QID PRN 10/27/20 [History] Metoprolol Succinate [Toprol XL] 200 mg PO DAILY 10/27/20 [History] Midodrine 2.5 mg PO TIDAC 10/27/20 [History] Treprostinil [Tyvaso] 3 inh IH QID 10/27/20 [History] Digoxin [Digitek] 125 mcg PO DAILY 11/03/20 [History] Bumetanide [Bumex] 1.5 mg PO BID PRN 02/22/21 [History] Carbidopa/Levodopa [Carbidopa-Levodopa 25-100] 1.5 tab PO TID 02/22/21 [History] Citalopram [Citalopram HBr] 10 mg PO DAILY 02/22/21 [History] Potassium Chloride 20 meq PO DAILY 02/22/21 [History] metOLazone [Metolazone] 2.5 mg PO DAILY PRN 02/22/21 [History] ondansetron HCL [Zofran] 4 mg PO Q6H PRN 02/22/21 [History] predniSONE [Prednisone] 10 mg PO DAILY 02/22/21 [History] Past Medical History HEENT History: Reports: Impaired Vision Cardiovascular History: Reports: Afib, CAD, Heart Failure, High Cholesterol, Hypertension, PTCA, Pulmonary Hypertension, Stents, Syncope Other Cardiovascular History: cardioversion 10/04/19, cardiac ablation x 6 Respiratory History: Reports: COPD, Pneumonia, Recurrent, Sleep Apnea, SOB, Other (See Below) Other Respiratory History: On O2 @ 3L/NC Gastrointestinal History: Reports: Chronic Constipation, Other (See Below) Other Gastrointestinal History: rectal tear Genitourinary History: Reports: Renal Calculus Musculoskeletal History: Reports: Arthritis, Back Pain, Chronic, Fracture Other Musculoskeletal History: R shoulder arthritis, hx fx chin Endocrine/Metabolic History: Reports: Obesity/BMI 30+ Hematologic History: Reports: Anticoagulation Therapy, Iron Deficiency - Infectious Disease History Infectious Disease History: Reports: Chicken Pox, Measles, Novel Coronavirus - Past Surgical History HEENT Surgical History: Reports: Eye Surgery Other HEENT Surgeries/Procedures: L tear duct surgery Cardiovascular Surgical History: Reports: Cardiac Ablation, Carotid Endarterectomy, Coronary Artery Stent Other Cardiovascular Surgeries/Procedures: stents x 2, R carotid endarterectomy, cardiac ablation x 6 Respiratory Surgical History: Reports: Thoracentesis, Other (See Below) Other Respiratory Surgeries/Procedures: bronchoscopy GI Surgical History: Reports: Colonoscopy Male Surgical History: Reports: Lithotripsy (ES[facility]) Musculoskeletal Surgical History: Reports: None Social & Family History - Family History Family Medical History: No Pertinent Family History - Tobacco Use Tobacco Use Status *Q: Former Tobacco User Used Tobacco, but Quit: Yes Month/Year Tobacco Last Used: 1984 - Caffeine Use Caffeine Use: Reports: None - Recreational Drug Use Recreational Drug Use: No - Living Situation & Occupation Living situation: Reports: Occupation: Retired ED ROS GENERAL - Review of Systems Review Of Systems: See Below Constitutional: Reports: No Symptoms HEENT: Reports: No Symptoms Respiratory: Reports: Shortness of Breath, Cough Cardiovascular: Reports: Chest Pain Endocrine: Reports: No Symptoms GI/Abdominal: Reports: No Symptoms : Reports: No Symptoms Musculoskeletal: Reports: No Symptoms Skin: Reports: No Symptoms Neurological: Reports: No Symptoms ED EXAM, GENERAL - Physical Exam Exam: See Below Exam Limited By: No Limitations General Appearance: Alert, No Apparent Distress Eye Exam: Bilateral Eye: PERRL Ears: Normal External Exam, Normal Canal Nose: Normal Inspection, Normal Mucosa, No Blood Throat/Mouth: Normal Inspection, Normal Lips, Normal Teeth, Normal Gums, Normal Oropharynx, Normal Voice Head: Atraumatic, Normocephalic Neck: Normal Inspection, Supple, Non-Tender, Full Range of Motion Respiratory/Chest: No Respiratory Distress, Lungs Clear, Normal Breath Sounds, No Accessory Muscle Use, Chest Non-Tender Cardiovascular: Normal Peripheral Pulses, Regular Rate, Rhythm, No Edema, No Gallop, No JVD, No Murmur, No Rub Peripheral Pulses: 2+: Radial (L), Radial (R), Posterior Tibial (L), Posterior Tibial (R), Dorsalis Pedis (L), Dorsalis Pedis (R) GI/Abdominal: Normal Bowel Sounds, Soft, Non-Tender, No Distention Back Exam: Normal Inspection, Full Range of Motion Extremities: No Pedal Edema, Normal Capillary Refill, Pallor #1 Interpretation EKG Date: 02/22/21 Time: 12:36 Rhythm: A-Fib Rate (Beats/Min): 70 [place]: Normal P-Wave: Present QRS: Normal ST-T: Normal QT: Normal Comparison: No Change EKG Interpretation Comments: Chronic AFIB Course - Vital Signs Text/Narrative:: Lab/EKG/CXR result was reviewed and discussed with patient Duoneb x 1 Morphine 4 mg IV x1 Zofran 4 mg IV x1 Solumedrol 125 mg IV x1 Last Recorded V/S: Last Vital Signs Temp 36.3 C 02/22/21 19:08 Pulse 68 02/22/21 19:08 Resp 20 02/22/21 19:08 BP 124/50 L 02/22/21 19:08 Pulse Ox 99 02/22/21 19:08 - Orders/Labs/Meds Orders: Active Orders 24 hr Category Date Time Status Sodium Chloride 0.9% [Saline Flush] Med 02/22/21 12:45 Active 10 ml FLUSH ASDIRECTED PRN Saline Lock Insert [OM.PC] Routine Oth 02/22/21 12:45 Ordered EKG 12 Lead [EK] Routine Ther 02/22/21 12:45 Stop Req Medication Orders Albuterol/Ipratropium (Albuterol/Ipratropium 3.0-0.5 Mg/3 Ml Neb Soln) 3 ml NEB Q4H PRN PRN Reason: Shortness of Breath Albuterol/Ipratropium (Albuterol/Ipratropium 3.0-0.5 Mg/3 Ml Neb Soln) 3 ml INH QIDRT [facility] Last Admin: 02/22/21 17:50 Dose: 3 ml Documented by: MARY Artificial Tears (Carboxymethylcellulose Sodium 0.5% Ophth Soln 15 Ml Bottle) 0 ml EYEBOTH DAILY PRN PRN Reason: Dry Eyes Atorvastatin Calcium (Atorvastatin 20 Mg Tab) 20 mg PO DAILY [facility] Carbidopa/Levodopa (Carbidopa/Levodopa 25-100 Mg Tab) 1.5 tab PO TID [facility] Citalopram Hydrobromide (Citalopram 10 Mg Tab) 10 mg PO DAILY [facility] Digoxin (Digoxin 125 Mcg Tab) 125 mcg PO DAILY [facility] Furosemide (Furosemide 40 Mg/4 Ml Vial) 40 mg IVPUSH BTNUNITS [facility] Sodium Chloride (Normal Saline) 250 mls @ 100 mls/hr IV ASDIRECTED [facility] Last Admin: 02/22/21 18:38 Dose: 100 mls/hr Documented by: MARY Metolazone (Metolazone 2.5 Mg Tab) 2.5 mg PO DAILY PRN PRN Reason: Edema Metoprolol Succinate (Metoprolol Succinate 100 Mg Tab.Er) 200 mg PO DAILY [facility] Midodrine (Midodrine 5 Mg Tab) 2.5 mg PO TIDAC [facility] Last Admin: 02/22/21 18:20 Dose: 2.5 mg Documented by: MARY Nitroglycerin (Nitroglycerin 0.4 Mg Tab.Sl) 0.4 mg SL Q5M PRN PRN Reason: Chest Pain Pantoprazole Sodium (Pantoprazole 40 Mg Vial) 40 mg IVPUSH Q12H [facility] Potassium Chloride (Potassium Chloride 20 Meq Tab.Er) 20 meq PO DAILY [facility] Prednisone (Prednisone 10 Mg Tab) 10 mg PO DAILY [facility] Senna/Docusate Sodium (Docusate Sodium/Sennosides 50-8.6 Mg Tab) 1 tab PO BID [facility] Sodium Chloride (Sodium Chloride 0.9% 10 Ml Syringe) 10 ml FLUSH ASDIRECTED PRN PRN Reason: Keep Vein Open Last Admin: 02/22/21 17:50 Dose: 10 ml Documented by: Admin: 02/22/21 13:14 Dose: 10 ml Documented by: MOIRA Labs: Laboratory Tests 02/22/21 02/22/21 02/22/21 Range/Units 13:10 13:10 13:10 WBC 13.6 H (3.2-10.1) x10-3/uL RBC 2.42 L (3.90-5.90) x10(6)uL Hgb 5.6 L* D (12.9-17.7) g/dL Hct 19.3 L* D (38.3-50.1) % MCV 79.5 L (80.8-98.7) fL MCH 23.1 L (27.0-33.3) pg MCHC 29.0 (28.7-35.3) g/dL RDW 21.4 H (12.4-15.0) % Plt Count 375 (117-477) x10(3)uL MPV 7.1 (6.7-11.0) fL Neut % (Auto) 84.8 H (40.3-71.8) % Lymph % (Auto) 5.0 L (15.8-45.3) % Sebastian % (Auto) 9.6 (5.5-15.2) % Eos % (Auto) 0.2 (0.1-6.8) % Baso % (Auto) 0.4 (0.3-3.8) % Neut # (Auto) 11.5 H (1.7-6.9) x10-3/uL Lymph # (Auto) 0.7 (0.5-4.5) x10-3/uL Sebastian # (Auto) 1.3 H (0.0-1.2) x10-3/uL Eos # (Auto) 0.0 (0.0-0.6) x10-3/uL Baso # (Auto) 0.1 (0.0-0.3) x10-3/uL POC VBG pH (7.32-7.43) pH Units POC VBG pCO2 (41-51) mmHg POC VBG HCO3 (22-29) mmol/L VBG Base Excess (-2 - 3+) mmol/L O2 Delivery Device Oxygen Flow Rate LPM Sodium 143 (135-145) mmol/L Potassium 3.8 (3.5-5.3) mmol/L Chloride 102 (100-110) mmol/L Carbon Dioxide 30 (21-32) mmol/L BUN 40 H (7-18) mg/dL Creatinine 2.0 H* (0.70-1.30) mg/dL Est Cr Clr Drug Dosing TNP Estimated GFR (MDRD) 33 L (>60) BUN/Creatinine Ratio 20.0 (9-20) Glucose 152 H (80-116) mg/dL Lactic Acid (0.4-2.0) mmol/L Calcium 9.2 (8.6-10.2) mg/dL Total Bilirubin 1.3 (0.1-1.3) mg/dL AST 33 H D (5-25) IU/L ALT 14 D (12-36) U/L Alkaline Phosphatase 99 (56-112) IU/L Troponin I 31.1 (4.0-60.3) pg/mL NT-Pro-B Natriuret Pep 3970 H* (<=125) pg/mL Total Protein 6.5 (6.0-8.0) g/dL Albumin 3.3 (3.2-4.6) g/dL Globulin 3.2 g/dL Albumin/Globulin Ratio 1.0 SARS-CoV-2 RNA (BENJI) (NEGATIVE) 02/22/21 02/22/21 02/22/21 Range/Units 13:10 13:42 14:25 WBC (3.2-10.1) x10-3/uL RBC (3.90-5.90) x10(6)uL Hgb (12.9-17.7) g/dL Hct (38.3-50.1) % MCV (80.8-98.7) fL MCH (27.0-33.3) pg MCHC (28.7-35.3) g/dL RDW (12.4-15.0) % Plt Count (117-477) x10(3)uL MPV (6.7-11.0) fL Neut % (Auto) (40.3-71.8) % Lymph % (Auto) (15.8-45.3) % Sebastian % (Auto) (5.5-15.2) % Eos % (Auto) (0.1-6.8) % Baso % (Auto) (0.3-3.8) % Neut # (Auto) (1.7-6.9) x10-3/uL Lymph # (Auto) (0.5-4.5) x10-3/uL Sebastian # (Auto) (0.0-1.2) x10-3/uL Eos # (Auto) (0.0-0.6) x10-3/uL Baso # (Auto) (0.0-0.3) x10-3/uL POC VBG pH 7.55 H (7.32-7.43) pH Units POC VBG pCO2 33 L (41-51) mmHg POC VBG HCO3 29 (22-29) mmol/L VBG Base Excess 6 H (-2 - 3+) mmol/L O2 Delivery Device Nasal cannula Oxygen Flow Rate 5 LPM Sodium (135-145) mmol/L Potassium (3.5-5.3) mmol/L Chloride (100-110) mmol/L Carbon Dioxide (21-32) mmol/L BUN (7-18) mg/dL Creatinine (0.70-1.30) mg/dL Est Cr Clr Drug Dosing Estimated GFR (MDRD) (>60) BUN/Creatinine Ratio (9-20) Glucose (80-116) mg/dL Lactic Acid 4.3 H* (0.4-2.0) mmol/L Calcium (8.6-10.2) mg/dL Total Bilirubin (0.1-1.3) mg/dL AST (5-25) IU/L ALT (12-36) U/L Alkaline Phosphatase (56-112) IU/L Troponin I (4.0-60.3) pg/mL NT-Pro-B Natriuret Pep (<=125) pg/mL Total Protein (6.0-8.0) g/dL Albumin (3.2-4.6) g/dL Globulin g/dL Albumin/Globulin Ratio SARS-CoV-2 RNA (BENJI) Negative (NEGATIVE) Meds: Medications Generic Name Dose Route Start Last Admin Trade Name Freq PRN Reason Stop Dose Admin Albuterol/Ipratropium 3 ml 02/22/21 16:04 Albuterol/Ipratropium 3.0-0.5 Mg/3 Ml Neb Soln NEB Q4H PRN Shortness of Breath Albuterol/Ipratropium 3 ml 02/22/21 17:00 02/22/21 17:50 Albuterol/Ipratropium 3.0-0.5 Mg/3 Ml Neb Soln INH 3 ml QIDRT [facility] Administration Artificial Tears 0 ml 02/22/21 16:13 Carboxymethylcellulose Sodium 0.5% Ophth Soln 15 Ml Bottle EYEBOTH DAILY PRN Dry Eyes Atorvastatin Calcium 20 mg 02/23/21 09:00 Atorvastatin 20 Mg Tab PO DAILY [facility] Carbidopa/Levodopa 1.5 tab 02/22/21 21:00 Carbidopa/Levodopa 25-100 Mg Tab PO TID [facility] Citalopram Hydrobromide 10 mg 02/23/21 09:00 Citalopram 10 Mg Tab PO DAILY [facility] Digoxin 125 mcg 02/23/21 09:00 Digoxin 125 Mcg Tab PO DAILY [facility] Furosemide 40 mg 02/22/21 16:00 Furosemide 40 Mg/4 Ml Vial IVPUSH BTNUNITS [facility] Sodium Chloride 250 mls @ 100 mls/hr 02/22/21 16:00 02/22/21 18:38 Normal Saline IV 100 mls/hr ASDIRECTED [facility] Administration Metolazone 2.5 mg 02/22/21 16:04 Metolazone 2.5 Mg Tab PO DAILY PRN Edema Metoprolol Succinate 200 mg 02/23/21 09:00 Metoprolol Succinate 100 Mg Tab.Er PO DAILY [facility] Midodrine 2.5 mg 02/22/21 17:30 02/22/21 18:20 Midodrine 5 Mg Tab PO 2.5 mg TIDAC [facility] Administration Nitroglycerin 0.4 mg 02/22/21 16:04 Nitroglycerin 0.4 Mg Tab.Sl SL Q5M PRN Chest Pain Pantoprazole Sodium 40 mg 02/22/21 20:00 Pantoprazole 40 Mg Vial IVPUSH Q12H [facility] Potassium Chloride 20 meq 02/23/21 09:00 Potassium Chloride 20 Meq Tab.Er PO DAILY [facility] Prednisone 10 mg 02/23/21 09:00 Prednisone 10 Mg Tab PO DAILY [facility] Senna/Docusate Sodium 1 tab 02/22/21 21:00 Docusate Sodium/Sennosides 50-8.6 Mg Tab PO BID [facility] Sodium Chloride 10 ml 02/22/21 12:45 02/22/21 17:50 Sodium Chloride 0.9% 10 Ml Syringe FLUSH 10 ml ASDIRECTED PRN Administration Keep Vein Open Discontinued Medications Generic Name Dose Route Start Last Admin Trade Name Freq PRN Reason Stop Dose Admin Albuterol/Ipratropium 3 ml 02/22/21 12:49 02/22/21 13:13 Albuterol/Ipratropium 3.0-0.5 Mg/3 Ml Neb Soln NEB 02/22/21 12:50 3 ml NOW STA Administration Furosemide 20 mg 02/22/21 16:15 02/22/21 17:50 Furosemide 20 Mg/2 Ml Vial IVPUSH 02/22/21 16:16 20 mg NOW ONE Administration Methylprednisolone Sodium Succinate 125 mg 02/22/21 12:49 02/22/21 13:13 Methylprednisolone Sodium Succinate 125 Mg/2 Ml Sdv IVPUSH 02/22/21 12:50 125 mg NOW STA Administration Morphine Sulfate 4 mg 02/22/21 12:57 02/22/21 13:13 Morphine 4 Mg/Ml Vial IVPUSH 02/22/21 12:58 4 mg NOW STA Administration Ondansetron HCl 4 mg 02/22/21 13:34 02/22/21 13:40 Ondansetron 4 Mg/2 Ml Sdv IVPUSH 02/22/21 13:35 4 mg ONETIME ONE Administration Pantoprazole Sodium 40 mg 02/23/21 09:00 Pantoprazole 40 Mg Tab.Cr PO DAILY@0600 [facility] Departure - Departure Time of Disposition: 16:00 Disposition: Admitted As Inpatient 67 Condition: Good Clinical Impression: CHF (congestive heart failure), COPD (chronic obstructive pulmonary disease), Pulmonary fibrosis - Discharge Information - My Orders Last 24 Hours: My Active Orders 02/22/21 12:45 Sodium Chloride 0.9% [Saline Flush] 10 ml FLUSH ASDIRECTED PRN Saline Lock Insert [OM.PC] Routine EKG 12 Lead [EK] Routine - Assessment/Plan Last 24 Hours: My Active Orders 02/22/21 12:45 Sodium Chloride 0.9% [Saline Flush] 10 ml FLUSH ASDIRECTED PRN Saline Lock Insert [OM.PC] Routine EKG 12 Lead [EK] Routine
[2021-02-22] MEDS: Pantoprazole 40 MG Vial IVPUSH SCH (21:23)
[2021-02-22] MEDS: Carbidopa/Levodopa 25-100 MG Tab PO SCH (22:43)
[2021-02-23] MEDS: Albuterol/Ipratropium 3.0-0.5 MG/3 ML Neb Soln INH SCH ×4 (06:23→20:22)
--- NOTE | 2021-02-23 07:43 | PCM.PN ---
- General Info Date of Service: 02/23/21 - Review of Systems Systems Review Comment:: 75 y/o male admitted yesterday PM with anemia. Possible history of dark stools. Plan EGD. Patient has multiple medical problems as outlined in H and P but he is stable to proceed this AM. I have discussed the proposed EGD with the patient. He agrees to proceed accepting risks. - Patient Data Vitals - Most Recent: Last Vital Signs Temp 98.2 F 02/23/21 05:00 Pulse 70 02/23/21 05:00 Resp 20 02/23/21 05:00 BP 120/64 02/23/21 05:00 Pulse Ox 96 02/23/21 05:00 Weight - Most Recent: 198 lb I&O - Last 24 Hours: Intake & Output 02/22/21 02/23/21 02/23/21 22:59 06:59 14:59 Intake Total 420 390 Output Total 350 475 Balance 70 -85 Lab Results Last 24 Hours: Laboratory Results - last 24 hr 02/22/21 02/22/21 02/22/21 Range/Units 13:10 13:10 13:10 WBC 13.6 H (3.2-10.1) x10-3/uL RBC 2.42 L (3.90-5.90) x10(6)uL Hgb 5.6 L* D (12.9-17.7) g/dL Hct 19.3 L* D (38.3-50.1) % MCV 79.5 L (80.8-98.7) fL MCH 23.1 L (27.0-33.3) pg MCHC 29.0 (28.7-35.3) g/dL RDW 21.4 H (12.4-15.0) % Plt Count 375 (117-477) x10(3)uL MPV 7.1 (6.7-11.0) fL Neut % (Auto) 84.8 H (40.3-71.8) % Lymph % (Auto) 5.0 L (15.8-45.3) % [place] % (Auto) 9.6 (5.5-15.2) % Eos % (Auto) 0.2 (0.1-6.8) % Baso % (Auto) 0.4 (0.3-3.8) % Neut # (Auto) 11.5 H (1.7-6.9) x10-3/uL Lymph # (Auto) 0.7 (0.5-4.5) x10-3/uL [place] # (Auto) 1.3 H (0.0-1.2) x10-3/uL Eos # (Auto) 0.0 (0.0-0.6) x10-3/uL Baso # (Auto) 0.1 (0.0-0.3) x10-3/uL Add Manual Diff Neutrophils % (Manual) (46-82) % Lymphocytes % (Manual) (13-37) % Monocytes % (Manual) (4-12) % Polychromasia Hypochromasia Anisocytosis POC VBG pH (7.32-7.43) pH Units POC VBG pCO2 (41-51) mmHg POC VBG HCO3 (22-29) mmol/L VBG Base Excess (-2 - 3+) mmol/L O2 Delivery Device Oxygen Flow Rate LPM Sodium 143 (135-145) mmol/L Potassium 3.8 (3.5-5.3) mmol/L Chloride 102 (100-110) mmol/L Carbon Dioxide 30 (21-32) mmol/L BUN 40 H (7-18) mg/dL Creatinine 2.0 H* (0.70-1.30) mg/dL Est Cr Clr Drug Dosing TNP Estimated GFR (MDRD) 33 L (>60) BUN/Creatinine Ratio 20.0 (9-20) Glucose 152 H (80-116) mg/dL Lactic Acid (0.4-2.0) mmol/L Calcium 9.2 (8.6-10.2) mg/dL Total Bilirubin 1.3 (0.1-1.3) mg/dL AST 33 H D (5-25) IU/L ALT 14 D (12-36) U/L Alkaline Phosphatase 99 (56-112) IU/L Troponin I 31.1 (4.0-60.3) pg/mL NT-Pro-B Natriuret Pep 3970 H* (<=125) pg/mL Total Protein 6.5 (6.0-8.0) g/dL Albumin 3.3 (3.2-4.6) g/dL Globulin 3.2 g/dL Albumin/Globulin Ratio 1.0 SARS-CoV-2 RNA (BENJI) (NEGATIVE) Blood Type Gel Antibody Screen Crossmatch 02/22/21 02/22/21 02/22/21 Range/Units 13:10 13:42 14:25 WBC (3.2-10.1) x10-3/uL RBC (3.90-5.90) x10(6)uL Hgb (12.9-17.7) g/dL Hct (38.3-50.1) % MCV (80.8-98.7) fL MCH (27.0-33.3) pg MCHC (28.7-35.3) g/dL RDW (12.4-15.0) % Plt Count (117-477) x10(3)uL MPV (6.7-11.0) fL Neut % (Auto) (40.3-71.8) % Lymph % (Auto) (15.8-45.3) % [place] % (Auto) (5.5-15.2) % Eos % (Auto) (0.1-6.8) % Baso % (Auto) (0.3-3.8) % Neut # (Auto) (1.7-6.9) x10-3/uL Lymph # (Auto) (0.5-4.5) x10-3/uL [place] # (Auto) (0.0-1.2) x10-3/uL Eos # (Auto) (0.0-0.6) x10-3/uL Baso # (Auto) (0.0-0.3) x10-3/uL Add Manual Diff Neutrophils % (Manual) (46-82) % Lymphocytes % (Manual) (13-37) % Monocytes % (Manual) (4-12) % Polychromasia Hypochromasia Anisocytosis POC VBG pH 7.55 H (7.32-7.43) pH Units POC VBG pCO2 33 L (41-51) mmHg POC VBG HCO3 29 (22-29) mmol/L VBG Base Excess 6 H (-2 - 3+) mmol/L O2 Delivery Device Nasal cannula Oxygen Flow Rate 5 LPM Sodium (135-145) mmol/L Potassium (3.5-5.3) mmol/L Chloride (100-110) mmol/L Carbon Dioxide (21-32) mmol/L BUN (7-18) mg/dL Creatinine (0.70-1.30) mg/dL Est Cr Clr Drug Dosing Estimated GFR (MDRD) (>60) BUN/Creatinine Ratio (9-20) Glucose (80-116) mg/dL Lactic Acid 4.3 H* (0.4-2.0) mmol/L Calcium (8.6-10.2) mg/dL Total Bilirubin (0.1-1.3) mg/dL AST (5-25) IU/L ALT (12-36) U/L Alkaline Phosphatase (56-112) IU/L Troponin I (4.0-60.3) pg/mL NT-Pro-B Natriuret Pep (<=125) pg/mL Total Protein (6.0-8.0) g/dL Albumin (3.2-4.6) g/dL Globulin g/dL Albumin/Globulin Ratio SARS-CoV-2 RNA (BENJI) Negative (NEGATIVE) Blood Type Gel Antibody Screen Crossmatch 02/22/21 02/22/21 02/22/21 Range/Units 15:58 17:55 21:55 WBC (3.2-10.1) x10-3/uL RBC (3.90-5.90) x10(6)uL Hgb (12.9-17.7) g/dL Hct (38.3-50.1) % MCV (80.8-98.7) fL MCH (27.0-33.3) pg MCHC (28.7-35.3) g/dL RDW (12.4-15.0) % Plt Count (117-477) x10(3)uL MPV (6.7-11.0) fL Neut % (Auto) (40.3-71.8) % Lymph % (Auto) (15.8-45.3) % [place] % (Auto) (5.5-15.2) % Eos % (Auto) (0.1-6.8) % Baso % (Auto) (0.3-3.8) % Neut # (Auto) (1.7-6.9) x10-3/uL Lymph # (Auto) (0.5-4.5) x10-3/uL [place] # (Auto) (0.0-1.2) x10-3/uL Eos # (Auto) (0.0-0.6) x10-3/uL Baso # (Auto) (0.0-0.3) x10-3/uL Add Manual Diff Neutrophils % (Manual) (46-82) % Lymphocytes % (Manual) (13-37) % Monocytes % (Manual) (4-12) % Polychromasia Hypochromasia Anisocytosis POC VBG pH (7.32-7.43) pH Units POC VBG pCO2 (41-51) mmHg POC VBG HCO3 (22-29) mmol/L VBG Base Excess (-2 - 3+) mmol/L O2 Delivery Device Oxygen Flow Rate LPM Sodium (135-145) mmol/L Potassium (3.5-5.3) mmol/L Chloride (100-110) mmol/L Carbon Dioxide (21-32) mmol/L BUN (7-18) mg/dL Creatinine (0.70-1.30) mg/dL Est Cr Clr Drug Dosing Estimated GFR (MDRD) (>60) BUN/Creatinine Ratio (9-20) Glucose (80-116) mg/dL Lactic Acid 2.6 H* 1.6 (0.4-2.0) mmol/L Calcium (8.6-10.2) mg/dL Total Bilirubin (0.1-1.3) mg/dL AST (5-25) IU/L ALT (12-36) U/L Alkaline Phosphatase (56-112) IU/L Troponin I (4.0-60.3) pg/mL NT-Pro-B Natriuret Pep (<=125) pg/mL Total Protein (6.0-8.0) g/dL Albumin (3.2-4.6) g/dL Globulin g/dL Albumin/Globulin Ratio SARS-CoV-2 RNA (BENJI) (NEGATIVE) Blood Type O POSITIVE Gel Antibody Screen Negative Crossmatch See Detail 02/23/21 02/23/21 Range/Units 06:40 06:40 WBC 11.5 H (3.2-10.1) x10-3/uL RBC 3.30 L (3.90-5.90) x10(6)uL Hgb 8.5 L (12.9-17.7) g/dL Hct 26.8 L (38.3-50.1) % MCV 81.2 (80.8-98.7) fL MCH 25.6 L (27.0-33.3) pg MCHC 31.6 (28.7-35.3) g/dL RDW 19.8 H (12.4-15.0) % Plt Count 300 (117-477) x10(3)uL MPV 7.1 (6.7-11.0) fL Neut % (Auto) (40.3-71.8) % Lymph % (Auto) (15.8-45.3) % [place] % (Auto) (5.5-15.2) % Eos % (Auto) (0.1-6.8) % Baso % (Auto) (0.3-3.8) % Neut # (Auto) (1.7-6.9) x10-3/uL Lymph # (Auto) (0.5-4.5) x10-3/uL [place] # (Auto) (0.0-1.2) x10-3/uL Eos # (Auto) (0.0-0.6) x10-3/uL Baso # (Auto) (0.0-0.3) x10-3/uL Add Manual Diff Yes Neutrophils % (Manual) 90 H (46-82) % Lymphocytes % (Manual) 5 L (13-37) % Monocytes % (Manual) 5 (4-12) % Polychromasia Occasional Hypochromasia Few Anisocytosis Few POC VBG pH (7.32-7.43) pH Units POC VBG pCO2 (41-51) mmHg POC VBG HCO3 (22-29) mmol/L VBG Base Excess (-2 - 3+) mmol/L O2 Delivery Device Oxygen Flow Rate LPM Sodium 142 (135-145) mmol/L Potassium 4.2 (3.5-5.3) mmol/L Chloride 102 (100-110) mmol/L Carbon Dioxide 32 (21-32) mmol/L BUN 42 H (7-18) mg/dL Creatinine 2.1 H* (0.70-1.30) mg/dL Est Cr Clr Drug Dosing 28.85 Estimated GFR (MDRD) 31 L (>60) BUN/Creatinine Ratio 20.0 (9-20) Glucose 187 H (80-116) mg/dL Lactic Acid (0.4-2.0) mmol/L Calcium 8.8 (8.6-10.2) mg/dL Total Bilirubin (0.1-1.3) mg/dL AST (5-25) IU/L ALT (12-36) U/L Alkaline Phosphatase (56-112) IU/L Troponin I (4.0-60.3) pg/mL NT-Pro-B Natriuret Pep (<=125) pg/mL Total Protein (6.0-8.0) g/dL Albumin (3.2-4.6) g/dL Globulin g/dL Albumin/Globulin Ratio SARS-CoV-2 RNA (BENJI) (NEGATIVE) Blood Type Gel Antibody Screen Crossmatch Med Orders - Current: Current Medications Albuterol/Ipratropium (Albuterol/Ipratropium 3.0-0.5 Mg/3 Ml Neb Soln) 3 ml NEB Q4H PRN PRN Reason: Shortness of Breath Albuterol/Ipratropium (Albuterol/Ipratropium 3.0-0.5 Mg/3 Ml Neb Soln) 3 ml INH QIDRT COUNTS INCLUDE 234 BEDS AT THE [facility] Last Admin: 02/23/21 06:23 Dose: 3 ml Documented by: Artificial Tears (Carboxymethylcellulose Sodium 0.5% Ophth Soln 15 Ml Bottle) 0 ml EYEBOTH DAILY PRN PRN Reason: Dry Eyes Atorvastatin Calcium (Atorvastatin 20 Mg Tab) 20 mg PO DAILY COUNTS INCLUDE 234 BEDS AT THE [facility] Carbidopa/Levodopa (Carbidopa/Levodopa 25-100 Mg Tab) 1.5 tab PO TID COUNTS INCLUDE 234 BEDS AT THE [facility] Last Admin: 02/22/21 22:43 Dose: 1.5 tab Documented by: Citalopram Hydrobromide (Citalopram 10 Mg Tab) 10 mg PO DAILY COUNTS INCLUDE 234 BEDS AT THE [facility] Digoxin (Digoxin 125 Mcg Tab) 125 mcg PO DAILY COUNTS INCLUDE 234 BEDS AT THE [facility] Furosemide (Furosemide 40 Mg/4 Ml Vial) 40 mg IVPUSH BTNUNITS COUNTS INCLUDE 234 BEDS AT THE [facility] Last Admin: 02/22/21 21:16 Dose: 40 mg Documented by: Sodium Chloride (Normal Saline) 250 mls @ 100 mls/hr IV ASDIRECTED COUNTS INCLUDE 234 BEDS AT THE [facility] Last Admin: 02/22/21 22:00 Dose: 100 mls/hr Documented by: Metolazone (Metolazone 2.5 Mg Tab) 2.5 mg PO DAILY PRN PRN Reason: Edema Metoprolol Succinate (Metoprolol Succinate 100 Mg Tab.Er) 200 mg PO DAILY COUNTS INCLUDE 234 BEDS AT THE [facility] Midodrine (Midodrine 5 Mg Tab) 2.5 mg PO TIDAC COUNTS INCLUDE 234 BEDS AT THE [facility] Last Admin: 02/22/21 18:20 Dose: 2.5 mg Documented by: Nitroglycerin (Nitroglycerin 0.4 Mg Tab.Sl) 0.4 mg SL Q5M PRN PRN Reason: Chest Pain Pantoprazole Sodium (Pantoprazole 40 Mg Vial) 40 mg IVPUSH Q12H COUNTS INCLUDE 234 BEDS AT THE [facility] Last Admin: 02/22/21 21:23 Dose: 40 mg Documented by: Potassium Chloride (Potassium Chloride 20 Meq Tab.Er) 20 meq PO DAILY COUNTS INCLUDE 234 BEDS AT THE [facility] Prednisone (Prednisone 10 Mg Tab) 10 mg PO DAILY COUNTS INCLUDE 234 BEDS AT THE [facility] Senna/Docusate Sodium (Docusate Sodium/Sennosides 50-8.6 Mg Tab) 1 tab PO BID COUNTS INCLUDE 234 BEDS AT THE [facility] Last Admin: 02/22/21 22:43 Dose: 1 tab Documented by: Sodium Chloride (Sodium Chloride 0.9% 10 Ml Syringe) 10 ml FLUSH ASDIRECTED PRN PRN Reason: Keep Vein Open Last Admin: 02/22/21 21:28 Dose: 10 ml Documented by: Discontinued Medications Albuterol/Ipratropium (Albuterol/Ipratropium 3.0-0.5 Mg/3 Ml Neb Soln) 3 ml NEB NOW STA Stop: 02/22/21 12:50 Last Admin: 02/22/21 13:13 Dose: 3 ml Documented by: Furosemide (Furosemide 20 Mg/2 Ml Vial) 20 mg IVPUSH NOW ONE Stop: 02/22/21 16:16 Last Admin: 02/22/21 17:50 Dose: 20 mg Documented by: Methylprednisolone Sodium Succinate (Methylprednisolone Sodium Succinate 125 Mg/2 Ml Sdv) 125 mg IVPUSH NOW STA Stop: 02/22/21 12:50 Last Admin: 02/22/21 13:13 Dose: 125 mg Documented by: Morphine Sulfate (Morphine 4 Mg/Ml Vial) 4 mg IVPUSH NOW STA Stop: 02/22/21 12:58 Last Admin: 02/22/21 13:13 Dose: 4 mg Documented by: Ondansetron HCl (Ondansetron 4 Mg/2 Ml Sdv) 4 mg IVPUSH ONETIME ONE Stop: 02/22/21 13:35 Last Admin: 02/22/21 13:40 Dose: 4 mg Documented by: Pantoprazole Sodium (Pantoprazole 40 Mg Tab.Cr) 40 mg PO DAILY@0600 ULICES - Patient Data Lab Results Last 24 hrs: Laboratory Results - last 24 hr 02/22/21 02/22/21 02/22/21 Range/Units 13:10 13:10 13:10 WBC 13.6 H (3.2-10.1) x10-3/uL RBC 2.42 L (3.90-5.90) x10(6)uL Hgb 5.6 L* D (12.9-17.7) g/dL Hct 19.3 L* D (38.3-50.1) % MCV 79.5 L (80.8-98.7) fL MCH 23.1 L (27.0-33.3) pg MCHC 29.0 (28.7-35.3) g/dL RDW 21.4 H (12.4-15.0) % Plt Count 375 (117-477) x10(3)uL MPV 7.1 (6.7-11.0) fL Neut % (Auto) 84.8 H (40.3-71.8) % Lymph % (Auto) 5.0 L (15.8-45.3) % [place] % (Auto) 9.6 (5.5-15.2) % Eos % (Auto) 0.2 (0.1-6.8) % Baso % (Auto) 0.4 (0.3-3.8) % Neut # (Auto) 11.5 H (1.7-6.9) x10-3/uL Lymph # (Auto) 0.7 (0.5-4.5) x10-3/uL [place] # (Auto) 1.3 H (0.0-1.2) x10-3/uL Eos # (Auto) 0.0 (0.0-0.6) x10-3/uL Baso # (Auto) 0.1 (0.0-0.3) x10-3/uL Add Manual Diff Neutrophils % (Manual) (46-82) % Lymphocytes % (Manual) (13-37) % Monocytes % (Manual) (4-12) % Polychromasia Hypochromasia Anisocytosis POC VBG pH (7.32-7.43) pH Units POC VBG pCO2 (41-51) mmHg POC VBG HCO3 (22-29) mmol/L VBG Base Excess (-2 - 3+) mmol/L O2 Delivery Device Oxygen Flow Rate LPM Sodium 143 (135-145) mmol/L Potassium 3.8 (3.5-5.3) mmol/L Chloride 102 (100-110) mmol/L Carbon Dioxide 30 (21-32) mmol/L BUN 40 H (7-18) mg/dL Creatinine 2.0 H* (0.70-1.30) mg/dL Est Cr Clr Drug Dosing TNP Estimated GFR (MDRD) 33 L (>60) BUN/Creatinine Ratio 20.0 (9-20) Glucose 152 H (80-116) mg/dL Lactic Acid (0.4-2.0) mmol/L Calcium 9.2 (8.6-10.2) mg/dL Total Bilirubin 1.3 (0.1-1.3) mg/dL AST 33 H D (5-25) IU/L ALT 14 D (12-36) U/L Alkaline Phosphatase 99 (56-112) IU/L Troponin I 31.1 (4.0-60.3) pg/mL NT-Pro-B Natriuret Pep 3970 H* (<=125) pg/mL Total Protein 6.5 (6.0-8.0) g/dL Albumin 3.3 (3.2-4.6) g/dL Globulin 3.2 g/dL Albumin/Globulin Ratio 1.0 SARS-CoV-2 RNA (BENJI) (NEGATIVE) Blood Type Gel Antibody Screen Crossmatch 02/22/21 02/22/21 02/22/21 Range/Units 13:10 13:42 14:25 WBC (3.2-10.1) x10-3/uL RBC (3.90-5.90) x10(6)uL Hgb (12.9-17.7) g/dL Hct (38.3-50.1) % MCV (80.8-98.7) fL MCH (27.0-33.3) pg MCHC (28.7-35.3) g/dL RDW (12.4-15.0) % Plt Count (117-477) x10(3)uL MPV (6.7-11.0) fL Neut % (Auto) (40.3-71.8) % Lymph % (Auto) (15.8-45.3) % [place] % (Auto) (5.5-15.2) % Eos % (Auto) (0.1-6.8) % Baso % (Auto) (0.3-3.8) % Neut # (Auto) (1.7-6.9) x10-3/uL Lymph # (Auto) (0.5-4.5) x10-3/uL [place] # (Auto) (0.0-1.2) x10-3/uL Eos # (Auto) (0.0-0.6) x10-3/uL Baso # (Auto) (0.0-0.3) x10-3/uL Add Manual Diff Neutrophils % (Manual) (46-82) % Lymphocytes % (Manual) (13-37) % Monocytes % (Manual) (4-12) % Polychromasia Hypochromasia Anisocytosis POC VBG pH 7.55 H (7.32-7.43) pH Units POC VBG pCO2 33 L (41-51) mmHg POC VBG HCO3 29 (22-29) mmol/L VBG Base Excess 6 H (-2 - 3+) mmol/L O2 Delivery Device Nasal cannula Oxygen Flow Rate 5 LPM Sodium (135-145) mmol/L Potassium (3.5-5.3) mmol/L Chloride (100-110) mmol/L Carbon Dioxide (21-32) mmol/L BUN (7-18) mg/dL Creatinine (0.70-1.30) mg/dL Est Cr Clr Drug Dosing Estimated GFR (MDRD) (>60) BUN/Creatinine Ratio (9-20) Glucose (80-116) mg/dL Lactic Acid 4.3 H* (0.4-2.0) mmol/L Calcium (8.6-10.2) mg/dL Total Bilirubin (0.1-1.3) mg/dL AST (5-25) IU/L ALT (12-36) U/L Alkaline Phosphatase (56-112) IU/L Troponin I (4.0-60.3) pg/mL NT-Pro-B Natriuret Pep (<=125) pg/mL Total Protein (6.0-8.0) g/dL Albumin (3.2-4.6) g/dL Globulin g/dL Albumin/Globulin Ratio SARS-CoV-2 RNA (BENJI) Negative (NEGATIVE) Blood Type Gel Antibody Screen Crossmatch 02/22/21 02/22/21 02/22/21 Range/Units 15:58 17:55 21:55 WBC (3.2-10.1) x10-3/uL RBC (3.90-5.90) x10(6)uL Hgb (12.9-17.7) g/dL Hct (38.3-50.1) % MCV (80.8-98.7) fL MCH (27.0-33.3) pg MCHC (28.7-35.3) g/dL RDW (12.4-15.0) % Plt Count (117-477) x10(3)uL MPV (6.7-11.0) fL Neut % (Auto) (40.3-71.8) % Lymph % (Auto) (15.8-45.3) % [place] % (Auto) (5.5-15.2) % Eos % (Auto) (0.1-6.8) % Baso % (Auto) (0.3-3.8) % Neut # (Auto) (1.7-6.9) x10-3/uL Lymph # (Auto) (0.5-4.5) x10-3/uL [place] # (Auto) (0.0-1.2) x10-3/uL Eos # (Auto) (0.0-0.6) x10-3/uL Baso # (Auto) (0.0-0.3) x10-3/uL Add Manual Diff Neutrophils % (Manual) (46-82) % Lymphocytes % (Manual) (13-37) % Monocytes % (Manual) (4-12) % Polychromasia Hypochromasia Anisocytosis POC VBG pH (7.32-7.43) pH Units POC VBG pCO2 (41-51) mmHg POC VBG HCO3 (22-29) mmol/L VBG Base Excess (-2 - 3+) mmol/L O2 Delivery Device Oxygen Flow Rate LPM Sodium (135-145) mmol/L Potassium (3.5-5.3) mmol/L Chloride (100-110) mmol/L Carbon Dioxide (21-32) mmol/L BUN (7-18) mg/dL Creatinine (0.70-1.30) mg/dL Est Cr Clr Drug Dosing Estimated GFR (MDRD) (>60) BUN/Creatinine Ratio (9-20) Glucose (80-116) mg/dL Lactic Acid 2.6 H* 1.6 (0.4-2.0) mmol/L Calcium (8.6-10.2) mg/dL Total Bilirubin (0.1-1.3) mg/dL AST (5-25) IU/L ALT (12-36) U/L Alkaline Phosphatase (56-112) IU/L Troponin I (4.0-60.3) pg/mL NT-Pro-B Natriuret Pep (<=125) pg/mL Total Protein (6.0-8.0) g/dL Albumin (3.2-4.6) g/dL Globulin g/dL Albumin/Globulin Ratio SARS-CoV-2 RNA (BENJI) (NEGATIVE) Blood Type O POSITIVE Gel Antibody Screen Negative Crossmatch See Detail 02/23/21 02/23/21 Range/Units 06:40 06:40 WBC 11.5 H (3.2-10.1) x10-3/uL RBC 3.30 L (3.90-5.90) x10(6)uL Hgb 8.5 L (12.9-17.7) g/dL Hct 26.8 L (38.3-50.1) % MCV 81.2 (80.8-98.7) fL MCH 25.6 L (27.0-33.3) pg MCHC 31.6 (28.7-35.3) g/dL RDW 19.8 H (12.4-15.0) % Plt Count 300 (117-477) x10(3)uL MPV 7.1 (6.7-11.0) fL Neut % (Auto) (40.3-71.8) % Lymph % (Auto) (15.8-45.3) % [place] % (Auto) (5.5-15.2) % Eos % (Auto) (0.1-6.8) % Baso % (Auto) (0.3-3.8) % Neut # (Auto) (1.7-6.9) x10-3/uL Lymph # (Auto) (0.5-4.5) x10-3/uL [place] # (Auto) (0.0-1.2) x10-3/uL Eos # (Auto) (0.0-0.6) x10-3/uL Baso # (Auto) (0.0-0.3) x10-3/uL Add Manual Diff Yes Neutrophils % (Manual) 90 H (46-82) % Lymphocytes % (Manual) 5 L (13-37) % Monocytes % (Manual) 5 (4-12) % Polychromasia Occasional Hypochromasia Few Anisocytosis Few POC VBG pH (7.32-7.43) pH Units POC VBG pCO2 (41-51) mmHg POC VBG HCO3 (22-29) mmol/L VBG Base Excess (-2 - 3+) mmol/L O2 Delivery Device Oxygen Flow Rate LPM Sodium 142 (135-145) mmol/L Potassium 4.2 (3.5-5.3) mmol/L Chloride 102 (100-110) mmol/L Carbon Dioxide 32 (21-32) mmol/L BUN 42 H (7-18) mg/dL Creatinine 2.1 H* (0.70-1.30) mg/dL Est Cr Clr Drug Dosing 28.85 Estimated GFR (MDRD) 31 L (>60) BUN/Creatinine Ratio 20.0 (9-20) Glucose 187 H (80-116) mg/dL Lactic Acid (0.4-2.0) mmol/L Calcium 8.8 (8.6-10.2) mg/dL Total Bilirubin (0.1-1.3) mg/dL AST (5-25) IU/L ALT (12-36) U/L Alkaline Phosphatase (56-112) IU/L Troponin I (4.0-60.3) pg/mL NT-Pro-B Natriuret Pep (<=125) pg/mL Total Protein (6.0-8.0) g/dL Albumin (3.2-4.6) g/dL Globulin g/dL Albumin/Globulin Ratio SARS-CoV-2 RNA (BENJI) (NEGATIVE) Blood Type Gel Antibody Screen Crossmatch Result Diagrams: 02/23/21 06:40 02/23/21 06:40 Sepsis Event Note - Focused Exam Vital Signs: Vital Signs Temp Temp Pulse Resp BP BP Pulse Ox 02/23/21 05:00 98.2 F 70 20 120/64 96 02/23/21 02:10 98.2 F 66 20 116/68 95 02/23/21 01:14 98.3 F 72 20 131/60 98 02/23/21 01:00 98.3 F 74 20 131/60 99 02/22/21 22:32 98.3 F 66 20 121/67 98 02/22/21 22:17 98.1 F 70 20 120/72 02/22/21 22:00 98.1 F 72 20 120/70 96 02/22/21 21:07 97.2 F 70 20 118/52 L 02/22/21 21:00 98.0 F 72 20 121/70 98 - Problem List Review Problem List Initiated/Reviewed/Updated: Yes - Assessment Assessment:: Anemia - Plan Plan:: EGD
--- NOTE | 2021-02-23 08:06 | PCM.OPNOTE ---
- General Post-Op/Procedure Note Date of Surgery/Procedure: 02/23/21 Operative Procedure(s): EGD Findings: Normal appearing EGD No signs of bleeding or old blood seen Some retained food in stomach may have obscured small lesions but no pathology seen Pre Op Diagnosis: Anemia Post-Op Diagnosis: Normal EGD Anesthesia Technique: MAC Primary Surgeon: Lefty Barragan Pathology: none EBL in mLs: 0 Complications: None Condition: Good Free Text/Narrative:: Intake & Output 02/22/21 02/23/21 02/23/21 22:59 06:59 14:59 Intake Total 420 390 Output Total 350 475 Balance 70 -85
[2021-02-23] MEDS ORDERED: Pantoprazole 40 MG Tab.CR PO SCH (09:00)
[2021-02-23] MEDS: Midodrine 5 MG Tab PO SCH ×3 (09:52→17:37)
[2021-02-23] MEDS: Digoxin 125 MCG Tab PO SCH (09:53)
[2021-02-23] MEDS: Citalopram 10 MG Tab PO SCH (09:53)
[2021-02-23] MEDS: Pantoprazole 40 MG Vial IVPUSH SCH ×2 (09:53→20:15)
[2021-02-23] MEDS: Potassium Chloride 20 MEQ Tab.ER PO SCH (09:53)
[2021-02-23] MEDS: atorvaSTATin 20 MG Tab PO SCH (09:54)
[2021-02-23] MEDS: Carbidopa/Levodopa 25-100 MG Tab PO SCH ×3 (09:54→20:23)
[2021-02-23] MEDS: predniSONE 10 MG Tab PO SCH (09:54)
[2021-02-23] MEDS: Metoprolol Succinate 100 MG Tab.ER PO SCH (09:55)
--- NOTE | 2021-02-23 12:35 | OR ---
DATE OF OPERATION: 02/23/2021 SURGEON: Lefty Barragan MD PREOPERATIVE DIAGNOSIS: Anemia. POSTOPERATIVE DIAGNOSIS: Normal upper endoscopy. OPERATION PERFORMED: Esophagogastroduodenoscopy. INDICATIONS FOR SURGERY: This 75-year-old male was admitted with profound anemia. There is a possible history of dark stools. Upper endoscopy to evaluate for possible bleeding source is planned. FINDINGS: No bleeding is seen during today's exam. No old blood, ulcers, or visible signs of inflammation are noted. The patient does have some retained food in his stomach which may have obscured small lesions, but no significant pathology identified in the esophagus, stomach, or duodenum. PROCEDURE IN DETAIL: The patient was taken to the procedure room. He was given intravenous sedation and with him in the left lateral decubitus position, the Olympus gastroscope was advanced through a mouth guard into the oral cavity. Under direct visualization, the scope was then advanced through the oropharynx into the esophagus and then down through the esophagus, stomach, and into the duodenum where examination to the third portion was performed. Careful examination of the duodenum was carried out and then the scope was withdrawn into the stomach, where full examination including retroflexed examination of the fundus was performed. There was some retained food in the stomach, but with irrigation and careful observation, it did appear that any significant lesion was ruled out. The GE junction and esophagus were then re-examined as the scope was withdrawn. The scope was removed and the patient was taken from the procedure room in satisfactory condition. ESTIMATED BLOOD LOSS: Zero. COMPLICATIONS: None. PROGNOSIS: Good. /[id number] YUNIOR/MARIELOS
[2021-02-23] MEDS: Bumetanide 1 MG Tab PO SCH (13:26)
--- NOTE | 2021-02-23 14:29 | PCM.PN ---
- General Info Date of Service: 02/23/21 Subjective Update: Mauricio had EGD this morning, no evidence of bleeding found. No gastritis. Dr Ortiz could do colonoscopy on Friday if Mauricio and Anisa wish to proceed. Discussed that he would be at risk for falling and electrolyte abnormalities in addition with his other chronic medical conditions. Anisa works this so no one would be present to help him on Friday for bowel prep. He states he feels better, his breathing is better and has not edema in his legs. He is drinking his water well this morning. He has not had bowel movement yet today. No fevers or coughing. - Patient Data Vitals - Most Recent: Last Vital Signs Temp 98.6 F 02/23/21 12:00 Pulse 75 02/23/21 12:00 Resp 18 02/23/21 12:00 BP 140/61 02/23/21 12:00 Pulse Ox 96 02/23/21 12:00 Weight - Most Recent: 198 lb I&O - Last 24 Hours: Intake & Output 02/22/21 02/23/21 02/23/21 22:59 06:59 14:59 Intake Total 420 390 Output Total 350 475 Balance 70 -85 Lab Results Last 24 Hours: Laboratory Results - last 24 hr 02/22/21 02/22/21 02/22/21 Range/Units 14:25 15:58 17:55 WBC (3.2-10.1) x10-3/uL RBC (3.90-5.90) x10(6)uL Hgb (12.9-17.7) g/dL Hct (38.3-50.1) % MCV (80.8-98.7) fL MCH (27.0-33.3) pg MCHC (28.7-35.3) g/dL RDW (12.4-15.0) % Plt Count (117-477) x10(3)uL MPV (6.7-11.0) fL Add Manual Diff Neutrophils % (Manual) (46-82) % Lymphocytes % (Manual) (13-37) % Monocytes % (Manual) (4-12) % Polychromasia Hypochromasia Anisocytosis Sodium (135-145) mmol/L Potassium (3.5-5.3) mmol/L Chloride (100-110) mmol/L Carbon Dioxide (21-32) mmol/L BUN (7-18) mg/dL Creatinine (0.70-1.30) mg/dL Est Cr Clr Drug Dosing mL/min Estimated GFR (MDRD) (>60) BUN/Creatinine Ratio (9-20) Glucose (80-116) mg/dL Lactic Acid 2.6 H* (0.4-2.0) mmol/L Calcium (8.6-10.2) mg/dL SARS-CoV-2 RNA (BENJI) Negative (NEGATIVE) Blood Type O POSITIVE Gel Antibody Screen Negative Crossmatch See Detail 02/22/21 02/23/21 02/23/21 Range/Units 21:55 06:40 06:40 WBC 11.5 H (3.2-10.1) x10-3/uL RBC 3.30 L (3.90-5.90) x10(6)uL Hgb 8.5 L (12.9-17.7) g/dL Hct 26.8 L (38.3-50.1) % MCV 81.2 (80.8-98.7) fL MCH 25.6 L (27.0-33.3) pg MCHC 31.6 (28.7-35.3) g/dL RDW 19.8 H (12.4-15.0) % Plt Count 300 (117-477) x10(3)uL MPV 7.1 (6.7-11.0) fL Add Manual Diff Yes Neutrophils % (Manual) 90 H (46-82) % Lymphocytes % (Manual) 5 L (13-37) % Monocytes % (Manual) 5 (4-12) % Polychromasia Occasional Hypochromasia Few Anisocytosis Few Sodium 142 (135-145) mmol/L Potassium 4.2 (3.5-5.3) mmol/L Chloride 102 (100-110) mmol/L Carbon Dioxide 32 (21-32) mmol/L BUN 42 H (7-18) mg/dL Creatinine 2.1 H* (0.70-1.30) mg/dL Est Cr Clr Drug Dosing 28.85 mL/min Estimated GFR (MDRD) 31 L (>60) BUN/Creatinine Ratio 20.0 (9-20) Glucose 187 H (80-116) mg/dL Lactic Acid 1.6 (0.4-2.0) mmol/L Calcium 8.8 (8.6-10.2) mg/dL SARS-CoV-2 RNA (BENJI) (NEGATIVE) Blood Type Gel Antibody Screen Crossmatch Med Orders - Current: Current Medications Albuterol/Ipratropium (Albuterol/Ipratropium 3.0-0.5 Mg/3 Ml Neb Soln) 3 ml NEB Q4H PRN PRN Reason: Shortness of Breath Albuterol/Ipratropium (Albuterol/Ipratropium 3.0-0.5 Mg/3 Ml Neb Soln) 3 ml INH QIDRT [facility] Last Admin: 02/23/21 10:04 Dose: 3 ml Documented by: Artificial Tears (Carboxymethylcellulose Sodium 0.5% Ophth Soln 15 Ml Bottle) 0 ml EYEBOTH DAILY PRN PRN Reason: Dry Eyes Atorvastatin Calcium (Atorvastatin 20 Mg Tab) 20 mg PO DAILY [facility] Last Admin: 02/23/21 09:54 Dose: 20 mg Documented by: Bumetanide (Bumetanide 1 Mg Tab) 1.5 mg PO BID@,14 [facility] Last Admin: 02/23/21 13:26 Dose: 1.5 mg Documented by: Carbidopa/Levodopa (Carbidopa/Levodopa 25-100 Mg Tab) 1.5 tab PO TID [facility] Last Admin: 02/23/21 13:25 Dose: 1.5 tab Documented by: Citalopram Hydrobromide (Citalopram 10 Mg Tab) 10 mg PO DAILY [facility] Last Admin: 02/23/21 09:53 Dose: 10 mg Documented by: Digoxin (Digoxin 125 Mcg Tab) 125 mcg PO DAILY [facility] Last Admin: 02/23/21 09:53 Dose: 125 mcg Documented by: Sodium Chloride (Normal Saline) 250 mls @ 100 mls/hr IV ASDIRECTED [facility] Last Admin: 02/22/21 22:00 Dose: 100 mls/hr Documented by: Metolazone (Metolazone 2.5 Mg Tab) 2.5 mg PO DAILY PRN PRN Reason: Edema Metoprolol Succinate (Metoprolol Succinate 100 Mg Tab.Er) 200 mg PO DAILY [facility] Last Admin: 02/23/21 09:55 Dose: 200 mg Documented by: Midodrine (Midodrine 5 Mg Tab) 2.5 mg PO TIDAC [facility] Last Admin: 02/23/21 11:03 Dose: Not Given Documented by: Nitroglycerin (Nitroglycerin 0.4 Mg Tab.Sl) 0.4 mg SL Q5M PRN PRN Reason: Chest Pain Pantoprazole Sodium (Pantoprazole 40 Mg Vial) 40 mg IVPUSH Q12H [facility] Last Admin: 02/23/21 09:53 Dose: 40 mg Documented by: Potassium Chloride (Potassium Chloride 20 Meq Tab.Er) 20 meq PO DAILY [facility] Last Admin: 02/23/21 09:53 Dose: 20 meq Documented by: Prednisone (Prednisone 10 Mg Tab) 10 mg PO DAILY [facility] Last Admin: 02/23/21 09:54 Dose: 10 mg Documented by: Senna/Docusate Sodium (Docusate Sodium/Sennosides 50-8.6 Mg Tab) 1 tab PO BID [facility] Last Admin: 02/23/21 09:54 Dose: 1 tab Documented by: Sodium Chloride (Sodium Chloride 0.9% 10 Ml Syringe) 10 ml FLUSH ASDIRECTED PRN PRN Reason: Keep Vein Open Last Admin: 02/22/21 21:28 Dose: 10 ml Documented by: Discontinued Medications Albuterol/Ipratropium (Albuterol/Ipratropium 3.0-0.5 Mg/3 Ml Neb Soln) 3 ml NEB NOW STA Stop: 02/22/21 12:50 Last Admin: 02/22/21 13:13 Dose: 3 ml Documented by: Furosemide (Furosemide 20 Mg/2 Ml Vial) 20 mg IVPUSH NOW ONE Stop: 02/22/21 16:16 Last Admin: 02/22/21 17:50 Dose: 20 mg Documented by: Furosemide (Furosemide 40 Mg/4 Ml Vial) 40 mg IVPUSH BTNUNITS [facility] Last Admin: 02/22/21 21:16 Dose: 40 mg Documented by: Methylprednisolone Sodium Succinate (Methylprednisolone Sodium Succinate 125 Mg/2 Ml Sdv) 125 mg IVPUSH NOW STA Stop: 02/22/21 12:50 Last Admin: 02/22/21 13:13 Dose: 125 mg Documented by: Morphine Sulfate (Morphine 4 Mg/Ml Vial) 4 mg IVPUSH NOW STA Stop: 02/22/21 12:58 Last Admin: 02/22/21 13:13 Dose: 4 mg Documented by: Ondansetron HCl (Ondansetron 4 Mg/2 Ml Sdv) 4 mg IVPUSH ONETIME ONE Stop: 02/22/21 13:35 Last Admin: 02/22/21 13:40 Dose: 4 mg Documented by: Pantoprazole Sodium (Pantoprazole 40 Mg Tab.Cr) 40 mg PO DAILY@0600 ULICES - Exam General: Alert, Oriented, Cooperative, No Acute Distress Lungs: Clear to Auscultation (BUL), Normal Respiratory Effort, Decreased Breath Sounds (bibasilar), Crackles (Fine, bibasilar). No: Wheezing Cardiovascular: Regular Rate, Irregular Rhythm GI/Abdominal Exam: Normal Bowel Sounds, Soft, Non-Tender, No Distention. No: Guarding, Tender Extremities: No Pedal Edema, Normal Capillary Refill, Pallor (improved) - Patient Data Lab Results Last 24 hrs: Laboratory Results - last 24 hr 02/22/21 02/22/21 02/22/21 Range/Units 14:25 15:58 17:55 WBC (3.2-10.1) x10-3/uL RBC (3.90-5.90) x10(6)uL Hgb (12.9-17.7) g/dL Hct (38.3-50.1) % MCV (80.8-98.7) fL MCH (27.0-33.3) pg MCHC (28.7-35.3) g/dL RDW (12.4-15.0) % Plt Count (117-477) x10(3)uL MPV (6.7-11.0) fL Add Manual Diff Neutrophils % (Manual) (46-82) % Lymphocytes % (Manual) (13-37) % Monocytes % (Manual) (4-12) % Polychromasia Hypochromasia Anisocytosis Sodium (135-145) mmol/L Potassium (3.5-5.3) mmol/L Chloride (100-110) mmol/L Carbon Dioxide (21-32) mmol/L BUN (7-18) mg/dL Creatinine (0.70-1.30) mg/dL Est Cr Clr Drug Dosing mL/min Estimated GFR (MDRD) (>60) BUN/Creatinine Ratio (9-20) Glucose (80-116) mg/dL Lactic Acid 2.6 H* (0.4-2.0) mmol/L Calcium (8.6-10.2) mg/dL SARS-CoV-2 RNA (BENJI) Negative (NEGATIVE) Blood Type O POSITIVE Gel Antibody Screen Negative Crossmatch See Detail 02/22/21 02/23/21 02/23/21 Range/Units 21:55 06:40 06:40 WBC 11.5 H (3.2-10.1) x10-3/uL RBC 3.30 L (3.90-5.90) x10(6)uL Hgb 8.5 L (12.9-17.7) g/dL Hct 26.8 L (38.3-50.1) % MCV 81.2 (80.8-98.7) fL MCH 25.6 L (27.0-33.3) pg MCHC 31.6 (28.7-35.3) g/dL RDW 19.8 H (12.4-15.0) % Plt Count 300 (117-477) x10(3)uL MPV 7.1 (6.7-11.0) fL Add Manual Diff Yes Neutrophils % (Manual) 90 H (46-82) % Lymphocytes % (Manual) 5 L (13-37) % Monocytes % (Manual) 5 (4-12) % Polychromasia Occasional Hypochromasia Few Anisocytosis Few Sodium 142 (135-145) mmol/L Potassium 4.2 (3.5-5.3) mmol/L Chloride 102 (100-110) mmol/L Carbon Dioxide 32 (21-32) mmol/L BUN 42 H (7-18) mg/dL Creatinine 2.1 H* (0.70-1.30) mg/dL Est Cr Clr Drug Dosing 28.85 mL/min Estimated GFR (MDRD) 31 L (>60) BUN/Creatinine Ratio 20.0 (9-20) Glucose 187 H (80-116) mg/dL Lactic Acid 1.6 (0.4-2.0) mmol/L Calcium 8.8 (8.6-10.2) mg/dL SARS-CoV-2 RNA (BENJI) (NEGATIVE) Blood Type Gel Antibody Screen Crossmatch Result Diagrams: 02/23/21 06:40 02/23/21 06:40 Sepsis Event Note - Evaluation Sepsis Screening Result: No Definite Risk - Focused Exam Vital Signs: Vital Signs Temp Temp Pulse Pulse Resp BP BP 02/23/21 12:00 98.6 F 75 18 140/61 02/23/21 09:55 89 130/72 02/23/21 09:53 89 02/23/21 09:40 96 18 140/64 02/23/21 09:26 72 18 139/65 02/23/21 09:10 74 18 109/52 L 02/23/21 08:55 73 18 106/44 L 02/23/21 08:40 70 18 119/60 02/23/21 08:25 97 18 127/54 L 02/23/21 08:00 99.3 F 89 16 130/72 02/23/21 05:00 98.2 F 70 20 120/64 Pulse Ox 02/23/21 12:00 96 02/23/21 09:55 02/23/21 09:53 02/23/21 09:40 96 02/23/21 09:26 94 L 02/23/21 09:10 96 02/23/21 08:55 96 02/23/21 08:40 97 02/23/21 08:25 97 02/23/21 08:00 94 L 02/23/21 05:00 96 - Problem List & Annotations (1) Anemia SNOMED Code(s): 135024567 Code(s): D64.9 - ANEMIA, UNSPECIFIED Status: Acute Current Visit: Yes Qualifiers: Anemia type: unspecified type Qualified Code(s): D64.9 - Anemia, unspecified (2) Black tarry stools SNOMED Code(s): 230587094 Code(s): K92.1 - MELENA Status: Acute Current Visit: Yes (3) Heart failure SNOMED Code(s): 56940494 Code(s): I50.9 - HEART FAILURE, UNSPECIFIED Status: Chronic Current Visit: No (4) Acute and chronic respiratory failure SNOMED Code(s): 63265063 Code(s): J96.20 - ACUTE AND CHR RESP FAILURE, UNSP W HYPOXIA OR HYPERCAPNIA Status: Chronic Current Visit: No Qualifiers: Respiratory failure complication: hypoxia Qualified Code(s): J96.21 - Acute and chronic respiratory failure with hypoxia (5) Respiratory alkalosis SNOMED Code(s): 977470566 Code(s): E87.3 - ALKALOSIS Status: Acute Current Visit: No (6) Interstitial lung disease SNOMED Code(s): 974242500 Code(s): J84.9 - INTERSTITIAL PULMONARY DISEASE, UNSPECIFIED Status: Chronic Current Visit: No (7) Severe pulmonary hypertension SNOMED Code(s): 479458638 Code(s): I27.20 - PULMONARY HYPERTENSION, UNSPECIFIED Status: Chronic Current Visit: No (8) Steroid dependent SNOMED Code(s): 41974729 Code(s): F19.20 - OTHER PSYCHOACTIVE SUBSTANCE DEPENDENCE, UNCOMPLICATED Status: Chronic Current Visit: No (9) Chronic atrial fibrillation SNOMED Code(s): 352250057 Code(s): I48.20 - CHRONIC ATRIAL FIBRILLATION, UNSPECIFIED Status: Chronic Current Visit: No (10) Chronic kidney disease SNOMED Code(s): 045600201 Code(s): N18.9 - CHRONIC KIDNEY DISEASE, UNSPECIFIED Status: Chronic Current Visit: No Qualifiers: Chronic kidney disease stage 3 subtype: stage 3b (GFR 30-44) (11) Weakness SNOMED Code(s): 94109630 Code(s): R53.1 - WEAKNESS Status: Chronic Current Visit: No (12) Indwelling Delacruz catheter present SNOMED Code(s): 831475133 Code(s): Z97.8 - PRESENCE OF OTHER SPECIFIED DEVICES Status: Chronic Current Visit: No (13) Obesity SNOMED Code(s): 216500391, 474914050 Code(s): E66.9 - OBESITY, UNSPECIFIED Status: Chronic Current Visit: No (14) COPD (chronic obstructive pulmonary disease) SNOMED Code(s): 93633577 Code(s): J44.9 - CHRONIC OBSTRUCTIVE PULMONARY DISEASE, UNSPECIFIED Status: Chronic Current Visit: Yes (15) Sleep apnea with use of continuous positive airway pressure (CPAP) SNOMED Code(s): 69670089, 781614314 Code(s): G47.30 - SLEEP APNEA, UNSPECIFIED Status: Chronic Current Visit: Yes (16) Anxiety SNOMED Code(s): 21826567 Code(s): F41.9 - ANXIETY DISORDER, UNSPECIFIED Status: Chronic Current Visit: No (17) Status post non-ST elevation myocardial infarction (NSTEMI) SNOMED Code(s): 735882963 Code(s): I25.2 - OLD MYOCARDIAL INFARCTION Status: Chronic Current Visit: No Onset Date: ~08/17/20 (18) Physical deconditioning SNOMED Code(s): 20951235150748 Code(s): R53.81 - OTHER MALAISE Status: Chronic Current Visit: No (19) Palliative care encounter SNOMED Code(s): 352689307, 551639330 Code(s): Z51.5 - ENCOUNTER FOR PALLIATIVE CARE Status: Chronic Current Visit: No - Problem List Review Problem List Initiated/Reviewed/Updated: Yes - My Orders Last 24 Hours: My Active Orders 02/22/21 15:56 Consult to Physician [CONS] Routine 02/22/21 15:57 Notify Provider Consults [RC] ASDIRECTED 02/22/21 15:58 Transfuse PRBC [Transfuse Red Blood Cells] [COMM] Routine 02/22/21 16:00 Sodium Chloride 0.9% [Normal Saline] 250 ml IV ASDIRECTED 02/22/21 16:01 Patient Status [ADT] Routine Height and Weight [RC] 0600 Oxygen Therapy [RC] PRN Up With Assistance [RC] ASDIRECTED Up to Chair [RC] ASDIRECTED Urinary Catheter Assessment [RC] QSHIFT Vital Signs [RC] 08,12,16,20,00,04 Resuscitation Status Routine 02/22/21 16:02 Intake and Output [RC] 06,14,22 Antiembolic Hose [OM.PC] Per Unit Routine 02/22/21 16:04 Albuterol/Ipratropium [DuoNeb 3.0-0.5 MG/3 ML] 3 ml NEB Q4H PRN Nitroglycerin [Nitrostat] 0.4 mg SL Q5M PRN metOLazone [Zaroxolyn] 2.5 mg PO DAILY PRN 02/22/21 16:06 RT Aerosol Therapy [RC] ASDIRECTED 02/22/21 16:13 Carboxymethylcellulose Sodium [Refresh Tears 0.5%] 0 ml EYEBOTH DAILY PRN 02/22/21 Dinner No Added Salt [DIET] 02/22/21 17:00 Albuterol/Ipratropium [DuoNeb 3.0-0.5 MG/3 ML] 3 ml INH QIDRT 02/22/21 17:30 Midodrine 2.5 mg PO TIDAC 02/22/21 20:00 Pantoprazole [ProTONIX IV] 40 mg IVPUSH Q12H 02/22/21 21:00 Carbidopa/Levodopa [Sinemet 25-100 mg] 1.5 tab PO TID Docusate Sodium/Sennosides [Senna Plus] 1 tab PO BID 02/23/21 09:00 Citalopram [Celexa] 10 mg PO DAILY Digoxin [Lanoxin] 125 mcg PO DAILY Metoprolol Succinate [Toprol XL] 200 mg PO DAILY Potassium Chloride [Klor-Con M20] 20 meq PO DAILY atorvaSTATin [Lipitor] 20 mg PO DAILY predniSONE 10 mg PO DAILY 02/23/21 10:18 OT Evaluation and Treatment [CONS] Routine PT Evaluation and Treatment [CONS] Routine 02/23/21 14:00 Bumetanide [Bumex] 1.5 mg PO BID@,14 02/24/21 06:00 BASIC METABOLIC PANEL,BMP [CHEM] Routine CBC WITH AUTO DIFF [HEME] Routine PRO B-TYPE NATRIUR PEPT,BNPPRO [CHEM] Routine - Plan Plan:: 1. Severe anemia/black stools: Hgb 8.5 after 2 units of PRBCs last night, dyspnea improved. Continue to monitor. Discussed Colonoscopy that Dr Barragan could do on Friday, will need to keep here for bowel prep on Friday, high risk of fall and electrolyte abnormalities, also his is working and he does not do his own ADLs. Repeat CBC tomorrow. 2. CHF: Repeat BNP. Resume home Bumex 1.5 mg bid. 3. COPD/Pulmonary HTN/Pulmonary fibrosis: continue home nebs except Tyvaso as it can affect platelet aggregation. 4. Chronic atrial fibrillation: hold Eliquis at this time. 5. CKD: Cr 2.1. Repeat BMP tomorrow. He is drinking liquids well, adjust treatments as needed. 6. DVT prophylaxis: TEDs, hold anticoagulation due to severe anemia. 7. CODE STATUS: DNR/DNI. 8. Discharge planning: Friday, will need colonoscopy on Friday, further monitoring & treatment of CKD and CHF, will adjust treatments as necessary.
[2021-02-24] MEDS ORDERED: LORazepam 0.5 MG Tab PO ONE (00:22)
[2021-02-24] MEDS: Albuterol/Ipratropium 3.0-0.5 MG/3 ML Neb Soln INH SCH ×4 (06:16→21:19)
[2021-02-24] MEDS: Midodrine 5 MG Tab PO SCH ×3 (06:53→16:50)
[2021-02-24] MEDS: Pantoprazole 40 MG Vial IVPUSH SCH ×2 (09:29→21:18)
[2021-02-24] MEDS: Bumetanide 1 MG Tab PO SCH ×2 (09:31→13:51)
[2021-02-24] MEDS: Potassium Chloride 20 MEQ Tab.ER PO SCH (09:31)
[2021-02-24] MEDS: Metoprolol Succinate 100 MG Tab.ER PO SCH (09:32)
[2021-02-24] MEDS: atorvaSTATin 20 MG Tab PO SCH (09:32)
[2021-02-24] MEDS: Citalopram 10 MG Tab PO SCH (09:33)
[2021-02-24] MEDS: Digoxin 125 MCG Tab PO SCH (09:33)
[2021-02-24] MEDS: predniSONE 10 MG Tab PO SCH (09:33)
[2021-02-24] MEDS: Carbidopa/Levodopa 25-100 MG Tab PO SCH ×3 (09:33→21:18)
--- NOTE | 2021-02-24 11:45 | PCM.PN ---
- General Info Date of Service: 02/24/21 Subjective Update: He states he is a little more short of breath today, but no d izziness/lightheadedness when walking to bathroom. He states he has had BM but was very dark brown, didn't feel it was black. NO abdominal pain, cough, fever, chills, nausea, vomiting, diarrhea. - Patient Data Vitals - Most Recent: Last Vital Signs Temp 96.8 F L 02/24/21 08:00 Pulse 78 02/24/21 09:33 Resp 18 02/24/21 08:00 BP 109/59 L 02/24/21 09:32 Pulse Ox 90 L 02/24/21 08:00 Weight - Most Recent: 200 lb 8 oz I&O - Last 24 Hours: Intake & Output 02/23/21 02/24/21 02/24/21 22:59 06:59 14:59 Intake Total 200 Output Total 650 650 Balance -650 -450 Lab Results Last 24 Hours: Laboratory Results - last 24 hr 02/24/21 02/24/21 02/24/21 Range/Units 06:35 06:35 06:35 WBC 14.9 H (3.2-10.1) x10-3/uL RBC 3.22 L (3.90-5.90) x10(6)uL Hgb 8.1 L (12.9-17.7) g/dL Hct 26.3 L (38.3-50.1) % MCV 81.8 (80.8-98.7) fL MCH 25.3 L (27.0-33.3) pg MCHC 30.9 (28.7-35.3) g/dL RDW 19.3 H (12.4-15.0) % Plt Count 281 (117-477) x10(3)uL MPV 7.2 (6.7-11.0) fL Add Manual Diff Yes Neutrophils % (Manual) 84 H (46-82) % Lymphocytes % (Manual) 5 L (13-37) % Monocytes % (Manual) 11 (4-12) % Hypochromasia Few Anisocytosis Few Sodium 145 (135-145) mmol/L Potassium 3.7 (3.5-5.3) mmol/L Chloride 105 (100-110) mmol/L Carbon Dioxide 32 (21-32) mmol/L BUN 41 H (7-18) mg/dL Creatinine 1.8 H (0.70-1.30) mg/dL Est Cr Clr Drug Dosing 33.66 mL/min Estimated GFR (MDRD) 37 L (>60) BUN/Creatinine Ratio 22.8 H (9-20) Glucose 127 H (80-116) mg/dL Calcium 8.7 (8.6-10.2) mg/dL NT-Pro-B Natriuret Pep 4292 H* (<=125) pg/mL Med Orders - Current: Current Medications Albuterol/Ipratropium (Albuterol/Ipratropium 3.0-0.5 Mg/3 Ml Neb Soln) 3 ml NEB Q4H PRN PRN Reason: Shortness of Breath Albuterol/Ipratropium (Albuterol/Ipratropium 3.0-0.5 Mg/3 Ml Neb Soln) 3 ml INH QIDRT [facility] Last Admin: 02/24/21 11:23 Dose: 3 ml Documented by: Artificial Tears (Carboxymethylcellulose Sodium 0.5% Ophth Soln 15 Ml Bottle) 0 ml EYEBOTH DAILY PRN PRN Reason: Dry Eyes Atorvastatin Calcium (Atorvastatin 20 Mg Tab) 20 mg PO DAILY [facility] Last Admin: 02/24/21 09:32 Dose: 20 mg Documented by: Bumetanide (Bumetanide 1 Mg Tab) 1.5 mg PO BID@08,14 [facility] Last Admin: 02/24/21 09:31 Dose: 1.5 mg Documented by: Carbidopa/Levodopa (Carbidopa/Levodopa 25-100 Mg Tab) 1.5 tab PO TID [facility] Last Admin: 02/24/21 09:33 Dose: 1.5 tab Documented by: Citalopram Hydrobromide (Citalopram 10 Mg Tab) 10 mg PO DAILY [facility] Last Admin: 02/24/21 09:33 Dose: 10 mg Documented by: Digoxin (Digoxin 125 Mcg Tab) 125 mcg PO DAILY [facility] Last Admin: 02/24/21 09:33 Dose: 125 mcg Documented by: Sodium Chloride (Normal Saline) 250 mls @ 100 mls/hr IV ASDIRECTED [facility] Last Admin: 02/22/21 22:00 Dose: 100 mls/hr Documented by: Metolazone (Metolazone 2.5 Mg Tab) 2.5 mg PO DAILY PRN PRN Reason: Edema Metoprolol Succinate (Metoprolol Succinate 100 Mg Tab.Er) 200 mg PO DAILY [facility] Last Admin: 02/24/21 09:32 Dose: 200 mg Documented by: Midodrine (Midodrine 5 Mg Tab) 2.5 mg PO TIDAC [facility] Last Admin: 02/24/21 11:26 Dose: 2.5 mg Documented by: Nitroglycerin (Nitroglycerin 0.4 Mg Tab.Sl) 0.4 mg SL Q5M PRN PRN Reason: Chest Pain Pantoprazole Sodium (Pantoprazole 40 Mg Vial) 40 mg IVPUSH Q12H [facility] Last Admin: 02/24/21 09:29 Dose: 40 mg Documented by: Potassium Chloride (Potassium Chloride 20 Meq Tab.Er) 20 meq PO DAILY [facility] Last Admin: 02/24/21 09:31 Dose: 20 meq Documented by: Prednisone (Prednisone 10 Mg Tab) 10 mg PO DAILY [facility] Last Admin: 02/24/21 09:33 Dose: 10 mg Documented by: Senna/Docusate Sodium (Docusate Sodium/Sennosides 50-8.6 Mg Tab) 1 tab PO BID [facility] Last Admin: 02/24/21 09:33 Dose: 1 tab Documented by: Sodium Chloride (Sodium Chloride 0.9% 10 Ml Syringe) 10 ml FLUSH ASDIRECTED PRN PRN Reason: Keep Vein Open Last Admin: 02/22/21 21:28 Dose: 10 ml Documented by: Discontinued Medications Albuterol/Ipratropium (Albuterol/Ipratropium 3.0-0.5 Mg/3 Ml Neb Soln) 3 ml NEB NOW STA Stop: 02/22/21 12:50 Last Admin: 02/22/21 13:13 Dose: 3 ml Documented by: Furosemide (Furosemide 20 Mg/2 Ml Vial) 20 mg IVPUSH NOW ONE Stop: 02/22/21 16:16 Last Admin: 02/22/21 17:50 Dose: 20 mg Documented by: Furosemide (Furosemide 40 Mg/4 Ml Vial) 40 mg IVPUSH BTNUNITS [facility] Last Admin: 02/22/21 21:16 Dose: 40 mg Documented by: Lorazepam (Lorazepam 0.5 Mg Tab) 0.25 mg PO ONETIME ONE Stop: 02/24/21 00:23 Last Admin: 02/24/21 00:32 Dose: 0.25 mg Documented by: Methylprednisolone Sodium Succinate (Methylprednisolone Sodium Succinate 125 Mg/2 Ml Sdv) 125 mg IVPUSH NOW STA Stop: 02/22/21 12:50 Last Admin: 02/22/21 13:13 Dose: 125 mg Documented by: Morphine Sulfate (Morphine 4 Mg/Ml Vial) 4 mg IVPUSH NOW STA Stop: 02/22/21 12:58 Last Admin: 02/22/21 13:13 Dose: 4 mg Documented by: Ondansetron HCl (Ondansetron 4 Mg/2 Ml Sdv) 4 mg IVPUSH ONETIME ONE Stop: 02/22/21 13:35 Last Admin: 02/22/21 13:40 Dose: 4 mg Documented by: Pantoprazole Sodium (Pantoprazole 40 Mg Tab.Cr) 40 mg PO DAILY@0600 ULICES - Exam Quality Assessment: Supplemental Oxygen, Urine Catheter General: Alert, Oriented, Cooperative Lungs: Clear to Auscultation, Normal Respiratory Effort, Decreased Breath Sounds (bibasilar), Crackles (occasional, bibasilar). No: Wheezing Cardiovascular: Regular Rate, Irregular Rhythm GI/Abdominal Exam: Normal Bowel Sounds, Soft, Non-Tender, No Distention Extremities: No Pedal Edema, Normal Capillary Refill, Pallor (improved) - Patient Data Lab Results Last 24 hrs: Laboratory Results - last 24 hr 02/24/21 02/24/21 02/24/21 Range/Units 06:35 06:35 06:35 WBC 14.9 H (3.2-10.1) x10-3/uL RBC 3.22 L (3.90-5.90) x10(6)uL Hgb 8.1 L (12.9-17.7) g/dL Hct 26.3 L (38.3-50.1) % MCV 81.8 (80.8-98.7) fL MCH 25.3 L (27.0-33.3) pg MCHC 30.9 (28.7-35.3) g/dL RDW 19.3 H (12.4-15.0) % Plt Count 281 (117-477) x10(3)uL MPV 7.2 (6.7-11.0) fL Add Manual Diff Yes Neutrophils % (Manual) 84 H (46-82) % Lymphocytes % (Manual) 5 L (13-37) % Monocytes % (Manual) 11 (4-12) % Hypochromasia Few Anisocytosis Few Sodium 145 (135-145) mmol/L Potassium 3.7 (3.5-5.3) mmol/L Chloride 105 (100-110) mmol/L Carbon Dioxide 32 (21-32) mmol/L BUN 41 H (7-18) mg/dL Creatinine 1.8 H (0.70-1.30) mg/dL Est Cr Clr Drug Dosing 33.66 mL/min Estimated GFR (MDRD) 37 L (>60) BUN/Creatinine Ratio 22.8 H (9-20) Glucose 127 H (80-116) mg/dL Calcium 8.7 (8.6-10.2) mg/dL NT-Pro-B Natriuret Pep 4292 H* (<=125) pg/mL Result Diagrams: 02/24/21 06:35 02/24/21 06:35 Sepsis Event Note - Evaluation Sepsis Screening Result: No Definite Risk - Focused Exam Vital Signs: Vital Signs Temp Pulse Pulse Resp BP BP Pulse Ox 02/24/21 09:33 78 02/24/21 09:32 78 109/59 L 02/24/21 08:00 96.8 F L 78 18 109/59 L 90 L 02/24/21 07:01 79 02/24/21 03:44 02/24/21 03:41 98.5 F 79 18 129/59 L 90 L 02/24/21 00:00 97.9 F 83 18 147/63 H 90 L Pulse Ox 02/24/21 09:33 02/24/21 09:32 02/24/21 08:00 02/24/21 07:01 02/24/21 03:44 90 L 02/24/21 03:41 02/24/21 00:00 - Problem List & Annotations (1) Anemia SNOMED Code(s): 795777456 Code(s): D64.9 - ANEMIA, UNSPECIFIED Status: Acute Current Visit: Yes Qualifiers: Anemia type: unspecified type Qualified Code(s): D64.9 - Anemia, unspecified (2) Black tarry stools SNOMED Code(s): 405568067 Code(s): K92.1 - MELENA Status: Acute Current Visit: Yes (3) Heart failure SNOMED Code(s): 84117565 Code(s): I50.9 - HEART FAILURE, UNSPECIFIED Status: Chronic Current Visit: No (4) Acute and chronic respiratory failure SNOMED Code(s): 24038530 Code(s): J96.20 - ACUTE AND CHR RESP FAILURE, UNSP W HYPOXIA OR HYPERCAPNIA Status: Chronic Current Visit: No Qualifiers: Respiratory failure complication: hypoxia Qualified Code(s): J96.21 - Acute and chronic respiratory failure with hypoxia (5) Respiratory alkalosis SNOMED Code(s): 321422573 Code(s): E87.3 - ALKALOSIS Status: Acute Current Visit: No (6) Interstitial lung disease SNOMED Code(s): 216577622 Code(s): J84.9 - INTERSTITIAL PULMONARY DISEASE, UNSPECIFIED Status: Chronic Current Visit: No (7) Severe pulmonary hypertension SNOMED Code(s): 712289856 Code(s): I27.20 - PULMONARY HYPERTENSION, UNSPECIFIED Status: Chronic Current Visit: No (8) Steroid dependent SNOMED Code(s): 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 Code(s): F19.20 - OTHER PSYCHOACTIVE SUBSTANCE DEPENDENCE, UNCOMPLICATED Status: Chronic Current Visit: No (9) Chronic atrial fibrillation SNOMED Code(s): 787380211 Code(s): I48.20 - CHRONIC ATRIAL FIBRILLATION, UNSPECIFIED Status: Chronic Current Visit: No (10) Chronic kidney disease SNOMED Code(s): 307133172 Code(s): N18.9 - CHRONIC KIDNEY DISEASE, UNSPECIFIED Status: Chronic Current Visit: No Qualifiers: Chronic kidney disease stage 3 subtype: stage 3b (GFR 30-44) (11) Weakness SNOMED Code(s): 29879623 Code(s): R53.1 - WEAKNESS Status: Chronic Current Visit: No (12) Indwelling Delacruz catheter present SNOMED Code(s): 994185578 Code(s): Z97.8 - PRESENCE OF OTHER SPECIFIED DEVICES Status: Chronic Current Visit: No (13) Obesity SNOMED Code(s): 817523569, 345948399 Code(s): E66.9 - OBESITY, UNSPECIFIED Status: Chronic Current Visit: No (14) COPD (chronic obstructive pulmonary disease) SNOMED Code(s): 18341457 Code(s): J44.9 - CHRONIC OBSTRUCTIVE PULMONARY DISEASE, UNSPECIFIED Status: Chronic Current Visit: Yes (15) Sleep apnea with use of continuous positive airway pressure (CPAP) SNOMED Code(s): 23079979, 472709305 Code(s): G47.30 - SLEEP APNEA, UNSPECIFIED Status: Chronic Current Visit: Yes (16) Anxiety SNOMED Code(s): 97435682 Code(s): F41.9 - ANXIETY DISORDER, UNSPECIFIED Status: Chronic Current Visit: No (17) Status post non-ST elevation myocardial infarction (NSTEMI) SNOMED Code(s): 516385854 Code(s): I25.2 - OLD MYOCARDIAL INFARCTION Status: Chronic Current Visit: No Onset Date: ~08/17/20 (18) Physical deconditioning SNOMED Code(s): 68003242304606 Code(s): R53.81 - OTHER MALAISE Status: Chronic Current Visit: No (19) Palliative care encounter SNOMED Code(s): 395293143, 047729151 Code(s): Z51.5 - ENCOUNTER FOR PALLIATIVE CARE Status: Chronic Current Visit: No - Problem List Review Problem List Initiated/Reviewed/Updated: Yes - My Orders Last 24 Hours: My Active Orders 02/23/21 14:00 Bumetanide [Bumex] 1.5 mg PO BID@08,14 02/24/21 16:00 HEMOGLOBIN/HEMATOCRIT,HH [HEME] Routine 02/25/21 06:00 BASIC METABOLIC PANEL,BMP [CHEM] Routine HEMOGLOBIN/HEMATOCRIT,HH [HEME] Routine 02/25/21 Breakfast Clear Liquid Diet [DIET] - Plan Plan:: 1. Severe anemia/black stools: Hgb 8.1, down from 8.5 after 2 units of PRBCs Th, dyspnea little worse today. Continue to monitor. Colonoscopy for Friday with Dr Barragan, bowel prep tomorrow and clear liquid diet tomorrow am. Repeat H&H at 1600 & 0600. Transfuse if needed. WBC at 14 but no signs of infection. 2. CHF: Resume home Bumex 1.5 mg bid. 3. COPD/Pulmonary HTN/Pulmonary fibrosis: continue home nebs except Tyvaso as it can affect platelet aggregation. 4. Chronic atrial fibrillation: hold Eliquis at this time. 5. CKD: Cr 1.8, improved with oral intake. Repeat BMP tomorrow. He is drinking liquids well, adjust treatments as needed. 6. DVT prophylaxis: TEDs, hold anticoagulation due to severe anemia. 7. Discharge planning: Friday, will need colonoscopy on Friday, further monitoring & treatment of CKD and CHF, will adjust treatments as necessary.
[2021-02-24] MEDS ORDERED: Bisacodyl 5 MG Tab PO PRN (15:14)
[2021-02-24] MEDS: TREPROSTINIL INH SCH ×2 (15:15→21:19)
[2021-02-24] MEDS ORDERED: TREPROSTINIL 1.74 MG/2.9 ML IH SCH (17:00)
[2021-02-24] MEDS ORDERED: Bumetanide 1 MG Tab PO PRN (17:12)
[2021-02-24] MEDS ORDERED: Bumetanide 1 MG/4 ML MDV IVPUSH ONE (18:28)
[2021-02-25] MEDS: Albuterol/Ipratropium 3.0-0.5 MG/3 ML Neb Soln INH SCH ×4 (06:45→21:13)
[2021-02-25] MEDS: Midodrine 5 MG Tab PO SCH ×3 (06:45→18:11)
[2021-02-25] MEDS: TREPROSTINIL INH SCH ×4 (07:06→21:13)
[2021-02-25] MEDS: Carbidopa/Levodopa 25-100 MG Tab PO SCH ×3 (09:01→21:12)
[2021-02-25] MEDS: Bumetanide 1 MG Tab PO SCH ×2 (09:02→13:09)
[2021-02-25] MEDS: Citalopram 10 MG Tab PO SCH (09:03)
[2021-02-25] MEDS: Digoxin 125 MCG Tab PO SCH (09:04)
[2021-02-25] MEDS: Potassium Chloride 20 MEQ Tab.ER PO SCH (09:04)
[2021-02-25] MEDS: atorvaSTATin 20 MG Tab PO SCH (09:05)
[2021-02-25] MEDS: Metoprolol Succinate 100 MG Tab.ER PO SCH (09:05)
[2021-02-25] MEDS: predniSONE 10 MG Tab PO SCH (09:05)
[2021-02-25] MEDS: Pantoprazole 40 MG Vial IVPUSH SCH ×2 (09:11→21:14)
[2021-02-25] MEDS: Sodium Chloride 0.9% 10 ML Syringe FLUSH PRN ×2 (09:11→11:13)
[2021-02-25] MEDS ORDERED: Sodium Chloride 0.9% 1,000 ML IV SCH (09:45)
--- NOTE | 2021-02-25 09:54 | PCM.PN ---
- General Info Date of Service: 02/25/21 Subjective Update: Mauricio haydenuresed 3175 ml total since 02/23, but weight is up to 200 lbs. Repeated CXR last night, increased pulmonary edema so Bumex 1 mg IV given had good results. He is on his home oxygen level of 4L but feeling more fatigued and short of breath this morning even with good diuresis last night. Restarted his Tyvaso yesterday, will administer as she knows how to clean machine. Denies any pain. He has some productive sputum, white with blood tinged, has hard time coughing it up, he's not aware if he's on any medication to help with mucus, his does all his medications. No edema in his feet. - Patient Data Vitals - Most Recent: Last Vital Signs Temp 98.3 F 02/25/21 07:20 Pulse 86 02/25/21 09:05 Resp 24 H 02/25/21 07:20 BP 132/60 02/25/21 09:05 Pulse Ox 88 L 02/25/21 07:20 Weight - Most Recent: 200 lb 6.4 oz I&O - Last 24 Hours: Intake & Output 02/24/21 02/25/21 02/25/21 22:59 06:59 14:59 Output Total 1600 425 Balance -1600 -425 Lab Results Last 24 Hours: Laboratory Results - last 24 hr 02/22/21 02/24/21 02/25/21 Range/Units 15:58 12:10 06:24 Hgb 8.6 L 7.9 L (12.9-17.7) g/dL Hct 26.5 L 25.9 L (38.3-50.1) % Sodium (135-145) mmol/L Potassium (3.5-5.3) mmol/L Chloride (100-110) mmol/L Carbon Dioxide (21-32) mmol/L BUN (7-18) mg/dL Creatinine (0.70-1.30) mg/dL Est Cr Clr Drug Dosing mL/min Estimated GFR (MDRD) (>60) BUN/Creatinine Ratio (9-20) Glucose (80-116) mg/dL Calcium (8.6-10.2) mg/dL Crossmatch See Detail 02/25/21 Range/Units 06:24 Hgb (12.9-17.7) g/dL Hct (38.3-50.1) % Sodium 146 H (135-145) mmol/L Potassium 3.2 L (3.5-5.3) mmol/L Chloride 103 (100-110) mmol/L Carbon Dioxide 34 H (21-32) mmol/L BUN 33 H (7-18) mg/dL Creatinine 1.7 H (0.70-1.30) mg/dL Est Cr Clr Drug Dosing 35.64 mL/min Estimated GFR (MDRD) 40 L (>60) BUN/Creatinine Ratio 19.4 (9-20) Glucose 116 (80-116) mg/dL Calcium 8.5 L (8.6-10.2) mg/dL Crossmatch Med Orders - Current: Current Medications Albuterol/Ipratropium (Albuterol/Ipratropium 3.0-0.5 Mg/3 Ml Neb Soln) 3 ml NEB Q4H PRN PRN Reason: Shortness of Breath Albuterol/Ipratropium (Albuterol/Ipratropium 3.0-0.5 Mg/3 Ml Neb Soln) 3 ml INH QIDRT [facility] Last Admin: 02/25/21 06:45 Dose: 3 ml Documented by: Artificial Tears (Carboxymethylcellulose Sodium 0.5% Ophth Soln 15 Ml Bottle) 0 ml EYEBOTH DAILY PRN PRN Reason: Dry Eyes Atorvastatin Calcium (Atorvastatin 20 Mg Tab) 20 mg PO DAILY [facility] Last Admin: 02/25/21 09:05 Dose: 20 mg Documented by: Bisacodyl (Bisacodyl 5 Mg Tab) 5 mg PO DAILY PRN PRN Reason: Constipation Bumetanide (Bumetanide 1 Mg Tab) 1.5 mg PO BID@,14 [facility] Last Admin: 02/25/21 09:02 Dose: 1.5 mg Documented by: Bumetanide (Bumetanide 1 Mg Tab) 1.5 mg PO BID PRN PRN Reason: weight gain 2-3 lbs Carbidopa/Levodopa (Carbidopa/Levodopa 25-100 Mg Tab) 1.5 tab PO TID [facility] Last Admin: 02/25/21 09:01 Dose: 1.5 tab Documented by: Citalopram Hydrobromide (Citalopram 10 Mg Tab) 10 mg PO DAILY [facility] Last Admin: 02/25/21 09:03 Dose: 10 mg Documented by: Digoxin (Digoxin 125 Mcg Tab) 125 mcg PO DAILY [facility] Last Admin: 02/25/21 09:04 Dose: 125 mcg Documented by: Sodium Chloride (Normal Saline) 1,000 mls @ 100 mls/hr IV ASDIRECTED [facility] Metolazone (Metolazone 2.5 Mg Tab) 2.5 mg PO DAILY PRN PRN Reason: Edema Metoprolol Succinate (Metoprolol Succinate 100 Mg Tab.Er) 200 mg PO DAILY [facility] Last Admin: 02/25/21 09:05 Dose: 200 mg Documented by: Midodrine (Midodrine 5 Mg Tab) 2.5 mg PO TIDAC [facility] Last Admin: 02/25/21 06:45 Dose: 2.5 mg Documented by: Nitroglycerin (Nitroglycerin 0.4 Mg Tab.Sl) 0.4 mg SL Q5M PRN PRN Reason: Chest Pain Treprostinil [Tyvaso (] 3 InhOwn Med) 3 inh INH 07,11,16,20 [facility] Last Admin: 02/25/21 07:06 Dose: 3 inh Documented by: Pantoprazole Sodium (Pantoprazole 40 Mg Vial) 40 mg IVPUSH Q12H [facility] Last Admin: 02/25/21 09:11 Dose: 40 mg Documented by: Polyethylene Glycol (Polyethylene Glycol 3350 Powder 238 Gm Bot) 238 gm PO ONETIME ONE Stop: 02/25/21 12:01 Potassium Chloride (Potassium Chloride 20 Meq Tab.Er) 20 meq PO DAILY [facility] Last Admin: 02/25/21 09:04 Dose: 20 meq Documented by: Potassium Chloride (Potassium Chloride 20 Meq Tab.Er) 20 meq PO ONETIME ONE Stop: 02/25/21 14:01 Prednisone (Prednisone 10 Mg Tab) 10 mg PO DAILY [facility] Last Admin: 02/25/21 09:05 Dose: 10 mg Documented by: Senna/Docusate Sodium (Docusate Sodium/Sennosides 50-8.6 Mg Tab) 1 tab PO BID [facility] Last Admin: 02/25/21 09:02 Dose: 1 tab Documented by: Sodium Chloride (Sodium Chloride 0.9% 10 Ml Syringe) 10 ml FLUSH ASDIRECTED PRN PRN Reason: Keep Vein Open Last Admin: 02/25/21 09:11 Dose: 10 ml Documented by: Discontinued Medications Albuterol/Ipratropium (Albuterol/Ipratropium 3.0-0.5 Mg/3 Ml Neb Soln) 3 ml NEB NOW STA Stop: 02/22/21 12:50 Last Admin: 02/22/21 13:13 Dose: 3 ml Documented by: Bumetanide (Bumetanide 1 Mg/4 Ml Mdv) 1 mg IVPUSH ONETIME ONE Stop: 02/24/21 18:29 Last Admin: 02/24/21 18:50 Dose: 1 mg Documented by: Furosemide (Furosemide 20 Mg/2 Ml Vial) 20 mg IVPUSH NOW ONE Stop: 02/22/21 16:16 Last Admin: 02/22/21 17:50 Dose: 20 mg Documented by: Furosemide (Furosemide 40 Mg/4 Ml Vial) 40 mg IVPUSH BTNUNITS [facility] Last Admin: 02/22/21 21:16 Dose: 40 mg Documented by: Sodium Chloride (Normal Saline) 250 mls @ 100 mls/hr IV ASDIRECTED [facility] Last Admin: 02/22/21 22:00 Dose: 100 mls/hr Documented by: Lorazepam (Lorazepam 0.5 Mg Tab) 0.25 mg PO ONETIME ONE Stop: 02/24/21 00:23 Last Admin: 02/24/21 00:32 Dose: 0.25 mg Documented by: Methylprednisolone Sodium Succinate (Methylprednisolone Sodium Succinate 125 Mg/2 Ml Sdv) 125 mg IVPUSH NOW STA Stop: 02/22/21 12:50 Last Admin: 02/22/21 13:13 Dose: 125 mg Documented by: Morphine Sulfate (Morphine 4 Mg/Ml Vial) 4 mg IVPUSH NOW STA Stop: 02/22/21 12:58 Last Admin: 02/22/21 13:13 Dose: 4 mg Documented by: Non-Formulary Medication (Treprostinil [Tyvaso]) 3 inh IH QID [facility] Ondansetron HCl (Ondansetron 4 Mg/2 Ml Sdv) 4 mg IVPUSH ONETIME ONE Stop: 02/22/21 13:35 Last Admin: 02/22/21 13:40 Dose: 4 mg Documented by: Pantoprazole Sodium (Pantoprazole 40 Mg Tab.Cr) 40 mg PO DAILY@0600 ULICES - Exam Quality Assessment: Supplemental Oxygen (4L) General: Alert, Oriented, Cooperative, Mild Distress Neck: Trachea Midline Lungs: Clear to Auscultation (BUL), Normal Respiratory Effort, Decreased Breath Sounds (bibasilar, RML), Crackles (LLL). No: Wheezing Cardiovascular: Regular Rate, Irregular Rhythm GI/Abdominal Exam: Normal Bowel Sounds, Soft, Non-Tender, No Distention, Other (obese) Extremities: No Pedal Edema, Pallor Peripheral Pulses: 2+: Brachial (R), Radial (L) - Patient Data Lab Results Last 24 hrs: Laboratory Results - last 24 hr 02/22/21 02/24/21 02/25/21 Range/Units 15:58 12:10 06:24 Hgb 8.6 L 7.9 L (12.9-17.7) g/dL Hct 26.5 L 25.9 L (38.3-50.1) % Sodium (135-145) mmol/L Potassium (3.5-5.3) mmol/L Chloride (100-110) mmol/L Carbon Dioxide (21-32) mmol/L BUN (7-18) mg/dL Creatinine (0.70-1.30) mg/dL Est Cr Clr Drug Dosing mL/min Estimated GFR (MDRD) (>60) BUN/Creatinine Ratio (9-20) Glucose (80-116) mg/dL Calcium (8.6-10.2) mg/dL Crossmatch See Detail 02/25/21 Range/Units 06:24 Hgb (12.9-17.7) g/dL Hct (38.3-50.1) % Sodium 146 H (135-145) mmol/L Potassium 3.2 L (3.5-5.3) mmol/L Chloride 103 (100-110) mmol/L Carbon Dioxide 34 H (21-32) mmol/L BUN 33 H (7-18) mg/dL Creatinine 1.7 H (0.70-1.30) mg/dL Est Cr Clr Drug Dosing 35.64 mL/min Estimated GFR (MDRD) 40 L (>60) BUN/Creatinine Ratio 19.4 (9-20) Glucose 116 (80-116) mg/dL Calcium 8.5 L (8.6-10.2) mg/dL Crossmatch Result Diagrams: 02/25/21 06:24 02/25/21 06:24 Sepsis Event Note - Evaluation Sepsis Screening Result: No Definite Risk - Focused Exam Vital Signs: Vital Signs Temp Pulse Pulse Resp BP BP Pulse Ox 02/25/21 09:05 86 132/60 02/25/21 09:04 86 02/25/21 07:20 98.3 F 71 24 H 132/60 88 L 02/25/21 03:50 98.2 F 86 20 109/46 L 91 L 02/25/21 03:00 Pulse Ox 02/25/21 09:05 02/25/21 09:04 02/25/21 07:20 02/25/21 03:50 02/25/21 03:00 91 L - Problem List & Annotations (1) Anemia SNOMED Code(s): 901667587 Code(s): D64.9 - ANEMIA, UNSPECIFIED Status: Acute Current Visit: Yes Qualifiers: Anemia type: unspecified type Qualified Code(s): D64.9 - Anemia, unspecified (2) Black tarry stools SNOMED Code(s): 898099089 Code(s): K92.1 - MELENA Status: Acute Current Visit: Yes (3) Heart failure SNOMED Code(s): 58955856 Code(s): I50.9 - HEART FAILURE, UNSPECIFIED Status: Chronic Current Visit: No (4) Acute and chronic respiratory failure SNOMED Code(s): 34752675 Code(s): J96.20 - ACUTE AND CHR RESP FAILURE, UNSP W HYPOXIA OR HYPERCAPNIA Status: Chronic Current Visit: No Qualifiers: Respiratory failure complication: hypoxia Qualified Code(s): J96.21 - Acute and chronic respiratory failure with hypoxia (5) Respiratory alkalosis SNOMED Code(s): 179545057 Code(s): E87.3 - ALKALOSIS Status: Acute Current Visit: No (6) Interstitial lung disease SNOMED Code(s): 206977488 Code(s): J84.9 - INTERSTITIAL PULMONARY DISEASE, UNSPECIFIED Status: Chronic Current Visit: No (7) Severe pulmonary hypertension SNOMED Code(s): 652929860 Code(s): I27.20 - PULMONARY HYPERTENSION, UNSPECIFIED Status: Chronic Current Visit: No (8) Steroid dependent SNOMED Code(s): 75413361 Code(s): F19.20 - OTHER PSYCHOACTIVE SUBSTANCE DEPENDENCE, UNCOMPLICATED Status: Chronic Current Visit: No (9) Chronic atrial fibrillation SNOMED Code(s): 468238173 Code(s): I48.20 - CHRONIC ATRIAL FIBRILLATION, UNSPECIFIED Status: Chronic Current Visit: No (10) Chronic kidney disease SNOMED Code(s): 888404937 Code(s): N18.9 - CHRONIC KIDNEY DISEASE, UNSPECIFIED Status: Chronic Current Visit: No Qualifiers: Chronic kidney disease stage 3 subtype: stage 3b (GFR 30-44) (11) Weakness SNOMED Code(s): 22304909 Code(s): R53.1 - WEAKNESS Status: Chronic Current Visit: No (12) Indwelling Delacruz catheter present SNOMED Code(s): 055859397 Code(s): Z97.8 - PRESENCE OF OTHER SPECIFIED DEVICES Status: Chronic Current Visit: No (13) Obesity SNOMED Code(s): 243780647, 718948912 Code(s): E66.9 - OBESITY, UNSPECIFIED Status: Chronic Current Visit: No (14) COPD (chronic obstructive pulmonary disease) SNOMED Code(s): 04473705 Code(s): J44.9 - CHRONIC OBSTRUCTIVE PULMONARY DISEASE, UNSPECIFIED Status: Chronic Current Visit: Yes (15) Sleep apnea with use of continuous positive airway pressure (CPAP) SNOMED Code(s): 17794837, 403191065 Code(s): G47.30 - SLEEP APNEA, UNSPECIFIED Status: Chronic Current Visit: Yes (16) Anxiety SNOMED Code(s): 52900305 Code(s): F41.9 - ANXIETY DISORDER, UNSPECIFIED Status: Chronic Current Visit: No (17) Status post non-ST elevation myocardial infarction (NSTEMI) SNOMED Code(s): 591761920 Code(s): I25.2 - OLD MYOCARDIAL INFARCTION Status: Chronic Current Visit: No Onset Date: ~08/17/20 (18) Physical deconditioning SNOMED Code(s): 99490376013663 Code(s): R53.81 - OTHER MALAISE Status: Chronic Current Visit: No (19) Palliative care encounter SNOMED Code(s): 855066810, 010336061 Code(s): Z51.5 - ENCOUNTER FOR PALLIATIVE CARE Status: Chronic Current Visit: No - Problem List Review Problem List Initiated/Reviewed/Updated: Yes - My Orders Last 24 Hours: My Active Orders 02/24/21 15:14 bisacodyL [Dulcolax] 5 mg PO DAILY PRN 02/24/21 15:15 CXR [Chest 2V] [CR] Routine 02/24/21 15:35 Communication Order [RC] ,,,02/24/21 16:00 Treprostinil [Tyvaso] 3 inh INH 07,,,20 02/24/21 17:12 Bumetanide [Bumex] 1.5 mg PO BID PRN 02/25/21 Breakfast Clear Liquid Diet [DIET] 02/25/21 09:40 Transfuse PRBC [Transfuse Red Blood Cells] [COMM] Routine 02/25/21 09:43 Renew/Continue Urinary Catheter [OM.PC] Routine 02/25/21 09:45 Sodium Chloride 0.9% [Normal Saline] 250 ml IV ASDIRECTED 02/25/21 12:00 polyethylene glycoL 3350 [MiraLAX] 238 gm PO ONETIME ONE 02/25/21 14:00 Potassium Chloride [Klor-Con M20] 20 meq PO ONETIME ONE - Plan Plan:: 1. Severe anemia/black stools: Hgb 7.9, had 2625 ml urine out last evening. Colonoscopy for Friday with Dr Barragan, bowel prep today and clear liquid diet started this am. Transfuse 1 unit of PRBCs with Bumex 1 mg IV after unit. 2. CHF: Resume home Bumex 1.5 mg bid. 3. COPD/Pulmonary HTN/Pulmonary fibrosis: continue home nebs restarted Tyvaso. Had some blood tinged white sputum this am, add Mucinex 600 mg bid and Flutter valve to help mobilize mucus. on Prednisone 10 mg daily. 4. Chronic atrial fibrillation: hold Eliquis at this time. 5. CKD: Cr 1.7, improved with oral intake. K 3.2, Na 146. Repeat BMP tomorrow. Extra dose of potassium this afternoon. On clear liquids today, will adjust delfina tments as needed. 6. DVT prophylaxis: TEDs, hold anticoagulation due to severe anemia. 7. Discharge planning: possibly Friday, will need colonoscopy on Friday, further monitoring & treatment of CKD and CHF, will adjust treatments as necessary.
[2021-02-25] MEDS: guaiFENesin 600 MG Tab.ER PO SCH ×2 (10:46→21:14)
[2021-02-25] MEDS: Sodium Chloride 0.9% 250 ML IV SCH (11:13)
[2021-02-25] MEDS ORDERED: Sodium Chloride 0.9% 250 ML IV SCH ×2 (11:13)
[2021-02-25] MEDS ORDERED: Polyethylene Glycol 3350 Powder 238 GM Bot PO ONE (12:00)
[2021-02-25] MEDS ORDERED: Potassium Chloride 20 MEQ Tab.ER PO ONE (14:00)
[2021-02-25] MEDS: Bumetanide 1 MG/4 ML MDV IVPUSH ONE ×2 (14:56→14:58)
[2021-02-25] MEDS ORDERED: Bumetanide 1 MG/4 ML MDV IVPUSH ONE (15:00)
[2021-02-26] MEDS: TREPROSTINIL INH SCH ×4 (06:27→21:29)
[2021-02-26] MEDS: Albuterol/Ipratropium 3.0-0.5 MG/3 ML Neb Soln INH SCH ×4 (06:27→21:30)
[2021-02-26] MEDS: Midodrine 5 MG Tab PO SCH ×3 (06:41→17:05)
[2021-02-26] MEDS ORDERED: Bumetanide 1 MG/4 ML MDV IVPUSH ONE (09:00)
[2021-02-26] MEDS ORDERED: Sodium Chloride 0.9% 250 ML IV ONE (09:00)
[2021-02-26] MEDS: Pantoprazole 40 MG Vial IVPUSH SCH (09:18)
[2021-02-26] MEDS: Potassium Chloride 100 ML IV SCH ×2 (09:25→11:38)
[2021-02-26] MEDS: Bumetanide 1 MG Tab PO SCH ×2 (09:25→14:16)
--- NOTE | 2021-02-26 11:22 | PCM.PN ---
- General Info Date of Service: 02/26/21 Subjective Update: Mauricio started having increased crackles on lung exam last night so saline locked but no as needed Bumex or Metolazone given last night. NPO after midnight. He states he slept from well last night. He feels better, has some crackles and weight is up 1 lb from yesterday. He is to have colonoscopy approx noon. No chest pain. - Patient Data Vitals - Most Recent: Last Vital Signs Temp 98.8 F 02/25/21 20:00 Pulse 78 02/25/21 20:00 Resp 18 02/26/21 00:00 BP 139/65 02/25/21 20:00 Pulse Ox 95 02/26/21 03:00 Weight - Most Recent: 201 lb 1.6 oz I&O - Last 24 Hours: Intake & Output 02/25/21 02/26/21 02/26/21 22:59 06:59 14:59 Output Total 1500 275 Balance -1500 -275 Lab Results Last 24 Hours: Laboratory Results - last 24 hr 02/22/21 02/26/21 02/26/21 Range/Units 15:58 06:10 06:10 Hgb 9.0 L (12.9-17.7) g/dL Hct 28.3 L (38.3-50.1) % Sodium 146 H (135-145) mmol/L Potassium 3.0 L (3.5-5.3) mmol/L Chloride 104 (100-110) mmol/L Carbon Dioxide 33 H (21-32) mmol/L BUN 22 H D (7-18) mg/dL Creatinine 1.5 H (0.70-1.30) mg/dL Est Cr Clr Drug Dosing 40.39 mL/min Estimated GFR (MDRD) 46 L (>60) BUN/Creatinine Ratio 14.7 (9-20) Glucose 100 (80-116) mg/dL Calcium 8.2 L (8.6-10.2) mg/dL Crossmatch See Detail Med Orders - Current: Current Medications Albuterol/Ipratropium (Albuterol/Ipratropium 3.0-0.5 Mg/3 Ml Neb Soln) 3 ml NEB Q4H PRN PRN Reason: Shortness of Breath Albuterol/Ipratropium (Albuterol/Ipratropium 3.0-0.5 Mg/3 Ml Neb Soln) 3 ml INH QIDRT [facility] Last Admin: 02/26/21 06:27 Dose: 3 ml Documented by: Artificial Tears (Carboxymethylcellulose Sodium 0.5% Ophth Soln 15 Ml Bottle) 0 ml EYEBOTH DAILY PRN PRN Reason: Dry Eyes Atorvastatin Calcium (Atorvastatin 20 Mg Tab) 20 mg PO DAILY [facility] Last Admin: 02/25/21 09:05 Dose: 20 mg Documented by: Bisacodyl (Bisacodyl 5 Mg Tab) 5 mg PO DAILY PRN PRN Reason: Constipation Bumetanide (Bumetanide 1 Mg Tab) 1.5 mg PO BID@08,14 [facility] Last Admin: 02/26/21 09:25 Dose: Not Given Documented by: Bumetanide (Bumetanide 1 Mg Tab) 1.5 mg PO BID PRN PRN Reason: weight gain 2-3 lbs Carbidopa/Levodopa (Carbidopa/Levodopa 25-100 Mg Tab) 1.5 tab PO TID [facility] Last Admin: 02/25/21 21:12 Dose: 1.5 tab Documented by: Citalopram Hydrobromide (Citalopram 10 Mg Tab) 10 mg PO DAILY [facility] Last Admin: 02/25/21 09:03 Dose: 10 mg Documented by: Digoxin (Digoxin 125 Mcg Tab) 125 mcg PO DAILY [facility] Last Admin: 02/25/21 09:04 Dose: 125 mcg Documented by: Guaifenesin (Guaifenesin 600 Mg Tab.Er) 600 mg PO BID [facility] Last Admin: 02/25/21 21:14 Dose: 600 mg Documented by: Potassium Chloride (Kcl In Water 20 Meq/100 Ml) 100 mls @ 50 mls/hr IV Q2H [facility] Stop: 02/26/21 12:59 Last Admin: 02/26/21 09:25 Dose: 50 mls/hr Documented by: Sodium Chloride (Normal Saline) 250 mls @ 60 mls/hr IV ONETIME ONE Stop: 02/26/21 13:09 Last Admin: 02/26/21 09:26 Dose: 60 mls/hr Documented by: Metolazone (Metolazone 2.5 Mg Tab) 2.5 mg PO DAILY PRN PRN Reason: Edema Metoprolol Succinate (Metoprolol Succinate 100 Mg Tab.Er) 200 mg PO DAILY [facility] Last Admin: 02/25/21 09:05 Dose: 200 mg Documented by: Midodrine (Midodrine 5 Mg Tab) 2.5 mg PO TIDAC [facility] Last Admin: 02/26/21 06:41 Dose: Not Given Documented by: Nitroglycerin (Nitroglycerin 0.4 Mg Tab.Sl) 0.4 mg SL Q5M PRN PRN Reason: Chest Pain Treprostinil [Tyvaso (] 3 InhOwn Med) 3 inh INH 07,11,16,20 [facility] Last Admin: 02/26/21 06:27 Dose: 3 inh Documented by: Pantoprazole Sodium (Pantoprazole 40 Mg Vial) 40 mg IVPUSH Q12H [facility] Last Admin: 02/26/21 09:18 Dose: 40 mg Documented by: Potassium Chloride (Potassium Chloride 20 Meq Tab.Er) 20 meq PO DAILY [facility] Last Admin: 02/25/21 09:04 Dose: 20 meq Documented by: Prednisone (Prednisone 10 Mg Tab) 10 mg PO DAILY [facility] Last Admin: 02/25/21 09:05 Dose: 10 mg Documented by: Senna/Docusate Sodium (Docusate Sodium/Sennosides 50-8.6 Mg Tab) 1 tab PO BID [facility] Last Admin: 02/25/21 21:14 Dose: 1 tab Documented by: Sodium Chloride (Sodium Chloride 0.9% 10 Ml Syringe) 10 ml FLUSH ASDIRECTED PRN PRN Reason: Keep Vein Open Last Admin: 02/25/21 11:13 Dose: 10 ml Documented by: Discontinued Medications Albuterol/Ipratropium (Albuterol/Ipratropium 3.0-0.5 Mg/3 Ml Neb Soln) 3 ml NEB NOW STA Stop: 02/22/21 12:50 Last Admin: 02/22/21 13:13 Dose: 3 ml Documented by: Bumetanide (Bumetanide 1 Mg/4 Ml Mdv) 1 mg IVPUSH ONETIME ONE Stop: 02/24/21 18:29 Last Admin: 02/24/21 18:50 Dose: 1 mg Documented by: Bumetanide (Bumetanide 1 Mg/4 Ml Mdv) 1 mg IVPUSH BTNUNITS ONE Stop: 02/25/21 09:58 Last Admin: 02/25/21 14:58 Dose: Not Given Documented by: Bumetanide (Bumetanide 1 Mg/4 Ml Mdv) 1 mg IVPUSH BTNUNITS ONE Stop: 02/25/21 15:01 Last Admin: 02/25/21 14:56 Dose: 1 mg Documented by: Bumetanide (Bumetanide 1 Mg/4 Ml Mdv) 1 mg IVPUSH ONETIME ONE Stop: 02/26/21 09:01 Last Admin: 02/26/21 09:18 Dose: 1 mg Documented by: Furosemide (Furosemide 20 Mg/2 Ml Vial) 20 mg IVPUSH NOW ONE Stop: 02/22/21 16:16 Last Admin: 02/22/21 17:50 Dose: 20 mg Documented by: Furosemide (Furosemide 40 Mg/4 Ml Vial) [facility] Last Admin: 02/22/21 21:16 Dose: 40 mg Documented by: Sodium Chloride (Normal Saline) 250 mls @ 100 mls/hr IV ASDIRECTED [facility] Last Admin: 02/22/21 22:00 Dose: 100 mls/hr Documented by: Sodium Chloride (Normal Saline) 1,000 mls @ 100 mls/hr IV ASDIRECTED [facility] Last Admin: 02/25/21 14:30 Dose: 100 mls/hr Documented by: Sodium Chloride (Normal Saline) 250 mls @ 100 mls/hr IV ASDIRECTED [facility] Last Admin: 02/25/21 11:13 Dose: 100 mls/hr Documented by: Sodium Chloride (Normal Saline) 250 mls @ 100 mls/hr IV ASDIRECTED [facility] Stop: 02/25/21 13:42 Lorazepam (Lorazepam 0.5 Mg Tab) 0.25 mg PO ONETIME ONE Stop: 02/24/21 00:23 Last Admin: 02/24/21 00:32 Dose: 0.25 mg Documented by: Methylprednisolone Sodium Succinate (Methylprednisolone Sodium Succinate 125 Mg/2 Ml Sdv) 125 mg IVPUSH NOW STA Stop: 02/22/21 12:50 Last Admin: 02/22/21 13:13 Dose: 125 mg Documented by: Morphine Sulfate (Morphine 4 Mg/Ml Vial) 4 mg IVPUSH NOW STA Stop: 02/22/21 12:58 Last Admin: 02/22/21 13:13 Dose: 4 mg Documented by: Non-Formulary Medication (Treprostinil [Tyvaso]) 3 inh IH QID ULICES Ondansetron HCl (Ondansetron 4 Mg/2 Ml Sdv) 4 mg IVPUSH ONETIME ONE Stop: 02/22/21 13:35 Last Admin: 02/22/21 13:40 Dose: 4 mg Documented by: Pantoprazole Sodium (Pantoprazole 40 Mg Tab.Cr) 40 mg PO DAILY@0600 ULICES Polyethylene Glycol (Polyethylene Glycol 3350 Powder 238 Gm Bot) 238 gm PO ONETIME ONE Stop: 02/25/21 12:01 Last Admin: 02/25/21 12:52 Dose: 238 gm Documented by: Potassium Chloride (Potassium Chloride 20 Meq Tab.Er) 20 meq PO ONETIME ONE Stop: 02/25/21 14:01 Last Admin: 02/25/21 13:03 Dose: 20 meq Documented by: - Exam Quality Assessment: Supplemental Oxygen (4L) General: Alert, Oriented, Cooperative Lungs: Normal Respiratory Effort, Decreased Breath Sounds, Crackles (Bibasilar). No: Wheezing Cardiovascular: Regular Rate, Irregular Rhythm GI/Abdominal Exam: Normal Bowel Sounds, Soft, Non-Tender, No Distention Extremities: No Pedal Edema. No: Pallor Peripheral Pulses: 2+: Radial (L), Radial (R) - Patient Data Lab Results Last 24 hrs: Laboratory Results - last 24 hr 02/22/21 02/26/21 02/26/21 Range/Units 15:58 06:10 06:10 Hgb 9.0 L (12.9-17.7) g/dL Hct 28.3 L (38.3-50.1) % Sodium 146 H (135-145) mmol/L Potassium 3.0 L (3.5-5.3) mmol/L Chloride 104 (100-110) mmol/L Carbon Dioxide 33 H (21-32) mmol/L BUN 22 H D (7-18) mg/dL Creatinine 1.5 H (0.70-1.30) mg/dL Est Cr Clr Drug Dosing 40.39 mL/min Estimated GFR (MDRD) 46 L (>60) BUN/Creatinine Ratio 14.7 (9-20) Glucose 100 (80-116) mg/dL Calcium 8.2 L (8.6-10.2) mg/dL Crossmatch See Detail Result Diagrams: 02/26/21 06:10 02/26/21 06:10 Sepsis Event Note - Evaluation Sepsis Screening Result: No Definite Risk - Focused Exam Vital Signs: Vital Signs Resp Pulse Ox 02/26/21 03:00 95 02/26/21 00:00 18 - Problem List & Annotations (1) Anemia SNOMED Code(s): 753458949 Code(s): D64.9 - ANEMIA, UNSPECIFIED Status: Acute Current Visit: Yes Qualifiers: Anemia type: unspecified type Qualified Code(s): D64.9 - Anemia, unspecified (2) Black tarry stools SNOMED Code(s): 298287605 Code(s): K92.1 - MELENA Status: Acute Current Visit: Yes (3) Heart failure SNOMED Code(s): 66141168 Code(s): I50.9 - HEART FAILURE, UNSPECIFIED Status: Chronic Current Visit: No (4) Hypokalemia SNOMED Code(s): 60700556 Code(s): E87.6 - HYPOKALEMIA Status: Acute Current Visit: Yes (5) Acute and chronic respiratory failure SNOMED Code(s): 52464042 Code(s): J96.20 - ACUTE AND CHR RESP FAILURE, UNSP W HYPOXIA OR HYPERCAPNIA Status: Chronic Current Visit: No Qualifiers: Respiratory failure complication: hypoxia Qualified Code(s): J96.21 - Acute and chronic respiratory failure with hypoxia (6) Respiratory alkalosis SNOMED Code(s): 693649584 Code(s): E87.3 - ALKALOSIS Status: Acute Current Visit: No (7) Interstitial lung disease SNOMED Code(s): 902959615 Code(s): J84.9 - INTERSTITIAL PULMONARY DISEASE, UNSPECIFIED Status: Chronic Current Visit: No (8) Severe pulmonary hypertension SNOMED Code(s): 018332656 Code(s): I27.20 - PULMONARY HYPERTENSION, UNSPECIFIED Status: Chronic Current Visit: No (9) Steroid dependent SNOMED Code(s): 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 Code(s): F19.20 - OTHER PSYCHOACTIVE SUBSTANCE DEPENDENCE, UNCOMPLICATED S tatus: Chronic Current Visit: No (10) Chronic atrial fibrillation SNOMED Code(s): 641152077 Code(s): I48.20 - CHRONIC ATRIAL FIBRILLATION, UNSPECIFIED Status: Chronic Current Visit: No (11) Chronic kidney disease SNOMED Code(s): 766233534 Code(s): N18.9 - CHRONIC KIDNEY DISEASE, UNSPECIFIED Status: Chronic Current Visit: No Qualifiers: Chronic kidney disease stage 3 subtype: stage 3b (GFR 30-44) (12) Weakness SNOMED Code(s): 80273798 Code(s): R53.1 - WEAKNESS Status: Chronic Current Visit: No (13) Indwelling Delacruz catheter present SNOMED Code(s): 535847452 Code(s): Z97.8 - PRESENCE OF OTHER SPECIFIED DEVICES Status: Chronic Current Visit: No (14) Obesity SNOMED Code(s): 946452114, 969874136 Code(s): E66.9 - OBESITY, UNSPECIFIED Status: Chronic Current Visit: No (15) COPD (chronic obstructive pulmonary disease) SNOMED Code(s): 33046359 Code(s): J44.9 - CHRONIC OBSTRUCTIVE PULMONARY DISEASE, UNSPECIFIED Status: Chronic Current Visit: Yes (16) Sleep apnea with use of continuous positive airway pressure (CPAP) SNOMED Code(s): 67728419, 103476714 Code(s): G47.30 - SLEEP APNEA, UNSPECIFIED Status: Chronic Current Visit: Yes (17) Anxiety SNOMED Code(s): 70694171 Code(s): F41.9 - ANXIETY DISORDER, UNSPECIFIED Status: Chronic Current Visit: No (18) Status post non-ST elevation myocardial infarction (NSTEMI) SNOMED Code(s): 085236423 Code(s): I25.2 - OLD MYOCARDIAL INFARCTION Status: Chronic Current Visit: No Onset Date: ~08/17/20 (19) Physical deconditioning SNOMED Code(s): 08217712768408 Code(s): R53.81 - OTHER MALAISE Status: Chronic Current Visit: No (20) Palliative care encounter SNOMED Code(s): 823785004, 167008215 Code(s): Z51.5 - ENCOUNTER FOR PALLIATIVE CARE Status: Chronic Current Visit: No - Problem List Review Problem List Initiated/Reviewed/Updated: Yes - My Orders Last 24 Hours: My Active Orders 02/25/21 16:32 Renew/Continue Urinary Catheter [OM.PC] Routine 02/26/21 09:00 Potassium Chloride [KCL in Water 20 MEQ/100 ML] 100 ml IV Q2H Sodium Chloride 0.9% [Normal Saline] 250 ml IV ONETIME 02/26/21 14:00 POTASSIUM,K [CHEM] Routine 02/27/21 06:00 BASIC METABOLIC PANEL,BMP [CHEM] Routine HEMOGLOBIN/HEMATOCRIT,HH [HEME] Routine - Plan Plan:: 1. Severe anemia/black stools: Hgb 9.0, had 2525 ml urine out last evening. Colonoscopy today with Dr Barragan, Transfused 1 unit of PRBCs yesterday. 2. CHF: NPO so Bumex 1 mg IV this morning, resume home Bumex 1.5 mg bid this afternoon after procedure. Use as needed Bumex or Metolazone. 3. COPD/Pulmonary HTN/Pulmonary fibrosis: Mucinex 600 mg bid and Flutter valve to help mobilize mucus. on Prednisone 10 mg daily. 4. Chronic atrial fibrillation: hold Eliquis at this time. 5. CKD: Cr 1.5, improved with oral intake. 6. Hypokalemia: K 3.0, Na 146. Repeat BMP tomorrow. NPO so 250 ml of NS with KCL 20 mEq IV over 2 hours x 2 bags, repeat potassium this afternoon and supplement as needed. 7. DVT prophylaxis: TEDs, hold anticoagulation due to severe anemia. 8. Discharge planning: Depending on colonoscopy results will contact his Mortgage Loan Reviewer and pharmacy affairs assistant on findings. Further monitoring & treatment of CKD and CHF, will adjust treatments as necessary.
--- NOTE | 2021-02-26 11:53 | CR ---
CHEST TWO VIEWS INDICATION: Short of breath. FINDINGS: PA and lateral views of the chest 02/24/21 were compared with 02/22/21 and 10/09/20. Extensive bilateral infiltration is present and very similar to the previous examination allowing for changes positioning and technique as well as inspiration. The possibility of new superimposed areas of pneumonia - superimposed on fibrosis - should be considered, especially at the left mid lung field and left lung base. The heart did not appear grossly enlarged but is not well delineated due to the poor inspiration. IMPRESSION: Findings remain compatible with severe pulmonary fibrosis, possibly with superimposed areas of pneumonia. MTDD
--- NOTE | 2021-02-26 12:33 | PCM.PN ---
- General Info Date of Service: 02/26/21 - Review of Systems Systems Review Comment:: 75-year-old male here for colonoscopy. He is admitted with significant anemia. Recent EGD did not reveal any bleeding source. He has required transfusion. He is medically stable to proceed today. I have discussed the proposed colonoscopy with the patient. His questions were answered and he agrees to proceed accept ing risks. - Patient Data Vitals - Most Recent: Last Vital Signs Temp 98.8 F 02/25/21 20:00 Pulse 78 02/25/21 20:00 Resp 18 02/26/21 00:00 BP 139/65 02/25/21 20:00 Pulse Ox 95 02/26/21 03:00 Weight - Most Recent: 201 lb 1.6 oz I&O - Last 24 Hours: Intake & Output 02/25/21 02/26/21 02/26/21 22:59 06:59 14:59 Output Total 1500 275 Balance -1500 -275 Lab Results Last 24 Hours: Laboratory Results - last 24 hr 02/22/21 02/26/21 02/26/21 Range/Units 15:58 06:10 06:10 Hgb 9.0 L (12.9-17.7) g/dL Hct 28.3 L (38.3-50.1) % Sodium 146 H (135-145) mmol/L Potassium 3.0 L (3.5-5.3) mmol/L Chloride 104 (100-110) mmol/L Carbon Dioxide 33 H (21-32) mmol/L BUN 22 H D (7-18) mg/dL Creatinine 1.5 H (0.70-1.30) mg/dL Est Cr Clr Drug Dosing 40.39 mL/min Estimated GFR (MDRD) 46 L (>60) BUN/Creatinine Ratio 14.7 (9-20) Glucose 100 (80-116) mg/dL Calcium 8.2 L (8.6-10.2) mg/dL Crossmatch See Detail Med Orders - Current: Current Medications Albuterol/Ipratropium (Albuterol/Ipratropium 3.0-0.5 Mg/3 Ml Neb Soln) 3 ml NEB Q4H PRN PRN Reason: Shortness of Breath Albuterol/Ipratropium (Albuterol/Ipratropium 3.0-0.5 Mg/3 Ml Neb Soln) 3 ml INH QIDRT [facility] Last Admin: 02/26/21 11:46 Dose: 3 ml Documented by: Artificial Tears (Carboxymethylcellulose Sodium 0.5% Ophth Soln 15 Ml Bottle) 0 ml EYEBOTH DAILY PRN PRN Reason: Dry Eyes Atorvastatin Calcium (Atorvastatin 20 Mg Tab) 20 mg PO DAILY [facility] Last Admin: 02/25/21 09:05 Dose: 20 mg Documented by: Bisacodyl (Bisacodyl 5 Mg Tab) 5 mg PO DAILY PRN PRN Reason: Constipation Bumetanide (Bumetanide 1 Mg Tab) 1.5 mg PO BID@08,14 [facility] Last Admin: 02/26/21 09:25 Dose: Not Given Documented by: Bumetanide (Bumetanide 1 Mg Tab) 1.5 mg PO BID PRN PRN Reason: weight gain 2-3 lbs Carbidopa/Levodopa (Carbidopa/Levodopa 25-100 Mg Tab) 1.5 tab PO TID [facility] Last Admin: 02/25/21 21:12 Dose: 1.5 tab Documented by: Citalopram Hydrobromide (Citalopram 10 Mg Tab) 10 mg PO DAILY [facility] Last Admin: 02/25/21 09:03 Dose: 10 mg Documented by: Digoxin (Digoxin 125 Mcg Tab) 125 mcg PO DAILY [facility] Last Admin: 02/25/21 09:04 Dose: 125 mcg Documented by: Guaifenesin (Guaifenesin 600 Mg Tab.Er) 600 mg PO BID [facility] Last Admin: 02/25/21 21:14 Dose: 600 mg Documented by: Potassium Chloride (Kcl In Water 20 Meq/100 Ml) 100 mls @ 50 mls/hr IV Q2H [facility] Stop: 02/26/21 12:59 Last Admin: 02/26/21 11:38 Dose: 50 mls/hr Documented by: Sodium Chloride (Normal Saline) 250 mls @ 60 mls/hr IV ONETIME ONE Stop: 02/26/21 13:09 Last Admin: 02/26/21 09:26 Dose: 60 mls/hr Documented by: Metolazone (Metolazone 2.5 Mg Tab) 2.5 mg PO DAILY PRN PRN Reason: Edema Metoprolol Succinate (Metoprolol Succinate 100 Mg Tab.Er) 200 mg PO DAILY [facility] Last Admin: 02/25/21 09:05 Dose: 200 mg Documented by: Midodrine (Midodrine 5 Mg Tab) 2.5 mg PO TIDAC [facility] Last Admin: 02/26/21 06:41 Dose: Not Given Documented by: Nitroglycerin (Nitroglycerin 0.4 Mg Tab.Sl) 0.4 mg SL Q5M PRN PRN Reason: Chest Pain Treprostinil [Tyvaso (] 3 InhOwn Med) 3 inh INH 07,11,16,20 [facility] Last Admin: 02/26/21 06:27 Dose: 3 inh Documented by: Pantoprazole Sodium (Pantoprazole 40 Mg Vial) 40 mg IVPUSH Q12H [facility] Last Admin: 02/26/21 09:18 Dose: 40 mg Documented by: Potassium Chloride (Potassium Chloride 20 Meq Tab.Er) 20 meq PO DAILY [facility] Last Admin: 02/25/21 09:04 Dose: 20 meq Documented by: Prednisone (Prednisone 10 Mg Tab) 10 mg PO DAILY [facility] Last Admin: 02/25/21 09:05 Dose: 10 mg Documented by: Senna/Docusate Sodium (Docusate Sodium/Sennosides 50-8.6 Mg Tab) 1 tab PO BID [facility] Last Admin: 02/25/21 21:14 Dose: 1 tab Documented by: Sodium Chloride (Sodium Chloride 0.9% 10 Ml Syringe) 10 ml FLUSH ASDIRECTED PRN PRN Reason: Keep Vein Open Last Admin: 02/25/21 11:13 Dose: 10 ml Documented by: Discontinued Medications Albuterol/Ipratropium (Albuterol/Ipratropium 3.0-0.5 Mg/3 Ml Neb Soln) 3 ml NEB NOW STA Stop: 02/22/21 12:50 Last Admin: 02/22/21 13:13 Dose: 3 ml Documented by: Bumetanide (Bumetanide 1 Mg/4 Ml Mdv) 1 mg IVPUSH ONETIME ONE Stop: 02/24/21 18:29 Last Admin: 02/24/21 18:50 Dose: 1 mg Documented by: Bumetanide (Bumetanide 1 Mg/4 Ml Mdv) 1 mg IVPUSH BTNUNITS ONE Stop: 02/25/21 09:58 Last Admin: 02/25/21 14:58 Dose: Not Given Documented by: Bumetanide (Bumetanide 1 Mg/4 Ml Mdv) 1 mg IVPUSH BTNUNITS ONE Stop: 02/25/21 15:01 Last Admin: 02/25/21 14:56 Dose: 1 mg Documented by: Bumetanide (Bumetanide 1 Mg/4 Ml Mdv) 1 mg IVPUSH ONETIME ONE Stop: 02/26/21 09:01 Last Admin: 02/26/21 09:18 Dose: 1 mg Documented by: Furosemide (Furosemide 20 Mg/2 Ml Vial) 20 mg IVPUSH NOW ONE Stop: 02/22/21 16:16 Last Admin: 02/22/21 17:50 Dose: 20 mg Documented by: Furosemide (Furosemide 40 Mg/4 Ml Vial) [facility] Admin: 02/22/21 21:16 Dose: 40 mg Documented by: Sodium Chloride (Normal Saline) 250 mls [facility] Last Admin: 02/22/21 22:00 Dose: 100 mls/hr Documented by: Sodium Chloride (Normal Saline) 1,000 mls @ 100 [facility]ls[facility] Last Admin: 02/25/21 14:30 Dose: 100 mls/hr Documented by: Sodium Chloride (Normal Saline) 250 mls @ 100 [facility]ls[facility] Last Admin: 02/25/21 11:13 Dose: 100 mls/hr Documented by: Sodium Chloride (Normal Saline) 250 mls @ 100 mls/hr IV [facility] Stop: 02/25/21 13:42 Lorazepam (Lorazepam 0.5 Mg Tab) 0.25 mg PO ONETIME ONE Stop: 02/24/21 00:23 Last Admin: 02/24/21 00:32 Dose: 0.25 mg Documented by: Methylprednisolone Sodium Succinate (Methylprednisolone Sodium Succinate 125 Mg/2 Ml Sdv) 125 mg IVPUSH NOW STA Stop: 02/22/21 12:50 Last Admin: 02/22/21 13:13 Dose: 125 mg Documented by: Morphine Sulfate (Morphine 4 Mg/Ml Vial) 4 mg IVPUSH NOW STA Stop: 02/22/21 12:58 Last Admin: 02/22/21 13:13 Dose: 4 mg Documented by: Non-Formulary Medication (Treprostinil [Tyvaso]) 3 inh IH QID ULICES Ondansetron HCl (Ondansetron 4 Mg/2 Ml Sdv) 4 mg IVPUSH ONETIME ONE Stop: 02/22/21 13:35 Last Admin: 02/22/21 13:40 Dose: 4 mg Documented by: Pantoprazole Sodium (Pantoprazole 40 Mg Tab.Cr) 40 mg PO DAILY@0600 [facility] Polyethylene Glycol (Polyethylene Glycol 3350 Powder 238 Gm Bot) 238 gm PO ONETIME ONE Stop: 02/25/21 12:01 Last Admin: 02/25/21 12:52 Dose: 238 gm Documented by: Potassium Chloride (Potassium Chloride 20 Meq Tab.Er) 20 meq PO ONETIME ONE Stop: 02/25/21 14:01 Last Admin: 02/25/21 13:03 Dose: 20 meq Documented by: - Patient Data Lab Results Last 24 hrs: Laboratory Results - last 24 hr 02/22/21 02/26/21 02/26/21 Range/Units 15:58 06:10 06:10 Hgb 9.0 L (12.9-17.7) g/dL Hct 28.3 L (38.3-50.1) % Sodium 146 H (135-145) mmol/L Potassium 3.0 L (3.5-5.3) mmol/L Chloride 104 (100-110) mmol/L Carbon Dioxide 33 H (21-32) mmol/L BUN 22 H D (7-18) mg/dL Creatinine 1.5 H (0.70-1.30) mg/dL Est Cr Clr Drug Dosing 40.39 mL/min Estimated GFR (MDRD) 46 L (>60) BUN/Creatinine Ratio 14.7 (9-20) Glucose 100 (80-116) mg/dL Calcium 8.2 L (8.6-10.2) mg/dL Crossmatch See Detail Result Diagrams: 02/26/21 06:10 02/26/21 06:10 Sepsis Event Note - Evaluation Sepsis Screening Result: No Definite Risk - Focused Exam Vital Signs: Vital Signs Pulse Ox 02/26/21 03:00 95 - Problem List Review Problem List Initiated/Reviewed/Updated: Yes - Assessment Assessment:: Anemia - Plan Plan:: Colonoscopy
--- NOTE | 2021-02-26 13:05 | PCM.OPNOTE ---
- General Post-Op/Procedure Note Date of Surgery/Procedure: 02/26/21 Operative Procedure(s): Colonoscopy Pre Op Diagnosis: anemia Post-Op Diagnosis: Sigmoid Diverticulosis. Anal Fissure Anesthesia Technique: MAC Primary Surgeon: Lefty Barragan Pathology: none EBL in mLs: 0 Complications: None Condition: Good Free Text/Narrative:: Intake & Output 02/25/21 02/26/21 02/26/21 22:59 06:59 14:59 Output Total 1500 715 Balance -1500 -933
--- NOTE | 2021-02-26 13:25 | OR ---
DATE OF OPERATION: 02/26/2021 SURGEON: Lefty Barragan MD PREOPERATIVE DIAGNOSIS: Anemia. POSTOPERATIVE DIAGNOSES: Sigmoid diverticulosis and anal fissure. OPERATION PERFORMED: Colonoscopy. INDICATIONS FOR SURGERY: This 75-year-old male was noted to have significant anemia requiring transfusion. He is referred for colonoscopy to evaluate colon as a possible bleeding site. FINDINGS: No evidence of recent or remote bleeding is seen in the colon. The sigmoid region contains a moderate degree of diverticulosis, but no indication of recent bleeding is seen in this area, also no inflammation is noted. The remainder of the colon appeared normal. The patient does have a posterior midline anal fissure. PROCEDURE IN DETAIL: The patient was taken to the procedure room. He was given intravenous sedation and with him in the left lateral decubitus position, digital rectal exam was performed showing no rectal masses, although there was slight irregularity posteriorly in the midline. The Olympus colonoscope was inserted into the rectum. Retroflexed examination of the rectal canal was performed. The scope was then carefully advanced under direct visualization through the entire length of the colon until the cecum was reached. Cecal acquisition was confirmed by noting normal internal cecal anatomy including appendiceal orifice and the ileocecal valve. The ileocecal valve was cannulated and the terminal ileum examined and it appeared normal. The scope was then slowly withdrawn, sequentially re-examining the colonic segments until the entire colon and rectum had been fully examined. The scope was removed and the patient was taken from the procedure room in satisfactory condition. ESTIMATED BLOOD LOSS: Zero. COMPLICATIONS: None. PROGNOSIS: Good. /[id number] YUNIOR/MARIELOS
[2021-02-26] MEDS: Citalopram 10 MG Tab PO SCH (14:10)
[2021-02-26] MEDS: Potassium Chloride 20 MEQ Tab.ER PO SCH (14:10)
[2021-02-26] MEDS: atorvaSTATin 20 MG Tab PO SCH (14:10)
[2021-02-26] MEDS: Digoxin 125 MCG Tab PO SCH (14:11)
[2021-02-26] MEDS: predniSONE 10 MG Tab PO SCH (14:12)
[2021-02-26] MEDS: Carbidopa/Levodopa 25-100 MG Tab PO SCH ×3 (14:13→21:33)
[2021-02-26] MEDS: Metoprolol Succinate 100 MG Tab.ER PO SCH (14:14)
[2021-02-26] MEDS: guaiFENesin 600 MG Tab.ER PO SCH ×2 (14:22→21:32)
[2021-02-26] MEDS ORDERED: Midazolam 1 MG/ML 2 ML SDV IV ONE (14:59)
[2021-02-26] MEDS ORDERED: Propofol 200 MG/20 ML SDV IV ONE (14:59)
[2021-02-26] MEDS ORDERED: Lidocaine 2% 5 ML SDV INJECT ONE (14:59)
[2021-02-27] MEDS ORDERED: Pantoprazole 40 MG Tab.CR PO SCH (06:00)
[2021-02-27] MEDS: Albuterol/Ipratropium 3.0-0.5 MG/3 ML Neb Soln INH SCH ×2 (06:27→11:30)
[2021-02-27] MEDS: Midodrine 5 MG Tab PO SCH ×2 (06:52→11:35)
[2021-02-27] MEDS: TREPROSTINIL INH SCH ×2 (07:15→15:54)
[2021-02-27] MEDS: Bumetanide 1 MG Tab PO SCH ×2 (09:09→16:02)
[2021-02-27] MEDS: Potassium Chloride 20 MEQ Tab.ER PO SCH (09:10)
[2021-02-27] MEDS: Digoxin 125 MCG Tab PO SCH (09:10)
[2021-02-27] MEDS: Citalopram 10 MG Tab PO SCH (09:10)
[2021-02-27] MEDS: guaiFENesin 600 MG Tab.ER PO SCH (09:11)
[2021-02-27] MEDS: atorvaSTATin 20 MG Tab PO SCH (09:11)
[2021-02-27] MEDS: Carbidopa/Levodopa 25-100 MG Tab PO SCH ×2 (09:12→16:07)
[2021-02-27] MEDS: predniSONE 10 MG Tab PO SCH (09:12)
[2021-02-27] MEDS: Metoprolol Succinate 100 MG Tab.ER PO SCH (09:13)
[2021-02-27 09:14] VITALS: BP 123/63
--- NOTE | 2021-02-27 14:18 | PCM.DCSUM1 ---
Discharge Summary - Hospital Course HPI Initial Comments: Mauricio presented to ER today for worsening shortness of breath for past few days, his oxygen has been 94% at home. He started PT on Friday and staff noted he was very pale. He has been having black stools per his , Anisa for past 4 days. His last colonoscopy was [address] Santacruz. He does not believe he has ever had EGD. He has history of pulmonary hypertension, pulmonary fibrosis, COPD on home O2. Has CPAP, they are to see pulmonology next to get oxygen hooked up to his CPAP as he drops overnight without it. Denies any hemoptysis, hematemesis, bloody stools or hematuria. He has had some nose bleed in his right nose, has nasal saline ordered but doesn't always use it. He has been more fatigued, doesn't leave his house, Anisa does most of her ADLs. No fevers, chills or cough. Diagnosis: Stroke: No - Discharge Data Discharge Date: 02/27/21 Discharge Disposition: Home, Self-Care 01 Condition: Good - Referral to Home Health Primary Care Physician: Akil Blackmon MD - Discharge Diagnosis/Problem(s) (1) Anemia SNOMED Code(s): 794100358 ICD Code: D64.9 - ANEMIA, UNSPECIFIED Status: Acute Current Visit: Yes Problem Details: Hgb stable at 9.3 Qualifiers: Anemia type: unspecified type Qualified Code(s): D64.9 - Anemia, unspecified (2) Black tarry stools SNOMED Code(s): 908464201 ICD Code: K92.1 - MELENA Status: Ruled-out Current Visit: Yes (3) Heart failure SNOMED Code(s): 57603117 ICD Code: I50.9 - HEART FAILURE, UNSPECIFIED Status: Chronic Current Visit: No (4) Hypokalemia SNOMED Code(s): 64765895 ICD Code: E87.6 - HYPOKALEMIA Status: Resolved Current Visit: Yes (5) Acute and chronic respiratory failure SNOMED Code(s): 01102489 ICD Code: J96.20 - ACUTE AND CHR RESP FAILURE, UNSP W HYPOXIA OR HYPERCAPNIA Status: Chronic Current Visit: No Qualifiers: Respiratory failure complication: hypoxia Qualified Code(s): J96.21 - Acute and chronic respiratory failure with hypoxia (6) Respiratory alkalosis SNOMED Code(s): 849672837 ICD Code: E87.3 - ALKALOSIS Status: Chronic Current Visit: No (7) Interstitial lung disease SNOMED Code(s): 664315190 ICD Code: J84.9 - INTERSTITIAL PULMONARY DISEASE, UNSPECIFIED Status: Chronic Current Visit: No (8) Severe pulmonary hypertension SNOMED Code(s): 446826202 ICD Code: I27.20 - PULMONARY HYPERTENSION, UNSPECIFIED Status: Chronic Current Visit: No (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 ICD Code: F19.20 - OTHER PSYCHOACTIVE SUBSTANCE DEPENDENCE, UNCOMPLICATED Status: Chronic Current Visit: No (10) Chronic atrial fibrillation SNOMED Code(s): 402472923 ICD Code: I48.20 - CHRONIC ATRIAL FIBRILLATION, UNSPECIFIED Status: Chronic Current Visit: No (11) Chronic kidney disease SNOMED Code(s): 636844621 ICD Code: N18.9 - CHRONIC KIDNEY DISEASE, UNSPECIFIED Status: Chronic Current Visit: No Qualifiers: Chronic kidney disease stage 3 subtype: stage 3b (GFR 30-44) (12) Weakness SNOMED Code(s): 97450054 ICD Code: R53.1 - WEAKNESS Status: Chronic Current Visit: No (13) Indwelling Delacruz catheter present SNOMED Code(s): 181675115 ICD Code: Z97.8 - PRESENCE OF OTHER SPECIFIED DEVICES Status: Chronic Current Visit: No (14) Obesity SNOMED Code(s): 288243657, 344621588 ICD Code: E66.9 - OBESITY, UNSPECIFIED Status: Chronic Current Visit: No (15) COPD (chronic obstructive pulmonary disease) SNOMED Code(s): 49757626 ICD Code: J44.9 - CHRONIC OBSTRUCTIVE PULMONARY DISEASE, UNSPECIFIED Status: Chronic Current Visit: Yes (16) Sleep apnea with use of continuous positive airway pressure (CPAP) SNOMED Code(s): 36900711, 944460224 ICD Code: G47.30 - SLEEP APNEA, UNSPECIFIED Status: Chronic Current Visit: Yes (17) Anxiety SNOMED Code(s): 58142680 ICD Code: F41.9 - ANXIETY DISORDER, UNSPECIFIED Status: Chronic Current Visit: No (18) Status post non-ST elevation myocardial infarction (NSTEMI) SNOMED Code(s): 939633523 ICD Code: I25.2 - OLD MYOCARDIAL INFARCTION Status: Chronic Current Visit: No Onset Date: ~08/17/20 (19) Physical deconditioning SNOMED Code(s): 30057097773918 ICD Code: R53.81 - OTHER MALAISE Status: Chronic Current Visit: No (20) Palliative care encounter SNOMED Code(s): 317745892, 747597891 ICD Code: Z51.5 - ENCOUNTER FOR PALLIATIVE CARE Status: Chronic Current Visit: No - Patient Summary/Data Operative Procedure(s) Performed: Colonoscopy. EGD Consults: Consultations 02/22/21 15:56 Consult to Physician [CONS] Routine Consulting Provider: Lefty Barragan Call Completed to Consulting Physician: Yes Reason for Consult: anemia Person Notified: Lefty Barragan Date Notified: 02/22/21 Time Notified: 15:57 02/23/21 10:18 OT Evaluation and Treatment [CONS] Routine Please Evaluate and Treat. OT Reason for Consult: ADL's This query below is only for informational purposes and is not editable. Admission Diagnosis/Problem: CHF, Congestive heart failure PT Evaluation and Treatment [CONS] Routine Please Evaluate and Treat. PT Reason for Consult: Ambulation This query below is only for informational purposes and is not editable. Admission Diagnosis/Problem: CHF, Congestive heart failure Hospital Course: Admitted with Hgb 5.6, had Lasix 20 mg IV prior to transfusion, had 2 units of PRBCs transfused evening of 02/22, had Lasix 40 mg IV between units. Hgb came up to 8.5 next Morning. He had EGD Friday am with Dr Barragan, which did not show any gastric ulceration, no source of bleeding. Discussed about doing colonoscopy on Friday as he was admitted later and not able to do prep. Mauricio and his wanted to proceed with colonoscopy for Friday. He had Bumex 1.5 mg po bid resumed after EGD on 02/23, having more shortness of breath in afternoon so repeat CXR and had some pulmonary edema so Bumex 1 mg IV given, he had 2625 ml out overnight and improvement of his dyspnea. His Hgb 02/24 was 8.1 and 8.6 and on 02/25 dropped to 7.9 with more weakness and dyspnea so transfused 1 unit on Sunday 02/25 with Bumex after unit. He had 2525 ml out again. He had bowel prep on Friday and was on IVF in preparation for colonoscopy next day, started having more crackles so IVF stopped Sun night. Received Bumex 1 mg IV prior to colonoscopy on 02/26. Dr Barragan did not find any masses or evidence of recent bleeding. He does have diverticulosis but no tics. His aspirin, Eliquis and Tyvaso were initially held but Tyvaso restarted on Friday. Eliquis restarted today after no source of bleeding found. No hemothorax on CXRs. No perfuse nosebleeds, no hematuria. His Hgb came up to 9.0 on 02/26 and 9.3 on 02/27. His WBC was 13.6 on admission but no source of infection, was 11.5, 14.9 and 10.5(02/27) with no source of infection evident. He is on chronic prednisone. His lactic acid when he was admitted was 4.3, then 2.6 and 1.6 on first day of admission, improved with transfusion. His Creatinine was 2.0 on admission, went up to 2.1 next day and has trended down through hospital course to 1.3 today. His sodium has stayed stable at 146. His potassium dropped to 3.2 on 02/25, given extra oral dose of Potassium, dropped to 3.0 after bowel prep, given KCL 40 mEq over 4 hours and repeated after colonoscopy was 3.3 and then today was 3.5. Dr Alvarez requested CBC for today be faxed to his office, they are questioning if he will continue Tyvaso. Left message yesterday with Dr Alvarez in regards to EGD/colonoscopy results, no source of acute blood loss found in regards to his significant anemia from his baseline Hgb 9-10, may need Hematology referral. He was seen by PT/OT today, will continue as outpatient for rehab services. Follow up with Dr Alvarez, Dr Loredo and Dr Blackmon coordinating with his 's schedule. - Patient Instructions Diet: Usual Diet as Tolerated Activity: As Tolerated Driving: Do Not Drive Showering/Bathing: May Shower Notify Provider of: Fever, Increased Pain, Nausea and/or Vomiting Other/Special Instructions: Follow up with Dr Alvarez & Dr Loredo as directed by their office. CBC was from today was faxed to Dr Alvarez's office. Hold aspirin. Restart Eliquis & Tyvaso until you see(or get orders) Dr Alvarez. Follow up with Dr Blackmon this week. - Discharge Plan *PRESCRIPTION DRUG MONITORING PROGRAM REVIEWED*: Not Applicable *COPY OF PRESCRIPTION DRUG MONITORING REPORT IN PATIENT DIAZ: Not Applicable Home Medications: Home Meds atorvaSTATin [Lipitor] 20 mg PO DAILY 06/06/14 [History] Apixaban [Eliquis] 5 mg PO BID 10/06/19 [History] Ascorbate Calcium [Vitamin C] 500 mg PO DAILY 10/06/19 [History] Nitroglycerin [Nitrostat] 0.4 mg SL Q5M PRN 10/06/19 [History] Albuterol/Ipratropium [DuoNeb 3.0-0.5 MG/3 ML] 3 ml INH QID 07/15/20 [History] Bumetanide [Bumex] 1.5 mg PO BID@08,14 07/15/20 [History] Esomeprazole [NexIUM] 20 mg PO DAILY 07/15/20 [History] Acyclovir [Zovirax 5% Oint] 1 applic TOP TID PRN 08/22/20 [History] Albuterol/Ipratropium [DuoNeb 3.0-0.5 MG/3 ML] 3 ml IH Q4H PRN 08/22/20 [History] Calcium Carbonate/Vitamin D3 [Calcium 500-Vit D3 200 Tablet] 1 tab PO DAILY 08/22/20 [History] Cholecalciferol (Vitamin D3) [Vitamin D3] 25 mcg PO DAILY 08/22/20 [History] Docusate Sodium/Sennosides [Senna Plus] 1 tab PO BID 08/22/20 [History] Polyvinyl Alcohol/Povidone [Refresh] 1 drop EYEBOTH DAILY PRN 08/22/20 [History] Benzonatate 100 mg PO QID PRN 10/27/20 [History] Metoprolol Succinate [Toprol XL] 200 mg PO DAILY 10/27/20 [History] Midodrine 2.5 mg PO TIDAC 10/27/20 [History] Treprostinil [Tyvaso] 3 inh IH QID 10/27/20 [History] Digoxin [Digitek] 125 mcg PO DAILY 11/03/20 [History] Bumetanide [Bumex] 1.5 mg PO BID PRN 02/22/21 [History] Carbidopa/Levodopa [Carbidopa-Levodopa 25-100] 1.5 tab PO TID 02/22/21 [History] Citalopram [Citalopram HBr] 10 mg PO DAILY 02/22/21 [History] Potassium Chloride 20 meq PO DAILY 02/22/21 [History] metOLazone [Metolazone] 2.5 mg PO DAILY PRN 02/22/21 [History] ondansetron HCL [Zofran] 4 mg PO Q6H PRN 02/22/21 [History] predniSONE [Prednisone] 10 mg PO DAILY 02/22/21 [History] guaiFENesin [Mucinex] 600 mg PO BID tab.er 02/27/21 [Rx] Oxygen Therapy Mode: Nasal Cannula Oxygen Flow Rate (L/min): 4 Maintain SPO2% less than: 93 Maintain SpO2% greater than: 88 Patient Handouts: Heart Failure, Self Care, [id number], Chronic Obstructive Pulmonary Disease, [id number], Upper Endoscopy, Adult, Fall Prevention in Hospitals, Adult, Blood Transfusion, Adult, Care After, [id number], Venous Thromboembolism Prevention Forms: ED Department Discharge Referrals: Moe Loredo MD [Ordering Only Provider] - Akil Blackmon MD [Primary Care Provider] - Omar Alvarez MD [Ordering Only Provider] - - Discharge Summary/Plan Comment DC Time >30 min.: Yes Total # of Minutes for Discharge Time: 32 min - General Info Date of Service: 02/27/21 Subjective Update: No fever, chills. Productive cough with white sputum, no change in color from his usually. States he doesn't feel ill. No nausea, vomiting. A little shortness of breath this morning but improved after morning Bumex. No dizziness or lightheadedness. Weight down to 197 lbs. - Patient Data Vitals - Most Recent: Last Vital Signs Temp 97.5 F 02/27/21 08:00 Pulse 73 02/27/21 09:13 Resp 24 H 02/27/21 08:00 BP 123/63 02/27/21 09:13 Pulse Ox 95 02/27/21 08:00 Weight - Most Recent: 197 lb 11.2 oz I&O - Last 24 hours: Intake & Output 02/26/21 02/27/21 02/27/21 22:59 06:59 14:59 Output Total 800 350 Balance -800 -350 Lab Results - Last 24 hrs: Laboratory Results - last 24 hr 02/26/21 02/27/21 02/27/21 Range/Units 16:05 06:25 06:33 WBC 10.5 H (3.2-10.1) x10-3/uL RBC 3.63 L (3.90-5.90) x10(6)uL Hgb 9.3 L (12.9-17.7) g/dL Hct 29.6 L (38.3-50.1) % MCV 81.5 (80.8-98.7) fL MCH 25.7 L (27.0-33.3) pg MCHC 31.5 (28.7-35.3) g/dL RDW 18.2 H (12.4-15.0) % Plt Count 284 (117-477) x10(3)uL MPV 7.9 (6.7-11.0) fL Neut % (Auto) 79.5 H (40.3-71.8) % Lymph % (Auto) 7.6 L (15.8-45.3) % [place] % (Auto) 10.5 (5.5-15.2) % Eos % (Auto) 1.8 (0.1-6.8) % Baso % (Auto) 0.6 (0.3-3.8) % Neut # (Auto) 8.4 H (1.7-6.9) x10-3/uL Lymph # (Auto) 0.8 (0.5-4.5) x10-3/uL [place] # (Auto) 1.1 (0.0-1.2) x10-3/uL Eos # (Auto) 0.2 (0.0-0.6) x10-3/uL Baso # (Auto) 0.1 (0.0-0.3) x10-3/uL Sodium (135-145) mmol/L Potassium 3.3 L (3.5-5.3) mmol/L Chloride (100-110) mmol/L Carbon Dioxide (21-32) mmol/L BUN (7-18) mg/dL Creatinine (0.70-1.30) mg/dL Est Cr Clr Drug Dosing mL/min Estimated GFR (MDRD) (>60) BUN/Creatinine Ratio (9-20) Glucose (80-116) mg/dL Calcium (8.6-10.2) mg/dL Digoxin < 0.2 L (<0.2) ng/mL 02/27/21 02/27/21 Range/Units 06:35 06:35 WBC (3.2-10.1) x10-3/uL RBC (3.90-5.90) x10(6)uL Hgb Cancelled (12.9-17.7) g/dL Hct Cancelled (38.3-50.1) % MCV (80.8-98.7) fL MCH (27.0-33.3) pg MCHC (28.7-35.3) g/dL RDW (12.4-15.0) % Plt Count Cancelled (117-477) x10(3)uL MPV (6.7-11.0) fL Neut % (Auto) (40.3-71.8) % Lymph % (Auto) (15.8-45.3) % [place] % (Auto) (5.5-15.2) % Eos % (Auto) (0.1-6.8) % Baso % (Auto) (0.3-3.8) % Neut # (Auto) (1.7-6.9) x10-3/uL Lymph # (Auto) (0.5-4.5) x10-3/uL [place] # (Auto) (0.0-1.2) x10-3/uL Eos # (Auto) (0.0-0.6) x10-3/uL Baso # (Auto) (0.0-0.3) x10-3/uL Sodium 146 H (135-145) mmol/L Potassium 3.5 (3.5-5.3) mmol/L Chloride 106 (100-110) mmol/L Carbon Dioxide 34 H (21-32) mmol/L BUN 23 H (7-18) mg/dL Creatinine 1.3 (0.70-1.30) mg/dL Est Cr Clr Drug Dosing 46.61 mL/min Estimated GFR (MDRD) 54 L (>60) BUN/Creatinine Ratio 17.7 (9-20) Glucose 113 (80-116) mg/dL Calcium 8.5 L (8.6-10.2) mg/dL Digoxin (<0.2) ng/mL Med Orders - Current: Current Medications Albuterol/Ipratropium (Albuterol/Ipratropium 3.0-0.5 Mg/3 Ml Neb Soln) 3 ml NEB Q4H PRN PRN Reason: Shortness of Breath Albuterol/Ipratropium (Albuterol/Ipratropium 3.0-0.5 Mg/3 Ml Neb Soln) 3 ml INH QIDRT [facility] Last Admin: 02/27/21 11:30 Dose: 3 ml Documented by: Artificial Tears (Carboxymethylcellulose Sodium 0.5% Ophth Soln 15 Ml Bottle) 0 ml EYEBOTH DAILY PRN PRN Reason: Dry Eyes Atorvastatin Calcium (Atorvastatin 20 Mg Tab) 20 mg PO DAILY [facility] Last Admin: 02/27/21 09:11 Dose: 20 mg Documented by: Bisacodyl (Bisacodyl 5 Mg Tab) 5 mg PO DAILY PRN PRN Reason: Constipation Bumetanide (Bumetanide 1 Mg Tab) 1.5 mg PO BID@08,14 [facility] Last Admin: 02/27/21 09:09 Dose: 1.5 mg Documented by: Bumetanide (Bumetanide 1 Mg Tab) 1.5 mg PO BID PRN PRN Reason: weight gain 2-3 lbs Carbidopa/Levodopa (Carbidopa/Levodopa 25-100 Mg Tab) 1.5 tab PO TID [facility] Last Admin: 02/27/21 09:12 Dose: 1.5 tab Documented by: Citalopram Hydrobromide (Citalopram 10 Mg Tab) 10 mg PO DAILY [facility] Last Admin: 02/27/21 09:10 Dose: 10 mg Documented by: Digoxin (Digoxin 125 Mcg Tab) 125 mcg PO DAILY [facility] Last Admin: 02/27/21 09:10 Dose: 125 mcg Documented by: Guaifenesin (Guaifenesin 600 Mg Tab.Er) 600 mg PO BID [facility] Last Admin: 02/27/21 09:11 Dose: 600 mg Documented by: Metolazone (Metolazone 2.5 Mg Tab) 2.5 mg PO DAILY PRN PRN Reason: Edema Metoprolol Succinate (Metoprolol Succinate 100 Mg Tab.Er) 200 mg PO DAILY [facility] Last Admin: 02/27/21 09:13 Dose: 200 mg Documented by: Midodrine (Midodrine 5 Mg Tab) 2.5 mg PO TIDAC [facility] Last Admin: 02/27/21 11:35 Dose: 2.5 mg Documented by: Nitroglycerin (Nitroglycerin 0.4 Mg Tab.Sl) 0.4 mg SL Q5M PRN PRN Reason: Chest Pain Treprostinil [Tyvaso (] 3 InhOwn Med) 3 inh INH 07,11,16,20 [facility] Last Admin: 02/27/21 07:15 Dose: Not Given Documented by: Pantoprazole Sodium (Pantoprazole 40 Mg Tab.Cr) 40 mg PO DAILY@0600 [facility] Last Admin: 02/27/21 06:27 Dose: 40 mg Documented by: Potassium Chloride (Potassium Chloride 20 Meq Tab.Er) 20 meq PO DAILY [facility] Last Admin: 02/27/21 09:10 Dose: 20 meq Documented by: Prednisone (Prednisone 10 Mg Tab) 10 mg PO DAILY [facility] Last Admin: 02/27/21 09:12 Dose: 10 mg Documented by: Senna/Docusate Sodium (Docusate Sodium/Sennosides 50-8.6 Mg Tab) 1 tab PO BID [facility] Last Admin: 02/27/21 09:12 Dose: 1 tab Documented by: Sodium Chloride (Sodium Chloride 0.9% 10 Ml Syringe) 10 ml FLUSH ASDIRECTED PRN PRN Reason: Keep Vein Open Last Admin: 02/25/21 11:13 Dose: 10 ml Documented by: Discontinued Medications Albuterol/Ipratropium (Albuterol/Ipratropium 3.0-0.5 Mg/3 Ml Neb Soln) 3 ml NEB NOW STA Stop: 02/22/21 12:50 Last Admin: 02/22/21 13:13 Dose: 3 ml Documented by: Bumetanide (Bumetanide 1 Mg/4 Ml Mdv) 1 mg IVPUSH ONETIME ONE Stop: 02/24/21 18:29 Last Admin: 02/24/21 18:50 Dose: 1 mg Documented by: Bumetanide (Bumetanide 1 Mg/4 Ml Mdv) 1 mg IVPUSH BTNUNITS ONE Stop: 02/25/21 09:58 Last Admin: 02/25/21 14:58 Dose: Not Given Documented by: Bumetanide (Bumetanide 1 Mg/4 Ml Mdv) 1 mg IVPUSH BTNUNITS ONE Stop: 02/25/21 15:01 Last Admin: 02/25/21 14:56 Dose: 1 mg Documented by: Bumetanide (Bumetanide 1 Mg/4 Ml Mdv) 1 mg IVPUSH ONETIME ONE Stop: 02/26/21 09:01 Last Admin: 02/26/21 09:18 Dose: 1 mg Documented by: Furosemide (Furosemide 20 Mg/2 Ml Vial) 20 mg IVPUSH NOW ONE Stop: 02/22/21 16:16 Last Admin: 02/22/21 17:50 Dose: 20 mg Documented by: Furosemide (Furosemide 40 Mg/4 Ml Vial) 40 mg IVPUSH BTNUNITS [facility] Last Admin: 02/22/21 21:16 Dose: 40 mg Documented by: Sodium Chloride (Normal Saline) 250 mls @ 100 mls/hr IV ASDIRECTED [facility] Last Admin: 02/22/21 22:00 Dose: 100 mls/hr Documented by: Sodium Chloride (Normal Saline) 1,000 mls @ 100 mls/hr IV ASDIRECTED [facility] Last Admin: 02/25/21 14:30 Dose: 100 mls/hr Documented by: Sodium Chloride (Normal Saline) 250 mls @ 100 mls/hr IV ASDIRECTED [facility] Last Admin: 02/25/21 11:13 Dose: 100 mls/hr Documented by: Sodium Chloride (Normal Saline) 250 mls @ 100 mls/hr IV ASDIRECTED [facility] Stop: 02/25/21 13:42 Potassium Chloride (Kcl In Water 20 Meq/100 Ml) 100 mls @ 50 mls/hr IV Q2H [facility] Stop: 02/26/21 12:59 Last Admin: 02/26/21 11:38 Dose: 50 mls/hr Documented by: Sodium Chloride (Normal Saline) 250 mls @ 60 mls/hr IV ONETIME ONE Stop: 02/26/21 13:09 Last Admin: 02/26/21 09:26 Dose: 60 mls/hr Documented by: Lorazepam (Lorazepam 0.5 Mg Tab) 0.25 mg PO ONETIME ONE Stop: 02/24/21 00:23 Last Admin: 02/24/21 00:32 Dose: 0.25 mg Documented by: Methylprednisolone Sodium Succinate (Methylprednisolone Sodium Succinate 125 Mg/2 Ml Sdv) 125 mg IVPUSH NOW STA Stop: 02/22/21 12:50 Last Admin: 02/22/21 13:13 Dose: 125 mg Documented by: Morphine Sulfate (Morphine 4 Mg/Ml Vial) 4 mg IVPUSH NOW STA Stop: 02/22/21 12:58 Last Admin: 02/22/21 13:13 Dose: 4 mg Documented by: Non-Formulary Medication (Treprostinil [Tyvaso]) 3 inh IH QID ULICES Ondansetron HCl (Ondansetron 4 Mg/2 Ml Sdv) 4 mg IVPUSH ONETIME ONE Stop: 02/22/21 13:35 Last Admin: 02/22/21 13:40 Dose: 4 mg Documented by: Pantoprazole Sodium (Pantoprazole 40 Mg Tab.Cr) 40 mg PO DAILY@0600 [facility] Pantoprazole Sodium (Pantoprazole 40 Mg Vial) 40 mg IVPUSH Q12H [facility] Last Admin: 02/26/21 09:18 Dose: 40 mg Documented by: Polyethylene Glycol (Polyethylene Glycol 3350 Powder 238 Gm Bot) 238 gm PO ONETIME ONE Stop: 02/25/21 12:01 Last Admin: 02/25/21 12:52 Dose: 238 gm Documented by: Potassium Chloride (Potassium Chloride 20 Meq Tab.Er) 20 meq PO ONETIME ONE Stop: 02/25/21 14:01 Last Admin: 02/25/21 13:03 Dose: 20 meq Documented by: - Exam Quality Assessment: Reports: Supplemental Oxygen (4L) General: Reports: Alert, Oriented, Cooperative, No Acute Distress Lungs: Reports: Clear to Auscultation (BUL), Normal Respiratory Effort, Decreased Breath Sounds (BLL), Crackles (BLL). Denies: Rhonchi, Wheezing Cardiovascular: Reports: Regular Rate, Irregular Rhythm GI/Abdominal Exam: Normal Bowel Sounds, Soft, Non-Tender, No Distention (Male) Exam: Deferred Rectal (Males) Exam: Deferred Extremities: No: Pallor Skin: Reports: Warm, Dry, Intact *Q Meaningful Use (DIS) - VTE *Q VTE Mechanical Contraindications *Q: At Risk for Falls VTE Pharmacological Contraindications *Q: Patient has Severe Anemia
[2021-02-27 18:46] VITALS: PULSE 78
== END 2021-02-27 15:00 | disposition home or self-care (01) | DRG 663 ==
LOC: FB.ED 12:36 → FB.MS 15:14
PROVIDERS: ADMIT Family Medicine; ATTEND Family Medicine
PROC: 30233N1 Transfusion of Nonautologous Red Blood Cells into Peripheral Vein, Percutaneous Approach (ICD-10-PCS; 2021-02-22)
PROC: 0DJ08ZZ Inspection of Upper Intestinal Tract, Via Natural or Artificial Opening Endoscopic (ICD-10-PCS; 2021-02-23)
PROC: 0DJD8ZZ Inspection of Lower Intestinal Tract, Via Natural or Artificial Opening Endoscopic (ICD-10-PCS; principal; 2021-02-26)
DX: D64.9 Anemia, unspecified (principal); K92.1 Melena; E87.6 Hypokalemia; J96.21 Acute and chronic respiratory failure with hypoxia; E87.3 Alkalosis; I13.0 Hypertensive heart and chronic kidney disease with heart failure and stage 1 through stage 4 chronic kidney disease, or unspecified chronic kidney disease; J84.9 Interstitial pulmonary disease, unspecified; F19.20 Other psychoactive substance dependence, uncomplicated; I48.20 Chronic atrial fibrillation, unspecified; N18.32 Chronic kidney disease, stage 3b; E66.9 Obesity, unspecified; G47.30 Sleep apnea, unspecified; F41.9 Anxiety disorder, unspecified; Z20.822 Contact with and (suspected) exposure to COVID-19; R53.81 Other malaise; Z51.5 Encounter for palliative care; H54.7 Unspecified visual loss; I25.10 Atherosclerotic heart disease of native coronary artery without angina pectoris; E78.00 Pure hypercholesterolemia, unspecified; K59.09 Other constipation; M54.9 Dorsalgia, unspecified; G89.29 Other chronic pain; Z66 Do not resuscitate; I27.20 Pulmonary hypertension, unspecified; K57.90 Diverticulosis of intestine, part unspecified, without perforation or abscess without bleeding; K60.2 Anal fissure, unspecified; I25.2 Old myocardial infarction; Z88.0 Allergy status to penicillin; Z88.5 Allergy status to narcotic agent; Z79.82 Long term (current) use of aspirin; Z79.899 Other long term (current) drug therapy; Z95.5 Presence of coronary angioplasty implant and graft; Z87.01 Personal history of pneumonia (recurrent); Z79.01 Long term (current) use of anticoagulants; Z97.8 Presence of other specified devices
CPT/HCPCS: 00731-QZ; 00811-QZ; 36415; 36430; 71045; 71046; 80048; 80053; 80162; 83605; 83880; 84132; 84484; 85014; 85018; 85025; 86850; 86900; 86901; 86920; 86922; 93005; 94640; 97165-GO; 99285-25; A9270-GY; C9113; J1940; J2250; J2270; J2405; J2704; J2930; J3480; J3490; J7030; J7050; J7512; J7620-GY; P9016; U0002

== ENCOUNTER 2021-03-27 02:25 | Emergency (ER) | payer BC, MEDICARE ==
[2021-03-27] MEDS ORDERED: Oxybutynin 5 MG Tab.ER PO ONE (04:09)
--- NOTE | 2021-03-27 04:23 | EDM.PDOC ---
ED HPI GENERAL MEDICAL PROBLEM - General Chief Complaint: Genitourinary Problem Stated Complaint: CATH ISSUES Time Seen by Provider: 03/27/21 03:30 Source of Information: Reports: Patient History Limitations: Reports: No Limitations - History of Present Illness INITIAL COMMENTS - FREE TEXT/NARRATIVE: c/o urinary retention pt with mcnulty catheter x 7m for BPH, not a surgical candidate d/t co-morbidities however pt says he "cannot state the catheter" and that "this is not living," he is trying to get surgery done anyhow he says the mcnulty is not draining altho it drained just fine here, after the RN clamped the catheter and sent a urine specimen to lab, the bladder scaner showed only 144 ml in the bladder last urine culture on 10-30-20 showed Enterobacter cloacae, resistant to all except intermediate to nitrofurantoin and sensitive to meropenem pt has many bacteria on u/a today, however this is likely colonization as there are only 5-10 wbc/hpf, using antbx would not be advisable given the amount of resistance present, a UC was sent as empiric trial, given pt's copious complaints, it may be reasonable for a short trial of an antispasmodic, according pt was given a one week supply of oxybutynin ER 5 mg daily with the understanding that he will need to discuss these issues further with either PCP Dr Blackmon or his urologist in the next 2-3 days Lower abdomen Pain Score (Numeric/FACES): 8 - Related Data Allergies Allergy/AdvReac Type Severity Reaction Status Date / Time Penicillins Allergy Hives Verified 03/27/21 02:36 hydromorphone HCl AdvReac Change Verified 03/27/21 02:36 [From Dilaudid] Mental Status Home Meds: Home Meds atorvaSTATin [Lipitor] 20 mg PO DAILY 06/06/14 [History] Apixaban [Eliquis] 5 mg PO BID 10/06/19 [History] Ascorbate Calcium [Vitamin C] 500 mg PO DAILY 10/06/19 [History] Nitroglycerin [Nitrostat] 0.4 mg SL Q5M PRN 10/06/19 [History] Albuterol/Ipratropium [DuoNeb 3.0-0.5 MG/3 ML] 3 ml INH QID 07/15/20 [History] Bumetanide [Bumex] 1.5 mg PO BID@08,14 07/15/20 [History] Esomeprazole [NexIUM] 20 mg PO DAILY 07/15/20 [History] Acyclovir [Zovirax 5% Oint] 1 applic TOP TID PRN 08/22/20 [History] Albuterol/Ipratropium [DuoNeb 3.0-0.5 MG/3 ML] 3 ml IH Q4H PRN 08/22/20 [History] Calcium Carbonate/Vitamin D3 [Calcium 500-Vit D3 200 Tablet] 1 tab PO DAILY 08/22/20 [History] Cholecalciferol (Vitamin D3) [Vitamin D3] 25 mcg PO DAILY 08/22/20 [History] Docusate Sodium/Sennosides [Senna Plus] 1 tab PO BID 08/22/20 [History] Polyvinyl Alcohol/Povidone [Refresh] 1 drop EYEBOTH DAILY PRN 08/22/20 [History] Benzonatate 100 mg PO QID PRN 10/27/20 [History] Metoprolol Succinate [Toprol XL] 200 mg PO DAILY 10/27/20 [History] Midodrine 2.5 mg PO TIDAC 10/27/20 [History] Treprostinil [Tyvaso] 3 inh IH QID 10/27/20 [History] Digoxin [Digitek] 125 mcg PO DAILY 11/03/20 [History] Bumetanide [Bumex] 1.5 mg PO BID PRN 02/22/21 [History] Carbidopa/Levodopa [Carbidopa-Levodopa 25-100] 1.5 tab PO TID 02/22/21 [History] Citalopram [Citalopram HBr] 10 mg PO DAILY 02/22/21 [History] Potassium Chloride 20 meq PO DAILY 02/22/21 [History] metOLazone [Metolazone] 2.5 mg PO DAILY PRN 02/22/21 [History] ondansetron HCL [Zofran] 4 mg PO Q6H PRN 02/22/21 [History] predniSONE [Prednisone] 10 mg PO DAILY 02/22/21 [History] guaiFENesin [Mucinex] 600 mg PO BID tab.er 02/27/21 [Rx] Oxybutynin [Oxybutynin ER] 5 mg PO DAILY #6 tab.er 03/27/21 [Rx] Past Medical History HEENT History: Reports: Impaired Vision Cardiovascular History: Reports: Afib, CAD, Heart Failure, High Cholesterol, Hypertension, PTCA, Pulmonary Hypertension, Stents, Syncope Other Cardiovascular History: cardioversion 10/04/19, cardiac ablation x 6 Respiratory History: Reports: COPD, Pneumonia, Recurrent, Sleep Apnea, SOB, Other (See Below) Other Respiratory History: On O2 @ 4-5L/NC Gastrointestinal History: Reports: Chronic Constipation, Other (See Below) Other Gastrointestinal History: rectal tear Genitourinary History: Reports: Renal Calculus Musculoskeletal History: Reports: Arthritis, Back Pain, Chronic, Fracture Other Musculoskeletal History: R shoulder arthritis, hx fx chin Endocrine/Metabolic History: Reports: Obesity/BMI 30+ Hematologic History: Reports: Anticoagulation Therapy, Blood Transfusion(s), Iron Deficiency - Infectious Disease History Infectious Disease History: Reports: Chicken Pox, Measles, Novel Coronavirus - Past Surgical History HEENT Surgical History: Reports: Eye Surgery Other HEENT Surgeries/Procedures: L tear duct surgery Cardiovascular Surgical History: Reports: Cardiac Ablation, Carotid Endarterectomy, Coronary Artery Stent Other Cardiovascular Surgeries/Procedures: stents x 2, R carotid endarterectomy, cardiac ablation x 6 Respiratory Surgical History: Reports: Thoracentesis, Other (See Below) Other Respiratory Surgeries/Procedures: bronchoscopy GI Surgical History: Reports: Colonoscopy Male Surgical History: Reports: Lithotripsy ([facility]) Musculoskeletal Surgical History: Reports: None Social & Family History - Family History Family Medical History: No Pertinent Family History - Tobacco Use Years of Tobacco use: 20 - Caffeine Use Caffeine Use: Reports: Soda - Recreational Drug Use Recreational Drug Use: No - Living Situation & Occupation Living situation: Reports: Occupation: Retired ED ROS GENERAL - Review of Systems Review Of Systems: See Below Constitutional: Reports: No Symptoms HEENT: Reports: No Symptoms Respiratory: Reports: No Symptoms Cardiovascular: Reports: No Symptoms Endocrine: Reports: No Symptoms GI/Abdominal: Reports: No Symptoms : Reports: Urinary Retention Musculoskeletal: Reports: No Symptoms Skin: Reports: No Symptoms Neurological: Reports: No Symptoms Psychiatric: Reports: No Symptoms Hematologic/Lymphatic: Reports: No Symptoms Immunologic: Reports: No Symptoms ED EXAM, RENAL/ - Physical Exam Exam: See Below Exam Limited By: No Limitations General Appearance: Alert, WD/WN, No Apparent Distress Throat/Mouth: Normal Inspection Head: Atraumatic, Normocephalic Neck: Normal Inspection Respiratory/Chest: Lungs Clear Cardiovascular: Regular Rate, Rhythm GI/Abdominal: Soft, Non-Tender Extremities: Normal Inspection, No Pedal Edema Neurological: Alert, Oriented, CN II-XII Intact, Normal Cognition, No Motor/Sensory Deficits Psychiatric: Normal Affect, Normal Mood Skin Exam: Warm, Dry, Intact, Normal Color, No Rash Lymphatic: No Adenopathy Course - Vital Signs Last Recorded V/S: Last Vital Signs Temp 36.8 C 03/27/21 02:32 Pulse 76 03/27/21 02:32 Resp 24 H 03/27/21 02:32 BP 116/53 L 03/27/21 02:32 Pulse Ox 88 L 03/27/21 02:32 - Orders/Labs/Meds Orders: Active Orders 24 hr Category Date Time Status CULTURE URINE [RM] Stat Lab 03/27/21 03:47 Ordered Labs: Laboratory Tests 03/27/21 Range/Units 03:30 Urine Color Yellow (YELLOW) Urine Appearance Cloudy (CLEAR) Urine pH 9.0 H (5.0-6.5) Ur Specific [place] 1.015 (1.010-1.025) Urine Protein Negative (NEGATIVE) mg/dL Urine Glucose (UA) Normal (NORMAL) mg/dL Urine Ketones Negative (NEGATIVE) mg/dL Urine Occult Blood Large H (NEGATIVE) Urine Nitrite Negative (NEGATIVE) Urine Bilirubin Negative (NEGATIVE) Urine Urobilinogen Normal (NEGATIVE) mg/dL Ur Leukocyte Esterase Large H (NEGATIVE) Urine RBC 5-10 H (0-5) Urine WBC 5-10 H (0-5) Ur Squamous Epith Cells Occasional (NS,R,O) Urine Bacteria Many H (NS) Meds: Medications Discontinued Medications Generic Name Dose Route Start Last Admin Trade Name Freq PRN Reason Stop Dose Admin Oxybutynin Chloride 5 mg 03/27/21 04:09 Oxybutynin 5 Mg Tab.Er PO 03/27/21 04:10 ONETIME ONE - Re-Assessments/Exams Free Text/Narrative Re-Assessment/Exam: 03/27/21 04:31 it is not clear what sxs pt actually has referable to his catheter, he states he has some discomfort at the tip of his penis so it is not clear whether he has actual bladder spasm or not yet, he does state that the flow of urine into the bag is variable, which suggest the presence of spasm there are no blood clots and irrigating the bladder pt states "I really appreciate your help, I really do" to RN as he was being discharged, is willing to try a trial of oxybutynin Departure - Departure Time of Disposition: 04:15 Disposition: Home, Self-Care 01 Condition: Good Clinical Impression: Urinary retention, Painful bladder spasm - Discharge Information *PRESCRIPTION DRUG MONITORING PROGRAM REVIEWED*: Not Applicable *COPY OF PRESCRIPTION DRUG MONITORING REPORT IN PATIENT DIAZ: Not Applicable Prescriptions: Oxybutynin [Oxybutynin ER] 5 mg PO DAILY #6 tab.er Instructions: Acute Urinary Retention, Male Referrals: Akil Blackmon MD [Primary Care Provider] - Additional Instructions: The bladder scan showed only a small amount of urine. However, sometimes the bladder can cramp or spasm, which can be uncomfortable. To prevent spasm, take oxybutynin ER 5 mg 1 tab daily to see if that helps with the discomfort. See Dr Blackmon or your urologist in the next 2-3 days for further recommendations. Sepsis Event Note (ED) - Evaluation Sepsis Screening Result: No Definite Risk - Focused Exam Vital Signs: Vital Signs Temp Pulse Resp BP Pulse Ox 03/27/21 02:32 36.8 C 76 24 H 116/53 L 88 L - My Orders Last 24 Hours: My Active Orders 03/27/21 03:47 CULTURE URINE [RM] Stat - Assessment/Plan Last 24 Hours: My Active Orders 03/27/21 03:47 CULTURE URINE [RM] Stat
[2021-03-27 06:33] VITALS: BP 101/54; PULSE 91
== END 2021-03-27 04:42 | disposition home or self-care (01) ==
LOC: FB.ED 02:25
DX: R33.9 Retention of urine, unspecified (principal); N32.89 Other specified disorders of bladder; I48.91 Unspecified atrial fibrillation; I25.10 Atherosclerotic heart disease of native coronary artery without angina pectoris; I11.0 Hypertensive heart disease with heart failure; I50.9 Heart failure, unspecified; E78.00 Pure hypercholesterolemia, unspecified; I10 Essential (primary) hypertension; J44.9 Chronic obstructive pulmonary disease, unspecified; E66.9 Obesity, unspecified; Z88.0 Allergy status to penicillin; Z88.5 Allergy status to narcotic agent; Z79.01 Long term (current) use of anticoagulants; Z79.899 Other long term (current) drug therapy; Z68.31 Body mass index [BMI] 31.0-31.9, adult
CPT/HCPCS: 51798; 81001; 87086; 87088; 87186; 99283-25; A9270-GY

== ENCOUNTER 2021-07-17 09:21 | Day surgery (SDC) | payer BC, MEDICARE ==
[2021-07-17] MEDS ORDERED: Midazolam 1 MG/ML 2 ML SDV IV ONE (09:22)
[2021-07-17] MEDS ORDERED: fentaNYL 100 MCG/2 ML SDV IV ONE (09:22)
[2021-07-17] MEDS: Sodium Chloride 0.9% 10 ML Syringe FLUSH PRN (10:40)
[2021-07-17] MEDS: Lactated Ringers 1,000 ML IV PRN (10:43)
[2021-07-17] MEDS: acetaZOLAMIDE 500 MG Cap.ER PO ONE (11:32)
[2021-07-17 11:59] VITALS: BP 116/56; PULSE 76
== END 2021-07-17 12:11 | disposition home or self-care (01) ==
LOC: FB.SDS 09:21
PROVIDERS: ATTEND Ophthalmology
DX: H25.13 Age-related nuclear cataract, bilateral (principal); H04.123 Dry eye syndrome of bilateral lacrimal glands; H52.03 Hypermetropia, bilateral; H52.223 Regular astigmatism, bilateral; I25.10 Atherosclerotic heart disease of native coronary artery without angina pectoris; I11.0 Hypertensive heart disease with heart failure; I50.32 Chronic diastolic (congestive) heart failure; J44.9 Chronic obstructive pulmonary disease, unspecified; G47.33 Obstructive sleep apnea (adult) (pediatric); Z79.899 Other long term (current) drug therapy; E78.5 Hyperlipidemia, unspecified; E66.9 Obesity, unspecified; F41.9 Anxiety disorder, unspecified; Z86.16 Personal history of COVID-19; Z87.891 Personal history of nicotine dependence; I25.2 Old myocardial infarction; Z88.0 Allergy status to penicillin; Z88.8 Allergy status to other drugs, medicaments and biological substances; Z98.890 Other specified postprocedural states
CPT/HCPCS: 00142-QZ; A9270-GY; J2250; J3010; J7120; V2632

== ENCOUNTER 2021-08-28 07:55 | Day surgery (SDC) | payer BC, MEDICARE ==
[~2021-08-28 07:55] MED LIST: Lactated Ringers 1,000 ML IV PRN; Sodium Chloride 0.9% 10 ML Syringe FLUSH PRN; acetaZOLAMIDE 500 MG Cap.ER PO ONE
[2021-08-28] MEDS ORDERED: fentaNYL 100 MCG/2 ML SDV IV ONE (07:56)
[2021-08-28] MEDS ORDERED: Midazolam 1 MG/ML 2 ML SDV IV ONE (07:56)
[2021-08-28] MEDS ORDERED: Lactated Ringers 1,000 ML IV PRN (08:00)
[2021-08-28] MEDS ORDERED: Sodium Chloride 0.9% 10 ML Syringe FLUSH PRN (08:00)
[2021-08-28] MEDS ORDERED: Tetracaine HCl/PF 0.5% 4 ML Bottle ONE (09:24)
[2021-08-28] MEDS ORDERED: Dexamethasone/Tobramycin 0.1-0.3% Ophth Susp 2.5 ML Bottle ONE (09:36)
[2021-08-28] MEDS ORDERED: Brimonidine 0.2% Ophth Soln 5 ML Bottle ONE (09:36)
[2021-08-28] MEDS ORDERED: acetaZOLAMIDE 500 MG Cap.ER PO ONE (10:00)
[2021-08-28 10:22] VITALS: BP 124/48; PULSE 64
== END 2021-08-28 10:18 | disposition home or self-care (01) ==
LOC: FB.SDS 07:55
PROVIDERS: ATTEND Ophthalmology
DX: H25.13 Age-related nuclear cataract, bilateral (principal); H04.123 Dry eye syndrome of bilateral lacrimal glands; H52.03 Hypermetropia, bilateral; H52.223 Regular astigmatism, bilateral; J44.9 Chronic obstructive pulmonary disease, unspecified; K92.1 Melena; I25.10 Atherosclerotic heart disease of native coronary artery without angina pectoris; I48.19 Other persistent atrial fibrillation; I25.2 Old myocardial infarction; F41.9 Anxiety disorder, unspecified; D63.1 Anemia in chronic kidney disease; I13.0 Hypertensive heart and chronic kidney disease with heart failure and stage 1 through stage 4 chronic kidney disease, or unspecified chronic kidney disease; N18.9 Chronic kidney disease, unspecified; I50.30 Unspecified diastolic (congestive) heart failure; K21.9 Gastro-esophageal reflux disease without esophagitis; E78.00 Pure hypercholesterolemia, unspecified; G47.33 Obstructive sleep apnea (adult) (pediatric); Z88.0 Allergy status to penicillin; Z88.5 Allergy status to narcotic agent; Z86.16 Personal history of COVID-19; Z79.01 Long term (current) use of anticoagulants; Z87.891 Personal history of nicotine dependence; Z79.899 Other long term (current) drug therapy; Z79.82 Long term (current) use of aspirin; Z86.711 Personal history of pulmonary embolism
CPT/HCPCS: 00142-QZ; A9270-GY; J2250; J3010; J7120; V2632

== ENCOUNTER 2024-10-04 10:53 | Emergency (ER) | payer BC, MEDICARE ==
[2024-10-04] MEDS ORDERED: Sodium Chloride 0.9% 10 ML Syringe FLUSH PRN (11:08)
[2024-10-04 11:32] LABS: BASOPHILS ABSOLUTE AUTO 0.1 x10-3/uL (0.0-0.3); BASOPHILS PERCENT AUTO 0.4 % (0.3-3.8); EOSINOPHILS ABSOLUTE AUTO 0.2 x10-3/uL (0.0-0.6); EOSINOPHILS PERCENT AUTO 1.4 % (0.1-6.8); HEMATOCRIT 36.5 % (38.3-50.1); HEMOGLOBIN 11.4 g/dL (12.9-17.7); LYMPHOCYTES ABSOLUTE AUTO 0.4 x10-3/uL (0.5-4.5); LYMPHOCYTES PERCENT AUTO 3.2 % (15.8-45.3); MEAN CORPUSCULAR HGB CONC 31.3 g/dL (28.7-35.3); MEAN CORPUSCULAR VOLUME 98.9 fL (80.8-98.7); MEAN PLATELET VOLUME 8.4 fL (6.7-11.0); MONOCYTES ABSOLUTE AUTO 1.4 x10-3/uL (0.0-1.2); MONOCYTES PERCENT AUTO 10.7 % (5.5-15.2); NEUTROPHILS ABSOLUTE AUTO 10.7 x10-3/uL (1.7-6.9); NEUTROPHILS PERCENT AUTO 84.3 % (40.3-71.8); PLATELET COUNT,PLT 163 x10(3)uL (117-477); RED BLOOD CELL COUNT 3.69 x10(6)uL (3.90-5.90); RED CELL DISTRIBUTION WIDTH 18.6 % (12.4-15.0); WHITE BLOOD CELL COUNT,WBC 12.7 x10-3/uL (3.2-10.1)
[2024-10-04] MEDS: Furosemide 40 MG/4 ML VIAL IVPUSH ONE (11:32)
[2024-10-04 11:33] LABS: BLOOD UREA NITROGEN,BUN 40 mg/dL (7-18); CALCIUM 8.7 mg/dL (8.6-10.2); CARBON DIOXIDE,CO2 31 mmol/L (21-32); CHLORIDE,CL 106 mmol/L (100-110); CREATININE 1.6 mg/dL (0.70-1.30); ESTIMATED GFR 44 mL/min (>60); GLUCOSE RANDOM 111 mg/dL (80-116); POTASSIUM,K 3.3 mmol/L (3.5-5.3); SODIUM,NA 144 mmol/L (135-145)
[2024-10-04] MEDS: Nitroglycerin 0.4 MG Tab.SL SL ONE ×2 (11:34→12:59)
[2024-10-04] MEDS: Metolazone 5 MG Tab PO ONE (11:35)
[2024-10-04 11:39] LABS: A/G RATIO 1.2; ALANINE AMINOTRANSFERASE,ALT 45 U/L (12-36); ALBUMIN 3.6 g/dL (3.2-4.6); ALKALINE PHOSPHATASE 110 IU/L (56-112); ASPARTATE AMNIOTRANSFERASE,AST 18 IU/L (5-25); BILIRUBIN TOTAL 0.7 mg/dL (0.1-1.3); PROTEIN TOTAL,TP 6.6 g/dL (6.0-8.0)
[2024-10-04 11:48] LABS: TROPONIN I 81.1 pg/mL (4.0-60.3)
[2024-10-04 12:08] LABS: INR 1.28 (1.00-1.24)
[2024-10-04 13:23] LABS: PTT,PARTIAL THROMBOPLSTIN TIME 24.4 SECONDS (24.4-33.2)
[2024-10-04] MEDS: Metoprolol Tartrate 50 MG Tab PO ONE (13:36)
[2024-10-04] MEDS: Aspirin 81 MG Tab.Chew PO ONE (13:37)
[2024-10-04] MEDS: Potassium Chloride 20 MEQ Tab.ER PO ONE (13:52)
[2024-10-04 14:06] VITALS: PULSE 76
[2024-10-04 14:54] VITALS: BP 136/72
== END 2024-10-04 15:25 ==
LOC: FB.ED 10:53
DX: I11.0 Hypertensive heart disease with heart failure (principal); I50.9 Heart failure, unspecified; I48.20 Chronic atrial fibrillation, unspecified; J44.89 Other specified chronic obstructive pulmonary disease; E87.6 Hypokalemia; R79.89 Other specified abnormal findings of blood chemistry; M19.90 Unspecified osteoarthritis, unspecified site; E78.00 Pure hypercholesterolemia, unspecified; E66.9 Obesity, unspecified; Z68.29 Body mass index [BMI] 29.0-29.9, adult; Z88.0 Allergy status to penicillin; Z88.8 Allergy status to other drugs, medicaments and biological substances; Z79.82 Long term (current) use of aspirin; Z79.899 Other long term (current) drug therapy; Z86.16 Personal history of COVID-19
CPT/HCPCS: 71045; 80053; 83735; 83880; 84484; 85025; 85610; 85730; 93005; 93010; 96374; 99285; A9270; J1938